=== PATIENT | female | born 1950 | race Caucasian/White ===

== ENCOUNTER 2022-08-22 10:59 | Outpatient (CLI) | payer MEDICARE, OTHER ==
[2022-08-22 11:28] LABS: INR 2.3 (0.8-1.2); PT - PROTHROMBIN TIME 24.7 secs (9.9-12.6)
== END 2022-08-22 11:00 | disposition home or self-care (01) ==
LOC: LAB 10:59
DX: I63.9 Cerebral infarction, unspecified (principal); Z79.01 Long term (current) use of anticoagulants
CPT/HCPCS: 36415; 85610

== ENCOUNTER 2022-08-25 09:36 | Outpatient (CLI) | payer MEDICARE, OTHER ==
--- NOTE | 2022-08-25 14:51 | XRAY Report ---
PROCEDURE: Knee 4 View RT INDICATIONS: UNSPECIFIED INJURY OF UNSPECIFIED MUSCLE(S) TECHNIQUE: 4 views of the right knee(s) were acquired. COMPARISON: None. FINDINGS: Bones: No fractures or dislocations. No suspicious bony lesions. Moderate medial and mild to moder ate lateral patellofemoral compartment narrowing. No erosions. Soft tissues: Moderate joint effusion. No suspicious soft tissue calcifications. IMPRESSION: Tricompartmental arthritic change and effusion. Reviewed by: Adelaida Felix MD on 08/25/2022 2:50 PM PST Approved by: Adelaida Felix MD on 08/25/2022 2:50 PM PST Station ID: [id number]
== END 2022-08-25 09:37 | disposition home or self-care (01) ==
LOC: DI 09:36
PROVIDERS: ATTEND Nurse Practitioner
DX: S86.901A Unspecified injury of unspecified muscle(s) and tendon(s) at lower leg level, right leg, initial encounter (principal); M17.11 Unilateral primary osteoarthritis, right knee

== ENCOUNTER 2022-08-26 15:01 | Emergency (ER) | payer MEDICARE, OTHER ==
--- OUTSIDE RECORDS SUMMARY | 2022-08-26 15:24 | EXTERNAL MEDICAL SUMMARY RPT | Continuity of Care Document ---
:1950 Author Organization [facility] Address [address] [place] [address] Phone Care Team Providers Name Role Phone Unavailable Unavailable Unavailable CHRISTIN GARCIA Unavailable Unavailable Katy Trimble Unavailable Unavailable Allergies and Intolerances date description facility type (no date) phenazopyridine [facility] (unknown) (no date) prednisone [facility] (unknown) (no date) procaine [facility] (unknown) (no date) rizatriptan [facility] (unknown) (no date) shellfish derived [facility] (unknown) (no date) tetracycline [facility] (unknown) (no date) thiopental [facility] (unknown) Encounters No information. Functional Status No information. Immunizations No information. 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 2022-06-24 11:29:09 Cerebral infarction, unspecified [facility] 2022-06-24 11:29:09 Encounter for therapeutic drug [facility] level monitoring 2022-06-24 11:29:09 [facility] (current) use of [facility] anticoagulants 2022-07-08 11:58:25 Cerebral infarction, unspecified [facility] 2022-07-08 11:58:25 Encounter for therapeutic drug [facility] level monitoring 2022-07-08 11:58:25 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 2022-07-26 00:00 Acute urinary tract infection [facility] 2022-08-03 00:00 Acute pancreatitis [facility] 2022-08-03 00:00 Acute renal failure [facility] 2022-08-07 08:52 Calculus of ureter [facility] 2022-08-07 08:52 Personal history of urinary calculi [facility] 2022-08-07 12:02 Calculus of ureter [facility] 2022-08-07 12:02 Personal history of urinary calculi [facility] 2022-08-22 12:49:19 Cerebral infarction, unspecified [facility] 2022-08-22 12:49:19 Encounter for therapeutic drug [facility] level monitoring 2022-08-22 12:49:19 [facility] (current) use of [facility] antico[facility] Procedures date description facility 2022-08-02 00:00 CT kidney, ureter and bladder [facility]22-[facility]-06 00:00 Ultrasound of peripheral veins of [facility] left upper extremity 2022-08-02 00:00 US abdomen complete [facility] 2022-06-10 16:05:14 INR ANA CRISTINA EXTERNAL [facility] 2022-06-24 11:29:09 INR ANA CRISTINA EXTERNAL [facility] 2022-07-08 11:58:25 INR ANA CRISTINA EXTERNAL [facility] 2022-08-22 12:49:19 INR ANA CRISTINA EXTERNAL [facility] Results/Labs test date author facility value unit interpret ation Result panel 1 (unknown) (no date[facility]) Result panel 2 (unknown) (no date) (unknown) [place] ([facility]) Result panel 3 (unknown) (no date) (unknown) [place] [facility]) Result panel 4 (unknown) (no date) (unknown[facility]) Result panel 5 (unknown) (no date) (unknown[facility]) Result panel 6 (unknown) (no date) (unknown[facility]) Result panel 7 (unknown) (no date) (unknown[facility]) Result panel 8 (unknown) (no date) (unknown[facility]) Result panel 9 (unknown) (no date) (unknown[facility]) Result panel 10 (unknown) (no date) (unknown[facility]) Result panel 11 (unknown) (no date) (unknown[facility]) Result panel 12 (unknown) (no date) (unknown[facility]) Result panel 13 (unknown) (no date) (unknown[facility]) Result panel 14 (unknown) (no date) (unknown[facility]) Result panel 15 (unknown) (no date) (unknown[facility]) Result panel 16 (unknown) (no date) (unknown[facility]) Result panel 17 (unknown) (no date) (unknown[facility]) Result panel 18 (unknown) (no date) (unknown[facility]) Result panel 19 (unknown) (no date) (unknown[facility]) Result panel 20 (unknown) (no date) (unknown[facility]) Result panel 21 (unknown) (no date) (unknown[facility]) Result panel 22 (unknown) (no date) (unknown[facility]) Result panel 23 (unknown) (no date) (unknown[facility]) Result panel 24 (unknown) (no date) (unknown[facility]) Result panel 25 (unknown) (no date) (unknown[facility]) Result panel 26 (unknown) (no date) (unknown[facility]) Result panel 27 (unknown) (no date) (unknown[facility]) Result panel 28 (unknown) (no date) (unknown[facility]) Result panel 29 (unknown) (no date) (unknown[facility]) Result panel 30 (unknown) (no date) (unknown[facility]) Result panel 31 (unknown) (no date) (unknown[facility]) Result panel 32 (unknown) (no date) (unknown[facility]) Result panel 33 (unknown) (no date) (unknown[facility]) Result panel 34 (unknown) (no date) (unknown[facility]) Result panel 35 (unknown) (no date) (unknown[facility]) Result panel 36 (unknown) (no date) (unknown[facility]) Result panel 37 (unknown) (no date) (unknown[facility]) Result panel 38 (unknown) (no date) (unknown[facility]) Result panel 39 (unknown) (no date) (unknown[facility]) Result panel 40 (unknown) (no date) (unknown[facility]) Result panel 41 (unknown) (no date) (unknown[facility]) Result panel 42 (unknown) (no date) (unknown[facility]) Result panel 43 (unknown) (no date) (unknown[facility]) Result panel 44 (unknown) (no date) (unknown[facility]) Result panel 45 (unknown) (no date) (unknown[facility]) Result panel 46 (unknown) (no date) (unknown[facility]) Result panel 47 (unknown) (no date) (unknown[facility]) Result panel 48 (unknown) (no date) (unknown[facility]) Result panel 49 (unknown) (no date) (unknown[facility]) Result panel 50 (unknown) (no date) (unknown[facility]) Result panel 51 (unknown) (no date) (unknown[facility]) Result panel 52 (unknown) (no date) (unknown[facility]) Result panel 53 (unknown) (no date) (unknown[facility]) Result panel 54 (unknown) (no date) (unknown[facility]) Result panel 55 (unknown) (no date) (unknown[facility]) Result panel 56 (unknown) (no date) (unknown[facility]) Result panel 57 (unknown) (no date) (unknown[facility]) Result panel 58 (unknown) (no date) (unknown[facility]) Result panel 59 (unknown) (no date) (unknown[facility]) Result panel 60 (unknown) (no date) (unknown[facility]) Result panel 61 (unknown) (no date) (unknown[facility]) Result panel 62 (unknown) (no date) (unknown[facility]) Result panel 63 (unknown) (no date) (unknown[facility]) Result panel 64 (unknown) (no date) (unknown[facility]) Result panel 65 (unknown) (no date) (unknown[facility]) Result panel 66 (unknown) (no date) (unknown[facility]) Result panel 67 (unknown) (no date) (unknown[facility]) Result panel 68 (unknown) (no date) (unknown[facility]) Result panel 69 (unknown) (no date) (unknown[facility]) Result panel 70 (unknown) (no date) (unknown[facility]) Result panel 71 (unknown) (no date) (unknown[facility]) Result panel 72 (unknown) (no date) (unknown[facility]) Result panel 73 (unknown) (no date) (unknown[facility]) Result panel 74 (unknown) (no date) (unknown[facility]) Result panel 75 (unknown) (no date) (unknown[facility]) Result panel 76 (unknown) (no date) (unknown[facility]) Result panel 77 (unknown) (no date) (unknown[facility]) Result panel 78 (unknown) (no date) (unknown[facility]) Result panel 79 (unknown) (no date) (unknown[facility]) Result panel 80 (unknown) (no date) (unknown[facility]) Result panel 81 (unknown) (no date) (unknown[facility]) Result panel 82 (unknown) (no date) (unknown[facility]) Result panel 83 (unknown) (no date) (unknown[facility]) Result panel 84 (unknown) (no date) (unknown[facility]) Result panel 85 (unknown) (no date) (unknown[facility]) Result panel 86 (unknown) (no date) (unknown[facility]) Result panel 87 (unknown) (no date) (unknown[facility]) Result panel 88 (unknown) (no date) (unknown[facility]) Result panel 89 (unknown) (no date) (unknown[facility]) Result panel 90 (unknown) (no date) (unknown[facility]) Result panel 91 (unknown) (no date) (unknown[facility]) Result panel 92 (unknown) (no date) (unknown[facility]) Result panel 93 (unknown) (no date) (unknown[facility]) Result panel 94 (unknown) (no date) (unknown[facility]) Result panel 95 (unknown) (no date) (unknown[facility]) Result panel 96 (unknown) (no date) (unknown[facility]) Result panel 97 (unknown) (no date) (unknown[facility]) Result panel 98 (unknown) (no date) (unknown[facility]) Result panel 99 (unknown) (no date) (unknown[facility]) Result panel 100 (unknown) (no date) (unknown[facility]) Result panel 101 (unknown) (no date) (unknown[facility]) Result panel 102 (unknown) (no date) (unknown[facility]) Result panel 103 (unknown) (no date) (unknown[facility]) Result panel 104 (unknown) (no date) (unknown[facility]) Result panel 105 (unknown) (no date) (unknown[facility]) Result panel 106 (unknown) (no date) (unknown[facility]) Result panel 107 (unknown) (no date) (unknown[facility]) Result panel 108 (unknown) (no date) (unknown[facility]) Result panel 109 (unknown) (no date) (unknown[facility]) Result panel 110 (unknown) (no date) (unknown[facility]) Result panel 111 (unknown) (no date) (unknown[facility]) Result panel 112 (unknown) (no date) (unknown[facility]) Result panel 113 (unknown) (no date) (unknown[facility]) Result panel 114 (unknown) (no date) (unknown[facility]) Result panel 115 (unknown) (no date) (unknown[facility]) Result panel 116 (unknown) (no date) (unknown[facility]) Result panel 117 (unknown) (no date) (unknown[facility]) Result panel 118 (unknown) (no date) (unknown[facility]) Result panel 119 (unknown) (no date) (unknown[facility]) Result panel 120 (unknown) (no date) (unknown[facility]) Result panel 121 (unknown) (no date) (unknown[facility]) Result panel 122 (unknown) (no date) (unknown[facility]) Result panel 123 (unknown) (no date) (unknown[facility]) Result panel 124 (unknown) (no date) (unknown[facility]) Result panel 125 (unknown) (no date) (unknown[facility]) Result panel 126 (unknown) (no date) (unknown[facility]) Result panel 127 (unknown) (no date) (unknown[facility]) Result panel 128 (unknown) (no date) (unknown[facility]) Result panel 129 (unknown) (no date) (unknown[facility]) Result panel 130 (unknown) (no date) (unknown[facility]) Result panel 131 (unknown) (no date) (unknown[facility]) Result panel 132 (unknown) (no date) (unknown[facility]) Result panel 133 (unknown) (no date) (unknown[facility]) Result panel 134 (unknown) (no date) (unknown[facility]) Result panel 135 (unknown) (no date) (unknown[facility]) Result panel 136 (unknown) (no date) (unknown[facility]) Result panel 137 (unknown) (no date) (unknown[facility]) Result panel 138 (unknown) (no date) (unknown[facility]) Result panel 139 (unknown) (no date) (unknown) [facility]) Result panel 140 (unknown) (no date) (unknown[facility]) Result panel 141 (unknown) (no date) (unknown[facility]) Result panel 142 (unknown) (no date) (unknown) [facility]) Result panel 143 (unknown) (no date) (unknown[facility]) Result panel 144 (unknown) (no date) (unknown[facility]) Result panel 145 (unknown) (no date) (unknown[facility]) Result panel 146 (unknown) (no date) (unknown[facility]) Result panel 147 (unknown) (no date) (unknown[facility]) Result panel 148 (unknown) (no date) (unknown[facility]) Result panel 149 (unknown) (no date) (unknown[facility]) Result panel 150 (unknown) (no date) (unknown[facility]) Result panel 151 (unknown) (no date) (unknown) [facility]) Result panel 152 (unknown) (no date) (unknown[facility]) Result panel 153 (unknown) (no date) (unknown[facility]) Result panel 154 (unknown) (no date) (unknown[facility]) Result panel 155 (unknown) (no date) (unknown[facility]) Result panel 156 (unknown) (no date) (unknown[facility]) Result panel 157 (unknown) (no date) (unknown) [facility]) Result panel 158 (unknown) (no date) (unknown[facility]) Result panel 159 (unknown) (no date) (unknown[facility]) Result panel 160 (unknown) (no date) (unknown[facility]) Result panel 161 (unknown) (no date) (unknown) [facility]) Result panel 162 (unknown) (no date) (unknown[facility]) Result panel 163 (unknown) (no date) (unknown[facility]) Result panel 164 (unknown) (no date) (unknown[facility]) Result panel 165 (unknown) (no date) (unknown[facility]) Result panel 166 (unknown) (no (unknown) (unknown) (no value) (units (unk nown) date) unknown) (unknown) (no (unknown) (unknown) 0.4 mg PO BEDTIME (units (unknown) date) Qty: 60 0RF unknown) (unknown) (no (unknown) (unknown) [id number] (units (unkno wn) date) unknown) (unknown) (no (unknown) (unknown) 1 g vaginal 2XW (units (unknown) date) Qty: 42.5 3RF unknown) (unknown) (no (unknown) (unknown) 1,000 mg PO BID (units (unknown) date) unknown) (unknown) (no (unknown) (unknown) 125 mcg PO DAILY (units (unknown) date) unknown) (unknown) (no (unknown) (unknown) 2 mg PO 2XW (units (un known) date) unknown) (unknown) (no (unknown) (unknown) 20 mg PO 6XW (units (u nknown) date) unknown) (unknown) (no (unknown) (unknown) 250 mg PO BEDTIME (units (unknown) date) Qty: 60 0RF unknown) (unknown) (no (unknown) (unknown) 3 g PO ONCE Qty: (units (unknown) date) 1 0RF unknown) (unknown) (no (unknown) (unknown) 3 mg PO 5XW (units (un known) date) unknown) (unknown) (no (unknown) (unknown) 40 mg PO DAILY (units (unknown) date) unknown) (unknown) (no (unknown) (unknown) 40 mg PO WEEKLY (units (unknown) date) unknown) (unknown) (no (unknown) (unknown) 5 mg PO Q4H PRN (units (unknown) date) (Reason: pain) unknown) Qty: 20 0RF (unknown) (no (unknown) (unknown) 5,000 mcg (units (unkn own) date) sublingual DAILY unknown) (unknown) (no (unknown) (unknown) 50 mcg INHALATION (units (unknown) date) Q8HR unknown) (unknown) (no (unknown) (unknown) 50 mg PO DAILY (units (unknown) date) unknown) (unknown) (no (unknown) (unknown) 6.25 mg PO BID (units (unknown) date) unknown) (unknown) (no (unknown) (unknown) 99 mg PO DAILY (units (unknown) date) unknown) (unknown) (no (unknown) (unknown) AICD (automatic (units (unknown) date) cardioverter/defib unknown) rillator) present (11/29/20) (unknown) (no (unknown) (unknown) Acute kidney (units (u nknown) date) injury unknown) (unknown) (no (unknown) (unknown) Afib (units (unkno wn) date) unknown) (unknown) (no (unknown) (unknown) Age/Sex: 71 / F (units (unknown) date) unknown) (unknown) (no (unknown) (unknown) Allergies (units (unkn own) date) unknown) (unknown) (no (unknown) (unknown) Allergy/AdvReac (units (unknown) date) Type Severity unknown) Reaction Status Date / Time (unknown) (no (unknown) (unknown) CHF (congestive (units (unknown) date) heart failure) unknown) (unknown) (no (unknown) (unknown) CVA (cerebral (units ( unknown) date) vascular accident) unknown) (unknown) (no (unknown) (unknown) Cardiac arrest (units (unknown) date) (11/29/20) unknown) (unknown) (no (unknown) (unknown) Cardiomyopathy (units (unknown) date) unknown) (unknown) (no (unknown) (unknown) : 1950 (units (unknown) date) Acct:[id number] unknown) (unknown) (no (unknown) (unknown) Date of Service: (units (unknown) date) 07/26/22 unknown) (unknown) (no (unknown) (unknown) Departure (units (unkn own) date) unknown) (unknown) (no (unknown) (unknown) Diabetes (units (unkno wn) date) unknown) (unknown) (no (unknown) (unknown) Discharge Plan (units (unknown) date) unknown) (unknown) (no (unknown) (unknown) ER Physician: (units ( unknown) date) Shiela Hdz D.O. unknown) (unknown) (no (unknown) (unknown) Emergency Report (units (unknown) date) unknown) (unknown) (no (unknown) (unknown) General (units (unkno wn) date) unknown) (unknown) (no (unknown) (unknown) HLD (units (unkno wn) date) (hyperlipidemia) unknown) (unknown) (no (unknown) (unknown) HPI - Female (units (u nknown) date) Genitourinary unknown) (unknown) (no (unknown) (unknown) HTN (units (unkno wn) date) (hypertension) unknown) (unknown) (no (unknown) (unknown) History of UTI (units (unknown) date) unknown) (unknown) (no (unknown) (unknown) History of colon (units (unknown) date) surgery unknown) (unknown) (no (unknown) (unknown) History of (units (unk nown) date) colonoscopy unknown) (unknown) (no (unknown) (unknown) History of (units (unk nown) date) hysterectomy unknown) (unknown) (no (unknown) (unknown) History of (units (unk nown) date) nephrolithiasis unknown) (unknown) (no (unknown) (unknown) History of (units (unk nown) date) thyroidectomy, unknown) subtotal (unknown) (no (unknown) (unknown) Home Medications (units (unknown) date) unknown) (unknown) (no (unknown) (unknown) Hx of (units (unkno wn) date) appendectomy unknown) (unknown) (no (unknown) (unknown) Hx of breast (units (u nknown) date) surgery unknown) (unknown) (no (unknown) (unknown) Hx of cystoscopy (units (unknown) date) (06/20/21) unknown) (unknown) (no (unknown) (unknown) Hx of eye surgery (units (unknown) date) unknown) (unknown) (no (unknown) (unknown) Insert 1 g (units (unk nown) date) intravaginally at unknown) HS times 12 days then 1 g intravaginally at HS (unknown) (no (unknown) (unknown) [facility] (units (unknown) date) [address] unknown) [place] [id number] (unknown) (no (unknown) (unknown) Label Comments: (units (unknown) date) unknown) (unknown) (no (unknown) (unknown) Left ureteral (units ( unknown) date) calculus unknown) (unknown) (no (unknown) (unknown) Limitations: no (units (unknown) date) limitations unknown) (unknown) (no (unknown) (unknown) Medical History (units (unknown) date) (Reviewed 07/26/22 unknown) @ 07:22 by Shiela Hdz DO) (unknown) (no (unknown) (unknown) Medication (units (unk nown) date) Instructions unknown) Recorded Confirmed (unknown) (no (unknown) (unknown) Medication (units (unk nown) date) Instructions unknown) Recorded (unknown) (no (unknown) (unknown) Miscellaneous,Doc (units (unknown) date) MD benita [Primary unknown) Care Provider] (unknown) (no (unknown) (unknown) Mode of arrival: (units (unknown) date) Ambulatory unknown) (unknown) (no (unknown) (unknown) No Action (units (unkn own) date) unknown) (unknown) (no (unknown) (unknown) Patient History (units (unknown) date) unknown) (unknown) (no (unknown) (unknown) Patient: (units (unkno wn) date) Natasha Jaquez K unknown) MR#: [id number] (unknown) (no (unknown) (unknown) Please take this (units (unknown) date) the morning of unknown) August 04, 2021. (unknown) (no (unknown) (unknown) Postmenopausal (units (unknown) date) atrophic vaginitis unknown) (unknown) (no (unknown) (unknown) Prescriptions: (units (unknown) date) unknown) (unknown) (no (unknown) (unknown) Previous Rx's (units ( unknown) date) unknown) (unknown) (no (unknown) (unknown) ROS Unobtainable: (units (unknown) date) All systems unknown) reviewed + are unremarkable except as noted in HPI (unknown) (no (unknown) (unknown) Referrals: (units (unk nown) date) unknown) (unknown) (no (unknown) (unknown) Related Data (units (u nknown) date) unknown) (unknown) (no (unknown) (unknown) Retained ureteral (units (unknown) date) stent unknown) (unknown) (no (unknown) (unknown) Review of Systems (units (unknown) date) unknown) (unknown) (no (unknown) (unknown) Rx Instructions: (units (unknown) date) unknown) (unknown) (no (unknown) (unknown) SVT (units (unkno wn) date) (supraventricular unknown) tachycardia) (unknown) (no (unknown) (unknown) Signed By: (units (unk nown) date) unknown) (unknown) (no (unknown) (unknown) Source: patient (units (unknown) date) unknown) (unknown) (no (unknown) (unknown) Start after 5 day (units (unknown) date) course of 2 caps unknown) daily is complete. (unknown) (no (unknown) (unknown) Stated complaint: (units (unknown) date) think she has unknown) bladder infection t-4 (unknown) (no (unknown) (unknown) Substance Use (units ( unknown) date) Type: does not use unknown) (unknown) (no (unknown) (unknown) Surgical History (units (unknown) date) (Reviewed 07/26/22 unknown) @ 07:22 by Shiela Hdz DO) (unknown) (no (unknown) (unknown) Time Seen by (units (u nknown) date) Provider: 07/26/22 unknown) 07:15 (unknown) (no (unknown) (unknown) [From Pyridium] (units (unknown) date) unknown) (unknown) (no (unknown) (unknown) alcohol intake (units (unknown) date) frequency: 0-2 unknown) drinks per day (unknown) (no (unknown) (unknown) and below (units (unkn own) date) unknown) (unknown) (no (unknown) (unknown) biotin 5,000 mcg (units (unknown) date) Tablet, Sublingual unknown) (unknown) (no (unknown) (unknown) biotin 5,000 mcg (units (unknown) date) sublingual tablet unknown) 5,000 mcg sublingual DAILY 06/20/21 08/12/21 (unknown) (no (unknown) (unknown) breath activated (units (unknown) date) powder inhaler unknown) (unknown) (no (unknown) (unknown) budesonide 200 (units (unknown) date) mcg/actuation 50 unknown) mcg inhalation Q8HR 06/20/21 08/12/21 (unknown) (no (unknown) (unknown) budesonide 200 (units (unknown) date) mcg/actuation unknown) Aerosol Powdr Breath Activated (unknown) (no (unknown) (unknown) carvedilol 6.25 (units (unknown) date) mg Tablet unknown) (unknown) (no (unknown) (unknown) carvedilol 6.25 (units (unknown) date) mg tablet 6.25 mg unknown) PO BID 06/20/21 08/12/21 (unknown) (no (unknown) (unknown) cholecalciferol (units (unknown) date) (vitamin D3) 125 unknown) 125 mcg PO DAILY 06/20/21 08/12/21 (unknown) (no (unknown) (unknown) cholecalciferol (units (unknown) date) (vitamin D3) 125 unknown) mcg (5,000 unit) Tablet (unknown) (no (unknown) (unknown) ciprofloxacin HCl (units (unknown) date) 250 mg tablet 250 unknown) mg PO BEDTIME #60 tabs 09/02/21 (unknown) (no (unknown) (unknown) ciprofloxacin HCl (units (unknown) date) 250 mg tablet unknown) (unknown) (no (unknown) (unknown) estradiol 0.01% (units (unknown) date) (0.1 mg/gram) 1 g unknown) vaginal 2XW #42.5 grams 08/19/21 (unknown) (no (unknown) (unknown) estradiol (units (unkn own) date) [Estrace] 0.01 % unknown) (0.1 mg/gram) cream (unknown) (no (unknown) (unknown) fosfomycin (units (unk nown) date) tromethamine 3 unknown) gram 3 g PO ONCE #1 ea 07/31/21 (unknown) (no (unknown) (unknown) fosfomycin (units (unk nown) date) tromethamine 3 unknown) gram 3 g PO ONCE #1 ea 08/01/21 (unknown) (no (unknown) (unknown) fosfomycin (units (unk nown) date) tromethamine 3 unknown) gram packet (unknown) (no (unknown) (unknown) furosemide 20 mg (units (unknown) date) Tablet unknown) (unknown) (no (unknown) (unknown) furosemide 20 mg (units (unknown) date) tablet 20 mg PO unknown) 6XW 06/20/21 08/12/21 (unknown) (no (unknown) (unknown) furosemide 40 mg (units (unknown) date) Tablet unknown) (unknown) (no (unknown) (unknown) furosemide 40 mg (units (unknown) date) tablet 40 mg PO unknown) WEEKLY 06/20/21 08/12/21 (unknown) (no (unknown) (unknown) losartan 50 mg (units (unknown) date) Tablet unknown) (unknown) (no (unknown) (unknown) losartan 50 mg (units (unknown) date) tablet 50 mg PO unknown) DAILY 06/20/21 08/12/21 (unknown) (no (unknown) (unknown) mcg (5,000 unit) (units (unknown) date) tablet unknown) (unknown) (no (unknown) (unknown) metformin 500 mg (units (unknown) date) Tablet unknown) (unknown) (no (unknown) (unknown) metformin 500 mg (units (unknown) date) tablet 1,000 mg PO unknown) BID 07/26/21 08/12/21 (unknown) (no (unknown) (unknown) must administer (units (unknown) date) with a meal/food unknown) (unknown) (no (unknown) (unknown) oral packet (units (un known) date) unknown) (unknown) (no (unknown) (unknown) oxycodone 5 mg (units (unknown) date) tablet 5 mg PO Q4H unknown) PRN pain #20 tabs 07/26/21 (unknown) (no (unknown) (unknown) oxycodone 5 mg (units (unknown) date) tablet unknown) (unknown) (no (unknown) (unknown) phenazopyridine (units (unknown) date) Allergy Verified unknown) 08/12/21 08:17 (unknown) (no (unknown) (unknown) potassium 99 mg (units (unknown) date) Tablet unknown) (unknown) (no (unknown) (unknown) potassium 99 mg (units (unknown) date) tablet 99 mg PO unknown) DAILY 07/26/21 08/12/21 (unknown) (no (unknown) (unknown) rosuvastatin 40 (units (unknown) date) mg Tablet unknown) (unknown) (no (unknown) (unknown) rosuvastatin 40 (units (unknown) date) mg tablet 40 mg PO unknown) DAILY 06/20/21 08/12/21 (unknown) (no (unknown) (unknown) takes 4 puffs (units ( unknown) date) qhs-(Pulmacort) unknown) (unknown) (no (unknown) (unknown) takes it 5x/week (units (unknown) date) unknown) (unknown) (no (unknown) (unknown) tamsulosin 0.4 mg (units (unknown) date) capsule 0.4 mg PO unknown) BEDTIME #60 caps 06/21/21 (unknown) (no (unknown) (unknown) tamsulosin 0.4 mg (units (unknown) date) capsule unknown) (unknown) (no (unknown) (unknown) tetracycline (units (u nknown) date) Allergy Severe unknown) ITCHING Verified 08/12/21 08:17 (unknown) (no (unknown) (unknown) twice weekly (units (u nknown) date) thereafter. unknown) (unknown) (no (unknown) (unknown) vaginal cream (units ( unknown) date) (Estrace) unknown) (unknown) (no (unknown) (unknown) warfarin 2 mg (units ( unknown) date) Tablet unknown) (unknown) (no (unknown) (unknown) warfarin 2 mg (units ( unknown) date) tablet 2 mg PO 2XW unknown) 06/20/21 08/12/21 (unknown) (no (unknown) (unknown) warfarin 3 mg (units ( unknown) date) Tablet unknown) (unknown) (no (unknown) (unknown) warfarin 3 mg (units ( unknown) date) tablet 3 mg PO 5XW unknown) 06/20/21 08/12/21 Result panel 167 (unknown) (no (unknown) (unknown) (no value) (units (unk nown) date) unknown) (unknown) (no (unknown) (unknown) 0.4 mg PO BEDTIME (units (unknown) date) Qty: 60 0RF unknown) (unknown) (no (unknown) (unknown) [id number] (units (unkno wn) date) unknown) (unknown) (no (unknown) (unknown) 07:20 (units (unkno wn) date) unknown) (unknown) (no (unknown) (unknown) 1 g vaginal 2XW (units (unknown) date) Qty: 42.5 3RF unknown) (unknown) (no (unknown) (unknown) 1,000 mg PO BID (units (unknown) date) unknown) (unknown) (no (unknown) (unknown) 07/26/22 07:20 (units (unknown) date) unknown) (unknown) (no (unknown) (unknown) 07/26/22 (units (unkno wn) date) unknown) (unknown) (no (unknown) (unknown) 125 mcg PO DAILY (units (unknown) date) unknown) (unknown) (no (unknown) (unknown) 2 mg PO 2XW (units (un known) date) unknown) (unknown) (no (unknown) (unknown) 20 mg PO 6XW (units (u nknown) date) unknown) (unknown) (no (unknown) (unknown) 250 mg PO BEDTIME (units (unknown) date) Qty: 60 0RF unknown) (unknown) (no (unknown) (unknown) 3 g PO ONCE Qty: (units (unknown) date) 1 0RF unknown) (unknown) (no (unknown) (unknown) 3 mg PO 5XW (units (un known) date) unknown) (unknown) (no (unknown) (unknown) 40 mg PO DAILY (units (unknown) date) unknown) (unknown) (no (unknown) (unknown) 40 mg PO WEEKLY (units (unknown) date) unknown) (unknown) (no (unknown) (unknown) 5 mg PO Q4H PRN (units (unknown) date) (Reason: pain) unknown) Qty: 20 0RF (unknown) (no (unknown) (unknown) 5,000 mcg (units (unkn own) date) sublingual DAILY unknown) (unknown) (no (unknown) (unknown) 50 mcg INHALATION (units (unknown) date) Q8HR unknown) (unknown) (no (unknown) (unknown) 50 mg PO DAILY (units (unknown) date) unknown) (unknown) (no (unknown) (unknown) 6.25 mg PO BID (units (unknown) date) unknown) (unknown) (no (unknown) (unknown) 99 mg PO DAILY (units (unknown) date) unknown) (unknown) (no (unknown) (unknown) AICD (automatic (units (unknown) date) cardioverter/defib unknown) rillator) present (11/29/20) (unknown) (no (unknown) (unknown) Acute kidney (units (u nknown) date) injury unknown) (unknown) (no (unknown) (unknown) Afib (units (unkno wn) date) unknown) (unknown) (no (unknown) (unknown) Age/Sex: 71 / F (units (unknown) date) unknown) (unknown) (no (unknown) (unknown) Allergies (units (unkn own) date) unknown) (unknown) (no (unknown) (unknown) Allergy/AdvReac (units (unknown) date) Type Severity unknown) Reaction Status Date / Time (unknown) (no (unknown) (unknown) Bedside Urine (units ( unknown) date) Bilirubin - unknown) Negative (unknown) (no (unknown) (unknown) Bedside Urine (units ( unknown) date) Glucose Negative unknown) (unknown) (no (unknown) (unknown) Bedside Urine (units ( unknown) date) Ketone - Negative unknown) (unknown) (no (unknown) (unknown) Bedside Urine (units ( unknown) date) Leukocytes - unknown) Negative (unknown) (no (unknown) (unknown) Bedside Urine (units ( unknown) date) Nitrite - Negative unknown) (unknown) (no (unknown) (unknown) Bedside Urine (units ( unknown) date) Occult Blood unknown) (unknown) (no (unknown) (unknown) Bedside Urine (units ( unknown) date) Protein ++ 100 unknown) (unknown) (no (unknown) (unknown) Bedside Urine (units ( unknown) date) Urobilinogen - unknown) Negative (unknown) (no (unknown) (unknown) Bedside Urine pH (units (unknown) date) 6.0 unknown) (unknown) (no (unknown) (unknown) Blood Pressure (units (unknown) date) 137/90 07/26/22 unknown) 07:20 (unknown) (no (unknown) (unknown) Blood Pressure (units (unknown) date) 137 unknown) (unknown) (no (unknown) (unknown) CHF (congestive (units (unknown) date) heart failure) unknown) (unknown) (no (unknown) (unknown) CVA (cerebral (units ( unknown) date) vascular accident) unknown) (unknown) (no (unknown) (unknown) Cardiac arrest (units (unknown) date) (11/29/20) unknown) (unknown) (no (unknown) (unknown) Cardiomyopathy (units (unknown) date) unknown) (unknown) (no (unknown) (unknown) Chief complaint: (units (unknown) date) Urogenital-Female unknown) (unknown) (no (unknown) (unknown) Cipro and Bactrim (units (unknown) date) at that time. unknown) (unknown) (no (unknown) (unknown) Course (units (unkno wn) date) unknown) (unknown) (no (unknown) (unknown) : 1950 (units (unknown) date) Acct:[id number] unknown) (unknown) (no (unknown) (unknown) Date of Service: (units (unknown) date) 07/26/22 unknown) (unknown) (no (unknown) (unknown) Departure (units (unkn own) date) unknown) (unknown) (no (unknown) (unknown) Diabetes (units (unkno wn) date) unknown) (unknown) (no (unknown) (unknown) Discharge Plan (units (unknown) date) unknown) (unknown) (no (unknown) (unknown) ED Orders (units (unkn own) date) unknown) (unknown) (no (unknown) (unknown) ER Physician: (units ( unknown) date) Shiela Hdz D.O. unknown) (unknown) (no (unknown) (unknown) Emergency Report (units (unknown) date) unknown) (unknown) (no (unknown) (unknown) Esterase (units (unkno wn) date) unknown) (unknown) (no (unknown) (unknown) Exam (units (unkno wn) date) unknown) (unknown) (no (unknown) (unknown) General (units (unkno wn) date) unknown) (unknown) (no (unknown) (unknown) HLD (units (unkno wn) date) (hyperlipidemia) unknown) (unknown) (no (unknown) (unknown) HPI - Female (units (u nknown) date) Genitourinary unknown) (unknown) (no (unknown) (unknown) HPI Narrative: (units (unknown) date) unknown) (unknown) (no (unknown) (unknown) HTN (units (unkno wn) date) (hypertension) unknown) (unknown) (no (unknown) (unknown) History of (units (unk nown) date) Present Illness unknown) (unknown) (no (unknown) (unknown) History of UTI (units (unknown) date) unknown) (unknown) (no (unknown) (unknown) History of colon (units (unknown) date) surgery unknown) (unknown) (no (unknown) (unknown) History of (units (unk nown) date) colonoscopy unknown) (unknown) (no (unknown) (unknown) History of (units (unk nown) date) hysterectomy unknown) (unknown) (no (unknown) (unknown) History of (units (unk nown) date) nephrolithiasis unknown) (unknown) (no (unknown) (unknown) History of (units (unk nown) date) thyroidectomy, unknown) subtotal (unknown) (no (unknown) (unknown) Home Medications (units (unknown) date) unknown) (unknown) (no (unknown) (unknown) Hx of (units (unkno wn) date) appendectomy unknown) (unknown) (no (unknown) (unknown) Hx of breast (units (u nknown) date) surgery unknown) (unknown) (no (unknown) (unknown) Hx of cystoscopy (units (unknown) date) (06/20/21) unknown) (unknown) (no (unknown) (unknown) Hx of eye surgery (units (unknown) date) unknown) (unknown) (no (unknown) (unknown) Initial Vital (units ( unknown) date) Signs unknown) (unknown) (no (unknown) (unknown) Initial Vital (units ( unknown) date) Signs: unknown) (unknown) (no (unknown) (unknown) Insert 1 g (units (unk nown) date) intravaginally at unknown) HS times 12 days then 1 g intravaginally at HS (unknown) (no (unknown) (unknown) [facility] (units (unknown) date) [address] unknown) [place] [address] (unknown) (no (unknown) (unknown) Lab Data (units (unkno wn) date) unknown) (unknown) (no (unknown) (unknown) Label Comments: (units (unknown) date) unknown) (unknown) (no (unknown) (unknown) Labs: (units (unkno wn) date) unknown) (unknown) (no (unknown) (unknown) Left ureteral (units ( unknown) date) calculus unknown) (unknown) (no (unknown) (unknown) Limitations: no (units (unknown) date) limitations unknown) (unknown) (no (unknown) (unknown) MDM - Female (units (u nknown) date) Genitourinary unknown) (unknown) (no (unknown) (unknown) Medical History (units (unknown) date) (Reviewed 07/26/22 unknown) @ 07:22 by Shiela Hdz DO) (unknown) (no (unknown) (unknown) Medication (units (unk nown) date) Instructions unknown) Recorded Confirmed (unknown) (no (unknown) (unknown) Medication (units (unk nown) date) Instructions unknown) Recorded (unknown) (no (unknown) (unknown) Miscellaneous,Doc (units (unknown) date) MD benita [Primary unknown) Care Provider] (unknown) (no (unknown) (unknown) Mode of arrival: (units (unknown) date) Ambulatory unknown) (unknown) (no (unknown) (unknown) No Action (units (unkn own) date) unknown) (unknown) (no (unknown) (unknown) Ordered: (units (unkno wn) date) unknown) (unknown) (no (unknown) (unknown) Orders (units (unkno wn) date) unknown) (unknown) (no (unknown) (unknown) Oxygen Delivery (units (unknown) date) Method 07/26/22 unknown) 07:20 (unknown) (no (unknown) (unknown) Oxygen Delivery (units (unknown) date) Method Room Air unknown) (unknown) (no (unknown) (unknown) Patient History (units (unknown) date) unknown) (unknown) (no (unknown) (unknown) Patient had (units (unk nown) date) straight cath unknown) obtained in the urology office on 08/26/2021 which had (unknown) (no (unknown) (unknown) Patient: (units (unkno wn) date) Natasha Jaquez unknown) MR#: [id number] (unknown) (no (unknown) (unknown) Please take this (units (unknown) date) the morning of unknown) August 04, 2021. (unknown) (no (unknown) (unknown) Postmenopausal (units (unknown) date) atrophic vaginitis unknown) (unknown) (no (unknown) (unknown) Prescriptions: (units (unknown) date) unknown) (unknown) (no (unknown) (unknown) Previous Rx's (units ( unknown) date) unknown) (unknown) (no (unknown) (unknown) Pulse Oximetry 96 (units (unknown) date) 07/26/22 07:20 unknown) (unknown) (no (unknown) (unknown) Pulse Oximetry 96 (units (unknown) date) unknown) (unknown) (no (unknown) (unknown) Pulse Rate 65 (units ( unknown) date) 07/26/22 07:20 unknown) (unknown) (no (unknown) (unknown) Pulse Rate 65 (units ( unknown) date) unknown) (unknown) (no (unknown) (unknown) ROS Unobtainable: (units (unknown) date) All systems unknown) reviewed + are unremarkable except as noted in HPI (unknown) (no (unknown) (unknown) Referrals: (units (unk nown) date) unknown) (unknown) (no (unknown) (unknown) Related Data (units (u nknown) date) unknown) (unknown) (no (unknown) (unknown) Respiratory Rate (units (unknown) date) 17 07/26/22 07:20 unknown) (unknown) (no (unknown) (unknown) Respiratory Rate (units (unknown) date) 17 unknown) (unknown) (no (unknown) (unknown) Retained ureteral (units (unknown) date) stent unknown) (unknown) (no (unknown) (unknown) Review of Systems (units (unknown) date) unknown) (unknown) (no (unknown) (unknown) Rx Instructions: (units (unknown) date) unknown) (unknown) (no (unknown) (unknown) SVT (units (unkno wn) date) (supraventricular unknown) tachycardia) (unknown) (no (unknown) (unknown) Signed By: (units (unk nown) date) unknown) (unknown) (no (unknown) (unknown) Source: patient (units (unknown) date) unknown) (unknown) (no (unknown) (unknown) Start after 5 day (units (unknown) date) course of 2 caps unknown) daily is complete. (unknown) (no (unknown) (unknown) Stated complaint: (units (unknown) date) think she has unknown) bladder infection t-4 (unknown) (no (unknown) (unknown) Substance Use (units ( unknown) date) Type: does not use unknown) (unknown) (no (unknown) (unknown) Surgical History (units (unknown) date) (Reviewed 07/26/22 unknown) @ 07:22 by Shiela Hdz DO) (unknown) (no (unknown) (unknown) Temperature 97.7 (units (unknown) date) F 07/26/22 07:20 unknown) (unknown) (no (unknown) (unknown) Temperature 97.7 (units (unknown) date) F unknown) (unknown) (no (unknown) (unknown) Time Seen by (units (u nknown) date) Provider: 07/26/22 unknown) 07:15 (unknown) (no (unknown) (unknown) Urinalysis and (units (unknown) date) Microscopic Stat unknown) (unknown) (no (unknown) (unknown) Urine Dip (units (unkn own) date) unknown) (unknown) (no (unknown) (unknown) Urine Specific (units (unknown) date) [place] 1.015 unknown) (unknown) (no (unknown) (unknown) Vital Signs - 8 (units (unknown) date) hr unknown) (unknown) (no (unknown) (unknown) Vital Signs (units (un known) date) unknown) (unknown) (no (unknown) (unknown) Vital signs: (units (u nknown) date) unknown) (unknown) (no (unknown) (unknown) [From Pyridium] (units (unknown) date) unknown) (unknown) (no (unknown) (unknown) alcohol intake (units (unknown) date) frequency: 0-2 unknown) drinks per day (unknown) (no (unknown) (unknown) and below (units (unkn own) date) unknown) (unknown) (no (unknown) (unknown) biotin 5,000 mcg (units (unknown) date) Tablet, Sublingual unknown) (unknown) (no (unknown) (unknown) biotin 5,000 mcg (units (unknown) date) sublingual tablet unknown) 5,000 mcg sublingual DAILY 06/20/21 08/12/21 (unknown) (no (unknown) (unknown) breath activated (units (unknown) date) powder inhaler unknown) (unknown) (no (unknown) (unknown) budesonide 200 (units (unknown) date) mcg/actuation 50 unknown) mcg inhalation Q8HR 06/20/21 08/12/21 (unknown) (no (unknown) (unknown) budesonide 200 (units (unknown) date) mcg/actuation unknown) Aerosol Powdr Breath Activated (unknown) (no (unknown) (unknown) carvedilol 6.25 (units (unknown) date) mg Tablet unknown) (unknown) (no (unknown) (unknown) carvedilol 6.25 (units (unknown) date) mg tablet 6.25 mg unknown) PO BID 06/20/21 08/12/21 (unknown) (no (unknown) (unknown) cholecalciferol (units (unknown) date) (vitamin D3) 125 unknown) 125 mcg PO DAILY 06/20/21 08/12/21 (unknown) (no (unknown) (unknown) cholecalciferol (units (unknown) date) (vitamin D3) 125 unknown) mcg (5,000 unit) Tablet (unknown) (no (unknown) (unknown) ciprofloxacin HCl (units (unknown) date) 250 mg tablet 250 unknown) mg PO BEDTIME #60 tabs 09/02/21 (unknown) (no (unknown) (unknown) ciprofloxacin HCl (units (unknown) date) 250 mg tablet unknown) (unknown) (no (unknown) (unknown) estradiol 0.01% (units (unknown) date) (0.1 mg/gram) 1 g unknown) vaginal 2XW #42.5 grams 08/19/21 (unknown) (no (unknown) (unknown) estradiol (units (unkn own) date) [Estrace] 0.01 % unknown) (0.1 mg/gram) cream (unknown) (no (unknown) (unknown) fosfomycin (units (unk nown) date) tromethamine 3 unknown) gram 3 g PO ONCE #1 ea 07/31/21 (unknown) (no (unknown) (unknown) fosfomycin (units (unk nown) date) tromethamine 3 unknown) gram 3 g PO ONCE #1 ea 08/01/21 (unknown) (no (unknown) (unknown) fosfomycin (units (unk nown) date) tromethamine 3 unknown) gram packet (unknown) (no (unknown) (unknown) furosemide 20 mg (units (unknown) date) Tablet unknown) (unknown) (no (unknown) (unknown) furosemide 20 mg (units (unknown) date) tablet 20 mg PO unknown) 6XW 06/20/21 08/12/21 (unknown) (no (unknown) (unknown) furosemide 40 mg (units (unknown) date) Tablet unknown) (unknown) (no (unknown) (unknown) furosemide 40 mg (units (unknown) date) tablet 40 mg PO unknown) WEEKLY 06/20/21 08/12/21 (unknown) (no (unknown) (unknown) losartan 50 mg (units (unknown) date) Tablet unknown) (unknown) (no (unknown) (unknown) losartan 50 mg (units (unknown) date) tablet 50 mg PO unknown) DAILY 06/20/21 08/12/21 (unknown) (no (unknown) (unknown) mcg (5,000 unit) (units (unknown) date) tablet unknown) (unknown) (no (unknown) (unknown) metformin 500 mg (units (unknown) date) Tablet unknown) (unknown) (no (unknown) (unknown) metformin 500 mg (units (unknown) date) tablet 1,000 mg PO unknown) BID 07/26/21 08/12/21 (unknown) (no (unknown) (unknown) must administer (units (unknown) date) with a meal/food unknown) (unknown) (no (unknown) (unknown) oral packet (units (un known) date) unknown) (unknown) (no (unknown) (unknown) oxycodone 5 mg (units (unknown) date) tablet 5 mg PO Q4H unknown) PRN pain #20 tabs 07/26/21 (unknown) (no (unknown) (unknown) oxycodone 5 mg (units (unknown) date) tablet unknown) (unknown) (no (unknown) (unknown) phenazopyridine (units (unknown) date) Allergy Verified unknown) 08/12/21 08:17 (unknown) (no (unknown) (unknown) potassium 99 mg (units (unknown) date) Tablet unknown) (unknown) (no (unknown) (unknown) potassium 99 mg (units (unknown) date) tablet 99 mg PO unknown) DAILY 07/26/21 08/12/21 (unknown) (no (unknown) (unknown) rosuvastatin 40 (units (unknown) date) mg Tablet unknown) (unknown) (no (unknown) (unknown) rosuvastatin 40 (units (unknown) date) mg tablet 40 mg PO unknown) DAILY 06/20/21 08/12/21 (unknown) (no (unknown) (unknown) showed (units (unkno wn) date) Enterobacter unknown) greater than 100,000 did have sensitivities to Levaquin, (unknown) (no (unknown) (unknown) takes 4 puffs (units ( unknown) date) qhs-(Pulmacort) unknown) (unknown) (no (unknown) (unknown) takes it 5x/week (units (unknown) date) unknown) (unknown) (no (unknown) (unknown) tamsulosin 0.4 mg (units (unknown) date) capsule 0.4 mg PO unknown) BEDTIME #60 caps 06/21/21 (unknown) (no (unknown) (unknown) tamsulosin 0.4 mg (units (unknown) date) capsule unknown) (unknown) (no (unknown) (unknown) tetracycline (units (u nknown) date) Allergy Severe unknown) ITCHING Verified 08/12/21 08:17 (unknown) (no (unknown) (unknown) twice weekly (units (u nknown) date) thereafter. unknown) (unknown) (no (unknown) (unknown) vaginal cream (units ( unknown) date) (Estrace) unknown) (unknown) (no (unknown) (unknown) warfarin 2 mg (units ( unknown) date) Tablet unknown) (unknown) (no (unknown) (unknown) warfarin 2 mg (units ( unknown) date) tablet 2 mg PO 2XW unknown) 06/20/21 08/12/21 (unknown) (no (unknown) (unknown) warfarin 3 mg (units ( unknown) date) Tablet unknown) (unknown) (no (unknown) (unknown) warfarin 3 mg (units ( unknown) date) tablet 3 mg PO 5XW unknown) 06/20/21 08/12/21 Result panel 168 (unknown) (no date) (unknown) (unknown) 0.2 e.u./dl (unkn own) (unknown) (no date) (unknown) (unknown) 1.015 (units (unkn own) unknown) (unknown) (no date) (unknown) (unknown) 2 (units (unkn own) unknown) (unknown) (no date) (unknown) (unknown) 6.0 (units (unkn own) unknown) (unknown) (no date) (unknown) (unknown) CLEAR (units (unkn own) unknown) (unknown) (no date) (unknown) (unknown) NEGATIVE (units (unkn own) unknown) (unknown) (no date) (unknown) (unknown) NEGATIVE g/dl (unkn own) (unknown) (no date) (unknown) (unknown) YELLOW (units (unkn own) unknown) (unknown) (no date) (unknown) (unknown) YELLOW (units (unkn own) unknown) Result panel 169 (unknown) (no date) (unknown) (unknown) 0.2 e.u./dl (unkn own) (unknown) (no date) (unknown) (unknown) 1-5/HPF (units (unkn own) unknown) (unknown) (no date) (unknown) (unknown) 1-5/HPF (units (unkn own) unknown) (unknown) (no date) (unknown) (unknown) 1.015 (units (unkn own) unknown) (unknown) (no date) (unknown) (unknown) 2 (units (unkn own) unknown) (unknown) (no date) (unknown) (unknown) 6.0 (units (unkn own) unknown) (unknown) (no date) (unknown) (unknown) CLEAR (units (unkn own) unknown) (unknown) (no date) (unknown) (unknown) Cult Not (units (unkn own) Indicated unknown) (unknown) (no date) (unknown) (unknown) NEGATIVE (units (unkn own) unknown) (unknown) (no date) (unknown) (unknown) NEGATIVE g/dl (unkn own) (unknown) (no date) (unknown) (unknown) None Seen (units (unk nown) unknown) (unknown) (no date) (unknown) (unknown) YELLOW (units (unkn own) unknown) (unknown) (no date) (unknown) (unknown) YELLOW (units (unkn own) unknown) Result panel 170 (unknown) (no (unknown) (unknown) (no value) (units (unk nown) date) unknown) (unknown) (no (unknown) (unknown) (Bactrim DS) (units (u nknown) date) unknown) (unknown) (no (unknown) (unknown) 0.4 mg PO BEDTIME (units (unknown) date) Qty: 60 0RF unknown) (unknown) (no (unknown) (unknown) [id number] (units (unkno wn) date) unknown) (unknown) (no (unknown) (unknown) 07:20 (units (unkno wn) date) unknown) (unknown) (no (unknown) (unknown) 1 g vaginal 2XW (units (unknown) date) Qty: 42.5 3RF unknown) (unknown) (no (unknown) (unknown) 1 tab PO BID 7 (units (unknown) date) Days Qty: 14 0RF unknown) (unknown) (no (unknown) (unknown) 1,000 mg PO BID (units (unknown) date) unknown) (unknown) (no (unknown) (unknown) 100,000 did have (units (unknown) date) sensitivities to unknown) Levaquin, Cipro and Bactrim at that time. (unknown) (no (unknown) (unknown) 07/26/22 07:20 (units (unknown) date) unknown) (unknown) (no (unknown) (unknown) 07/26/22 (units (unkno wn) date) Range/Units unknown) (unknown) (no (unknown) (unknown) 07/26/22 (units (unkno wn) date) unknown) (unknown) (no (unknown) (unknown) 125 mcg PO DAILY (units (unknown) date) unknown) (unknown) (no (unknown) (unknown) 2 mg PO 2XW (units (un known) date) unknown) (unknown) (no (unknown) (unknown) 20 mg PO 6XW (units (u nknown) date) unknown) (unknown) (no (unknown) (unknown) 250 mg PO BEDTIME (units (unknown) date) Qty: 60 0RF unknown) (unknown) (no (unknown) (unknown) 3 g PO ONCE Qty: 1 (units (unknown) date) 0RF unknown) (unknown) (no (unknown) (unknown) 3 mg PO 5XW (units (un known) date) unknown) (unknown) (no (unknown) (unknown) 40 mg PO DAILY (units (unknown) date) unknown) (unknown) (no (unknown) (unknown) 40 mg PO WEEKLY (units (unknown) date) unknown) (unknown) (no (unknown) (unknown) 5 mg PO Q4H PRN (units (unknown) date) (Reason: pain) Qty: unknown) 20 0RF (unknown) (no (unknown) (unknown) 5,000 mcg (units (unkn own) date) sublingual DAILY unknown) (unknown) (no (unknown) (unknown) 50 mcg INHALATION (units (unknown) date) Q8HR unknown) (unknown) (no (unknown) (unknown) 50 mg PO DAILY (units (unknown) date) unknown) (unknown) (no (unknown) (unknown) 6.25 mg PO BID (units (unknown) date) unknown) (unknown) (no (unknown) (unknown) 71-year-old male (units (unknown) date) with UTI like unknown) symptoms, she is on warfarin, sensitivities for (unknown) (no (unknown) (unknown) 99 mg PO DAILY (units (unknown) date) unknown) (unknown) (no (unknown) (unknown) ABDOMEN: Soft, (units (unknown) date) nontender. unknown) Normoactive bowel sounds all 4 quadrants. No (unknown) (no (unknown) (unknown) AICD (automatic (units (unknown) date) cardioverter/defibr unknown) illator) present (11/29/20) (unknown) (no (unknown) (unknown) Activity (units (unkno wn) date) Restrictions/Additi unknown) onal Instructions: (unknown) (no (unknown) (unknown) Acute UTI (units (unkn own) date) unknown) (unknown) (no (unknown) (unknown) Acute kidney (units (u nknown) date) injury unknown) (unknown) (no (unknown) (unknown) Afib (units (unkno wn) date) unknown) (unknown) (no (unknown) (unknown) Age/Sex: 71 / F (units (unknown) date) unknown) (unknown) (no (unknown) (unknown) Allergies (units (unkn own) date) unknown) (unknown) (no (unknown) (unknown) Allergy/AdvReac (units (unknown) date) Type Severity unknown) Reaction Status Date / Time (unknown) (no (unknown) (unknown) Bedside Urine (units ( unknown) date) Bilirubin - unknown) Negative (unknown) (no (unknown) (unknown) Bedside Urine (units ( unknown) date) Glucose Negative unknown) (unknown) (no (unknown) (unknown) Bedside Urine (units ( unknown) date) Ketone - Negative unknown) (unknown) (no (unknown) (unknown) Bedside Urine (units ( unknown) date) Leukocytes - unknown) Negative (unknown) (no (unknown) (unknown) Bedside Urine (units ( unknown) date) Nitrite - Negative unknown) (unknown) (no (unknown) (unknown) Bedside Urine (units ( unknown) date) Occult Blood unknown) (unknown) (no (unknown) (unknown) Bedside Urine (units ( unknown) date) Protein ++ 100 unknown) (unknown) (no (unknown) (unknown) Bedside Urine (units ( unknown) date) Urobilinogen - unknown) Negative (unknown) (no (unknown) (unknown) Bedside Urine pH (units (unknown) date) 6.0 unknown) (unknown) (no (unknown) (unknown) Blood Pressure (units (unknown) date) 137/90 07/26/22 unknown) 07:20 (unknown) (no (unknown) (unknown) Blood Pressure (units (unknown) date) 137/90 unknown) (unknown) (no (unknown) (unknown) CARDIOVASCULAR: (units (unknown) date) Regular rate and unknown) rhythm without murmurs, rubs or gallops. (unknown) (no (unknown) (unknown) CHF (congestive (units (unknown) date) heart failure) unknown) (unknown) (no (unknown) (unknown) CVA (cerebral (units ( unknown) date) vascular accident) unknown) (unknown) (no (unknown) (unknown) Cardiac arrest (units (unknown) date) (11/29/20) unknown) (unknown) (no (unknown) (unknown) Cardiomyopathy (units (unknown) date) unknown) (unknown) (no (unknown) (unknown) Chief complaint: (units (unknown) date) Urogenital-Female unknown) (unknown) (no (unknown) (unknown) Clinical (units (unkno wn) date) Impression: unknown) (unknown) (no (unknown) (unknown) Course (units (unkno wn) date) unknown) (unknown) (no (unknown) (unknown) : 1950 (units (unknown) date) Acct:[id number] unknown) (unknown) (no (unknown) (unknown) Date of Service: (units (unknown) date) 07/26/22 unknown) (unknown) (no (unknown) (unknown) Departure (units (unkn own) date) unknown) (unknown) (no (unknown) (unknown) Diabetes (units (unkno wn) date) unknown) (unknown) (no (unknown) (unknown) Discharge Plan (units (unknown) date) unknown) (unknown) (no (unknown) (unknown) ED Orders (units (unkn own) date) unknown) (unknown) (no (unknown) (unknown) ER Physician: (units ( unknown) date) Shiela Hdz D.O. unknown) (unknown) (no (unknown) (unknown) EXTREMITIES: (units (u nknown) date) Normal range of unknown) motion, no clubbing or edema. Neurovascularly (unknown) (no (unknown) (unknown) Emergency Report (units (unknown) date) unknown) (unknown) (no (unknown) (unknown) Esterase (units (unkno wn) date) unknown) (unknown) (no (unknown) (unknown) Exam Narrative: (units (unknown) date) unknown) (unknown) (no (unknown) (unknown) Exam (units (unkno wn) date) unknown) (unknown) (no (unknown) (unknown) Follow-up Thursday (units (unknown) date) have your INR unknown) rechecked, Bactrim can sometimes affect your (unknown) (no (unknown) (unknown) GENERAL: Alert and (units (unknown) date) oriented x three, unknown) female in mild distress. (unknown) (no (unknown) (unknown) : No CVA (units (unk nown) date) tenderness unknown) (unknown) (no (unknown) (unknown) General (units (unkno wn) date) unknown) (unknown) (no (unknown) (unknown) HEENT: Head (units (un known) date) normocephalic, unknown) atraumatic, EOMI, pupils reactive, face symmetric, (unknown) (no (unknown) (unknown) HLD (units (unkno wn) date) (hyperlipidemia) unknown) (unknown) (no (unknown) (unknown) HPI - Female (units (u nknown) date) Genitourinary unknown) (unknown) (no (unknown) (unknown) HPI Narrative: (units (unknown) date) unknown) (unknown) (no (unknown) (unknown) HTN (hypertension) (units (unknown) date) unknown) (unknown) (no (unknown) (unknown) History of Present (units (unknown) date) Illness unknown) (unknown) (no (unknown) (unknown) History of UTI (units (unknown) date) unknown) (unknown) (no (unknown) (unknown) History of colon (units (unknown) date) surgery unknown) (unknown) (no (unknown) (unknown) History of (units (unk nown) date) colonoscopy unknown) (unknown) (no (unknown) (unknown) History of (units (unk nown) date) hysterectomy unknown) (unknown) (no (unknown) (unknown) History of (units (unk nown) date) nephrolithiasis unknown) (unknown) (no (unknown) (unknown) History of (units (unk nown) date) thyroidectomy, unknown) subtotal (unknown) (no (unknown) (unknown) Home Medications (units (unknown) date) unknown) (unknown) (no (unknown) (unknown) Hx of appendectomy (units (unknown) date) unknown) (unknown) (no (unknown) (unknown) Hx of breast (units (u nknown) date) surgery unknown) (unknown) (no (unknown) (unknown) Hx of cystoscopy (units (unknown) date) (06/20/21) unknown) (unknown) (no (unknown) (unknown) Hx of eye surgery (units (unknown) date) unknown) (unknown) (no (unknown) (unknown) Initial Vital (units ( unknown) date) Signs unknown) (unknown) (no (unknown) (unknown) Initial Vital (units ( unknown) date) Signs: unknown) (unknown) (no (unknown) (unknown) Insert 1 g (units (unk nown) date) intravaginally at unknown) HS times 12 days then 1 g intravaginally at HS (unknown) (no (unknown) (unknown) Instructions: DI (units (unknown) date) for Urinary Tract unknown) Infection (UTI) (unknown) (no (unknown) (unknown) [facility] (units (unknown) date) [address] [place] [address] unknown) [place] [address] (unknown) (no (unknown) (unknown) Lab Data (units (unkno wn) date) unknown) (unknown) (no (unknown) (unknown) Lab Results (units (un known) date) unknown) (unknown) (no (unknown) (unknown) Label Comments: (units (unknown) date) unknown) (unknown) (no (unknown) (unknown) Labs: (units (unkno wn) date) unknown) (unknown) (no (unknown) (unknown) Left ureteral (units ( unknown) date) calculus unknown) (unknown) (no (unknown) (unknown) Limitations: no (units (unknown) date) limitations unknown) (unknown) (no (unknown) (unknown) MDM - Female (units (u nknown) date) Genitourinary unknown) (unknown) (no (unknown) (unknown) MDM Narrative (units ( unknown) date) unknown) (unknown) (no (unknown) (unknown) Medical History (units (unknown) date) (Reviewed 07/26/22 unknown) @ 08:01 by Shiela Hdz DO) (unknown) (no (unknown) (unknown) Medical decision (units (unknown) date) making narrative: unknown) (unknown) (no (unknown) (unknown) Medication (units (unk nown) date) Instructions unknown) Recorded Confirmed (unknown) (no (unknown) (unknown) Medication (units (unk nown) date) Instructions unknown) Recorded (unknown) (no (unknown) (unknown) Miscellaneous,Doct (units (unknown) date) or, MD [Primary unknown) Care Provider] (unknown) (no (unknown) (unknown) Mode of arrival: (units (unknown) date) Ambulatory unknown) (unknown) (no (unknown) (unknown) NECK: Supple, full (units (unknown) date) range of motion unknown) (unknown) (no (unknown) (unknown) NEUROLOGICAL: (units ( unknown) date) Cranial nerves II unknown) through XII grossly intact. Moving all (unknown) (no (unknown) (unknown) Narrative (units (unkn own) date) unknown) (unknown) (no (unknown) (unknown) New (units (unkno wn) date) unknown) (unknown) (no (unknown) (unknown) No Action (units (unkn own) date) unknown) (unknown) (no (unknown) (unknown) Ordered: (units (unkno wn) date) unknown) (unknown) (no (unknown) (unknown) Orders (units (unkno wn) date) unknown) (unknown) (no (unknown) (unknown) Oxygen Delivery (units (unknown) date) Method 07/26/22 unknown) 07:20 (unknown) (no (unknown) (unknown) Oxygen Delivery (units (unknown) date) Method Room Air unknown) (unknown) (no (unknown) (unknown) Patient (units (unkno wn) date) Disposition: Home unknown) (unknown) (no (unknown) (unknown) Patient History (units (unknown) date) unknown) (unknown) (no (unknown) (unknown) Patient states she (units (unknown) date) is allergic to azo unknown) causes swelling for throat and vomiting. (unknown) (no (unknown) (unknown) Patient states (units (unknown) date) this does not feel unknown) like when she is had kidney stones before. (unknown) (no (unknown) (unknown) Patient: (units (unkno wn) date) Natasha Jaquez K unknown) MR#: [id number] (unknown) (no (unknown) (unknown) Please return for (units (unknown) date) fevers, worsening unknown) abdominal, pelvic or flank pain, nausea or (unknown) (no (unknown) (unknown) Please take this (units (unknown) date) the morning of unknown) August 04, 2021. (unknown) (no (unknown) (unknown) Postmenopausal (units (unknown) date) atrophic vaginitis unknown) (unknown) (no (unknown) (unknown) Prescription sent (units (unknown) date) to [facility] in unknown) [place]. (unknown) (no (unknown) (unknown) Prescriptions: (units (unknown) date) unknown) (unknown) (no (unknown) (unknown) Previous Rx's (units ( unknown) date) unknown) (unknown) (no (unknown) (unknown) Pulse Oximetry 96 (units (unknown) date) 07/26/22 07:20 unknown) (unknown) (no (unknown) (unknown) Pulse Oximetry 96 (units (unknown) date) unknown) (unknown) (no (unknown) (unknown) Pulse Rate 65 (units ( unknown) date) 07/26/22 07:20 unknown) (unknown) (no (unknown) (unknown) Pulse Rate 65 (units ( unknown) date) unknown) (unknown) (no (unknown) (unknown) RESPIRATORY: (units (u nknown) date) Breath sounds equal unknown) bilaterally, no wheezes rales or rhonchi. (unknown) (no (unknown) (unknown) ROS Unobtainable: (units (unknown) date) All systems unknown) reviewed + are unremarkable except as noted in HPI (unknown) (no (unknown) (unknown) Referrals: (units (unk nown) date) unknown) (unknown) (no (unknown) (unknown) Related Data (units (u nknown) date) unknown) (unknown) (no (unknown) (unknown) Respiratory Rate (units (unknown) date) 17 07/26/22 07:20 unknown) (unknown) (no (unknown) (unknown) Respiratory Rate (units (unknown) date) 17 unknown) (unknown) (no (unknown) (unknown) Retained ureteral (units (unknown) date) stent unknown) (unknown) (no (unknown) (unknown) Review of Systems (units (unknown) date) unknown) (unknown) (no (unknown) (unknown) Rx Instructions: (units (unknown) date) unknown) (unknown) (no (unknown) (unknown) SKIN: Warm, dry, (units (unknown) date) no petechiae, no unknown) rashes or lesions. (unknown) (no (unknown) (unknown) SVT (units (unkno wn) date) (supraventricular unknown) tachycardia) (unknown) (no (unknown) (unknown) She has had (units (un known) date) recurrent UTIs, and unknown) required ureteral stents in the past as well as (unknown) (no (unknown) (unknown) Signed By: (units (unk nown) date) unknown) (unknown) (no (unknown) (unknown) Source: patient (units (unknown) date) unknown) (unknown) (no (unknown) (unknown) Start after 5 day (units (unknown) date) course of 2 caps unknown) daily is complete. (unknown) (no (unknown) (unknown) Stated complaint: (units (unknown) date) think she has unknown) bladder infection t-4 (unknown) (no (unknown) (unknown) Substance Use (units ( unknown) date) Type: does not use unknown) (unknown) (no (unknown) (unknown) Surgical History (units (unknown) date) (Reviewed 07/26/22 unknown) @ 08:01 by Shiela Hdz DO) (unknown) (no (unknown) (unknown) Take Bactrim 1 (units (unknown) date) tablet twice daily unknown) until gone. (unknown) (no (unknown) (unknown) Temperature 97.7 F (units (unknown) date) 07/26/22 07:20 unknown) (unknown) (no (unknown) (unknown) Temperature 97.7 F (units (unknown) date) unknown) (unknown) (no (unknown) (unknown) This is a (units (unkn own) date) 71-year-old female unknown) with prior strokes, diabetes, hypertension, prior (unknown) (no (unknown) (unknown) Time Seen by (units (u nknown) date) Provider: 07/26/22 unknown) 07:15 (unknown) (no (unknown) (unknown) Ur Leukocyte (units (u nknown) date) Esterase Negative unknown) (NEGATIVE) (unknown) (no (unknown) (unknown) Ur Specific (units (un known) date) [place] 1.015 unknown) (1.000-1.035) (unknown) (no (unknown) (unknown) Urinalysis and (units (unknown) date) Microscopic Stat unknown) (unknown) (no (unknown) (unknown) Urine Appearance (units (unknown) date) Clear unknown) (unknown) (no (unknown) (unknown) Urine Bilirubin (units (unknown) date) Negative (NEGATIVE) unknown) (unknown) (no (unknown) (unknown) Urine Color Yellow (units (unknown) date) unknown) (unknown) (no (unknown) (unknown) Urine Dip (units (unkn own) date) unknown) (unknown) (no (unknown) (unknown) Urine Glucose (UA) (units (unknown) date) Negative (Negative) unknown) g/dL (unknown) (no (unknown) (unknown) Urine Ketones (units ( unknown) date) Negative (NEGATIVE) unknown) (unknown) (no (unknown) (unknown) Urine Nitrate (units ( unknown) date) Negative (Negative) unknown) (unknown) (no (unknown) (unknown) Urine Occult Blood (units (unknown) date) 2+ H (Negative) unknown) (unknown) (no (unknown) (unknown) Urine Protein 2+ H (units (unknown) date) (Negative) unknown) (unknown) (no (unknown) (unknown) Urine Specific (units (unknown) date) [place] 1.015 unknown) (unknown) (no (unknown) (unknown) Urine Urobilinogen (units (unknown) date) 0.2 (0.2) E.U./dL unknown) (unknown) (no (unknown) (unknown) Urine pH 6.0 (units (u nknown) date) (4.5-8.0) unknown) (unknown) (no (unknown) (unknown) Vital Signs - 8 hr (units (unknown) date) unknown) (unknown) (no (unknown) (unknown) Vital Signs (units (un known) date) unknown) (unknown) (no (unknown) (unknown) Vital signs: (units (u nknown) date) unknown) (unknown) (no (unknown) (unknown) Your urine was (units (unknown) date) sent for culture if unknown) it shows resistance V antibiotics prescribed (unknown) (no (unknown) (unknown) [From Pyridium] (units (unknown) date) unknown) (unknown) (no (unknown) (unknown) alcohol intake (units (unknown) date) frequency: 0-2 unknown) drinks per day (unknown) (no (unknown) (unknown) and below (units (unkn own) date) unknown) (unknown) (no (unknown) (unknown) and then worsened (units (unknown) date) again overnight. unknown) Patient did have straight cath obtained in (unknown) (no (unknown) (unknown) any vaginal (units (un known) date) bleeding or unknown) discharge. Patient states she is had about 5 days (unknown) (no (unknown) (unknown) as well as her (units (unknown) date) need for repeat unknown) INR. (unknown) (no (unknown) (unknown) at this time. (units ( unknown) date) Return precautions unknown) discussed patient expressed her understanding (unknown) (no (unknown) (unknown) biotin 5,000 mcg (units (unknown) date) Tablet, Sublingual unknown) (unknown) (no (unknown) (unknown) biotin 5,000 mcg (units (unknown) date) sublingual tablet unknown) 5,000 mcg sublingual DAILY 06/20/21 08/12/21 (unknown) (no (unknown) (unknown) breath activated (units (unknown) date) powder inhaler unknown) (unknown) (no (unknown) (unknown) budesonide 200 (units (unknown) date) mcg/actuation 50 unknown) mcg inhalation Q8HR 06/20/21 08/12/21 (unknown) (no (unknown) (unknown) budesonide 200 (units (unknown) date) mcg/actuation unknown) Aerosol Powdr Breath Activated (unknown) (no (unknown) (unknown) cardiomyopathy on (units (unknown) date) warfarin, pacemaker unknown) and states she had a cardiac arrest in the (unknown) (no (unknown) (unknown) carvedilol 6.25 mg (units (unknown) date) Tablet unknown) (unknown) (no (unknown) (unknown) carvedilol 6.25 mg (units (unknown) date) tablet 6.25 mg PO unknown) BID 06/20/21 08/12/21 (unknown) (no (unknown) (unknown) cholecalciferol (units (unknown) date) (vitamin D3) 125 unknown) 125 mcg PO DAILY 06/20/21 08/12/21 (unknown) (no (unknown) (unknown) cholecalciferol (units (unknown) date) (vitamin D3) 125 unknown) mcg (5,000 unit) Tablet (unknown) (no (unknown) (unknown) ciprofloxacin HCl (units (unknown) date) 250 mg tablet 250 unknown) mg PO BEDTIME #60 tabs 09/02/21 (unknown) (no (unknown) (unknown) ciprofloxacin HCl (units (unknown) date) 250 mg tablet unknown) (unknown) (no (unknown) (unknown) estradiol 0.01% (units (unknown) date) (0.1 mg/gram) 1 g unknown) vaginal 2XW #42.5 grams 08/19/21 (unknown) (no (unknown) (unknown) estradiol (units (unkn own) date) [Estrace] 0.01 % unknown) (0.1 mg/gram) cream (unknown) (no (unknown) (unknown) extremities (units (un known) date) unknown) (unknown) (no (unknown) (unknown) fosfomycin (units (unk nown) date) tromethamine 3 gram unknown) 3 g PO ONCE #1 ea 07/31/21 (unknown) (no (unknown) (unknown) fosfomycin (units (unk nown) date) tromethamine 3 gram unknown) 3 g PO ONCE #1 ea 08/01/21 (unknown) (no (unknown) (unknown) fosfomycin (units (unk nown) date) tromethamine 3 gram unknown) packet (unknown) (no (unknown) (unknown) frequency, (units (unk nown) date) dysuria, urgency unknown) and sense of incomplete emptying. She denies fevers (unknown) (no (unknown) (unknown) furosemide 20 mg (units (unknown) date) Tablet unknown) (unknown) (no (unknown) (unknown) furosemide 20 mg (units (unknown) date) tablet 20 mg PO 6XW unknown) 06/20/21 08/12/21 (unknown) (no (unknown) (unknown) furosemide 40 mg (units (unknown) date) Tablet unknown) (unknown) (no (unknown) (unknown) furosemide 40 mg (units (unknown) date) tablet 40 mg PO unknown) WEEKLY 06/20/21 08/12/21 (unknown) (no (unknown) (unknown) guarding or (units (un known) date) rebound, rigidity, unknown) no mass (unknown) (no (unknown) (unknown) had kidney stones. (units (unknown) date) Patient states unknown) today she is having UTI symptoms with (unknown) (no (unknown) (unknown) her last 3 urine (units (unknown) date) cultures show unknown) Enterobacter aerogenes, most recent had (unknown) (no (unknown) (unknown) in the next (units (un known) date) several days. unknown) Patient has had issues with kidney stones and (unknown) (no (unknown) (unknown) intact (units (unkno wn) date) unknown) (unknown) (no (unknown) (unknown) losartan 50 mg (units (unknown) date) Tablet unknown) (unknown) (no (unknown) (unknown) losartan 50 mg (units (unknown) date) tablet 50 mg PO unknown) DAILY 06/20/21 08/12/21 (unknown) (no (unknown) (unknown) mcg (5,000 unit) (units (unknown) date) tablet unknown) (unknown) (no (unknown) (unknown) metformin 500 mg (units (unknown) date) Tablet unknown) (unknown) (no (unknown) (unknown) metformin 500 mg (units (unknown) date) tablet 1,000 mg PO unknown) BID 07/26/21 08/12/21 (unknown) (no (unknown) (unknown) metformin which (units (unknown) date) has not changed, no unknown) black or bloody stools. Patient has not had (unknown) (no (unknown) (unknown) mg-trimethoprim (units (unknown) date) 160 mg tablet unknown) (unknown) (no (unknown) (unknown) moist mucous (units (u nknown) date) membranes unknown) (unknown) (no (unknown) (unknown) must administer (units (unknown) date) with a meal/food unknown) (unknown) (no (unknown) (unknown) or chills. No (units ( unknown) date) nausea or vomiting. unknown) She denies any flank or back pain. She (unknown) (no (unknown) (unknown) oral packet (units (un known) date) unknown) (unknown) (no (unknown) (unknown) oxycodone 5 mg (units (unknown) date) tablet 5 mg PO Q4H unknown) PRN pain #20 tabs 07/26/21 (unknown) (no (unknown) (unknown) oxycodone 5 mg (units (unknown) date) tablet unknown) (unknown) (no (unknown) (unknown) past was found to (units (unknown) date) have an EF of 15% unknown) she states they never found exact cause. (unknown) (no (unknown) (unknown) phenazopyridine (units (unknown) date) Allergy Verified unknown) 08/12/21 08:17 (unknown) (no (unknown) (unknown) potassium 99 mg (units (unknown) date) Tablet unknown) (unknown) (no (unknown) (unknown) potassium 99 mg (units (unknown) date) tablet 99 mg PO unknown) DAILY 07/26/21 08/12/21 (unknown) (no (unknown) (unknown) reassuring make me (units (unknown) date) less suspicious for unknown) kidney stone. Further workup is deferred (unknown) (no (unknown) (unknown) required ureteral (units (unknown) date) stents in the past, unknown) her exam and symptoms today as overall (unknown) (no (unknown) (unknown) resistance and (units (unknown) date) Bactrim, Levaquin unknown) and Cipro were sensitive. Because of warfarin (unknown) (no (unknown) (unknown) rosuvastatin 40 mg (units (unknown) date) Tablet unknown) (unknown) (no (unknown) (unknown) rosuvastatin 40 mg (units (unknown) date) tablet 40 mg PO unknown) DAILY 06/20/21 08/12/21 (unknown) (no (unknown) (unknown) states it is very (units (unknown) date) suprapubic. Patient unknown) states she has chronic diarrhea from (unknown) (no (unknown) (unknown) sulfamethoxazole (units (unknown) date) 800 1 tab PO BID 7 unknown) days #14 tabs 07/26/22 (unknown) (no (unknown) (unknown) sulfamethoxazole-t (units (unknown) date) rimethoprim unknown) [Bactrim DS] 800-160 mg tablet (unknown) (no (unknown) (unknown) symptoms she came (units (unknown) date) to get checked unknown) today because symptoms had started to improve (unknown) (no (unknown) (unknown) symptoms. (units (unkn own) date) unknown) (unknown) (no (unknown) (unknown) takes 4 puffs (units ( unknown) date) qhs-(Pulmacort) unknown) (unknown) (no (unknown) (unknown) takes it 5x/week (units (unknown) date) unknown) (unknown) (no (unknown) (unknown) tamsulosin 0.4 mg (units (unknown) date) capsule 0.4 mg PO unknown) BEDTIME #60 caps 06/21/21 (unknown) (no (unknown) (unknown) tamsulosin 0.4 mg (units (unknown) date) capsule unknown) (unknown) (no (unknown) (unknown) tetracycline (units (u nknown) date) Allergy Severe unknown) ITCHING Verified 08/12/21 08:17 (unknown) (no (unknown) (unknown) the urology office (units (unknown) date) on 08/26/2021 which unknown) had showed Enterobacter greater than (unknown) (no (unknown) (unknown) twice weekly (units (u nknown) date) thereafter. unknown) (unknown) (no (unknown) (unknown) vaginal cream (units ( unknown) date) (Estrace) unknown) (unknown) (no (unknown) (unknown) vomiting, black or (units (unknown) date) bloody stools, unknown) difficulty with urination or worsening (unknown) (no (unknown) (unknown) warfarin 2 mg (units ( unknown) date) Tablet unknown) (unknown) (no (unknown) (unknown) warfarin 2 mg (units ( unknown) date) tablet 2 mg PO 2XW unknown) 06/20/21 08/12/21 (unknown) (no (unknown) (unknown) warfarin 3 mg (units ( unknown) date) Tablet unknown) (unknown) (no (unknown) (unknown) warfarin 3 mg (units ( unknown) date) tablet 3 mg PO 5XW unknown) 06/20/21 08/12/21 (unknown) (no (unknown) (unknown) warfarin level and (units (unknown) date) make it elevate. unknown) (unknown) (no (unknown) (unknown) will go with (units (u nknown) date) Bactrim but patient unknown) has been instructed to have her INR rechecked (unknown) (no (unknown) (unknown) you will be (units (un known) date) contacted to change unknown) your antibiotic. Result panel 171 (unknown) (no (unknown) (unknown) (no value) (units (unk nown) date) unknown) (unknown) (no (unknown) (unknown) <Electronically (units (unknown) date) signed by Shiela Myrick unknown) Jimmy Hdz> (unknown) (no (unknown) (unknown) (Bactrim DS) (units (u nknown) date) unknown) (unknown) (no (unknown) (unknown) 0.4 mg PO BEDTIME (units (unknown) date) Qty: 60 0RF unknown) (unknown) (no (unknown) (unknown) [id number] (units (unkno wn) date) unknown) (unknown) (no (unknown) (unknown) 07:20 (units (unkno wn) date) unknown) (unknown) (no (unknown) (unknown) 1 g vaginal 2XW (units (unknown) date) Qty: 42.5 3RF unknown) (unknown) (no (unknown) (unknown) 1 tab PO BID 7 (units (unknown) date) Days Qty: 14 0RF unknown) (unknown) (no (unknown) (unknown) 1,000 mg PO BID (units (unknown) date) unknown) (unknown) (no (unknown) (unknown) 100,000 did have (units (unknown) date) sensitivities to unknown) Levaquin, Cipro and Bactrim at that time. (unknown) (no (unknown) (unknown) 07/26/22 (units (unkno wn) date) Range/Units unknown) (unknown) (no (unknown) (unknown) 07/26/22 (units (unkno wn) date) unknown) (unknown) (no (unknown) (unknown) 07/31/22 1936 (units ( unknown) date) unknown) (unknown) (no (unknown) (unknown) 125 mcg PO DAILY (units (unknown) date) unknown) (unknown) (no (unknown) (unknown) 2 mg PO 2XW (units (un known) date) unknown) (unknown) (no (unknown) (unknown) 20 mg PO 6XW (units (u nknown) date) unknown) (unknown) (no (unknown) (unknown) 250 mg PO BEDTIME (units (unknown) date) Qty: 60 0RF unknown) (unknown) (no (unknown) (unknown) 3 g PO ONCE Qty: 1 (units (unknown) date) 0RF unknown) (unknown) (no (unknown) (unknown) 3 mg PO 5XW (units (un known) date) unknown) (unknown) (no (unknown) (unknown) 40 mg PO DAILY (units (unknown) date) unknown) (unknown) (no (unknown) (unknown) 40 mg PO WEEKLY (units (unknown) date) unknown) (unknown) (no (unknown) (unknown) 5 mg PO Q4H PRN (units (unknown) date) (Reason: pain) Qty: unknown) 20 0RF (unknown) (no (unknown) (unknown) 5,000 mcg (units (unkn own) date) sublingual DAILY unknown) (unknown) (no (unknown) (unknown) 50 mcg INHALATION (units (unknown) date) Q8HR unknown) (unknown) (no (unknown) (unknown) 50 mg PO DAILY (units (unknown) date) unknown) (unknown) (no (unknown) (unknown) 6.25 mg PO BID (units (unknown) date) unknown) (unknown) (no (unknown) (unknown) 71-year-old male (units (unknown) date) with UTI like unknown) symptoms, she is on warfarin, sensitivities for (unknown) (no (unknown) (unknown) 99 mg PO DAILY (units (unknown) date) unknown) (unknown) (no (unknown) (unknown) ABDOMEN: Soft, (units (unknown) date) nontender. unknown) Normoactive bowel sounds all 4 quadrants. No (unknown) (no (unknown) (unknown) AICD (automatic (units (unknown) date) cardioverter/defibr unknown) illator) present (11/29/20) (unknown) (no (unknown) (unknown) Activity (units (unkno wn) date) Restrictions/Additi unknown) onal Instructions: (unknown) (no (unknown) (unknown) Acute UTI (units (unkn own) date) unknown) (unknown) (no (unknown) (unknown) Acute kidney (units (u nknown) date) injury unknown) (unknown) (no (unknown) (unknown) Afib (units (unkno wn) date) unknown) (unknown) (no (unknown) (unknown) Age/Sex: 71 / F (units (unknown) date) unknown) (unknown) (no (unknown) (unknown) Allergies (units (unkn own) date) unknown) (unknown) (no (unknown) (unknown) Allergy/AdvReac (units (unknown) date) Type Severity unknown) Reaction Status Date / Time (unknown) (no (unknown) (unknown) Bedside Urine (units ( unknown) date) Bilirubin - unknown) Negative (unknown) (no (unknown) (unknown) Bedside Urine (units ( unknown) date) Glucose Negative unknown) (unknown) (no (unknown) (unknown) Bedside Urine (units ( unknown) date) Ketone - Negative unknown) (unknown) (no (unknown) (unknown) Bedside Urine (units ( unknown) date) Leukocytes - unknown) Negative (unknown) (no (unknown) (unknown) Bedside Urine (units ( unknown) date) Nitrite - Negative unknown) (unknown) (no (unknown) (unknown) Bedside Urine (units ( unknown) date) Occult Blood unknown) (unknown) (no (unknown) (unknown) Bedside Urine (units ( unknown) date) Protein ++ 100 unknown) (unknown) (no (unknown) (unknown) Bedside Urine (units ( unknown) date) Urobilinogen - unknown) Negative (unknown) (no (unknown) (unknown) Bedside Urine pH (units (unknown) date) 6.0 unknown) (unknown) (no (unknown) (unknown) Blood Pressure (units (unknown) date) 137/90 07/26/22 unknown) 07:15 (unknown) (no (unknown) (unknown) Blood Pressure (units (unknown) date) 137/ unknown) (unknown) (no (unknown) (unknown) CARDIOVASCULAR: (units (unknown) date) Regular rate and unknown) rhythm without murmurs, rubs or gallops. (unknown) (no (unknown) (unknown) CHF (congestive (units (unknown) date) heart failure) unknown) (unknown) (no (unknown) (unknown) CVA (cerebral (units ( unknown) date) vascular accident) unknown) (unknown) (no (unknown) (unknown) Cardiac arrest (units (unknown) date) (11/29/20) unknown) (unknown) (no (unknown) (unknown) Cardiomyopathy (units (unknown) date) unknown) (unknown) (no (unknown) (unknown) Chief complaint: (units (unknown) date) Urogenital-Female unknown) (unknown) (no (unknown) (unknown) Clinical (units (unkno wn) date) Impression: unknown) (unknown) (no (unknown) (unknown) Course (units (unkno wn) date) unknown) (unknown) (no (unknown) (unknown) : 1950 (units (unknown) date) Acct:[id number] unknown) (unknown) (no (unknown) (unknown) Date of Service: (units (unknown) date) 07/26/22 unknown) (unknown) (no (unknown) (unknown) Departure (units (unkn own) date) unknown) (unknown) (no (unknown) (unknown) Diabetes (units (unkno wn) date) unknown) (unknown) (no (unknown) (unknown) Discharge Plan (units (unknown) date) unknown) (unknown) (no (unknown) (unknown) Discontinued (units (u nknown) date) Medications unknown) (unknown) (no (unknown) (unknown) Documented By: KB (units (unknown) date) unknown) (unknown) (no (unknown) (unknown) ER Physician: (units ( unknown) date) Shieal Hdz D.O. unknown) (unknown) (no (unknown) (unknown) EXTREMITIES: (units (u nknown) date) Normal range of unknown) motion, no clubbing or edema. Neurovascularly (unknown) (no (unknown) (unknown) Emergency Report (units (unknown) date) unknown) (unknown) (no (unknown) (unknown) Esterase (units (unkno wn) date) unknown) (unknown) (no (unknown) (unknown) Exam Narrative: (units (unknown) date) unknown) (unknown) (no (unknown) (unknown) Exam (units (unkno wn) date) unknown) (unknown) (no (unknown) (unknown) Follow-up Thursday (units (unknown) date) have your INR unknown) rechecked, Bactrim can sometimes affect your (unknown) (no (unknown) (unknown) GENERAL: Alert and (units (unknown) date) oriented x three, unknown) female in mild distress. (unknown) (no (unknown) (unknown) : No CVA (units (unk nown) date) tenderness unknown) (unknown) (no (unknown) (unknown) General (units (unkno wn) date) unknown) (unknown) (no (unknown) (unknown) HEENT: Head (units (un known) date) normocephalic, unknown) atraumatic, EOMI, pupils reactive, face symmetric, (unknown) (no (unknown) (unknown) HLD (units (unkno wn) date) (hyperlipidemia) unknown) (unknown) (no (unknown) (unknown) HPI - Female (units (u nknown) date) Genitourinary unknown) (unknown) (no (unknown) (unknown) HPI Narrative: (units (unknown) date) unknown) (unknown) (no (unknown) (unknown) HTN (hypertension) (units (unknown) date) unknown) (unknown) (no (unknown) (unknown) History of Present (units (unknown) date) Illness unknown) (unknown) (no (unknown) (unknown) History of UTI (units (unknown) date) unknown) (unknown) (no (unknown) (unknown) History of colon (units (unknown) date) surgery unknown) (unknown) (no (unknown) (unknown) History of (units (unk nown) date) colonoscopy unknown) (unknown) (no (unknown) (unknown) History of (units (unk nown) date) hysterectomy unknown) (unknown) (no (unknown) (unknown) History of (units (unk nown) date) nephrolithiasis unknown) (unknown) (no (unknown) (unknown) History of (units (unk nown) date) thyroidectomy, unknown) subtotal (unknown) (no (unknown) (unknown) Home Medications (units (unknown) date) unknown) (unknown) (no (unknown) (unknown) Hx of appendectomy (units (unknown) date) unknown) (unknown) (no (unknown) (unknown) Hx of breast (units (u nknown) date) surgery unknown) (unknown) (no (unknown) (unknown) Hx of cystoscopy (units (unknown) date) (06/20/21) unknown) (unknown) (no (unknown) (unknown) Hx of eye surgery (units (unknown) date) unknown) (unknown) (no (unknown) (unknown) Initial Vital (units ( unknown) date) Signs unknown) (unknown) (no (unknown) (unknown) Initial Vital (units ( unknown) date) Signs: unknown) (unknown) (no (unknown) (unknown) Insert 1 g (units (unk nown) date) intravaginally at unknown) HS times 12 days then 1 g intravaginally at HS (unknown) (no (unknown) (unknown) Instructions: DI (units (unknown) date) for Urinary Tract unknown) Infection (UTI) (unknown) (no (unknown) (unknown) [facility] (units (unknown) date) [address] [place] [address] unknown) [place] [address] (unknown) (no (unknown) (unknown) Lab Data (units (unkno wn) date) unknown) (unknown) (no (unknown) (unknown) Lab Results (units (un known) date) unknown) (unknown) (no (unknown) (unknown) Label Comments: (units (unknown) date) unknown) (unknown) (no (unknown) (unknown) Labs: (units (unkno wn) date) unknown) (unknown) (no (unknown) (unknown) Last Admin: (units (un known) date) 07/26/22 08:15 unknown) Dose: 1 tab (unknown) (no (unknown) (unknown) Left ureteral (units ( unknown) date) calculus unknown) (unknown) (no (unknown) (unknown) Limitations: no (units (unknown) date) limitations unknown) (unknown) (no (unknown) (unknown) MDM - Female (units (u nknown) date) Genitourinary unknown) (unknown) (no (unknown) (unknown) MDM Narrative (units ( unknown) date) unknown) (unknown) (no (unknown) (unknown) Medical History (units (unknown) date) (Reviewed 07/26/22 unknown) @ 08:01 by Shiela Hdz DO) (unknown) (no (unknown) (unknown) Medical decision (units (unknown) date) making narrative: unknown) (unknown) (no (unknown) (unknown) Medication (units (unk nown) date) Instructions unknown) Recorded Confirmed (unknown) (no (unknown) (unknown) Medication (units (unk nown) date) Instructions unknown) Recorded (unknown) (no (unknown) (unknown) Miscellaneous,Doct (units (unknown) date) or, MD [Primary unknown) Care Provider] (unknown) (no (unknown) (unknown) Mode of arrival: (units (unknown) date) Ambulatory unknown) (unknown) (no (unknown) (unknown) NECK: Supple, full (units (unknown) date) range of motion unknown) (unknown) (no (unknown) (unknown) NEUROLOGICAL: (units ( unknown) date) Cranial nerves II unknown) through XII grossly intact. Moving all (unknown) (no (unknown) (unknown) Narrative (units (unkn own) date) unknown) (unknown) (no (unknown) (unknown) New (units (unkno wn) date) unknown) (unknown) (no (unknown) (unknown) No Action (units (unkn own) date) unknown) (unknown) (no (unknown) (unknown) ONE (units (unkno wn) date) unknown) (unknown) (no (unknown) (unknown) Ordered: (units (unkno wn) date) unknown) (unknown) (no (unknown) (unknown) Orders (units (unkno wn) date) unknown) (unknown) (no (unknown) (unknown) Oxygen Delivery (units (unknown) date) Method Room Air unknown) (unknown) (no (unknown) (unknown) Patient (units (unkno wn) date) Disposition: Home unknown) (unknown) (no (unknown) (unknown) Patient History (units (unknown) date) unknown) (unknown) (no (unknown) (unknown) Patient states she (units (unknown) date) is allergic to azo unknown) causes swelling for throat and vomiting. (unknown) (no (unknown) (unknown) Patient states (units (unknown) date) this does not feel unknown) like when she is had kidney stones before. (unknown) (no (unknown) (unknown) Patient: (units (unkno wn) date) Natasha Jaquez K unknown) MR#: [id number] (unknown) (no (unknown) (unknown) Please return for (units (unknown) date) fevers, worsening unknown) abdominal, pelvic or flank pain, nausea or (unknown) (no (unknown) (unknown) Please take this (units (unknown) date) the morning of unknown) August 04, 2021. (unknown) (no (unknown) (unknown) Postmenopausal (units (unknown) date) atrophic vaginitis unknown) (unknown) (no (unknown) (unknown) Prescription sent (units (unknown) date) to [facility] in unknown) [place]. (unknown) (no (unknown) (unknown) Prescriptions: (units (unknown) date) unknown) (unknown) (no (unknown) (unknown) Previous Rx's (units ( unknown) date) unknown) (unknown) (no (unknown) (unknown) Pulse Oximetry 96 (units (unknown) date) 07/26/22 07:15 unknown) (unknown) (no (unknown) (unknown) Pulse Oximetry 96 (units (unknown) date) unknown) (unknown) (no (unknown) (unknown) Pulse Rate 65 (units ( unknown) date) unknown) (unknown) (no (unknown) (unknown) Pulse Rate 88 (units ( unknown) date) 07/26/22 07:15 unknown) (unknown) (no (unknown) (unknown) RESPIRATORY: (units (u nknown) date) Breath sounds equal unknown) bilaterally, no wheezes rales or rhonchi. (unknown) (no (unknown) (unknown) ROS Unobtainable: (units (unknown) date) All systems unknown) reviewed + are unremarkable except as noted in HPI (unknown) (no (unknown) (unknown) Referrals: (units (unk nown) date) unknown) (unknown) (no (unknown) (unknown) Related Data (units (u nknown) date) unknown) (unknown) (no (unknown) (unknown) Respiratory Rate (units (unknown) date) 17 unknown) (unknown) (no (unknown) (unknown) Retained ureteral (units (unknown) date) stent unknown) (unknown) (no (unknown) (unknown) Review of Systems (units (unknown) date) unknown) (unknown) (no (unknown) (unknown) Rx Instructions: (units (unknown) date) unknown) (unknown) (no (unknown) (unknown) SKIN: Warm, dry, (units (unknown) date) no petechiae, no unknown) rashes or lesions. (unknown) (no (unknown) (unknown) SVT (units (unkno wn) date) (supraventricular unknown) tachycardia) (unknown) (no (unknown) (unknown) She has had (units (un known) date) recurrent UTIs, and unknown) required ureteral stents in the past as well as (unknown) (no (unknown) (unknown) Signed By: (units (unk nown) date) unknown) (unknown) (no (unknown) (unknown) Source: patient (units (unknown) date) unknown) (unknown) (no (unknown) (unknown) Start after 5 day (units (unknown) date) course of 2 caps unknown) daily is complete. (unknown) (no (unknown) (unknown) Stated complaint: (units (unknown) date) think she has unknown) bladder infection t-4 (unknown) (no (unknown) (unknown) Stop: 07/26/22 (units (unknown) date) 07:58 unknown) (unknown) (no (unknown) (unknown) Substance Use (units ( unknown) date) Type: does not use unknown) (unknown) (no (unknown) (unknown) Surgical History (units (unknown) date) (Reviewed 07/26/22 unknown) @ 08:01 by Shiela Hdz DO) (unknown) (no (unknown) (unknown) Take Bactrim 1 (units (unknown) date) tablet twice daily unknown) until gone. (unknown) (no (unknown) (unknown) Temperature 97.7 F (units (unknown) date) unknown) (unknown) (no (unknown) (unknown) This is a (units (unkn own) date) 71-year-old female unknown) with prior strokes, diabetes, hypertension, prior (unknown) (no (unknown) (unknown) Time Seen by (units (u nknown) date) Provider: 07/26/22 unknown) 07:15 (unknown) (no (unknown) (unknown) Trimethoprim/Sulfa (units (unknown) date) methoxazole unknown) (Trimeth/Sulfa 160/800 (Ds) Tablet) 1 tab PO NOW (unknown) (no (unknown) (unknown) Ur Culture (units (unk nown) date) Indicated? Cult not unknown) indicated (unknown) (no (unknown) (unknown) Ur Leukocyte (units (u nknown) date) Esterase Negative unknown) (NEGATIVE) (unknown) (no (unknown) (unknown) Ur Specific (units (un known) date) [place] 1.015 unknown) (1.000-1.035) (unknown) (no (unknown) (unknown) Urine Appearance (units (unknown) date) Clear unknown) (unknown) (no (unknown) (unknown) Urine Bacteria (units (unknown) date) None seen (None) unknown) (unknown) (no (unknown) (unknown) Urine Bilirubin (units (unknown) date) Negative (NEGATIVE) unknown) (unknown) (no (unknown) (unknown) Urine Color Yellow (units (unknown) date) unknown) (unknown) (no (unknown) (unknown) Urine Dip (units (unkn own) date) unknown) (unknown) (no (unknown) (unknown) Urine Glucose (UA) (units (unknown) date) Negative (Negative) unknown) g/dL (unknown) (no (unknown) (unknown) Urine Ketones (units ( unknown) date) Negative (NEGATIVE) unknown) (unknown) (no (unknown) (unknown) Urine Nitrate (units ( unknown) date) Negative (Negative) unknown) (unknown) (no (unknown) (unknown) Urine Occult Blood (units (unknown) date) 2+ H (Negative) unknown) (unknown) (no (unknown) (unknown) Urine Protein 2+ H (units (unknown) date) (Negative) unknown) (unknown) (no (unknown) (unknown) Urine RBC 1-5/hpf (units (unknown) date) D (0-5/HPF) unknown) (unknown) (no (unknown) (unknown) Urine Specific (units (unknown) date) [place] 1.015 unknown) (unknown) (no (unknown) (unknown) Urine Urobilinogen (units (unknown) date) 0.2 (0.2) E.U./dL unknown) (unknown) (no (unknown) (unknown) Urine WBC 1-5/hpf (units (unknown) date) (0-5/HPF) unknown) (unknown) (no (unknown) (unknown) Urine pH 6.0 (units (u nknown) date) (4.5-8.0) unknown) (unknown) (no (unknown) (unknown) Visit Report (units (u nknown) date) Forms: Patient unknown) Portal/API (unknown) (no (unknown) (unknown) Vital Signs - 8 hr (units (unknown) date) unknown) (unknown) (no (unknown) (unknown) Vital Signs (units (un known) date) unknown) (unknown) (no (unknown) (unknown) Vital signs: (units (u nknown) date) unknown) (unknown) (no (unknown) (unknown) Your urine was (units (unknown) date) sent for culture if unknown) it shows resistance V antibiotics prescribed (unknown) (no (unknown) (unknown) [From Pyridium] (units (unknown) date) unknown) (unknown) (no (unknown) (unknown) alcohol intake (units (unknown) date) frequency: 0-2 unknown) drinks per day (unknown) (no (unknown) (unknown) and below (units (unkn own) date) unknown) (unknown) (no (unknown) (unknown) and then worsened (units (unknown) date) again overnight. unknown) Patient did have straight cath obtained in (unknown) (no (unknown) (unknown) any vaginal (units (un known) date) bleeding or unknown) discharge. Patient states she is had about 5 days (unknown) (no (unknown) (unknown) as well as her (units (unknown) date) need for repeat unknown) INR. (unknown) (no (unknown) (unknown) at this time. (units ( unknown) date) Return precautions unknown) discussed patient expressed her understanding (unknown) (no (unknown) (unknown) biotin 5,000 mcg (units (unknown) date) Tablet, Sublingual unknown) (unknown) (no (unknown) (unknown) biotin 5,000 mcg (units (unknown) date) sublingual tablet unknown) 5,000 mcg sublingual DAILY 06/20/21 08/12/21 (unknown) (no (unknown) (unknown) breath activated (units (unknown) date) powder inhaler unknown) (unknown) (no (unknown) (unknown) budesonide 200 (units (unknown) date) mcg/actuation 50 unknown) mcg inhalation Q8HR 06/20/21 08/12/21 (unknown) (no (unknown) (unknown) budesonide 200 (units (unknown) date) mcg/actuation unknown) Aerosol Powdr Breath Activated (unknown) (no (unknown) (unknown) cardiomyopathy on (units (unknown) date) warfarin, pacemaker unknown) and states she had a cardiac arrest in the (unknown) (no (unknown) (unknown) carvedilol 6.25 mg (units (unknown) date) Tablet unknown) (unknown) (no (unknown) (unknown) carvedilol 6.25 mg (units (unknown) date) tablet 6.25 mg PO unknown) BID 06/20/21 08/12/21 (unknown) (no (unknown) (unknown) cholecalciferol (units (unknown) date) (vitamin D3) 125 unknown) 125 mcg PO DAILY 06/20/21 08/12/21 (unknown) (no (unknown) (unknown) cholecalciferol (units (unknown) date) (vitamin D3) 125 unknown) mcg (5,000 unit) Tablet (unknown) (no (unknown) (unknown) ciprofloxacin HCl (units (unknown) date) 250 mg tablet 250 unknown) mg PO BEDTIME #60 tabs 09/02/21 (unknown) (no (unknown) (unknown) ciprofloxacin HCl (units (unknown) date) 250 mg tablet unknown) (unknown) (no (unknown) (unknown) estradiol 0.01% (units (unknown) date) (0.1 mg/gram) 1 g unknown) vaginal 2XW #42.5 grams 08/19/21 (unknown) (no (unknown) (unknown) estradiol (units (unkn own) date) [Estrace] 0.01 % unknown) (0.1 mg/gram) cream (unknown) (no (unknown) (unknown) extremities (units (un known) date) unknown) (unknown) (no (unknown) (unknown) fosfomycin (units (unk nown) date) tromethamine 3 gram unknown) 3 g PO ONCE #1 ea 07/31/21 (unknown) (no (unknown) (unknown) fosfomycin (units (unk nown) date) tromethamine 3 gram unknown) 3 g PO ONCE #1 ea 08/01/21 (unknown) (no (unknown) (unknown) fosfomycin (units (unk nown) date) tromethamine 3 gram unknown) packet (unknown) (no (unknown) (unknown) frequency, (units (unk nown) date) dysuria, urgency unknown) and sense of incomplete emptying. She denies fevers (unknown) (no (unknown) (unknown) furosemide 20 mg (units (unknown) date) Tablet unknown) (unknown) (no (unknown) (unknown) furosemide 20 mg (units (unknown) date) tablet 20 mg PO 6XW unknown) 06/20/21 08/12/21 (unknown) (no (unknown) (unknown) furosemide 40 mg (units (unknown) date) Tablet unknown) (unknown) (no (unknown) (unknown) furosemide 40 mg (units (unknown) date) tablet 40 mg PO unknown) WEEKLY 06/20/21 08/12/21 (unknown) (no (unknown) (unknown) guarding or (units (un known) date) rebound, rigidity, unknown) no mass (unknown) (no (unknown) (unknown) had kidney stones. (units (unknown) date) Patient states unknown) today she is having UTI symptoms with (unknown) (no (unknown) (unknown) her last 3 urine (units (unknown) date) cultures show unknown) Enterobacter aerogenes, most recent had (unknown) (no (unknown) (unknown) in the next (units (un known) date) several days. unknown) Patient has had issues with kidney stones and (unknown) (no (unknown) (unknown) intact (units (unkno wn) date) unknown) (unknown) (no (unknown) (unknown) losartan 50 mg (units (unknown) date) Tablet unknown) (unknown) (no (unknown) (unknown) losartan 50 mg (units (unknown) date) tablet 50 mg PO unknown) DAILY 06/20/21 08/12/21 (unknown) (no (unknown) (unknown) mcg (5,000 unit) (units (unknown) date) tablet unknown) (unknown) (no (unknown) (unknown) metformin 500 mg (units (unknown) date) Tablet unknown) (unknown) (no (unknown) (unknown) metformin 500 mg (units (unknown) date) tablet 1,000 mg PO unknown) BID 07/26/21 08/12/21 (unknown) (no (unknown) (unknown) metformin which (units (unknown) date) has not changed, no unknown) black or bloody stools. Patient has not had (unknown) (no (unknown) (unknown) mg-trimethoprim (units (unknown) date) 160 mg tablet unknown) (unknown) (no (unknown) (unknown) moist mucous (units (u nknown) date) membranes unknown) (unknown) (no (unknown) (unknown) must administer (units (unknown) date) with a meal/food unknown) (unknown) (no (unknown) (unknown) or chills. No (units ( unknown) date) nausea or vomiting. unknown) She denies any flank or back pain. She (unknown) (no (unknown) (unknown) oral packet (units (un known) date) unknown) (unknown) (no (unknown) (unknown) oxycodone 5 mg (units (unknown) date) tablet 5 mg PO Q4H unknown) PRN pain #20 tabs 07/26/21 (unknown) (no (unknown) (unknown) oxycodone 5 mg (units (unknown) date) tablet unknown) (unknown) (no (unknown) (unknown) past was found to (units (unknown) date) have an EF of 15% unknown) she states they never found exact cause. (unknown) (no (unknown) (unknown) phenazopyridine (units (unknown) date) Allergy Verified unknown) 08/12/21 08:17 (unknown) (no (unknown) (unknown) potassium 99 mg (units (unknown) date) Tablet unknown) (unknown) (no (unknown) (unknown) potassium 99 mg (units (unknown) date) tablet 99 mg PO unknown) DAILY 07/26/21 08/12/21 (unknown) (no (unknown) (unknown) reassuring make me (units (unknown) date) less suspicious for unknown) kidney stone. Further workup is deferred (unknown) (no (unknown) (unknown) required ureteral (units (unknown) date) stents in the past, unknown) her exam and symptoms today as overall (unknown) (no (unknown) (unknown) resistance and (units (unknown) date) Bactrim, Levaquin unknown) and Cipro were sensitive. Because of warfarin (unknown) (no (unknown) (unknown) rosuvastatin 40 mg (units (unknown) date) Tablet unknown) (unknown) (no (unknown) (unknown) rosuvastatin 40 mg (units (unknown) date) tablet 40 mg PO unknown) DAILY 06/20/21 08/12/21 (unknown) (no (unknown) (unknown) states it is very (units (unknown) date) suprapubic. Patient unknown) states she has chronic diarrhea from (unknown) (no (unknown) (unknown) sulfamethoxazole (units (unknown) date) 800 1 tab PO BID 7 unknown) days #14 tabs 07/26/22 (unknown) (no (unknown) (unknown) sulfamethoxazole-t (units (unknown) date) rimethoprim unknown) [Bactrim DS] 800-160 mg tablet (unknown) (no (unknown) (unknown) symptoms she came (units (unknown) date) to get checked unknown) today because symptoms had started to improve (unknown) (no (unknown) (unknown) symptoms. (units (unkn own) date) unknown) (unknown) (no (unknown) (unknown) takes 4 puffs (units ( unknown) date) qhs-(Pulmacort) unknown) (unknown) (no (unknown) (unknown) takes it 5x/week (units (unknown) date) unknown) (unknown) (no (unknown) (unknown) tamsulosin 0.4 mg (units (unknown) date) capsule 0.4 mg PO unknown) BEDTIME #60 caps 06/21/21 (unknown) (no (unknown) (unknown) tamsulosin 0.4 mg (units (unknown) date) capsule unknown) (unknown) (no (unknown) (unknown) tetracycline (units (u nknown) date) Allergy Severe unknown) ITCHING Verified 08/12/21 08:17 (unknown) (no (unknown) (unknown) the urology office (units (unknown) date) on 08/26/2021 which unknown) had showed Enterobacter greater than (unknown) (no (unknown) (unknown) twice weekly (units (u nknown) date) thereafter. unknown) (unknown) (no (unknown) (unknown) vaginal cream (units ( unknown) date) (Estrace) unknown) (unknown) (no (unknown) (unknown) vomiting, black or (units (unknown) date) bloody stools, unknown) difficulty with urination or worsening (unknown) (no (unknown) (unknown) warfarin 2 mg (units ( unknown) date) Tablet unknown) (unknown) (no (unknown) (unknown) warfarin 2 mg (units ( unknown) date) tablet 2 mg PO 2XW unknown) 06/20/21 08/12/21 (unknown) (no (unknown) (unknown) warfarin 3 mg (units ( unknown) date) Tablet unknown) (unknown) (no (unknown) (unknown) warfarin 3 mg (units ( unknown) date) tablet 3 mg PO 5XW unknown) 06/20/21 08/12/21 (unknown) (no (unknown) (unknown) warfarin level and (units (unknown) date) make it elevate. unknown) (unknown) (no (unknown) (unknown) will go with (units (u nknown) date) Bactrim but patient unknown) has been instructed to have her INR rechecked (unknown) (no (unknown) (unknown) you will be (units (un known) date) contacted to change unknown) your antibiotic. Result panel 172 (unknown) (no date) (unknown) (unknown) 0.7 % (unkn own) (unknown) (no date) (unknown) (unknown) 1.2 % (unkn own) (unknown) (no date) (unknown) (unknown) 100 /ul (unkn own) (unknown) (no date) (unknown) (unknown) 100 /ul (unkn own) (unknown) (no date) (unknown) (unknown) 12.7 g/dl (unkn own) (unknown) (no date) (unknown) (unknown) 14.5 % (unkn own) (unknown) (no date) (unknown) (unknown) 15.0 % (unkn own) (unknown) (no date) (unknown) (unknown) 1500 /ul (unkn own) (unknown) (no date) (unknown) (unknown) 262 x10 3/ul (unkn own) (unknown) (no date) (unknown) (unknown) 29.9 pg (unkn own) (unknown) (no date) (unknown) (unknown) 33.1 % (unkn own) (unknown) (no date) (unknown) (unknown) 38.4 % (unkn own) (unknown) (no date) (unknown) (unknown) 4.26 x10 6/ul (unkn own) (unknown) (no date) (unknown) (unknown) 7.6 % (unkn own) (unknown) (no date) (unknown) (unknown) 700 /ul (unkn own) (unknown) (no date) (unknown) (unknown) 7400 /ul (unkn own) (unknown) (no date) (unknown) (unknown) 75.5 % (unkn own) (unknown) (no date) (unknown) (unknown) 9.8 x10 3/ul (unkn own) (unknown) (no date) (unknown) (unknown) 90.3 fl (unkn own) Result panel 173 (unknown) (no date) (unknown) (unknown) 0.7 mg/dl (unkn own) (unknown) (no date) (unknown) (unknown) 1.4 (units unknown) (unknown) (unknown) (no date) (unknown) (unknown) 10.0 mg/dl (unkn own) (unknown) (no date) (unknown) (unknown) 10.0 mg/dl (unkn own) (unknown) (no date) (unknown) (unknown) 103 mmol/l (unkn own) (unknown) (no date) (unknown) (unknown) 13 mmol/l (unkn own) (unknown) (no date) (unknown) (unknown) 136 mmol/l (unkn own) (unknown) (no date) (unknown) (unknown) 27 iu/l (unkn own) (unknown) (no date) (unknown) (unknown) 3.1 g/dl (unkn own) (unknown) (no date) (unknown) (unknown) 32 iu/l (unkn own) (unknown) (no date) (unknown) (unknown) 4 ml/min (unkn own) (unknown) (no date) (unknown) (unknown) 4 ml/min (unkn own) (unknown) (no date) (unknown) (unknown) 4.2 g/dl (unkn own) (unknown) (no date) (unknown) (unknown) 5.7 mmol/l (unkn own) (unknown) (no date) (unknown) (unknown) 5.7 mmol/l (unkn own) (unknown) (no date) (unknown) (unknown) 54 u/l (unkn own) (unknown) (no date) (unknown) (unknown) 6.7 (units unknown) (unknown) (unknown) (no date) (unknown) (unknown) 67 mg/dl (unkn own) (unknown) (no date) (unknown) (unknown) 7.3 g/dl (unkn own) (unknown) (no date) (unknown) (unknown) 88 mg/dl (unkn own) (unknown) (no date) (unknown) (unknown) 88 mg/dl (unkn own) (unknown) (no date) (unknown) (unknown) 9.9 mg/dl (unkn own) Result panel 174 (unknown) (no (unknown) (unknown) (no value) (units (unk nown) date) unknown) (unknown) (no (unknown) (unknown) 0.4 mg PO BEDTIME (units (unknown) date) Qty: 60 0RF unknown) (unknown) (no (unknown) (unknown) 01:20 (units (unkno wn) date) unknown) (unknown) (no (unknown) (unknown) 01:40 01:40 (units (un known) date) unknown) (unknown) (no (unknown) (unknown) [id number] (units (unkno wn) date) unknown) (unknown) (no (unknown) (unknown) 1 g vaginal 2XW (units (unknown) date) Qty: 42.5 3RF unknown) (unknown) (no (unknown) (unknown) 1,000 mg PO BID (units (unknown) date) unknown) (unknown) (no (unknown) (unknown) 08/02/22 01:17 (units (unknown) date) unknown) (unknown) (no (unknown) (unknown) 08/02/22 01:25 (units (unknown) date) unknown) (unknown) (no (unknown) (unknown) 08/02/22 01:40 (units (unknown) date) unknown) (unknown) (no (unknown) (unknown) 08/02/22 02:09 (units (unknown) date) unknown) (unknown) (no (unknown) (unknown) 08/02/22 08/02/22 (units (unknown) date) Range/Units unknown) (unknown) (no (unknown) (unknown) 08/02/22 (units (unkno wn) date) unknown) (unknown) (no (unknown) (unknown) 125 mcg PO DAILY (units (unknown) date) unknown) (unknown) (no (unknown) (unknown) 2 mg PO 2XW (units (un known) date) unknown) (unknown) (no (unknown) (unknown) 20 mg PO 6XW (units (u nknown) date) unknown) (unknown) (no (unknown) (unknown) 250 mg PO BEDTIME (units (unknown) date) Qty: 60 0RF unknown) (unknown) (no (unknown) (unknown) 3 g PO ONCE Qty: 1 (units (unknown) date) 0RF unknown) (unknown) (no (unknown) (unknown) 3 mg PO 5XW (units (un known) date) unknown) (unknown) (no (unknown) (unknown) 40 mg PO DAILY (units (unknown) date) unknown) (unknown) (no (unknown) (unknown) 40 mg PO WEEKLY (units (unknown) date) unknown) (unknown) (no (unknown) (unknown) 5 mg PO Q4H PRN (units (unknown) date) (Reason: pain) Qty: unknown) 20 0RF (unknown) (no (unknown) (unknown) 5,000 mcg (units (unkn own) date) sublingual DAILY unknown) (unknown) (no (unknown) (unknown) 50 mcg INHALATION (units (unknown) date) Q8HR unknown) (unknown) (no (unknown) (unknown) 50 mg PO DAILY (units (unknown) date) unknown) (unknown) (no (unknown) (unknown) 6.25 mg PO BID (units (unknown) date) unknown) (unknown) (no (unknown) (unknown) 99 mg PO DAILY (units (unknown) date) unknown) (unknown) (no (unknown) (unknown) AICD (automatic (units (unknown) date) cardioverter/defibr unknown) illator) present (11/29/20) (unknown) (no (unknown) (unknown) ALT 27 (<35) IU/L (units (unknown) date) unknown) (unknown) (no (unknown) (unknown) AST 32 (14-36) (units (unknown) date) IU/L unknown) (unknown) (no (unknown) (unknown) Acute kidney (units (u nknown) date) injury unknown) (unknown) (no (unknown) (unknown) Afib (units (unkno wn) date) unknown) (unknown) (no (unknown) (unknown) Age/Sex: 71 / F (units (unknown) date) unknown) (unknown) (no (unknown) (unknown) Albumin 4.2 (units (un known) date) (3.5-5.0) g/dL unknown) (unknown) (no (unknown) (unknown) Albumin/Globulin (units (unknown) date) Ratio 1.4 (1.0-2.8) unknown) (unknown) (no (unknown) (unknown) Alkaline (units (unkno wn) date) Phosphatase 54 unknown) (38-126) U/L (unknown) (no (unknown) (unknown) Allergies (units (unkn own) date) unknown) (unknown) (no (unknown) (unknown) Allergy/AdvReac (units (unknown) date) Type Severity unknown) Reaction Status Date / Time (unknown) (no (unknown) (unknown) BUN 67 H (7-17) (units (unknown) date) mg/dL unknown) (unknown) (no (unknown) (unknown) BUN/Creatinine (units (unknown) date) Ratio 6.7 (6-22) unknown) (unknown) (no (unknown) (unknown) Baso # (Auto) 100 (units (unknown) date) (0-100) /uL unknown) (unknown) (no (unknown) (unknown) Baso % (Auto) 0.7 (units (unknown) date) (0-2) % unknown) (unknown) (no (unknown) (unknown) Blood Pressure (units (unknown) date) 130/69 08/02/22 unknown) 01:20 (unknown) (no (unknown) (unknown) Blood Pressure (units (unknown) date) 130/69 unknown) (unknown) (no (unknown) (unknown) Breathing (units (unkn own) date) unknown) (unknown) (no (unknown) (unknown) CHF (congestive (units (unknown) date) heart failure) unknown) (unknown) (no (unknown) (unknown) CVA (cerebral (units ( unknown) date) vascular accident) unknown) (unknown) (no (unknown) (unknown) Calcium 9.9 (units (un known) date) (8.4-10.2) mg/dL unknown) (unknown) (no (unknown) (unknown) Carbon Dioxide 13 (units (unknown) date) L (22-32) mmol/L unknown) (unknown) (no (unknown) (unknown) Cardiac arrest (units (unknown) date) (11/29/20) unknown) (unknown) (no (unknown) (unknown) Cardiomyopathy (units (unknown) date) unknown) (unknown) (no (unknown) (unknown) Chief complaint: (units (unknown) date) Nausea/Vomiting/Huong unknown) rrhea (unknown) (no (unknown) (unknown) Chloride 103 (units (u nknown) date) (98-107) mmol/L unknown) (unknown) (no (unknown) (unknown) Complete Blood (units (unknown) date) Count AUTO DIFF unknown) Stat (unknown) (no (unknown) (unknown) Comprehensive (units ( unknown) date) Metabolic Panel unknown) Stat (unknown) (no (unknown) (unknown) Course (units (unkno wn) date) unknown) (unknown) (no (unknown) (unknown) Covid-19 + FLU A/B (units (unknown) date) + RSV - PCR Stat unknown) (unknown) (no (unknown) (unknown) Creatinine 10.0 H* (units (unknown) date) (0.52-1.04) mg/dL unknown) (unknown) (no (unknown) (unknown) Creatinine Urine (units (unknown) date) Random Stat unknown) (unknown) (no (unknown) (unknown) : 1950 (units (unknown) date) Acct:[id number] unknown) (unknown) (no (unknown) (unknown) Date of Service: (units (unknown) date) 08/02/22 unknown) (unknown) (no (unknown) (unknown) Departure (units (unkn own) date) unknown) (unknown) (no (unknown) (unknown) Diabetes (units (unkno wn) date) unknown) (unknown) (no (unknown) (unknown) Discharge Plan (units (unknown) date) unknown) (unknown) (no (unknown) (unknown) ED Orders (units (unkn own) date) unknown) (unknown) (no (unknown) (unknown) EKG-12 Lead Stat (units (unknown) date) unknown) (unknown) (no (unknown) (unknown) ER Physician: (units ( unknown) date) Mike Cobian D.O. unknown) (unknown) (no (unknown) (unknown) Emergency Report (units (unknown) date) unknown) (unknown) (no (unknown) (unknown) Eos # (Auto) 100 (units (unknown) date) (0-450) /uL unknown) (unknown) (no (unknown) (unknown) Eos % (Auto) 1.2 L (units (unknown) date) (2-4) % unknown) (unknown) (no (unknown) (unknown) Estimated GFR 4 L (units (unknown) date) (>60) mL/min unknown) (unknown) (no (unknown) (unknown) Exam (units (unkno wn) date) unknown) (unknown) (no (unknown) (unknown) General (units (unkno wn) date) unknown) (unknown) (no (unknown) (unknown) Globulin 3.1 (units (u nknown) date) (1.7-4.1) g/dL unknown) (unknown) (no (unknown) (unknown) Glucose 88 (units (unk nown) date) (80-110) mg/dL unknown) (unknown) (no (unknown) (unknown) HLD (units (unkno wn) date) (hyperlipidemia) unknown) (unknown) (no (unknown) (unknown) HPI - (units (unkno wn) date) Nausea/Vomiting/Huong unknown) rrhea (unknown) (no (unknown) (unknown) HTN (hypertension) (units (unknown) date) unknown) (unknown) (no (unknown) (unknown) Hct 38.4 (36-46) % (units (unknown) date) unknown) (unknown) (no (unknown) (unknown) Hgb 12.7 (units (unkno wn) date) (12.0-16.0) g/dL unknown) (unknown) (no (unknown) (unknown) History of UTI (units (unknown) date) unknown) (unknown) (no (unknown) (unknown) History of colon (units (unknown) date) surgery unknown) (unknown) (no (unknown) (unknown) History of (units (unk nown) date) colonoscopy unknown) (unknown) (no (unknown) (unknown) History of (units (unk nown) date) hysterectomy unknown) (unknown) (no (unknown) (unknown) History of (units (unk nown) date) nephrolithiasis unknown) (unknown) (no (unknown) (unknown) History of (units (unk nown) date) thyroidectomy, unknown) subtotal (unknown) (no (unknown) (unknown) Home Medications (units (unknown) date) unknown) (unknown) (no (unknown) (unknown) Hx of appendectomy (units (unknown) date) unknown) (unknown) (no (unknown) (unknown) Hx of breast (units (u nknown) date) surgery unknown) (unknown) (no (unknown) (unknown) Hx of cystoscopy (units (unknown) date) (06/20/21) unknown) (unknown) (no (unknown) (unknown) Hx of eye surgery (units (unknown) date) unknown) (unknown) (no (unknown) (unknown) Initial Vital (units ( unknown) date) Signs unknown) (unknown) (no (unknown) (unknown) Initial Vital (units ( unknown) date) Signs: unknown) (unknown) (no (unknown) (unknown) Insert 1 g (units (unk nown) date) intravaginally at unknown) HS times 12 days then 1 g intravaginally at HS (unknown) (no (unknown) (unknown) [facility] (units (unknown) date) [address] unknown) [place] [address] (unknown) (no (unknown) (unknown) Lab Data (units (unkno wn) date) unknown) (unknown) (no (unknown) (unknown) Lab Results (units (un known) date) unknown) (unknown) (no (unknown) (unknown) Label Comments: (units (unknown) date) unknown) (unknown) (no (unknown) (unknown) Labs: (units (unkno wn) date) unknown) (unknown) (no (unknown) (unknown) Left ureteral (units ( unknown) date) calculus unknown) (unknown) (no (unknown) (unknown) Lip/Tongue/Throat (units (unknown) date) unknown) (unknown) (no (unknown) (unknown) Lipase Stat (units (un known) date) unknown) (unknown) (no (unknown) (unknown) Lymph # (Auto) (units (unknown) date) 1500 (2618-9013) unknown) /uL (unknown) (no (unknown) (unknown) Lymph % (Auto) (units (unknown) date) 15.0 L (25-40) % unknown) (unknown) (no (unknown) (unknown) MCH 29.9 (26-34) (units (unknown) date) PG unknown) (unknown) (no (unknown) (unknown) MCHC 33.1 (30-36) (units (unknown) date) % unknown) (unknown) (no (unknown) (unknown) MCV 90.3 (80-100) (units (unknown) date) fL unknown) (unknown) (no (unknown) (unknown) MDM - (units (unkno wn) date) Nausea/Vomiting/Huong unknown) rrhea (unknown) (no (unknown) (unknown) Medical History (units (unknown) date) (Reviewed 07/26/22 unknown) @ 08:01 by Shiela Hdz DO) (unknown) (no (unknown) (unknown) Medication (units (unk nown) date) Instructions unknown) Recorded Confirmed (unknown) (no (unknown) (unknown) Medication (units (unk nown) date) Instructions unknown) Recorded (unknown) (no (unknown) (unknown) Mode of arrival: (units (unknown) date) Ambulatory unknown) (unknown) (no (unknown) (unknown) Burke # (Auto) 700 (units (unknown) date) (0-900) /uL unknown) (unknown) (no (unknown) (unknown) Burke % (Auto) 7.6 (units (unknown) date) (3-14) % unknown) (unknown) (no (unknown) (unknown) Neut # (Auto) 7400 (units (unknown) date) H (3919-6020) /uL unknown) (unknown) (no (unknown) (unknown) Neut % (Auto) 75.5 (units (unknown) date) H (50-75) % unknown) (unknown) (no (unknown) (unknown) No Action (units (unkn own) date) unknown) (unknown) (no (unknown) (unknown) Ondansetron HCl (units (unknown) date) (Ondansetron 4 Mg unknown) Odt) 4 mg PO NOW PRN (unknown) (no (unknown) (unknown) Ondansetron HCl (units (unknown) date) (Ondansetron 4 Mg/2 unknown) Ml Inj) 4 mg IV NOW PRN (unknown) (no (unknown) (unknown) Ordered: (units (unkno wn) date) unknown) (unknown) (no (unknown) (unknown) Orders (units (unkno wn) date) unknown) (unknown) (no (unknown) (unknown) Oxygen Delivery (units (unknown) date) Method 08/02/22 unknown) 01:20 (unknown) (no (unknown) (unknown) Oxygen Delivery (units (unknown) date) Method Room Air unknown) (unknown) (no (unknown) (unknown) PRN Reason: Nausea (units (unknown) date) And Vomiting unknown) (unknown) (no (unknown) (unknown) Patient History (units (unknown) date) unknown) (unknown) (no (unknown) (unknown) Patient: (units (unkno wn) date) Natasha Jaquez unknown) MR#: [id number] (unknown) (no (unknown) (unknown) Please take this (units (unknown) date) the morning of unknown) August 04, 2021. (unknown) (no (unknown) (unknown) Plt Count 262 (units ( unknown) date) (150-400) X103/uL unknown) (unknown) (no (unknown) (unknown) Postmenopausal (units (unknown) date) atrophic vaginitis unknown) (unknown) (no (unknown) (unknown) Potassium 5.7 H (units (unknown) date) (3.4-5.1) mmol/L unknown) (unknown) (no (unknown) (unknown) Prescriptions: (units (unknown) date) unknown) (unknown) (no (unknown) (unknown) Previous Rx's (units ( unknown) date) unknown) (unknown) (no (unknown) (unknown) Pulse Oximetry 95 (units (unknown) date) 08/02/22 01:20 unknown) (unknown) (no (unknown) (unknown) Pulse Oximetry 95 (units (unknown) date) unknown) (unknown) (no (unknown) (unknown) Pulse Rate 78 (units ( unknown) date) 08/02/22 01:20 unknown) (unknown) (no (unknown) (unknown) Pulse Rate 78 (units ( unknown) date) unknown) (unknown) (no (unknown) (unknown) RBC 4.26 (4.0-5.2) (units (unknown) date) X106/uL unknown) (unknown) (no (unknown) (unknown) RDW 14.5 (units (unkno wn) date) (11.6-14.8) % unknown) (unknown) (no (unknown) (unknown) Related Data (units (u nknown) date) unknown) (unknown) (no (unknown) (unknown) Respiratory Rate (units (unknown) date) 19 08/02/22 01:20 unknown) (unknown) (no (unknown) (unknown) Respiratory Rate (units (unknown) date) 19 unknown) (unknown) (no (unknown) (unknown) Result diagrams: (units (unknown) date) unknown) (unknown) (no (unknown) (unknown) Retained ureteral (units (unknown) date) stent unknown) (unknown) (no (unknown) (unknown) Rx Instructions: (units (unknown) date) unknown) (unknown) (no (unknown) (unknown) SVT (units (unkno wn) date) (supraventricular unknown) tachycardia) (unknown) (no (unknown) (unknown) Signed By: (units (unk nown) date) unknown) (unknown) (no (unknown) (unknown) Smoking Status: (units (unknown) date) Never smoker unknown) (unknown) (no (unknown) (unknown) Social History (units (unknown) date) (Reviewed 08/12/21 unknown) @ 09:17 by Katy Trimble MD) (unknown) (no (unknown) (unknown) Sodium 136 L (units (u nknown) date) (137-145) mmol/L unknown) (unknown) (no (unknown) (unknown) Sodium Chloride (units (unknown) date) (Normal Saline unknown) 0.9%) 1,000 mls @ 1,000 mls/hr IV BOLUS ONE (unknown) (no (unknown) (unknown) Sodium Urine (units (u nknown) date) Random Stat unknown) (unknown) (no (unknown) (unknown) Source: patient (units (unknown) date) and family unknown) (unknown) (no (unknown) (unknown) Start after 5 day (units (unknown) date) course of 2 caps unknown) daily is complete. (unknown) (no (unknown) (unknown) Stated complaint: (units (unknown) date) body pain/not able unknown) to eat or drink x 5 days (unknown) (no (unknown) (unknown) Stop: 08/02/22 (units (unknown) date) 02:39 unknown) (unknown) (no (unknown) (unknown) Substance Use (units ( unknown) date) Type: does not use unknown) (unknown) (no (unknown) (unknown) Surgical History (units (unknown) date) (Reviewed 07/26/22 unknown) @ 08:01 by Shiela Hdz DO) (unknown) (no (unknown) (unknown) Temperature 98.7 F (units (unknown) date) 08/02/22 01:20 unknown) (unknown) (no (unknown) (unknown) Temperature 98.7 F (units (unknown) date) unknown) (unknown) (no (unknown) (unknown) Time Seen by (units (u nknown) date) Provider: 08/02/22 unknown) 01:38 (unknown) (no (unknown) (unknown) Total Bilirubin (units (unknown) date) 0.7 (0.2-1.3) mg/dL unknown) (unknown) (no (unknown) (unknown) Total Protein 7.3 (units (unknown) date) (6.3-8.2) g/dL unknown) (unknown) (no (unknown) (unknown) Upset (units (unkno wn) date) unknown) (unknown) (no (unknown) (unknown) Vital Signs - 8 hr (units (unknown) date) unknown) (unknown) (no (unknown) (unknown) Vital Signs (units (un known) date) unknown) (unknown) (no (unknown) (unknown) Vital signs: (units (u nknown) date) unknown) (unknown) (no (unknown) (unknown) WBC 9.8 (4.5-11.0) (units (unknown) date) X103/uL unknown) (unknown) (no (unknown) (unknown) [Embedded Image (units (unknown) date) Not Available] unknown) (unknown) (no (unknown) (unknown) [From Pyridium] (units (unknown) date) unknown) (unknown) (no (unknown) (unknown) alcohol intake (units (unknown) date) frequency: 0-2 unknown) drinks per day (unknown) (no (unknown) (unknown) alcohol intake: (units (unknown) date) never unknown) (unknown) (no (unknown) (unknown) biotin 5,000 mcg (units (unknown) date) Tablet, Sublingual unknown) (unknown) (no (unknown) (unknown) biotin 5,000 mcg (units (unknown) date) sublingual tablet unknown) 5,000 mcg sublingual DAILY 06/20/21 08/12/21 (unknown) (no (unknown) (unknown) breath activated (units (unknown) date) powder inhaler unknown) (unknown) (no (unknown) (unknown) budesonide 200 (units (unknown) date) mcg/actuation 50 unknown) mcg inhalation Q8HR 06/20/21 08/12/21 (unknown) (no (unknown) (unknown) budesonide 200 (units (unknown) date) mcg/actuation unknown) Aerosol Powdr Breath Activated (unknown) (no (unknown) (unknown) carvedilol 6.25 mg (units (unknown) date) Tablet unknown) (unknown) (no (unknown) (unknown) carvedilol 6.25 mg (units (unknown) date) tablet 6.25 mg PO unknown) BID 06/20/21 08/12/21 (unknown) (no (unknown) (unknown) cholecalciferol (units (unknown) date) (vitamin D3) 125 unknown) 125 mcg PO DAILY 06/20/21 08/12/21 (unknown) (no (unknown) (unknown) cholecalciferol (units (unknown) date) (vitamin D3) 125 unknown) mcg (5,000 unit) Tablet (unknown) (no (unknown) (unknown) ciprofloxacin HCl (units (unknown) date) 250 mg tablet 250 unknown) mg PO BEDTIME #60 tabs 09/02/21 (unknown) (no (unknown) (unknown) ciprofloxacin HCl (units (unknown) date) 250 mg tablet unknown) (unknown) (no (unknown) (unknown) estradiol 0.01% (units (unknown) date) (0.1 mg/gram) 1 g unknown) vaginal 2XW #42.5 grams 08/19/21 (unknown) (no (unknown) (unknown) estradiol (units (unkn own) date) [Estrace] 0.01 % unknown) (0.1 mg/gram) cream (unknown) (no (unknown) (unknown) fosfomycin (units (unk nown) date) tromethamine 3 gram unknown) 3 g PO ONCE #1 ea 07/31/21 (unknown) (no (unknown) (unknown) fosfomycin (units (unk nown) date) tromethamine 3 gram unknown) 3 g PO ONCE #1 ea 08/01/21 (unknown) (no (unknown) (unknown) fosfomycin (units (unk nown) date) tromethamine 3 gram unknown) packet (unknown) (no (unknown) (unknown) furosemide 20 mg (units (unknown) date) Tablet unknown) (unknown) (no (unknown) (unknown) furosemide 20 mg (units (unknown) date) tablet 20 mg PO 6XW unknown) 06/20/21 08/12/21 (unknown) (no (unknown) (unknown) furosemide 40 mg (units (unknown) date) Tablet unknown) (unknown) (no (unknown) (unknown) furosemide 40 mg (units (unknown) date) tablet 40 mg PO unknown) WEEKLY 06/20/21 08/12/21 (unknown) (no (unknown) (unknown) household members: (units (unknown) date) spouse unknown) (unknown) (no (unknown) (unknown) losartan 50 mg (units (unknown) date) Tablet unknown) (unknown) (no (unknown) (unknown) losartan 50 mg (units (unknown) date) tablet 50 mg PO unknown) DAILY 06/20/21 08/12/21 (unknown) (no (unknown) (unknown) mcg (5,000 unit) (units (unknown) date) tablet unknown) (unknown) (no (unknown) (unknown) metformin 500 mg (units (unknown) date) Tablet unknown) (unknown) (no (unknown) (unknown) metformin 500 mg (units (unknown) date) tablet 1,000 mg PO unknown) BID 07/26/21 08/12/21 (unknown) (no (unknown) (unknown) must administer (units (unknown) date) with a meal/food unknown) (unknown) (no (unknown) (unknown) of (units (unkno wn) date) unknown) (unknown) (no (unknown) (unknown) oral packet (units (un known) date) unknown) (unknown) (no (unknown) (unknown) oxycodone 5 mg (units (unknown) date) tablet 5 mg PO Q4H unknown) PRN pain #20 tabs 07/26/21 (unknown) (no (unknown) (unknown) oxycodone 5 mg (units (unknown) date) tablet unknown) (unknown) (no (unknown) (unknown) phenazopyridine (units (unknown) date) Allergy Verified unknown) 08/12/21 08:17 (unknown) (no (unknown) (unknown) potassium 99 mg (units (unknown) date) Tablet unknown) (unknown) (no (unknown) (unknown) potassium 99 mg (units (unknown) date) tablet 99 mg PO unknown) DAILY 07/26/21 08/12/21 (unknown) (no (unknown) (unknown) prednisone Allergy (units (unknown) date) Severe Swelling unknown) Verified 08/02/22 01:20 (unknown) (no (unknown) (unknown) procaine [From (units (unknown) date) Novocain] Allergy unknown) Chest Pain Verified 08/02/22 01:20 (unknown) (no (unknown) (unknown) rizatriptan (units (un known) date) Allergy Severe unknown) Difficulty Verified 08/02/22 01:20 (unknown) (no (unknown) (unknown) rosuvastatin 40 mg (units (unknown) date) Tablet unknown) (unknown) (no (unknown) (unknown) rosuvastatin 40 mg (units (unknown) date) tablet 40 mg PO unknown) DAILY 06/20/21 08/12/21 (unknown) (no (unknown) (unknown) s (units (unkno wn) date) unknown) (unknown) (no (unknown) (unknown) shellfish derived (units (unknown) date) AdvReac unknown) Gastrointestinal Verified 08/02/22 01:20 (unknown) (no (unknown) (unknown) takes 4 puffs (units ( unknown) date) qhs-(Pulmacort) unknown) (unknown) (no (unknown) (unknown) takes it 5x/week (units (unknown) date) unknown) (unknown) (no (unknown) (unknown) tamsulosin 0.4 mg (units (unknown) date) capsule 0.4 mg PO unknown) BEDTIME #60 caps 06/21/21 (unknown) (no (unknown) (unknown) tamsulosin 0.4 mg (units (unknown) date) capsule unknown) (unknown) (no (unknown) (unknown) tetracycline (units (u nknown) date) Allergy Severe unknown) ITCHING Verified 08/12/21 08:17 (unknown) (no (unknown) (unknown) thiopental AdvReac (units (unknown) date) Palpitation unknown) Verified 08/02/22 01:20 (unknown) (no (unknown) (unknown) twice weekly (units (u nknown) date) thereafter. unknown) (unknown) (no (unknown) (unknown) vaginal cream (units ( unknown) date) (Estrace) unknown) (unknown) (no (unknown) (unknown) warfarin 2 mg (units ( unknown) date) Tablet unknown) (unknown) (no (unknown) (unknown) warfarin 2 mg (units ( unknown) date) tablet 2 mg PO 2XW unknown) 06/20/21 08/12/21 (unknown) (no (unknown) (unknown) warfarin 3 mg (units ( unknown) date) Tablet unknown) (unknown) (no (unknown) (unknown) warfarin 3 mg (units ( unknown) date) tablet 3 mg PO 5XW unknown) 06/20/21 08/12/21 Result panel 175 (unknown) (no (unknown) (unknown) (no value) (units (unk nown) date) unknown) (unknown) (no (unknown) (unknown) [id number] (units (unkno wn) date) unknown) (unknown) (no (unknown) (unknown) 1. Nonobstructing (units (unknown) date) right renal unknown) calculus. No hydronephrosis or obstructive (unknown) (no (unknown) (unknown) 08/02/22 (units (unkno wn) date) unknown) (unknown) (no (unknown) (unknown) [address] [place] [address] (units (unknown) date) unknown) (unknown) (no (unknown) (unknown) 2. Chronic (units (unk nown) date) findings as above unknown) (unknown) (no (unknown) (unknown) Abdominal wall: (units (unknown) date) Abdominal wall unknown) intact without evidence of ventral or inguinal (unknown) (no (unknown) (unknown) Accession Number: (units (unknown) date) [id number] unknown) (unknown) (no (unknown) (unknown) Adrenals: Normal (units (unknown) date) morphology and unknown) density. (unknown) (no (unknown) (unknown) Age/Sex: 71 / F (units (unknown) date) Date of Service: unknown) (unknown) (no (unknown) (unknown) [place], [place] (units ( unknown) date) [id number] unknown) (unknown) (no (unknown) (unknown) Appendix: No (units (u nknown) date) findings to suggest unknown) acute appendicitis. (unknown) (no (unknown) (unknown) Approved by: Alvaro (units (unknown) date) Ruy Hebert on unknown) 08/02/2022 at 7:38 (unknown) (no (unknown) (unknown) Axial sections (units (unknown) date) were acquired from unknown) the lung bases to the pubic symphysis. (unknown) (no (unknown) (unknown) Biliary system: No (units (unknown) date) calcified unknown) cholelithiasis or pericholecystic inflammation. (unknown) (no (unknown) (unknown) COMPARISON: [place] (units (unknown) date) [facility], CT, CT unknown) ABDOMEN PELVIS WO CON, 06/19/2021, 17:01. (unknown) (no (unknown) (unknown) CT Scan Report (units (unknown) date) unknown) (unknown) (no (unknown) (unknown) Coronal and (units (un known) date) unknown) (unknown) (no (unknown) (unknown) : 1950 (units (unknown) date) Acct:[id number] unknown) (unknown) (no (unknown) (unknown) FINDINGS: (units (unkn own) date) unknown) (unknown) (no (unknown) (unknown) Gastrointestinal (units (unknown) date) system: The bowel unknown) is unremarkable without evidence of bowel (unknown) (no (unknown) (unknown) Heart size within (units (unknown) date) normal limits. unknown) (unknown) (no (unknown) (unknown) IMPRESSION: (units (un known) date) unknown) (unknown) (no (unknown) (unknown) INDICATIONS: hx of (units (unknown) date) kidney stone, renal unknown) failure, ABD pain (unknown) (no (unknown) (unknown) [facility] (units (unknown) date) unknown) (unknown) (no (unknown) (unknown) Liver: Normal in (units (unknown) date) size and unknown) attenuation. No contour deformity present. 5.3 cm (unknown) (no (unknown) (unknown) Loc: ED (units (unkno wn) date) unknown) (unknown) (no (unknown) (unknown) Lower thorax: (units ( unknown) date) Bases are clear. unknown) Cardiac biventricular pacemaker/defibrill ator (unknown) (no (unknown) (unknown) Musculoskeletal: (units (unknown) date) Normal bone unknown) mineralization. No acute fractures. (unknown) (no (unknown) (unknown) No free (units (unkno wn) date) unknown) (unknown) (no (unknown) (unknown) No intra (units (unkno wn) date) unknown) (unknown) (no (unknown) (unknown) Note: Final report (units (unknown) date) is concordant with unknown) preliminary interpretation by Real (unknown) (no (unknown) (unknown) Ordering Provider: (units (unknown) date) Mike Cobian D.O.) (unknown) (no (unknown) (unknown) PROCEDURE: CT (units ( unknown) date) KIDNEY URETER unknown) BLADDER (KUB) (unknown) (no (unknown) (unknown) Pancreas: (units (unkn own) date) Unremarkable unknown) without mass or inflammation evident. (unknown) (no (unknown) (unknown) Patient: (units (unkno wn) date) Grabner,Natasha K unknown) MR#: [id number] (unknown) (no (unknown) (unknown) Peritoneal spaces: (units (unknown) date) No mesenteric or unknown) retroperitoneal adenopathy. No free air. (unknown) (no (unknown) (unknown) Procedure: CT (units ( unknown) date) kidney ureter unknown) bladder (KUB) (unknown) (no (unknown) (unknown) [facility] (units (unknown) date) unknown) (unknown) (no (unknown) (unknown) Reproductive (units (u nknown) date) system: unknown) Unremarkable as visualized. (unknown) (no (unknown) (unknown) Signed (units (unkno wn) date) unknown) (unknown) (no (unknown) (unknown) Spleen: Normal in (units (unknown) date) size and density. unknown) (unknown) (no (unknown) (unknown) TECHNIQUE: (units (unk nown) date) unknown) (unknown) (no (unknown) (unknown) There is left (units ( unknown) date) renal scarring. No unknown) hydronephrosis. Nonspecific bilateral (unknown) (no (unknown) (unknown) There is (units (unkno wn) date) nonspecific unknown) bilateral perinephric stranding noted (unknown) (no (unknown) (unknown) Urinary system: 4 (units (unknown) date) cm left renal cyst. unknown) 7 mm nonobstructing right renal (unknown) (no (unknown) (unknown) Vasculature: The (units (unknown) date) IVC, aorta and unknown) iliac vasculature are unremarkable. (unknown) (no (unknown) (unknown) automated exposure (units (unknown) date) control, adjustment unknown) of mA and/or kV according to patient (unknown) (no (unknown) (unknown) calculus present. (units (unknown) date) unknown) (unknown) (no (unknown) (unknown) cyst with (units (unkn own) date) unknown) (unknown) (no (unknown) (unknown) fluid. (units (unkno wn) date) unknown) (unknown) (no (unknown) (unknown) from the (units (unkno wn) date) unknown) (unknown) (no (unknown) (unknown) hernias. (units (unkno wn) date) unknown) (unknown) (no (unknown) (unknown) mural (units (unkno wn) date) calcifications unknown) remains stable from the prior exam (unknown) (no (unknown) (unknown) noted. (units (unkno wn) date) unknown) (unknown) (no (unknown) (unknown) obstruction (units (un known) date) unknown) (unknown) (no (unknown) (unknown) or extrahepatic (units (unknown) date) bile duct unknown) dilatation. (unknown) (no (unknown) (unknown) or inflammation. (units (unknown) date) The stomach appears unknown) unremarkable. Multiple diverticula arise (unknown) (no (unknown) (unknown) perinephric (units (un known) date) unknown) (unknown) (no (unknown) (unknown) sagittal reformats (units (unknown) date) were performed. For unknown) radiation dose reduction, the following (unknown) (no (unknown) (unknown) size. (units (unkno wn) date) unknown) (unknown) (no (unknown) (unknown) stranding present. (units (unknown) date) unknown) (unknown) (no (unknown) (unknown) transverse and (units (unknown) date) descending colon unknown) without evidence of diverticulitis. (unknown) (no (unknown) (unknown) uropathy noted. (units (unknown) date) unknown) (unknown) (no (unknown) (unknown) was used: (units (unkn own) date) unknown) Result panel 176 (unknown) (no date) (unknown) (unknown) 0.7 mg/dl (unkn own) (unknown) (no date) (unknown) (unknown) 1.4 (units unknown) (unknown) (unknown) (no date) (unknown) (unknown) 10.0 mg/dl (unkn own) (unknown) (no date) (unknown) (unknown) 10.0 mg/dl (unkn own) (unknown) (no date) (unknown) (unknown) 103 mmol/l (unkn own) (unknown) (no date) (unknown) (unknown) 13 mmol/l (unkn own) (unknown) (no date) (unknown) (unknown) 136 mmol/l (unkn own) (unknown) (no date) (unknown) (unknown) 27 iu/l (unkn own) (unknown) (no date) (unknown) (unknown) 2998 u/l (unkn own) (unknown) (no date) (unknown) (unknown) 3.1 g/dl (unkn own) (unknown) (no date) (unknown) (unknown) 32 iu/l (unkn own) (unknown) (no date) (unknown) (unknown) 4 ml/min (unkn own) (unknown) (no date) (unknown) (unknown) 4 ml/min (unkn own) (unknown) (no date) (unknown) (unknown) 4.2 g/dl (unkn own) (unknown) (no date) (unknown) (unknown) 5.7 mmol/l (unkn own) (unknown) (no date) (unknown) (unknown) 5.7 mmol/l (unkn own) (unknown) (no date) (unknown) (unknown) 54 u/l (unkn own) (unknown) (no date) (unknown) (unknown) 6.7 (units unknown) (unknown) (unknown) (no date) (unknown) (unknown) 67 mg/dl (unkn own) (unknown) (no date) (unknown) (unknown) 7.3 g/dl (unkn own) (unknown) (no date) (unknown) (unknown) 88 mg/dl (unkn own) (unknown) (no date) (unknown) (unknown) 88 mg/dl (unkn own) (unknown) (no date) (unknown) (unknown) 9.9 mg/dl (unkn own) Result panel 177 (unknown) (no date) (unknown) (unknown) Flu A (units (unkn own) NEGATIVE unknown) (unknown) (no date) (unknown) (unknown) Flu B (units (unkn own) NEGATIVE unknown) (unknown) (no date) (unknown) (unknown) Negative (units (unkn own) unknown) (unknown) (no date) (unknown) (unknown) Negative (units (unkn own) unknown) Result panel 178 (unknown) (no (unknown) (unknown) (no value) (units (unk nown) date) unknown) (unknown) (no (unknown) (unknown) [id number] (units (unkno wn) date) unknown) (unknown) (no (unknown) (unknown) 08/02/22 (units (unkno wn) date) unknown) (unknown) (no (unknown) (unknown) [address] [place] [address] (units (unknown) date) unknown) (unknown) (no (unknown) (unknown) Accession Number: (units (unknown) date) [id number] unknown) (unknown) (no (unknown) (unknown) Age/Sex: 71 / F (units (unknown) date) Date of Service: unknown) (unknown) (no (unknown) (unknown) [place], [place] (units ( unknown) date) [id number] unknown) (unknown) (no (unknown) (unknown) Aorta: Visualized (units (unknown) date) aorta is normal in unknown) caliber at less than 3 cm. (unknown) (no (unknown) (unknown) Approved by: Alvaro (units (unknown) date) Ruy Hebert on unknown) 08/02/2022 at 7:43 (unknown) (no (unknown) (unknown) Bilateral simple (units (unknown) date) renal cysts. No unknown) hydronephrosis (unknown) (no (unknown) (unknown) Biliary ducts: (units (unknown) date) Intrahepatic bile unknown) ducts are non-dilated. Extrahepatic bile (unknown) (no (unknown) (unknown) COMPARISON: None. (units (unknown) date) unknown) (unknown) (no (unknown) (unknown) : 1950 (units (unknown) date) Acct:[id number] unknown) (unknown) (no (unknown) (unknown) FINDINGS: (units (unkn own) date) unknown) (unknown) (no (unknown) (unknown) Gallbladder: (units (u nknown) date) Sonolucent without unknown) evidence cholelithiasis, gallbladder wall (unknown) (no (unknown) (unknown) IMPRESSION: (units (un known) date) unknown) (unknown) (no (unknown) (unknown) INDICATIONS: (units (u nknown) date) VOMITING; RENAL unknown) FAILURE (unknown) (no (unknown) (unknown) IVC: Intrahepatic (units (unknown) date) inferior vena cava unknown) is patent. (unknown) (no (unknown) (unknown) I[place]acs: Proximal (units (unknown) date) common iliac unknown) arteries are normal in caliber at less than 2.5 (unknown) (no (unknown) (unknown) Increased renal (units (unknown) date) cortical unknown) echogenicity suggests medical renal disease (unknown) (no (unknown) (unknown) [facility] (units (unknown) date) unknown) (unknown) (no (unknown) (unknown) Kidneys: Both (units ( unknown) date) kidneys show unknown) increased cortical echogenicity. There is a 1.6 cm (unknown) (no (unknown) (unknown) Liver: Liver is (units (unknown) date) normal in size and unknown) homogeneous in echotexture. (unknown) (no (unknown) (unknown) Loc: ED (units (unkno wn) date) unknown) (unknown) (no (unknown) (unknown) Miscellaneous: No (units (unknown) date) free abdominal unknown) fluid. (unknown) (no (unknown) (unknown) Note: Final (units (un known) date) report is unknown) concordant with preliminary interpretation by Real (unknown) (no (unknown) (unknown) Ordering (units (unkno wn) date) Provider: unknown) Mike Cobian D.O. (unknown) (no (unknown) (unknown) PROCEDURE: US (units ( unknown) date) ABDOMEN COMPLETE unknown) (unknown) (no (unknown) (unknown) Pancreas: (units (unkn own) date) Visualized unknown) portions of the pancreas are sonographically normal. (unknown) (no (unknown) (unknown) Patient: (units (unkno wn) date) Natasha Jaquez K unknown) MR#: [id number] (unknown) (no (unknown) (unknown) Procedure: US (units ( unknown) date) abdomen complete unknown) (unknown) (no (unknown) (unknown) [facility] (units (unknown) date) unknown) (unknown) (no (unknown) (unknown) Real-time (units (unkn own) date) scanning was unknown) performed of the abdominal and retroperitoneal organs, (unknown) (no (unknown) (unknown) Signed (units (unkno wn) date) unknown) (unknown) (no (unknown) (unknown) Spleen: Spleen is (units (unknown) date) normal in size and unknown) homogeneous in echotexture. (unknown) (no (unknown) (unknown) TECHNIQUE: (units (unk nown) date) unknown) (unknown) (no (unknown) (unknown) Ultrasound Report (units (unknown) date) unknown) (unknown) (no (unknown) (unknown) cm. (units (unkno wn) date) unknown) (unknown) (no (unknown) (unknown) documentation. (units (unknown) date) unknown) (unknown) (no (unknown) (unknown) duct caliber (units (u nknown) date) unknown) (unknown) (no (unknown) (unknown) hydronephrosis or (units (unknown) date) unknown) (unknown) (no (unknown) (unknown) measures 3.9 mm. (units (unknown) date) Normal is 6-7 mm unknown) or less in diameter, or 10 mm or less (unknown) (no (unknown) (unknown) pericholecystic (units (unknown) date) fluid. No unknown) sonographic Gomez sign. (unknown) (no (unknown) (unknown) post-cholecystect (units (unknown) date) radha. unknown) (unknown) (no (unknown) (unknown) renal cyst and (units (unknown) date) several left renal unknown) cysts measuring up to 4.7 cm. No (unknown) (no (unknown) (unknown) right (units (unkno wn) date) unknown) (unknown) (no (unknown) (unknown) shadowing calculi (units (unknown) date) bilaterally. unknown) (unknown) (no (unknown) (unknown) thickening or (units ( unknown) date) unknown) (unknown) (no (unknown) (unknown) with image (units (unk nown) date) unknown) Result panel 179 (unknown) (no date) (unknown) (unknown) 69.7 mg/dl (unkn own) (unknown) (no date) (unknown) (unknown) 84 mmol/l (unkn own) Result panel 180 (unknown) (no (unknown) (unknown) (no value) (units (unk nown) date) unknown) (unknown) (no (unknown) (unknown) 0.4 mg PO BEDTIME (units (unknown) date) Qty: 60 0RF unknown) (unknown) (no (unknown) (unknown) 01:17 01:40 01:40 (units (unknown) date) unknown) (unknown) (no (unknown) (unknown) 01:20 08/02/22 (units (unknown) date) unknown) (unknown) (no (unknown) (unknown) 01:39 08/02/22 (units (unknown) date) unknown) (unknown) (no (unknown) (unknown) 02:00 (units (unkno wn) date) unknown) (unknown) (no (unknown) (unknown) 02:32 08/02/22 (units (unknown) date) unknown) (unknown) (no (unknown) (unknown) 03:00 08/02/22 (units (unknown) date) unknown) (unknown) (no (unknown) (unknown) 03:30 (units (unkno wn) date) unknown) (unknown) (no (unknown) (unknown) 03:35 08/02/22 (units (unknown) date) unknown) (unknown) (no (unknown) (unknown) [id number] (units (unkno wn) date) unknown) (unknown) (no (unknown) (unknown) 04:00 (units (unkno wn) date) unknown) (unknown) (no (unknown) (unknown) 04:01 08/02/22 (units (unknown) date) unknown) (unknown) (no (unknown) (unknown) 04:01 (units (unkno wn) date) unknown) (unknown) (no (unknown) (unknown) 1 g vaginal 2XW (units (unknown) date) Qty: 42.5 3RF unknown) (unknown) (no (unknown) (unknown) 1,000 mg PO BID (units (unknown) date) unknown) (unknown) (no (unknown) (unknown) 08/02/22 01:17 (units (unknown) date) unknown) (unknown) (no (unknown) (unknown) 08/02/22 01:25 (units (unknown) date) unknown) (unknown) (no (unknown) (unknown) 08/02/22 01:40 (units (unknown) date) unknown) (unknown) (no (unknown) (unknown) 08/02/22 02:20 (units (unknown) date) unknown) (unknown) (no (unknown) (unknown) 08/02/22 03:30 (units (unknown) date) unknown) (unknown) (no (unknown) (unknown) 08/02/22 05:30 (units (unknown) date) unknown) (unknown) (no (unknown) (unknown) 08/02/22 08/02/22 (units (unknown) date) 08/02/22 unknown) Range/Units (unknown) (no (unknown) (unknown) 08/02/22 (units (unkno wn) date) Range/Units unknown) (unknown) (no (unknown) (unknown) 08/02/22 (units (unkno wn) date) unknown) (unknown) (no (unknown) (unknown) 125 mcg PO DAILY (units (unknown) date) unknown) (unknown) (no (unknown) (unknown) 2 mg PO 2XW (units (un known) date) unknown) (unknown) (no (unknown) (unknown) 20 mg PO 6XW (units (u nknown) date) unknown) (unknown) (no (unknown) (unknown) 250 mg PO BEDTIME (units (unknown) date) Qty: 60 0RF unknown) (unknown) (no (unknown) (unknown) 3 g PO ONCE Qty: 1 (units (unknown) date) 0RF unknown) (unknown) (no (unknown) (unknown) 3 mg PO 5XW (units (un known) date) unknown) (unknown) (no (unknown) (unknown) 40 mg PO DAILY (units (unknown) date) unknown) (unknown) (no (unknown) (unknown) 40 mg PO WEEKLY (units (unknown) date) unknown) (unknown) (no (unknown) (unknown) 5 mg PO Q4H PRN (units (unknown) date) (Reason: pain) Qty: unknown) 20 0RF (unknown) (no (unknown) (unknown) 5,000 mcg (units (unkn own) date) sublingual DAILY unknown) (unknown) (no (unknown) (unknown) 50 mcg INHALATION (units (unknown) date) Q8HR unknown) (unknown) (no (unknown) (unknown) 50 mg PO DAILY (units (unknown) date) unknown) (unknown) (no (unknown) (unknown) 6.25 mg PO BID (units (unknown) date) unknown) (unknown) (no (unknown) (unknown) 99 mg PO DAILY (units (unknown) date) unknown) (unknown) (no (unknown) (unknown) AICD (automatic (units (unknown) date) cardioverter/defibr unknown) illator) present (11/29/20) (unknown) (no (unknown) (unknown) ALT (<35) IU/L (units (unknown) date) unknown) (unknown) (no (unknown) (unknown) ALT 27 (<35) IU/L (units (unknown) date) unknown) (unknown) (no (unknown) (unknown) AST (14-36) IU/L (units (unknown) date) unknown) (unknown) (no (unknown) (unknown) AST 32 (14-36) (units (unknown) date) IU/L unknown) (unknown) (no (unknown) (unknown) Acute kidney (units (u nknown) date) injury unknown) (unknown) (no (unknown) (unknown) Admin: 08/02/22 (units (unknown) date) 02:15 Dose: 1,000 unknown) mls/hr (unknown) (no (unknown) (unknown) Admin: 08/02/22 (units (unknown) date) 04:04 Dose: 1,000 unknown) mls/hr (unknown) (no (unknown) (unknown) Afib (units (unkno wn) date) unknown) (unknown) (no (unknown) (unknown) Age/Sex: 71 / F (units (unknown) date) unknown) (unknown) (no (unknown) (unknown) Albumin (3.5-5.0) (units (unknown) date) g/dL unknown) (unknown) (no (unknown) (unknown) Albumin 4.2 (units (un known) date) (3.5-5.0) g/dL unknown) (unknown) (no (unknown) (unknown) Albumin/Globulin (units (unknown) date) Ratio (1.0-2.8) unknown) (unknown) (no (unknown) (unknown) Albumin/Globulin (units (unknown) date) Ratio 1.4 (1.0-2.8) unknown) (unknown) (no (unknown) (unknown) Alkaline (units (unkno wn) date) Phosphatase unknown) (38-126) U/L (unknown) (no (unknown) (unknown) Alkaline (units (unkno wn) date) Phosphatase 54 unknown) (38-126) U/L (unknown) (no (unknown) (unknown) Allergies (units (unkn own) date) unknown) (unknown) (no (unknown) (unknown) Allergy/AdvReac (units (unknown) date) Type Severity unknown) Reaction Status Date / Time (unknown) (no (unknown) (unknown) Appearance: (units (un known) date) grossly normal and unknown) well kempt (unknown) (no (unknown) (unknown) Atrially (units (unkno wn) date) sensed/ventricularl unknown) y paced (unknown) (no (unknown) (unknown) Attestation: I (units (unknown) date) personally reviewed unknown) and interpreted this ECG as follows: (unknown) (no (unknown) (unknown) Attestation: I (units (unknown) date) reviewed the unknown) patient's lab results. (unknown) (no (unknown) (unknown) Attestation: I (units (unknown) date) reviewed the unknown) patient's medical records. (unknown) (no (unknown) (unknown) Auscultation: (units ( unknown) date) clear to unknown) auscultation bilaterally (unknown) (no (unknown) (unknown) BMP [Basic (units (unk nown) date) Metabolic Panel] unknown) Stat (unknown) (no (unknown) (unknown) BUN (7-17) mg/dL (units (unknown) date) unknown) (unknown) (no (unknown) (unknown) BUN 67 H (7-17) (units (unknown) date) mg/dL unknown) (unknown) (no (unknown) (unknown) BUN/Creatinine (units (unknown) date) Ratio (6-22) unknown) (unknown) (no (unknown) (unknown) BUN/Creatinine (units (unknown) date) Ratio 6.7 (6-22) unknown) (unknown) (no (unknown) (unknown) Back/Spine/Pelvis (units (unknown) date) unknown) (unknown) (no (unknown) (unknown) Back: No CVA (units (u nknown) date) tenderness unknown) (unknown) (no (unknown) (unknown) Baso # (Auto) (units ( unknown) date) (0-100) /uL unknown) (unknown) (no (unknown) (unknown) Baso # (Auto) 100 (units (unknown) date) (0-100) /uL unknown) (unknown) (no (unknown) (unknown) Baso % (Auto) (units ( unknown) date) (0-2) % unknown) (unknown) (no (unknown) (unknown) Baso % (Auto) 0.7 (units (unknown) date) (0-2) % unknown) (unknown) (no (unknown) (unknown) Bedside Urine (units ( unknown) date) Bilirubin - unknown) Negative (unknown) (no (unknown) (unknown) Bedside Urine (units ( unknown) date) Glucose Negative unknown) (unknown) (no (unknown) (unknown) Bedside Urine (units ( unknown) date) Ketone +/- 5 unknown) (unknown) (no (unknown) (unknown) Bedside Urine (units ( unknown) date) Leukocytes - unknown) Negative (unknown) (no (unknown) (unknown) Bedside Urine (units ( unknown) date) Nitrite - Negative unknown) (unknown) (no (unknown) (unknown) Bedside Urine (units ( unknown) date) Occult Blood unknown) (unknown) (no (unknown) (unknown) Bedside Urine (units ( unknown) date) Protein ++ 100 unknown) (unknown) (no (unknown) (unknown) Bedside Urine (units ( unknown) date) Urobilinogen - unknown) Negative (unknown) (no (unknown) (unknown) Bedside Urine pH (units (unknown) date) 6.0 unknown) (unknown) (no (unknown) (unknown) Blood Pressure (units (unknown) date) 130/69 08/02/22 unknown) 01:20 (unknown) (no (unknown) (unknown) Blood Pressure (units (unknown) date) 130/69 unknown) (unknown) (no (unknown) (unknown) Blood Pressure (units (unknown) date) 143/65 H unknown) (unknown) (no (unknown) (unknown) Blood Pressure (units (unknown) date) 146/67 H unknown) (unknown) (no (unknown) (unknown) Blood Pressure (units (unknown) date) unknown) (unknown) (no (unknown) (unknown) Breathing (units (unkn own) date) unknown) (unknown) (no (unknown) (unknown) CHF (congestive (units (unknown) date) heart failure) unknown) (unknown) (no (unknown) (unknown) CT kidney ureter (units (unknown) date) bladder (KUB) Stat unknown) (unknown) (no (unknown) (unknown) CVA (cerebral (units ( unknown) date) vascular accident) unknown) (unknown) (no (unknown) (unknown) Calcium (8.4-10.2) (units (unknown) date) mg/dL unknown) (unknown) (no (unknown) (unknown) Calcium 9.9 (units (un known) date) (8.4-10.2) mg/dL unknown) (unknown) (no (unknown) (unknown) Carbon Dioxide (units (unknown) date) (22-32) mmol/L unknown) (unknown) (no (unknown) (unknown) Carbon Dioxide 13 (units (unknown) date) L (22-32) mmol/L unknown) (unknown) (no (unknown) (unknown) Cardiac arrest (units (unknown) date) (11/29/20) unknown) (unknown) (no (unknown) (unknown) Cardio (units (unkno wn) date) unknown) (unknown) (no (unknown) (unknown) Cardiomyopathy (units (unknown) date) unknown) (unknown) (no (unknown) (unknown) Chest (units (unkno wn) date) unknown) (unknown) (no (unknown) (unknown) Chief complaint: (units (unknown) date) Nausea/Vomiting/Huong unknown) rrhea (unknown) (no (unknown) (unknown) Chloride (98-107) (units (unknown) date) mmol/L unknown) (unknown) (no (unknown) (unknown) Chloride 103 (units (u nknown) date) (98-107) mmol/L unknown) (unknown) (no (unknown) (unknown) Cognition: normal (units (unknown) date) cognition unknown) (unknown) (no (unknown) (unknown) Complete Blood (units (unknown) date) Count AUTO DIFF unknown) Stat (unknown) (no (unknown) (unknown) Comprehensive (units ( unknown) date) Metabolic Panel unknown) Stat (unknown) (no (unknown) (unknown) Const (units (unkno wn) date) unknown) (unknown) (no (unknown) (unknown) Course (units (unkno wn) date) unknown) (unknown) (no (unknown) (unknown) Covid-19 + FLU A/B (units (unknown) date) + RSV - PCR Stat unknown) (unknown) (no (unknown) (unknown) Creatinine (units (unk nown) date) (0.52-1.04) mg/dL unknown) (unknown) (no (unknown) (unknown) Creatinine 10.0 H* (units (unknown) date) (0.52-1.04) mg/dL unknown) (unknown) (no (unknown) (unknown) Creatinine Urine (units (unknown) date) Random Stat unknown) (unknown) (no (unknown) (unknown) : 1950 (units (unknown) date) Acct:[id number] unknown) (unknown) (no (unknown) (unknown) Date of Service: (units (unknown) date) 08/02/22 unknown) (unknown) (no (unknown) (unknown) Departure (units (unkn own) date) unknown) (unknown) (no (unknown) (unknown) Diabetes (units (unkno wn) date) unknown) (unknown) (no (unknown) (unknown) Discharge Plan (units (unknown) date) unknown) (unknown) (no (unknown) (unknown) Discontinued (units (u nknown) date) Medications unknown) (unknown) (no (unknown) (unknown) Documented By: GC (units (unknown) date) unknown) (unknown) (no (unknown) (unknown) ECG Data (units (unkno wn) date) unknown) (unknown) (no (unknown) (unknown) ED Orders (units (unkn own) date) unknown) (unknown) (no (unknown) (unknown) EKG-12 Lead Stat (units (unknown) date) unknown) (unknown) (no (unknown) (unknown) ER Physician: (units ( unknown) date) Mike Cobian D.O. unknown) (unknown) (no (unknown) (unknown) Effort + (units (unkno wn) date) Inspection: normal unknown) respiratory effort (unknown) (no (unknown) (unknown) Emergency Report (units (unknown) date) unknown) (unknown) (no (unknown) (unknown) Eos # (Auto) (units (u nknown) date) (0-450) /uL unknown) (unknown) (no (unknown) (unknown) Eos # (Auto) 100 (units (unknown) date) (0-450) /uL unknown) (unknown) (no (unknown) (unknown) Eos % (Auto) (2-4) (units (unknown) date) % unknown) (unknown) (no (unknown) (unknown) Eos % (Auto) 1.2 L (units (unknown) date) (2-4) % unknown) (unknown) (no (unknown) (unknown) Esterase (units (unkno wn) date) unknown) (unknown) (no (unknown) (unknown) Estimated GFR (units ( unknown) date) (>60) mL/min unknown) (unknown) (no (unknown) (unknown) Estimated GFR 4 L (units (unknown) date) (>60) mL/min unknown) (unknown) (no (unknown) (unknown) Exam (units (unkno wn) date) unknown) (unknown) (no (unknown) (unknown) Extrem (units (unkno wn) date) unknown) (unknown) (no (unknown) (unknown) GCS (units (unkno wn) date) unknown) (unknown) (no (unknown) (unknown) GI (units (unkno wn) date) unknown) (unknown) (no (unknown) (unknown) General (units (unkno wn) date) unknown) (unknown) (no (unknown) (unknown) General: (units (unkno wn) date) cooperative, unknown) comfortable and No ill appearing (unknown) (no (unknown) (unknown) General: no rashes (units (unknown) date) or lesions noted unknown) (unknown) (no (unknown) (unknown) General: normal to (units (unknown) date) inspection, unknown) capillary refill normal and No edema (unknown) (no (unknown) (unknown) General: patient (units (unknown) date) alert, patient unknown) awake, patient oriented x3 and moves all (unknown) (no (unknown) (unknown) Lynn coma scale (units (unknown) date) eye opening: unknown) Spontaneous (unknown) (no (unknown) (unknown) Lynn coma scale (units (unknown) date) motor response: unknown) Obey commands (unknown) (no (unknown) (unknown) Lynn coma scale (units (unknown) date) total score: 15 unknown) (unknown) (no (unknown) (unknown) Lynn coma scale (units (unknown) date) verbal response: unknown) Orientated (unknown) (no (unknown) (unknown) Globulin (1.7-4.1) (units (unknown) date) g/dL unknown) (unknown) (no (unknown) (unknown) Globulin 3.1 (units (u nknown) date) (1.7-4.1) g/dL unknown) (unknown) (no (unknown) (unknown) Glucose (80-110) (units (unknown) date) mg/dL unknown) (unknown) (no (unknown) (unknown) Glucose 88 (units (unk nown) date) (80-110) mg/dL unknown) (unknown) (no (unknown) (unknown) HENMT (units (unkno wn) date) unknown) (unknown) (no (unknown) (unknown) HLD (units (unkno wn) date) (hyperlipidemia) unknown) (unknown) (no (unknown) (unknown) HPI - (units (unkno wn) date) Nausea/Vomiting/Huong unknown) rrhea (unknown) (no (unknown) (unknown) HPI Narrative: (units (unknown) date) unknown) (unknown) (no (unknown) (unknown) HTN (hypertension) (units (unknown) date) unknown) (unknown) (no (unknown) (unknown) Hct (36-46) % (units ( unknown) date) unknown) (unknown) (no (unknown) (unknown) Hct 38.4 (36-46) % (units (unknown) date) unknown) (unknown) (no (unknown) (unknown) Head: normal to (units (unknown) date) inspection and unknown) normocephalic (unknown) (no (unknown) (unknown) Hgb (12.0-16.0) (units (unknown) date) g/dL unknown) (unknown) (no (unknown) (unknown) Hgb 12.7 (units (unkno wn) date) (12.0-16.0) g/dL unknown) (unknown) (no (unknown) (unknown) History of Present (units (unknown) date) Illness unknown) (unknown) (no (unknown) (unknown) History of UTI (units (unknown) date) unknown) (unknown) (no (unknown) (unknown) History of colon (units (unknown) date) surgery unknown) (unknown) (no (unknown) (unknown) History of (units (unk nown) date) colonoscopy unknown) (unknown) (no (unknown) (unknown) History of (units (unk nown) date) hysterectomy unknown) (unknown) (no (unknown) (unknown) History of (units (unk nown) date) nephrolithiasis unknown) (unknown) (no (unknown) (unknown) History of (units (unk nown) date) thyroidectomy, unknown) subtotal (unknown) (no (unknown) (unknown) Home Medications (units (unknown) date) unknown) (unknown) (no (unknown) (unknown) Hx of appendectomy (units (unknown) date) unknown) (unknown) (no (unknown) (unknown) Hx of breast (units (u nknown) date) surgery unknown) (unknown) (no (unknown) (unknown) Hx of cystoscopy (units (unknown) date) (06/20/21) unknown) (unknown) (no (unknown) (unknown) Hx of eye surgery (units (unknown) date) unknown) (unknown) (no (unknown) (unknown) Influenza A (units (un known) date) (RT-PCR) (NEGATIVE) unknown) (unknown) (no (unknown) (unknown) Influenza A (units (un known) date) (RT-PCR) Flu a unknown) negative (NEGATIVE) (unknown) (no (unknown) (unknown) Influenza B (units (un known) date) (RT-PCR) (NEGATIVE) unknown) (unknown) (no (unknown) (unknown) Influenza B (units (un known) date) (RT-PCR) Flu b unknown) negative (NEGATIVE) (unknown) (no (unknown) (unknown) Initial Vital (units ( unknown) date) Signs unknown) (unknown) (no (unknown) (unknown) Initial Vital (units ( unknown) date) Signs: unknown) (unknown) (no (unknown) (unknown) Insert 1 g (units (unk nown) date) intravaginally at unknown) HS times 12 days then 1 g intravaginally at HS (unknown) (no (unknown) (unknown) Inspection: normal (units (unknown) date) to inspection unknown) (unknown) (no (unknown) (unknown) Interpretation: (units (unknown) date) unknown) (unknown) (no (unknown) (unknown) [facility] (units (unknown) date) [address] unknown) [place] [address] (unknown) (no (unknown) (unknown) Lab Data (units (unkno wn) date) unknown) (unknown) (no (unknown) (unknown) Lab Results (units (un known) date) unknown) (unknown) (no (unknown) (unknown) Label Comments: (units (unknown) date) unknown) (unknown) (no (unknown) (unknown) Labs: (units (unkno wn) date) unknown) (unknown) (no (unknown) (unknown) Last Admin: (units (un known) date) 08/02/22 02:48 unknown) Dose: 4 mg (unknown) (no (unknown) (unknown) Last Infusion: (units (unknown) date) 08/02/22 03:27 unknown) Dose: 0 mls/hr (unknown) (no (unknown) (unknown) Last Infusion: (units (unknown) date) 08/02/22 05:05 unknown) Dose: 0 mls/hr (unknown) (no (unknown) (unknown) Left ureteral (units ( unknown) date) calculus unknown) (unknown) (no (unknown) (unknown) Lip/Tongue/Throat (units (unknown) date) unknown) (unknown) (no (unknown) (unknown) Lipase (23-300) (units (unknown) date) U/L unknown) (unknown) (no (unknown) (unknown) Lipase 2998 H (units ( unknown) date) (23-300) U/L unknown) (unknown) (no (unknown) (unknown) Lipase Stat (units (un known) date) unknown) (unknown) (no (unknown) (unknown) Lymph # (Auto) (units (unknown) date) (3589-4922) /uL unknown) (unknown) (no (unknown) (unknown) Lymph # (Auto) (units (unknown) date) 1500 (0697-8855) unknown) /uL (unknown) (no (unknown) (unknown) Lymph % (Auto) (units (unknown) date) (25-40) % unknown) (unknown) (no (unknown) (unknown) Lymph % (Auto) (units (unknown) date) 15.0 L (25-40) % unknown) (unknown) (no (unknown) (unknown) MCH (26-34) PG (units (unknown) date) unknown) (unknown) (no (unknown) (unknown) MCH 29.9 (26-34) (units (unknown) date) PG unknown) (unknown) (no (unknown) (unknown) MCHC (30-36) % (units (unknown) date) unknown) (unknown) (no (unknown) (unknown) MCHC 33.1 (30-36) (units (unknown) date) % unknown) (unknown) (no (unknown) (unknown) MCV (80-100) fL (units (unknown) date) unknown) (unknown) (no (unknown) (unknown) MCV 90.3 (80-100) (units (unknown) date) fL unknown) (unknown) (no (unknown) (unknown) MDM - (units (unkno wn) date) Nausea/Vomiting/Huong unknown) rrhea (unknown) (no (unknown) (unknown) Medical History (units (unknown) date) (Reviewed 08/02/22 unknown) @ 05:41 by Mike Cobian DO) (unknown) (no (unknown) (unknown) Medical Records (units (unknown) date) unknown) (unknown) (no (unknown) (unknown) Medication (units (unk nown) date) Instructions unknown) Recorded Confirmed (unknown) (no (unknown) (unknown) Medication (units (unk nown) date) Instructions unknown) Recorded (unknown) (no (unknown) (unknown) Mode of arrival: (units (unknown) date) Ambulatory unknown) (unknown) (no (unknown) (unknown) Burke # (Auto) (units ( unknown) date) (0-900) /uL unknown) (unknown) (no (unknown) (unknown) Burke # (Auto) 700 (units (unknown) date) (0-900) /uL unknown) (unknown) (no (unknown) (unknown) Burke % (Auto) (units ( unknown) date) (3-14) % unknown) (unknown) (no (unknown) (unknown) Burke % (Auto) 7.6 (units (unknown) date) (3-14) % unknown) (unknown) (no (unknown) (unknown) Neuro (units (unkno wn) date) unknown) (unknown) (no (unknown) (unknown) Neut # (Auto) (units ( unknown) date) (7365-5319) /uL unknown) (unknown) (no (unknown) (unknown) Neut # (Auto) 7400 (units (unknown) date) H (2357-8828) /uL unknown) (unknown) (no (unknown) (unknown) Neut % (Auto) (units ( unknown) date) (50-75) % unknown) (unknown) (no (unknown) (unknown) Neut % (Auto) 75.5 (units (unknown) date) H (50-75) % unknown) (unknown) (no (unknown) (unknown) No Action (units (unkn own) date) unknown) (unknown) (no (unknown) (unknown) Ondansetron HCl (units (unknown) date) (Ondansetron 4 Mg unknown) Odt) 4 mg PO NOW PRN (unknown) (no (unknown) (unknown) Ondansetron HCl (units (unknown) date) (Ondansetron 4 Mg/2 unknown) Ml Inj) 4 mg IV NOW PRN (unknown) (no (unknown) (unknown) Ordered: (units (unkno wn) date) unknown) (unknown) (no (unknown) (unknown) Orders (units (unkno wn) date) unknown) (unknown) (no (unknown) (unknown) Other: (units (unkno wn) date) unknown) (unknown) (no (unknown) (unknown) Oxygen Delivery (units (unknown) date) Method 08/02/22 unknown) 01:20 (unknown) (no (unknown) (unknown) Oxygen Delivery (units (unknown) date) Method Room Air unknown) (unknown) (no (unknown) (unknown) Oxygen Delivery (units (unknown) date) Method unknown) (unknown) (no (unknown) (unknown) PRN Reason: Nausea (units (unknown) date) And Vomiting unknown) (unknown) (no (unknown) (unknown) 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 unknown) To seen here in the emergency department (unknown) (no (unknown) (unknown) Patient: (units (unkno wn) date) Natasha Jaquez K unknown) MR#: [id number] (unknown) (no (unknown) (unknown) Please take this (units (unknown) date) the morning of unknown) August 04, 2021. (unknown) (no (unknown) (unknown) Plt Count (units (unkn own) date) (150-400) X103/uL unknown) (unknown) (no (unknown) (unknown) Plt Count 262 (units ( unknown) date) (150-400) X103/uL unknown) (unknown) (no (unknown) (unknown) Postmenopausal (units (unknown) date) atrophic vaginitis unknown) (unknown) (no (unknown) (unknown) Potassium (units (unkn own) date) (3.4-5.1) mmol/L unknown) (unknown) (no (unknown) (unknown) Potassium 5.7 H (units (unknown) date) (3.4-5.1) mmol/L unknown) (unknown) (no (unknown) (unknown) Prescriptions: (units (unknown) date) unknown) (unknown) (no (unknown) (unknown) Previous Rx's (units ( unknown) date) unknown) (unknown) (no (unknown) (unknown) Psych (units (unkno wn) date) unknown) (unknown) (no (unknown) (unknown) Pulse Oximetry 95 (units (unknown) date) 08/02/22 01:20 unknown) (unknown) (no (unknown) (unknown) Pulse Oximetry 95 (units (unknown) date) 95 97 unknown) (unknown) (no (unknown) (unknown) Pulse Oximetry 96 (units (unknown) date) 97 96 unknown) (unknown) (no (unknown) (unknown) Pulse Oximetry 98 (units (unknown) date) 98 unknown) (unknown) (no (unknown) (unknown) Pulse Oximetry 98 (units (unknown) date) unknown) (unknown) (no (unknown) (unknown) Pulse Rate 61 67 (units (unknown) date) unknown) (unknown) (no (unknown) (unknown) Pulse Rate 68 (units ( unknown) date) unknown) (unknown) (no (unknown) (unknown) Pulse Rate 70 62 (units (unknown) date) 82 unknown) (unknown) (no (unknown) (unknown) Pulse Rate 78 (units ( unknown) date) 08/02/22 01:20 unknown) (unknown) (no (unknown) (unknown) Pulse Rate 78 61 (units (unknown) date) unknown) (unknown) (no (unknown) (unknown) RBC (4.0-5.2) (units ( unknown) date) X106/uL unknown) (unknown) (no (unknown) (unknown) RBC 4.26 (4.0-5.2) (units (unknown) date) X106/uL unknown) (unknown) (no (unknown) (unknown) RDW (11.6-14.8) % (units (unknown) date) unknown) (unknown) (no (unknown) (unknown) RDW 14.5 (units (unkno wn) date) (11.6-14.8) % unknown) (unknown) (no (unknown) (unknown) ROS Unobtainable: (units (unknown) date) All systems unknown) reviewed + are unremarkable except as noted in HPI (unknown) (no (unknown) (unknown) RSV (PCR) (units (unkn own) date) (Negative) unknown) (unknown) (no (unknown) (unknown) RSV (PCR) Negative (units (unknown) date) (Negative) unknown) (unknown) (no (unknown) (unknown) Rate is 63 (units (unk nown) date) unknown) (unknown) (no (unknown) (unknown) Rate: regular rate (units (unknown) date) unknown) (unknown) (no (unknown) (unknown) Related Data (units (u nknown) date) unknown) (unknown) (no (unknown) (unknown) Resp (units (unkno wn) date) unknown) (unknown) (no (unknown) (unknown) Respiratory Rate (units (unknown) date) 16 18 unknown) (unknown) (no (unknown) (unknown) Respiratory Rate (units (unknown) date) 17 unknown) (unknown) (no (unknown) (unknown) Respiratory Rate (units (unknown) date) 19 08/02/22 01:20 unknown) (unknown) (no (unknown) (unknown) Respiratory Rate (units (unknown) date) 19 15 unknown) (unknown) (no (unknown) (unknown) Result diagrams: (units (unknown) date) unknown) (unknown) (no (unknown) (unknown) Retained ureteral (units (unknown) date) stent unknown) (unknown) (no (unknown) (unknown) Review of Systems (units (unknown) date) unknown) (unknown) (no (unknown) (unknown) Rhythm: regular (units (unknown) date) rhythm unknown) (unknown) (no (unknown) (unknown) Rx Instructions: (units (unknown) date) unknown) (unknown) (no (unknown) (unknown) SARS-CoV-2 (PCR) (units (unknown) date) (Negative) unknown) (unknown) (no (unknown) (unknown) SARS-CoV-2 (PCR) (units (unknown) date) Negative (Negative) unknown) (unknown) (no (unknown) (unknown) SVT (units (unkno wn) date) (supraventricular unknown) tachycardia) (unknown) (no (unknown) (unknown) Scores (units (unkno wn) date) unknown) (unknown) (no (unknown) (unknown) Signed By: (units (unk nown) date) unknown) (unknown) (no (unknown) (unknown) Skin (units (unkno wn) date) unknown) (unknown) (no (unknown) (unknown) Smoking Status: (units (unknown) date) Never smoker unknown) (unknown) (no (unknown) (unknown) Social History (units (unknown) date) (Reviewed 08/02/22 unknown) @ 05:41 by Mike Cobian DO) (unknown) (no (unknown) (unknown) Sodium (137-145) (units (unknown) date) mmol/L unknown) (unknown) (no (unknown) (unknown) Sodium 136 L (units (u nknown) date) (137-145) mmol/L unknown) (unknown) (no (unknown) (unknown) Sodium Chloride (units (unknown) date) (Normal Saline unknown) 0.9%) 1,000 mls @ 1,000 mls/hr IV BOLUS ONE (unknown) (no (unknown) (unknown) Sodium Urine (units (u nknown) date) Random Stat unknown) (unknown) (no (unknown) (unknown) Source: patient (units (unknown) date) and family unknown) (unknown) (no (unknown) (unknown) Speech: speech (units (unknown) date) normal unknown) (unknown) (no (unknown) (unknown) Start after 5 day (units (unknown) date) course of 2 caps unknown) daily is complete. (unknown) (no (unknown) (unknown) Stated complaint: (units (unknown) date) body pain/not able unknown) to eat or drink x 5 days (unknown) (no (unknown) (unknown) Stop: 08/02/22 (units (unknown) date) 02:39 unknown) (unknown) (no (unknown) (unknown) Stop: 08/02/22 (units (unknown) date) 04:57 unknown) (unknown) (no (unknown) (unknown) Substance Use (units ( unknown) date) Type: does not use unknown) (unknown) (no (unknown) (unknown) Surgical History (units (unknown) date) (Reviewed 08/02/22 unknown) @ 05:41 by Mike Cobian DO) (unknown) (no (unknown) (unknown) Temperature 98.7 F (units (unknown) date) 08/02/22 01:20 unknown) (unknown) (no (unknown) (unknown) Temperature 98.7 F (units (unknown) date) unknown) (unknown) (no (unknown) (unknown) Temperature (units (un known) date) unknown) (unknown) (no (unknown) (unknown) Time Seen by (units (u nknown) date) Provider: 08/02/22 unknown) 01:38 (unknown) (no (unknown) (unknown) Total Bilirubin (units (unknown) date) (0.2-1.3) mg/dL unknown) (unknown) (no (unknown) (unknown) Total Bilirubin (units (unknown) date) 0.7 (0.2-1.3) mg/dL unknown) (unknown) (no (unknown) (unknown) Total Protein (units ( unknown) date) (6.3-8.2) g/dL unknown) (unknown) (no (unknown) (unknown) Total Protein 7.3 (units (unknown) date) (6.3-8.2) g/dL unknown) (unknown) (no (unknown) (unknown) US abdomen (units (unk nown) date) complete Stat unknown) (unknown) (no (unknown) (unknown) Upset (units (unkno wn) date) unknown) (unknown) (no (unknown) (unknown) Ur Random Sodium (units (unknown) date) (30-90) mmol/L unknown) (unknown) (no (unknown) (unknown) Ur Random Sodium (units (unknown) date) 84 (30-90) mmol/L unknown) (unknown) (no (unknown) (unknown) Urine Creatinine (units (unknown) date) 69.7 mg/dL unknown) (unknown) (no (unknown) (unknown) Urine Creatinine (units (unknown) date) mg/dL unknown) (unknown) (no (unknown) (unknown) Urine Dip (units (unkn own) date) unknown) (unknown) (no (unknown) (unknown) Urine Specific (units (unknown) date) [place] 1.015 unknown) (unknown) (no (unknown) (unknown) Vital Signs - 8 hr (units (unknown) date) unknown) (unknown) (no (unknown) (unknown) Vital Signs (units (un known) date) unknown) (unknown) (no (unknown) (unknown) Vital signs: (units (u nknown) date) unknown) (unknown) (no (unknown) (unknown) WBC (4.5-11.0) (units (unknown) date) X103/uL unknown) (unknown) (no (unknown) (unknown) WBC 9.8 (4.5-11.0) (units (unknown) date) X103/uL unknown) (unknown) (no (unknown) (unknown) [Embedded Image (units (unknown) date) Not Available] unknown) (unknown) (no (unknown) (unknown) [From Pyridium] (units (unknown) date) unknown) (unknown) (no (unknown) (unknown) a couple days but (units (unknown) date) her symptoms were unknown) not improving and she started to feel worse (unknown) (no (unknown) (unknown) alcohol intake (units (unknown) date) frequency: 0-2 unknown) drinks per day (unknown) (no (unknown) (unknown) alcohol intake: (units (unknown) date) never unknown) (unknown) (no (unknown) (unknown) and below (units (unkn own) date) unknown) (unknown) (no (unknown) (unknown) biotin 5,000 mcg (units (unknown) date) Tablet, Sublingual unknown) (unknown) (no (unknown) (unknown) biotin 5,000 mcg (units (unknown) date) sublingual tablet unknown) 5,000 mcg sublingual DAILY 06/20/21 08/12/21 (unknown) (no (unknown) (unknown) breath activated (units (unknown) date) powder inhaler unknown) (unknown) (no (unknown) (unknown) budesonide 200 (units (unknown) date) mcg/actuation 50 unknown) mcg inhalation Q8HR 06/20/21 08/12/21 (unknown) (no (unknown) (unknown) budesonide 200 (units (unknown) date) mcg/actuation unknown) Aerosol Powdr Breath Activated (unknown) (no (unknown) (unknown) carvedilol 6.25 mg (units (unknown) date) Tablet unknown) (unknown) (no (unknown) (unknown) carvedilol 6.25 mg (units (unknown) date) tablet 6.25 mg PO unknown) BID 06/20/21 08/12/21 (unknown) (no (unknown) (unknown) cholecalciferol (units (unknown) date) (vitamin D3) 125 unknown) 125 mcg PO DAILY 06/20/21 08/12/21 (unknown) (no (unknown) (unknown) cholecalciferol (units (unknown) date) (vitamin D3) 125 unknown) mcg (5,000 unit) Tablet (unknown) (no (unknown) (unknown) ciprofloxacin HCl (units (unknown) date) 250 mg tablet 250 unknown) mg PO BEDTIME #60 tabs 09/02/21 (unknown) (no (unknown) (unknown) ciprofloxacin HCl (units (unknown) date) 250 mg tablet unknown) (unknown) (no (unknown) (unknown) direction. She (units (unknown) date) comes to the unknown) emergency department today because of overall body (unknown) (no (unknown) (unknown) estradiol 0.01% (units (unknown) date) (0.1 mg/gram) 1 g unknown) vaginal 2XW #42.5 grams 08/19/21 (unknown) (no (unknown) (unknown) estradiol (units (unkn own) date) [Estrace] 0.01 % unknown) (0.1 mg/gram) cream (unknown) (no (unknown) (unknown) extremities (units (un known) date) unknown) (unknown) (no (unknown) (unknown) fosfomycin (units (unk nown) date) tromethamine 3 gram unknown) 3 g PO ONCE #1 ea 07/31/21 (unknown) (no (unknown) (unknown) fosfomycin (units (unk nown) date) tromethamine 3 gram unknown) 3 g PO ONCE #1 ea 08/01/21 (unknown) (no (unknown) (unknown) fosfomycin (units (unk nown) date) tromethamine 3 gram unknown) packet (unknown) (no (unknown) (unknown) furosemide 20 mg (units (unknown) date) Tablet unknown) (unknown) (no (unknown) (unknown) furosemide 20 mg (units (unknown) date) tablet 20 mg PO 6XW unknown) 06/20/21 08/12/21 (unknown) (no (unknown) (unknown) furosemide 40 mg (units (unknown) date) Tablet unknown) (unknown) (no (unknown) (unknown) furosemide 40 mg (units (unknown) date) tablet 40 mg PO unknown) WEEKLY 06/20/21 08/12/21 (unknown) (no (unknown) (unknown) having bowel (units (u nknown) date) movements. She unknown) denies any fevers. No recent travel. (unknown) (no (unknown) (unknown) household members: (units (unknown) date) spouse unknown) (unknown) (no (unknown) (unknown) losartan 50 mg (units (unknown) date) Tablet unknown) (unknown) (no (unknown) (unknown) losartan 50 mg (units (unknown) date) tablet 50 mg PO unknown) DAILY 06/20/21 08/12/21 (unknown) (no (unknown) (unknown) mcg (5,000 unit) (units (unknown) date) tablet unknown) (unknown) (no (unknown) (unknown) metformin 500 mg (units (unknown) date) Tablet unknown) (unknown) (no (unknown) (unknown) metformin 500 mg (units (unknown) date) tablet 1,000 mg PO unknown) BID 07/26/21 08/12/21 (unknown) (no (unknown) (unknown) must administer (units (unknown) date) with a meal/food unknown) (unknown) (no (unknown) (unknown) of (units (unkno wn) date) unknown) (unknown) (no (unknown) (unknown) oral packet (units (un known) date) unknown) (unknown) (no (unknown) (unknown) oxycodone 5 mg (units (unknown) date) tablet 5 mg PO Q4H unknown) PRN pain #20 tabs 07/26/21 (unknown) (no (unknown) (unknown) oxycodone 5 mg (units (unknown) date) tablet unknown) (unknown) (no (unknown) (unknown) pain, belly pain, (units (unknown) date) vomiting, unable to unknown) drink for the past several days. Still (unknown) (no (unknown) (unknown) phenazopyridine (units (unknown) date) Allergy Verified unknown) 08/12/21 08:17 (unknown) (no (unknown) (unknown) potassium 99 mg (units (unknown) date) Tablet unknown) (unknown) (no (unknown) (unknown) potassium 99 mg (units (unknown) date) tablet 99 mg PO unknown) DAILY 07/26/21 08/12/21 (unknown) (no (unknown) (unknown) prednisone Allergy (units (unknown) date) Severe Swelling unknown) Verified 08/02/22 01:20 (unknown) (no (unknown) (unknown) procaine [From (units (unknown) date) Novocain] Allergy unknown) Chest Pain Verified 08/02/22 01:20 (unknown) (no (unknown) (unknown) recently for UTI (units (unknown) date) like symptoms. Was unknown) sent home with Arria NLG. She took this for (unknown) (no (unknown) (unknown) rizatriptan (units (un known) date) Allergy Severe unknown) Difficulty Verified 08/02/22 01:20 (unknown) (no (unknown) (unknown) rosuvastatin 40 mg (units (unknown) date) Tablet unknown) (unknown) (no (unknown) (unknown) rosuvastatin 40 mg (units (unknown) date) tablet 40 mg PO unknown) DAILY 06/20/21 08/12/21 (unknown) (no (unknown) (unknown) s (units (unkno wn) date) unknown) (unknown) (no (unknown) (unknown) shellfish derived (units (unknown) date) AdvReac unknown) Gastrointestinal Verified 08/02/22 01:20 (unknown) (no (unknown) (unknown) so she contact her (units (unknown) date) primary doctor who unknown) looked up the culture results and told her (unknown) (no (unknown) (unknown) takes 4 puffs (units ( unknown) date) qhs-(Pulmacort) unknown) (unknown) (no (unknown) (unknown) takes it 5x/week (units (unknown) date) unknown) (unknown) (no (unknown) (unknown) tamsulosin 0.4 mg (units (unknown) date) capsule 0.4 mg PO unknown) BEDTIME #60 caps 06/21/21 (unknown) (no (unknown) (unknown) tamsulosin 0.4 mg (units (unknown) date) capsule unknown) (unknown) (no (unknown) (unknown) tetracycline (units (u nknown) date) Allergy Severe unknown) ITCHING Verified 08/12/21 08:17 (unknown) (no (unknown) (unknown) that she did not (units (unknown) date) have an infection unknown) so she quit taking the medications per their (unknown) (no (unknown) (unknown) thiopental AdvReac (units (unknown) date) Palpitation unknown) Verified 08/02/22 01:20 (unknown) (no (unknown) (unknown) twice weekly (units (u nknown) date) thereafter. unknown) (unknown) (no (unknown) (unknown) vaginal cream (units ( unknown) date) (Estrace) unknown) (unknown) (no (unknown) (unknown) warfarin 2 mg (units ( unknown) date) Tablet unknown) (unknown) (no (unknown) (unknown) warfarin 2 mg (units ( unknown) date) tablet 2 mg PO 2XW unknown) 06/20/21 08/12/21 (unknown) (no (unknown) (unknown) warfarin 3 mg (units ( unknown) date) Tablet unknown) (unknown) (no (unknown) (unknown) warfarin 3 mg (units ( unknown) date) tablet 3 mg PO 5XW unknown) 06/20/21 08/12/21 Result panel 181 (unknown) (no date) (unknown) (unknown) 109 mmol/l (unkn own) (unknown) (no date) (unknown) (unknown) 13 mmol/l (unkn own) (unknown) (no date) (unknown) (unknown) 137 mmol/l (unkn own) (unknown) (no date) (unknown) (unknown) 4 ml/min (unkn own) (unknown) (no date) (unknown) (unknown) 4 ml/min (unkn own) (unknown) (no date) (unknown) (unknown) 5.8 mmol/l (unkn own) (unknown) (no date) (unknown) (unknown) 5.8 mmol/l (unkn own) (unknown) (no date) (unknown) (unknown) 6.9 (units unknown) (unknown) (unknown) (no date) (unknown) (unknown) 63 mg/dl (unkn own) (unknown) (no date) (unknown) (unknown) 8.4 mg/dl (unkn own) (unknown) (no date) (unknown) (unknown) 86 mg/dl (unkn own) (unknown) (no date) (unknown) (unknown) 86 mg/dl (unkn own) (unknown) (no date) (unknown) (unknown) 9.15 mg/dl (unkn own) (unknown) (no date) (unknown) (unknown) 9.15 mg/dl (unkn own) Result panel 182 (unknown) (no (unknown) (unknown) (no value) (units (unk nown) date) unknown) (unknown) (no (unknown) (unknown) 0.4 mg PO BEDTIME (units (unknown) date) Qty: 60 0RF unknown) (unknown) (no (unknown) (unknown) 01:17 01:40 01:40 (units (unknown) date) unknown) (unknown) (no (unknown) (unknown) 01:20 08/02/22 (units (unknown) date) unknown) (unknown) (no (unknown) (unknown) 01:39 08/02/22 (units (unknown) date) unknown) (unknown) (no (unknown) (unknown) 02:00 (units (unkno wn) date) unknown) (unknown) (no (unknown) (unknown) 02:32 08/02/22 (units (unknown) date) unknown) (unknown) (no (unknown) (unknown) 03:00 08/02/22 (units (unknown) date) unknown) (unknown) (no (unknown) (unknown) 03:30 05:30 (units (un known) date) unknown) (unknown) (no (unknown) (unknown) 03:30 (units (unkno wn) date) unknown) (unknown) (no (unknown) (unknown) 03:35 08/02/22 (units (unknown) date) unknown) (unknown) (no (unknown) (unknown) [id number] (units (unkno wn) date) unknown) (unknown) (no (unknown) (unknown) 04:00 (units (unkno wn) date) unknown) (unknown) (no (unknown) (unknown) 04:01 08/02/22 (units (unknown) date) unknown) (unknown) (no (unknown) (unknown) 04:30 08/02/22 (units (unknown) date) unknown) (unknown) (no (unknown) (unknown) 04:30 (units (unkno wn) date) unknown) (unknown) (no (unknown) (unknown) 05:00 08/02/22 (units (unknown) date) unknown) (unknown) (no (unknown) (unknown) 05:00 (units (unkno wn) date) unknown) (unknown) (no (unknown) (unknown) 05:30 08/02/22 (units (unknown) date) unknown) (unknown) (no (unknown) (unknown) 05:30 (units (unkno wn) date) unknown) (unknown) (no (unknown) (unknown) 1 g vaginal 2XW (units (unknown) date) Qty: 42.5 3RF unknown) (unknown) (no (unknown) (unknown) 1,000 mg PO BID (units (unknown) date) unknown) (unknown) (no (unknown) (unknown) 08/02/22 01:17 (units (unknown) date) unknown) (unknown) (no (unknown) (unknown) 08/02/22 01:25 (units (unknown) date) unknown) (unknown) (no (unknown) (unknown) 08/02/22 01:40 (units (unknown) date) unknown) (unknown) (no (unknown) (unknown) 08/02/22 02:20 (units (unknown) date) unknown) (unknown) (no (unknown) (unknown) 08/02/22 03:30 (units (unknown) date) unknown) (unknown) (no (unknown) (unknown) 08/02/22 05:30 (units (unknown) date) unknown) (unknown) (no (unknown) (unknown) 08/02/22 08/02/22 (units (unknown) date) 08/02/22 unknown) Range/Units (unknown) (no (unknown) (unknown) 08/02/22 08/02/22 (units (unknown) date) Range/Units unknown) (unknown) (no (unknown) (unknown) 08/02/22 (units (unkno wn) date) unknown) (unknown) (no (unknown) (unknown) 125 mcg PO DAILY (units (unknown) date) unknown) (unknown) (no (unknown) (unknown) 2 mg PO 2XW (units (un known) date) unknown) (unknown) (no (unknown) (unknown) 20 mg PO 6XW (units (u nknown) date) unknown) (unknown) (no (unknown) (unknown) 250 mg PO BEDTIME (units (unknown) date) Qty: 60 0RF unknown) (unknown) (no (unknown) (unknown) 3 g PO ONCE Qty: 1 (units (unknown) date) 0RF unknown) (unknown) (no (unknown) (unknown) 3 mg PO 5XW (units (un known) date) unknown) (unknown) (no (unknown) (unknown) 40 mg PO DAILY (units (unknown) date) unknown) (unknown) (no (unknown) (unknown) 40 mg PO WEEKLY (units (unknown) date) unknown) (unknown) (no (unknown) (unknown) 5 mg PO Q4H PRN (units (unknown) date) (Reason: pain) Qty: unknown) 20 0RF (unknown) (no (unknown) (unknown) 5,000 mcg (units (unkn own) date) sublingual DAILY unknown) (unknown) (no (unknown) (unknown) 50 mcg INHALATION (units (unknown) date) Q8HR unknown) (unknown) (no (unknown) (unknown) 50 mg PO DAILY (units (unknown) date) unknown) (unknown) (no (unknown) (unknown) 6.25 mg PO BID (units (unknown) date) unknown) (unknown) (no (unknown) (unknown) 99 mg PO DAILY (units (unknown) date) unknown) (unknown) (no (unknown) (unknown) AICD (automatic (units (unknown) date) cardioverter/defibr unknown) illator) present (11/29/20) (unknown) (no (unknown) (unknown) ALT (<35) IU/L (units (unknown) date) unknown) (unknown) (no (unknown) (unknown) ALT 27 (<35) IU/L (units (unknown) date) unknown) (unknown) (no (unknown) (unknown) AST (14-36) IU/L (units (unknown) date) unknown) (unknown) (no (unknown) (unknown) AST 32 (14-36) (units (unknown) date) IU/L unknown) (unknown) (no (unknown) (unknown) Acute kidney (units (u nknown) date) injury unknown) (unknown) (no (unknown) (unknown) Admin: 08/02/22 (units (unknown) date) 02:15 Dose: 1,000 unknown) mls/hr (unknown) (no (unknown) (unknown) Admin: 08/02/22 (units (unknown) date) 04:04 Dose: 1,000 unknown) mls/hr (unknown) (no (unknown) (unknown) Afib (units (unkno wn) date) unknown) (unknown) (no (unknown) (unknown) Age/Sex: 71 / F (units (unknown) date) unknown) (unknown) (no (unknown) (unknown) Albumin (3.5-5.0) (units (unknown) date) g/dL unknown) (unknown) (no (unknown) (unknown) Albumin 4.2 (units (un known) date) (3.5-5.0) g/dL unknown) (unknown) (no (unknown) (unknown) Albumin/Globulin (units (unknown) date) Ratio (1.0-2.8) unknown) (unknown) (no (unknown) (unknown) Albumin/Globulin (units (unknown) date) Ratio 1.4 (1.0-2.8) unknown) (unknown) (no (unknown) (unknown) Alkaline (units (unkno wn) date) Phosphatase unknown) (38-126) U/L (unknown) (no (unknown) (unknown) Alkaline (units (unkno wn) date) Phosphatase 54 unknown) (38-126) U/L (unknown) (no (unknown) (unknown) Allergies (units (unkn own) date) unknown) (unknown) (no (unknown) (unknown) Allergy/AdvReac (units (unknown) date) Type Severity unknown) Reaction Status Date / Time (unknown) (no (unknown) (unknown) Appearance: (units (un known) date) grossly normal and unknown) well kempt (unknown) (no (unknown) (unknown) Atrially (units (unkno wn) date) sensed/ventricularl unknown) y paced (unknown) (no (unknown) (unknown) Attestation: I (units (unknown) date) personally reviewed unknown) and interpreted this ECG as follows: (unknown) (no (unknown) (unknown) Attestation: I (units (unknown) date) reviewed the unknown) patient's lab results. (unknown) (no (unknown) (unknown) Attestation: I (units (unknown) date) reviewed the unknown) patient's medical records. (unknown) (no (unknown) (unknown) Auscultation: (units ( unknown) date) clear to unknown) auscultation bilaterally (unknown) (no (unknown) (unknown) BMP [Basic (units (unk nown) date) Metabolic Panel] unknown) Stat (unknown) (no (unknown) (unknown) BUN 63 H (7-17) (units (unknown) date) mg/dL unknown) (unknown) (no (unknown) (unknown) BUN 67 H (7-17) (units (unknown) date) mg/dL unknown) (unknown) (no (unknown) (unknown) BUN/Creatinine (units (unknown) date) Ratio 6.7 (6-22) unknown) (unknown) (no (unknown) (unknown) BUN/Creatinine (units (unknown) date) Ratio 6.9 (6-22) unknown) (unknown) (no (unknown) (unknown) Back/Spine/Pelvis (units (unknown) date) unknown) (unknown) (no (unknown) (unknown) Back: No CVA (units (u nknown) date) tenderness unknown) (unknown) (no (unknown) (unknown) Baso # (Auto) (units ( unknown) date) (0-100) /uL unknown) (unknown) (no (unknown) (unknown) Baso # (Auto) 100 (units (unknown) date) (0-100) /uL unknown) (unknown) (no (unknown) (unknown) Baso % (Auto) (units ( unknown) date) (0-2) % unknown) (unknown) (no (unknown) (unknown) Baso % (Auto) 0.7 (units (unknown) date) (0-2) % unknown) (unknown) (no (unknown) (unknown) Bedside Urine (units ( unknown) date) Bilirubin - unknown) Negative (unknown) (no (unknown) (unknown) Bedside Urine (units ( unknown) date) Glucose Negative unknown) (unknown) (no (unknown) (unknown) Bedside Urine (units ( unknown) date) Ketone +/- 5 unknown) (unknown) (no (unknown) (unknown) Bedside Urine (units ( unknown) date) Leukocytes - unknown) Negative (unknown) (no (unknown) (unknown) Bedside Urine (units ( unknown) date) Nitrite - Negative unknown) (unknown) (no (unknown) (unknown) Bedside Urine (units ( unknown) date) Occult Blood unknown) (unknown) (no (unknown) (unknown) Bedside Urine (units ( unknown) date) Protein ++ 100 unknown) (unknown) (no (unknown) (unknown) Bedside Urine (units ( unknown) date) Urobilinogen - unknown) Negative (unknown) (no (unknown) (unknown) Bedside Urine pH (units (unknown) date) 6.0 unknown) (unknown) (no (unknown) (unknown) Bilateral renal (units (unknown) date) cysts. unknown) (unknown) (no (unknown) (unknown) Blood Pressure (units (unknown) date) 109/53 L unknown) (unknown) (no (unknown) (unknown) Blood Pressure (units (unknown) date) 119/59 L unknown) (unknown) (no (unknown) (unknown) Blood Pressure (units (unknown) date) 130/69 08/02/22 unknown) 01:20 (unknown) (no (unknown) (unknown) Blood Pressure (units (unknown) date) 130/69 unknown) (unknown) (no (unknown) (unknown) Blood Pressure (units (unknown) date) 143/65 H 124/59 L unknown) (unknown) (no (unknown) (unknown) Blood Pressure (units (unknown) date) 146/67 H unknown) (unknown) (no (unknown) (unknown) Blood Pressure (units (unknown) date) unknown) (unknown) (no (unknown) (unknown) Breathing (units (unkn own) date) unknown) (unknown) (no (unknown) (unknown) CHF (congestive (units (unknown) date) heart failure) unknown) (unknown) (no (unknown) (unknown) CT kidney ureter (units (unknown) date) bladder (KUB) Stat unknown) (unknown) (no (unknown) (unknown) CT scan - (units (unkn own) date) abdomen/pelvis: unknown) (unknown) (no (unknown) (unknown) CVA (cerebral (units ( unknown) date) vascular accident) unknown) (unknown) (no (unknown) (unknown) Calcium 8.4 (units (un known) date) (8.4-10.2) mg/dL unknown) (unknown) (no (unknown) (unknown) Calcium 9.9 (units (un known) date) (8.4-10.2) mg/dL unknown) (unknown) (no (unknown) (unknown) Carbon Dioxide 13 (units (unknown) date) L (22-32) mmol/L unknown) (unknown) (no (unknown) (unknown) Cardiac arrest (units (unknown) date) (11/29/20) unknown) (unknown) (no (unknown) (unknown) Cardio (units (unkno wn) date) unknown) (unknown) (no (unknown) (unknown) Cardiomyopathy (units (unknown) date) unknown) (unknown) (no (unknown) (unknown) Chest (units (unkno wn) date) unknown) (unknown) (no (unknown) (unknown) Chief complaint: (units (unknown) date) Nausea/Vomiting/Huong unknown) rrhea (unknown) (no (unknown) (unknown) Chloride 103 (units (u nknown) date) (98-107) mmol/L unknown) (unknown) (no (unknown) (unknown) Chloride 109 H (units (unknown) date) (98-107) mmol/L unknown) (unknown) (no (unknown) (unknown) Cognition: normal (units (unknown) date) cognition unknown) (unknown) (no (unknown) (unknown) Complete Blood (units (unknown) date) Count AUTO DIFF unknown) Stat (unknown) (no (unknown) (unknown) Comprehensive (units ( unknown) date) Metabolic Panel unknown) Stat (unknown) (no (unknown) (unknown) Const (units (unkno wn) date) unknown) (unknown) (no (unknown) (unknown) Course (units (unkno wn) date) unknown) (unknown) (no (unknown) (unknown) Covid-19 + FLU A/B (units (unknown) date) + RSV - PCR Stat unknown) (unknown) (no (unknown) (unknown) Creatinine 10.0 H* (units (unknown) date) (0.52-1.04) mg/dL unknown) (unknown) (no (unknown) (unknown) Creatinine 9.15 H* (units (unknown) date) (0.52-1.04) mg/dL unknown) (unknown) (no (unknown) (unknown) Creatinine Urine (units (unknown) date) Random Stat unknown) (unknown) (no (unknown) (unknown) : 1950 (units (unknown) date) Acct:[id number] unknown) (unknown) (no (unknown) (unknown) Date of Service: (units (unknown) date) 08/02/22 unknown) (unknown) (no (unknown) (unknown) Departure (units (unkn own) date) unknown) (unknown) (no (unknown) (unknown) Diabetes (units (unkno wn) date) unknown) (unknown) (no (unknown) (unknown) Discharge Plan (units (unknown) date) unknown) (unknown) (no (unknown) (unknown) Discontinued (units (u nknown) date) Medications unknown) (unknown) (no (unknown) (unknown) Documented By: GC (units (unknown) date) unknown) (unknown) (no (unknown) (unknown) Documented By: KM (units (unknown) date) unknown) (unknown) (no (unknown) (unknown) ECG Data (units (unkno wn) date) unknown) (unknown) (no (unknown) (unknown) ED Orders (units (unkn own) date) unknown) (unknown) (no (unknown) (unknown) EKG-12 Lead Stat (units (unknown) date) unknown) (unknown) (no (unknown) (unknown) ER Physician: (units ( unknown) date) Mike Cobian D.O. unknown) (unknown) (no (unknown) (unknown) Effort + (units (unkno wn) date) Inspection: normal unknown) respiratory effort (unknown) (no (unknown) (unknown) Emergency Report (units (unknown) date) unknown) (unknown) (no (unknown) (unknown) Eos # (Auto) (units (u nknown) date) (0-450) /uL unknown) (unknown) (no (unknown) (unknown) Eos # (Auto) 100 (units (unknown) date) (0-450) /uL unknown) (unknown) (no (unknown) (unknown) Eos % (Auto) (2-4) (units (unknown) date) % unknown) (unknown) (no (unknown) (unknown) Eos % (Auto) 1.2 L (units (unknown) date) (2-4) % unknown) (unknown) (no (unknown) (unknown) Esterase (units (unkno wn) date) unknown) (unknown) (no (unknown) (unknown) Estimated GFR 4 L (units (unknown) date) (>60) mL/min unknown) (unknown) (no (unknown) (unknown) Exam (units (unkno wn) date) unknown) (unknown) (no (unknown) (unknown) Extrem (units (unkno wn) date) unknown) (unknown) (no (unknown) (unknown) GCS (units (unkno wn) date) unknown) (unknown) (no (unknown) (unknown) GI (units (unkno wn) date) unknown) (unknown) (no (unknown) (unknown) General (units (unkno wn) date) unknown) (unknown) (no (unknown) (unknown) General: (units (unkno wn) date) cooperative, unknown) comfortable and No ill appearing (unknown) (no (unknown) (unknown) General: no rashes (units (unknown) date) or lesions noted unknown) (unknown) (no (unknown) (unknown) General: normal to (units (unknown) date) inspection, unknown) capillary refill normal and No edema (unknown) (no (unknown) (unknown) General: patient (units (unknown) date) alert, patient unknown) awake, patient oriented x3 and moves all (unknown) (no (unknown) (unknown) [place] coma scale (units (unknown) date) eye opening: unknown) Spontaneous (unknown) (no (unknown) (unknown) [place] coma scale (units (unknown) date) motor response: unknown) Obey commands (unknown) (no (unknown) (unknown) [place] coma scale (units (unknown) date) total score: 15 unknown) (unknown) (no (unknown) (unknown) [place] coma scale (units (unknown) date) verbal response: unknown) Orientated (unknown) (no (unknown) (unknown) Globulin (1.7-4.1) (units (unknown) date) g/dL unknown) (unknown) (no (unknown) (unknown) Globulin 3.1 (units (u nknown) date) (1.7-4.1) g/dL unknown) (unknown) (no (unknown) (unknown) Glucose 86 (units (unk nown) date) (80-110) mg/dL unknown) (unknown) (no (unknown) (unknown) Glucose 88 (units (unk nown) date) (80-110) mg/dL unknown) (unknown) (no (unknown) (unknown) HENMT (units (unkno wn) date) unknown) (unknown) (no (unknown) (unknown) HLD (units (unkno wn) date) (hyperlipidemia) unknown) (unknown) (no (unknown) (unknown) HPI - (units (unkno wn) date) Nausea/Vomiting/Huong unknown) rrhea (unknown) (no (unknown) (unknown) HPI Narrative: (units (unknown) date) unknown) (unknown) (no (unknown) (unknown) HTN (hypertension) (units (unknown) date) unknown) (unknown) (no (unknown) (unknown) Hct (36-46) % (units ( unknown) date) unknown) (unknown) (no (unknown) (unknown) Hct 38.4 (36-46) % (units (unknown) date) unknown) (unknown) (no (unknown) (unknown) Head: normal to (units (unknown) date) inspection and unknown) normocephalic (unknown) (no (unknown) (unknown) Hgb (12.0-16.0) (units (unknown) date) g/dL unknown) (unknown) (no (unknown) (unknown) Hgb 12.7 (units (unkno wn) date) (12.0-16.0) g/dL unknown) (unknown) (no (unknown) (unknown) History of Present (units (unknown) date) Illness unknown) (unknown) (no (unknown) (unknown) History of UTI (units (unknown) date) unknown) (unknown) (no (unknown) (unknown) History of colon (units (unknown) date) surgery unknown) (unknown) (no (unknown) (unknown) History of (units (unk nown) date) colonoscopy unknown) (unknown) (no (unknown) (unknown) History of (units (unk nown) date) hysterectomy unknown) (unknown) (no (unknown) (unknown) History of (units (unk nown) date) nephrolithiasis unknown) (unknown) (no (unknown) (unknown) History of (units (unk nown) date) thyroidectomy, unknown) subtotal (unknown) (no (unknown) (unknown) Home Medications (units (unknown) date) unknown) (unknown) (no (unknown) (unknown) Hx of appendectomy (units (unknown) date) unknown) (unknown) (no (unknown) (unknown) Hx of breast (units (u nknown) date) surgery unknown) (unknown) (no (unknown) (unknown) Hx of cystoscopy (units (unknown) date) (06/20/21) unknown) (unknown) (no (unknown) (unknown) Hx of eye surgery (units (unknown) date) unknown) (unknown) (no (unknown) (unknown) Imaging Data (units (u nknown) date) unknown) (unknown) (no (unknown) (unknown) Influenza A (units (un known) date) (RT-PCR) (NEGATIVE) unknown) (unknown) (no (unknown) (unknown) Influenza A (units (un known) date) (RT-PCR) Flu a unknown) negative (NEGATIVE) (unknown) (no (unknown) (unknown) Influenza B (units (un known) date) (RT-PCR) (NEGATIVE) unknown) (unknown) (no (unknown) (unknown) Influenza B (units (un known) date) (RT-PCR) Flu b unknown) negative (NEGATIVE) (unknown) (no (unknown) (unknown) Initial Vital (units ( unknown) date) Signs unknown) (unknown) (no (unknown) (unknown) Initial Vital (units ( unknown) date) Signs: unknown) (unknown) (no (unknown) (unknown) Insert 1 g (units (unk nown) date) intravaginally at unknown) HS times 12 days then 1 g intravaginally at HS (unknown) (no (unknown) (unknown) Inspection: normal (units (unknown) date) to inspection unknown) (unknown) (no (unknown) (unknown) Interpretation: (units (unknown) date) unknown) (unknown) (no (unknown) (unknown) [facility] (units (unknown) date) [address] unknown) [place] [address] (unknown) (no (unknown) (unknown) Lab Data (units (unkno wn) date) unknown) (unknown) (no (unknown) (unknown) Lab Results (units (un known) date) unknown) (unknown) (no (unknown) (unknown) Label Comments: (units (unknown) date) unknown) (unknown) (no (unknown) (unknown) Labs: (units (unkno wn) date) unknown) (unknown) (no (unknown) (unknown) Last Admin: (units (un known) date) 08/02/22 02:48 unknown) Dose: 4 mg (unknown) (no (unknown) (unknown) Last Admin: (units (un known) date) 08/02/22 06:16 unknown) Dose: 250 mls/hr (unknown) (no (unknown) (unknown) Last Infusion: (units (unknown) date) 08/02/22 03:27 unknown) Dose: 0 mls/hr (unknown) (no (unknown) (unknown) Last Infusion: (units (unknown) date) 08/02/22 05:05 unknown) Dose: 0 mls/hr (unknown) (no (unknown) (unknown) Left ureteral (units ( unknown) date) calculus unknown) (unknown) (no (unknown) (unknown) Lip/Tongue/Throat (units (unknown) date) unknown) (unknown) (no (unknown) (unknown) Lipase (23-300) (units (unknown) date) U/L unknown) (unknown) (no (unknown) (unknown) Lipase 2998 H (units ( unknown) date) (23-300) U/L unknown) (unknown) (no (unknown) (unknown) Lipase Stat (units (un known) date) unknown) (unknown) (no (unknown) (unknown) Lymph # (Auto) (units (unknown) date) (3003-6315) /uL unknown) (unknown) (no (unknown) (unknown) Lymph # (Auto) (units (unknown) date) 1500 (4753-7077) unknown) /uL (unknown) (no (unknown) (unknown) Lymph % (Auto) (units (unknown) date) (25-40) % unknown) (unknown) (no (unknown) (unknown) Lymph % (Auto) (units (unknown) date) 15.0 L (25-40) % unknown) (unknown) (no (unknown) (unknown) MCH (26-34) PG (units (unknown) date) unknown) (unknown) (no (unknown) (unknown) MCH 29.9 (26-34) (units (unknown) date) PG unknown) (unknown) (no (unknown) (unknown) MCHC (30-36) % (units (unknown) date) unknown) (unknown) (no (unknown) (unknown) MCHC 33.1 (30-36) (units (unknown) date) % unknown) (unknown) (no (unknown) (unknown) MCV (80-100) fL (units (unknown) date) unknown) (unknown) (no (unknown) (unknown) MCV 90.3 (80-100) (units (unknown) date) fL unknown) (unknown) (no (unknown) (unknown) MDM - (units (unkno wn) date) Nausea/Vomiting/Huong unknown) rrhea (unknown) (no (unknown) (unknown) Medical History (units (unknown) date) (Reviewed 08/02/22 unknown) @ 05:41 by Mike Cobian DO) (unknown) (no (unknown) (unknown) Medical Records (units (unknown) date) unknown) (unknown) (no (unknown) (unknown) Medication (units (unk nown) date) Instructions unknown) Recorded Confirmed (unknown) (no (unknown) (unknown) Medication (units (unk nown) date) Instructions unknown) Recorded (unknown) (no (unknown) (unknown) Mild hepatic (units (u nknown) date) steatosis unknown) (unknown) (no (unknown) (unknown) Mildly echogenic (units (unknown) date) kidneys suggesting unknown) possible medical renal disease. No (unknown) (no (unknown) (unknown) Mode of arrival: (units (unknown) date) Ambulatory unknown) (unknown) (no (unknown) (unknown) [place] # (Auto) (units ( unknown) date) (0-900) /uL unknown) (unknown) (no (unknown) (unknown) [place] # (Auto) 700 (units (unknown) date) (0-900) /uL unknown) (unknown) (no (unknown) (unknown) [place] % (Auto) (units ( unknown) date) (3-14) % unknown) (unknown) (no (unknown) (unknown) [place] % (Auto) 7.6 (units (unknown) date) (3-14) % unknown) (unknown) (no (unknown) (unknown) Neuro (units (unkno wn) date) unknown) (unknown) (no (unknown) (unknown) Neut # (Auto) (units ( unknown) date) (3842-1845) /uL unknown) (unknown) (no (unknown) (unknown) Neut # (Auto) 7400 (units (unknown) date) H (1740-8505) /uL unknown) (unknown) (no (unknown) (unknown) Neut % (Auto) (units ( unknown) date) (50-75) % unknown) (unknown) (no (unknown) (unknown) Neut % (Auto) 75.5 (units (unknown) date) H (50-75) % unknown) (unknown) (no (unknown) (unknown) No Action (units (unkn own) date) unknown) (unknown) (no (unknown) (unknown) Ondansetron HCl (units (unknown) date) (Ondansetron 4 Mg unknown) Odt) 4 mg PO NOW PRN (unknown) (no (unknown) (unknown) Ondansetron HCl (units (unknown) date) (Ondansetron 4 Mg/2 unknown) Ml Inj) 4 mg IV NOW PRN (unknown) (no (unknown) (unknown) Ordered: (units (unkno wn) date) unknown) (unknown) (no (unknown) (unknown) Orders (units (unkno wn) date) unknown) (unknown) (no (unknown) (unknown) Other: (units (unkno wn) date) unknown) (unknown) (no (unknown) (unknown) Oxygen Delivery (units (unknown) date) Method 08/02/22 unknown) 01:20 (unknown) (no (unknown) (unknown) Oxygen Delivery (units (unknown) date) Method Room Air unknown) (unknown) (no (unknown) (unknown) Oxygen Delivery (units (unknown) date) Method unknown) (unknown) (no (unknown) (unknown) PRN Reason: Nausea (units (unknown) date) And Vomiting unknown) (unknown) (no (unknown) (unknown) 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 unknown) To seen here in the emergency department (unknown) (no (unknown) (unknown) Patient: (units (unkno wn) date) Natasha Jaquez K unknown) MR#: [id number] (unknown) (no (unknown) (unknown) Please take this (units (unknown) date) the morning of unknown) August 04, 2021. (unknown) (no (unknown) (unknown) Plt Count (units (unkn own) date) (150-400) X103/uL unknown) (unknown) (no (unknown) (unknown) Plt Count 262 (units ( unknown) date) (150-400) X103/uL unknown) (unknown) (no (unknown) (unknown) Postmenopausal (units (unknown) date) atrophic vaginitis unknown) (unknown) (no (unknown) (unknown) Potassium 5.7 H (units (unknown) date) (3.4-5.1) mmol/L unknown) (unknown) (no (unknown) (unknown) Potassium 5.8 H (units (unknown) date) (3.4-5.1) mmol/L unknown) (unknown) (no (unknown) (unknown) Prescriptions: (units (unknown) date) unknown) (unknown) (no (unknown) (unknown) Previous Rx's (units ( unknown) date) unknown) (unknown) (no (unknown) (unknown) Psych (units (unkno wn) date) unknown) (unknown) (no (unknown) (unknown) Pulse Oximetry 95 (units (unknown) date) 08/02/22 01:20 unknown) (unknown) (no (unknown) (unknown) Pulse Oximetry 95 (units (unknown) date) 95 97 unknown) (unknown) (no (unknown) (unknown) Pulse Oximetry 96 (units (unknown) date) 97 96 unknown) (unknown) (no (unknown) (unknown) Pulse Oximetry 97 (units (unknown) date) 94 unknown) (unknown) (no (unknown) (unknown) Pulse Oximetry 97 (units (unknown) date) unknown) (unknown) (no (unknown) (unknown) Pulse Oximetry 98 (units (unknown) date) 98 unknown) (unknown) (no (unknown) (unknown) Pulse Oximetry 98 (units (unknown) date) unknown) (unknown) (no (unknown) (unknown) Pulse Rate 61 67 (units (unknown) date) unknown) (unknown) (no (unknown) (unknown) Pulse Rate 62 (units ( unknown) date) unknown) (unknown) (no (unknown) (unknown) Pulse Rate 65 65 (units (unknown) date) unknown) (unknown) (no (unknown) (unknown) Pulse Rate 68 (units ( unknown) date) unknown) (unknown) (no (unknown) (unknown) Pulse Rate 70 62 (units (unknown) date) 82 unknown) (unknown) (no (unknown) (unknown) Pulse Rate 78 (units ( unknown) date) 08/02/22 01:20 unknown) (unknown) (no (unknown) (unknown) Pulse Rate 78 61 (units (unknown) date) unknown) (unknown) (no (unknown) (unknown) RBC (4.0-5.2) (units ( unknown) date) X106/uL unknown) (unknown) (no (unknown) (unknown) RBC 4.26 (4.0-5.2) (units (unknown) date) X106/uL unknown) (unknown) (no (unknown) (unknown) RDW (11.6-14.8) % (units (unknown) date) unknown) (unknown) (no (unknown) (unknown) RDW 14.5 (units (unkno wn) date) (11.6-14.8) % unknown) (unknown) (no (unknown) (unknown) ROS Unobtainable: (units (unknown) date) All systems unknown) reviewed + are unremarkable except as noted in HPI (unknown) (no (unknown) (unknown) RSV (PCR) (units (unkn own) date) (Negative) unknown) (unknown) (no (unknown) (unknown) RSV (PCR) Negative (units (unknown) date) (Negative) unknown) (unknown) (no (unknown) (unknown) Radiologist's (units ( unknown) date) Impression: unknown) (unknown) (no (unknown) (unknown) Rate is 63 (units (unk nown) date) unknown) (unknown) (no (unknown) (unknown) Rate: regular rate (units (unknown) date) unknown) (unknown) (no (unknown) (unknown) Related Data (units (u nknown) date) unknown) (unknown) (no (unknown) (unknown) Resp (units (unkno wn) date) unknown) (unknown) (no (unknown) (unknown) Respiratory Rate (units (unknown) date) 16 18 unknown) (unknown) (no (unknown) (unknown) Respiratory Rate (units (unknown) date) 17 unknown) (unknown) (no (unknown) (unknown) Respiratory Rate (units (unknown) date) 19 08/02/22 01:20 unknown) (unknown) (no (unknown) (unknown) Respiratory Rate (units (unknown) date) 19 15 unknown) (unknown) (no (unknown) (unknown) Respiratory Rate (units (unknown) date) 27 H unknown) (unknown) (no (unknown) (unknown) Respiratory Rate (units (unknown) date) unknown) (unknown) (no (unknown) (unknown) Result diagrams: (units (unknown) date) unknown) (unknown) (no (unknown) (unknown) Retained ureteral (units (unknown) date) stent unknown) (unknown) (no (unknown) (unknown) Review of Systems (units (unknown) date) unknown) (unknown) (no (unknown) (unknown) Rhythm: regular (units (unknown) date) rhythm unknown) (unknown) (no (unknown) (unknown) Rx Instructions: (units (unknown) date) unknown) (unknown) (no (unknown) (unknown) SARS-CoV-2 (PCR) (units (unknown) date) (Negative) unknown) (unknown) (no (unknown) (unknown) SARS-CoV-2 (PCR) (units (unknown) date) Negative (Negative) unknown) (unknown) (no (unknown) (unknown) SVT (units (unkno wn) date) (supraventricular unknown) tachycardia) (unknown) (no (unknown) (unknown) Scores (units (unkno wn) date) unknown) (unknown) (no (unknown) (unknown) Signed By: (units (unk nown) date) unknown) (unknown) (no (unknown) (unknown) Skin (units (unkno wn) date) unknown) (unknown) (no (unknown) (unknown) Smoking Status: (units (unknown) date) Never smoker unknown) (unknown) (no (unknown) (unknown) Social History (units (unknown) date) (Reviewed 08/02/22 unknown) @ 05:41 by Mike Cobian DO) (unknown) (no (unknown) (unknown) Sodium 136 L (units (u nknown) date) (137-145) mmol/L unknown) (unknown) (no (unknown) (unknown) Sodium 137 (units (unk nown) date) (137-145) mmol/L unknown) (unknown) (no (unknown) (unknown) Sodium Chloride (units (unknown) date) (Normal Saline unknown) 0.9%) 1,000 mls @ 1,000 mls/hr IV BOLUS ONE (unknown) (no (unknown) (unknown) Sodium Chloride (units (unknown) date) (Normal Saline unknown) 0.9%) 1,000 mls @ 250 mls/hr IV CONT NORMAN (unknown) (no (unknown) (unknown) Sodium Urine (units (u nknown) date) Random Stat unknown) (unknown) (no (unknown) (unknown) Source: patient (units (unknown) date) and family unknown) (unknown) (no (unknown) (unknown) Speech: speech (units (unknown) date) normal unknown) (unknown) (no (unknown) (unknown) Start after 5 day (units (unknown) date) course of 2 caps unknown) daily is complete. (unknown) (no (unknown) (unknown) Stated complaint: (units (unknown) date) body pain/not able unknown) to eat or drink x 5 days (unknown) (no (unknown) (unknown) Stop: 08/02/22 (units (unknown) date) 02:39 unknown) (unknown) (no (unknown) (unknown) Stop: 08/02/22 (units (unknown) date) 04:57 unknown) (unknown) (no (unknown) (unknown) Substance Use (units ( unknown) date) Type: does not use unknown) (unknown) (no (unknown) (unknown) Surgical History (units (unknown) date) (Reviewed 08/02/22 unknown) @ 05:41 by Mike Cobian DO) (unknown) (no (unknown) (unknown) Temperature 98.7 F (units (unknown) date) 08/02/22 01:20 unknown) (unknown) (no (unknown) (unknown) Temperature 98.7 F (units (unknown) date) unknown) (unknown) (no (unknown) (unknown) Temperature (units (un known) date) unknown) (unknown) (no (unknown) (unknown) Time Seen by (units (u nknown) date) Provider: 08/02/22 unknown) 01:38 (unknown) (no (unknown) (unknown) Total Bilirubin (units (unknown) date) (0.2-1.3) mg/dL unknown) (unknown) (no (unknown) (unknown) Total Bilirubin (units (unknown) date) 0.7 (0.2-1.3) mg/dL unknown) (unknown) (no (unknown) (unknown) Total Protein (units ( unknown) date) (6.3-8.2) g/dL unknown) (unknown) (no (unknown) (unknown) Total Protein 7.3 (units (unknown) date) (6.3-8.2) g/dL unknown) (unknown) (no (unknown) (unknown) US abdomen (units (unk nown) date) complete Stat unknown) (unknown) (no (unknown) (unknown) Upset (units (unkno wn) date) unknown) (unknown) (no (unknown) (unknown) Ur Random Sodium (units (unknown) date) (30-90) mmol/L unknown) (unknown) (no (unknown) (unknown) Ur Random Sodium (units (unknown) date) 84 (30-90) mmol/L unknown) (unknown) (no (unknown) (unknown) Urine Creatinine (units (unknown) date) 69.7 mg/dL unknown) (unknown) (no (unknown) (unknown) Urine Creatinine (units (unknown) date) mg/dL unknown) (unknown) (no (unknown) (unknown) Urine Dip (units (unkn own) date) unknown) (unknown) (no (unknown) (unknown) Urine Specific (units (unknown) date) [place] 1.015 unknown) (unknown) (no (unknown) (unknown) Vital Signs - 8 hr (units (unknown) date) unknown) (unknown) (no (unknown) (unknown) Vital Signs (units (un known) date) unknown) (unknown) (no (unknown) (unknown) Vital signs: (units (u nknown) date) unknown) (unknown) (no (unknown) (unknown) WBC (4.5-11.0) (units (unknown) date) X103/uL unknown) (unknown) (no (unknown) (unknown) WBC 9.8 (4.5-11.0) (units (unknown) date) X103/uL unknown) (unknown) (no (unknown) (unknown) [Embedded Image (units (unknown) date) Not Available] unknown) (unknown) (no (unknown) (unknown) [From Pyridium] (units (unknown) date) unknown) (unknown) (no (unknown) (unknown) a couple days but (units (unknown) date) her symptoms were unknown) not improving and she started to feel worse (unknown) (no (unknown) (unknown) alcohol intake (units (unknown) date) frequency: 0-2 unknown) drinks per day (unknown) (no (unknown) (unknown) alcohol intake: (units (unknown) date) never unknown) (unknown) (no (unknown) (unknown) and below (units (unkn own) date) unknown) (unknown) (no (unknown) (unknown) biotin 5,000 mcg (units (unknown) date) Tablet, Sublingual unknown) (unknown) (no (unknown) (unknown) biotin 5,000 mcg (units (unknown) date) sublingual tablet unknown) 5,000 mcg sublingual DAILY 06/20/21 08/12/21 (unknown) (no (unknown) (unknown) breath activated (units (unknown) date) powder inhaler unknown) (unknown) (no (unknown) (unknown) budesonide 200 (units (unknown) date) mcg/actuation 50 unknown) mcg inhalation Q8HR 06/20/21 08/12/21 (unknown) (no (unknown) (unknown) budesonide 200 (units (unknown) date) mcg/actuation unknown) Aerosol Powdr Breath Activated (unknown) (no (unknown) (unknown) carvedilol 6.25 mg (units (unknown) date) Tablet unknown) (unknown) (no (unknown) (unknown) carvedilol 6.25 mg (units (unknown) date) tablet 6.25 mg PO unknown) BID 06/20/21 08/12/21 (unknown) (no (unknown) (unknown) cholecalciferol (units (unknown) date) (vitamin D3) 125 unknown) 125 mcg PO DAILY 06/20/21 08/12/21 (unknown) (no (unknown) (unknown) cholecalciferol (units (unknown) date) (vitamin D3) 125 unknown) mcg (5,000 unit) Tablet (unknown) (no (unknown) (unknown) ciprofloxacin HCl (units (unknown) date) 250 mg tablet 250 unknown) mg PO BEDTIME #60 tabs 09/02/21 (unknown) (no (unknown) (unknown) ciprofloxacin HCl (units (unknown) date) 250 mg tablet unknown) (unknown) (no (unknown) (unknown) direction. She (units (unknown) date) comes to the unknown) emergency department today because of overall body (unknown) (no (unknown) (unknown) estradiol 0.01% (units (unknown) date) (0.1 mg/gram) 1 g unknown) vaginal 2XW #42.5 grams 08/19/21 (unknown) (no (unknown) (unknown) estradiol (units (unkn own) date) [Estrace] 0.01 % unknown) (0.1 mg/gram) cream (unknown) (no (unknown) (unknown) extremities (units (un known) date) unknown) (unknown) (no (unknown) (unknown) fosfomycin (units (unk nown) date) tromethamine 3 gram unknown) 3 g PO ONCE #1 ea 07/31/21 (unknown) (no (unknown) (unknown) fosfomycin (units (unk nown) date) tromethamine 3 gram unknown) 3 g PO ONCE #1 ea 08/01/21 (unknown) (no (unknown) (unknown) fosfomycin (units (unk nown) date) tromethamine 3 gram unknown) packet (unknown) (no (unknown) (unknown) furosemide 20 mg (units (unknown) date) Tablet unknown) (unknown) (no (unknown) (unknown) furosemide 20 mg (units (unknown) date) tablet 20 mg PO 6XW unknown) 06/20/21 08/12/21 (unknown) (no (unknown) (unknown) furosemide 40 mg (units (unknown) date) Tablet unknown) (unknown) (no (unknown) (unknown) furosemide 40 mg (units (unknown) date) tablet 40 mg PO unknown) WEEKLY 06/20/21 08/12/21 (unknown) (no (unknown) (unknown) having bowel (units (u nknown) date) movements. She unknown) denies any fevers. No recent travel. (unknown) (no (unknown) (unknown) household members: (units (unknown) date) spouse unknown) (unknown) (no (unknown) (unknown) losartan 50 mg (units (unknown) date) Tablet unknown) (unknown) (no (unknown) (unknown) losartan 50 mg (units (unknown) date) tablet 50 mg PO unknown) DAILY 06/20/21 08/12/21 (unknown) (no (unknown) (unknown) mcg (5,000 unit) (units (unknown) date) tablet unknown) (unknown) (no (unknown) (unknown) metformin 500 mg (units (unknown) date) Tablet unknown) (unknown) (no (unknown) (unknown) metformin 500 mg (units (unknown) date) tablet 1,000 mg PO unknown) BID 07/26/21 08/12/21 (unknown) (no (unknown) (unknown) must administer (units (unknown) date) with a meal/food unknown) (unknown) (no (unknown) (unknown) obstructive (units (un known) date) uropathy unknown) (unknown) (no (unknown) (unknown) of (units (unkno wn) date) unknown) (unknown) (no (unknown) (unknown) oral packet (units (un known) date) unknown) (unknown) (no (unknown) (unknown) oxycodone 5 mg (units (unknown) date) tablet 5 mg PO Q4H unknown) PRN pain #20 tabs 07/26/21 (unknown) (no (unknown) (unknown) oxycodone 5 mg (units (unknown) date) tablet unknown) (unknown) (no (unknown) (unknown) pain, belly pain, (units (unknown) date) vomiting, unable to unknown) drink for the past several days. Still (unknown) (no (unknown) (unknown) phenazopyridine (units (unknown) date) Allergy Verified unknown) 08/12/21 08:17 (unknown) (no (unknown) (unknown) potassium 99 mg (units (unknown) date) Tablet unknown) (unknown) (no (unknown) (unknown) potassium 99 mg (units (unknown) date) tablet 99 mg PO unknown) DAILY 07/26/21 08/12/21 (unknown) (no (unknown) (unknown) prednisone Allergy (units (unknown) date) Severe Swelling unknown) Verified 08/02/22 01:20 (unknown) (no (unknown) (unknown) procaine [From (units (unknown) date) Novocain] Allergy unknown) Chest Pain Verified 08/02/22 01:20 (unknown) (no (unknown) (unknown) recently for UTI (units (unknown) date) like symptoms. Was unknown) sent home with [facility]. She took this for (unknown) (no (unknown) (unknown) rizatriptan (units (un known) date) Allergy Severe unknown) Difficulty Verified 08/02/22 01:20 (unknown) (no (unknown) (unknown) rosuvastatin 40 mg (units (unknown) date) Tablet unknown) (unknown) (no (unknown) (unknown) rosuvastatin 40 mg (units (unknown) date) tablet 40 mg PO unknown) DAILY 06/20/21 08/12/21 (unknown) (no (unknown) (unknown) s (units (unkno wn) date) unknown) (unknown) (no (unknown) (unknown) shellfish derived (units (unknown) date) AdvReac unknown) Gastrointestinal Verified 08/02/22 01:20 (unknown) (no (unknown) (unknown) so she contact her (units (unknown) date) primary doctor who unknown) looked up the culture results and told her (unknown) (no (unknown) (unknown) takes 4 puffs (units ( unknown) date) qhs-(Pulmacort) unknown) (unknown) (no (unknown) (unknown) takes it 5x/week (units (unknown) date) unknown) (unknown) (no (unknown) (unknown) tamsulosin 0.4 mg (units (unknown) date) capsule 0.4 mg PO unknown) BEDTIME #60 caps 06/21/21 (unknown) (no (unknown) (unknown) tamsulosin 0.4 mg (units (unknown) date) capsule unknown) (unknown) (no (unknown) (unknown) tetracycline (units (u nknown) date) Allergy Severe unknown) ITCHING Verified 08/12/21 08:17 (unknown) (no (unknown) (unknown) that she did not (units (unknown) date) have an infection unknown) so she quit taking the medications per their (unknown) (no (unknown) (unknown) thiopental AdvReac (units (unknown) date) Palpitation unknown) Verified 08/02/22 01:20 (unknown) (no (unknown) (unknown) twice weekly (units (u nknown) date) thereafter. unknown) (unknown) (no (unknown) (unknown) vaginal cream (units ( unknown) date) (Estrace) unknown) (unknown) (no (unknown) (unknown) warfarin 2 mg (units ( unknown) date) Tablet unknown) (unknown) (no (unknown) (unknown) warfarin 2 mg (units ( unknown) date) tablet 2 mg PO 2XW unknown) 06/20/21 08/12/21 (unknown) (no (unknown) (unknown) warfarin 3 mg (units ( unknown) date) Tablet unknown) (unknown) (no (unknown) (unknown) warfarin 3 mg (units ( unknown) date) tablet 3 mg PO 5XW unknown) 06/20/21 08/12/21 Result panel 183 (unknown) (no (unknown) (unknown) (no value) (units (unk nown) date) unknown) (unknown) (no (unknown) (unknown) 0.4 mg PO BEDTIME (units (unknown) date) Qty: 60 0RF unknown) (unknown) (no (unknown) (unknown) 01:17 01:40 01:40 (units (unknown) date) unknown) (unknown) (no (unknown) (unknown) 01:20 08/02/22 (units (unknown) date) unknown) (unknown) (no (unknown) (unknown) 01:39 08/02/22 (units (unknown) date) unknown) (unknown) (no (unknown) (unknown) 02:00 (units (unkno wn) date) unknown) (unknown) (no (unknown) (unknown) 02:32 08/02/22 (units (unknown) date) unknown) (unknown) (no (unknown) (unknown) 03:00 08/02/22 (units (unknown) date) unknown) (unknown) (no (unknown) (unknown) 03:30 05:30 (units (un known) date) unknown) (unknown) (no (unknown) (unknown) 03:30 (units (unkno wn) date) unknown) (unknown) (no (unknown) (unknown) 03:35 08/02/22 (units (unknown) date) unknown) (unknown) (no (unknown) (unknown) [id number] (units (unkno wn) date) unknown) (unknown) (no (unknown) (unknown) 04:00 (units (unkno wn) date) unknown) (unknown) (no (unknown) (unknown) 04:01 08/02/22 (units (unknown) date) unknown) (unknown) (no (unknown) (unknown) 04:30 08/02/22 (units (unknown) date) unknown) (unknown) (no (unknown) (unknown) 04:30 (units (unkno wn) date) unknown) (unknown) (no (unknown) (unknown) 05:00 08/02/22 (units (unknown) date) unknown) (unknown) (no (unknown) (unknown) 05:00 (units (unkno wn) date) unknown) (unknown) (no (unknown) (unknown) 05:30 08/02/22 (units (unknown) date) unknown) (unknown) (no (unknown) (unknown) 05:30 (units (unkno wn) date) unknown) (unknown) (no (unknown) (unknown) 1 g vaginal 2XW (units (unknown) date) Qty: 42.5 3RF unknown) (unknown) (no (unknown) (unknown) 1,000 mg PO BID (units (unknown) date) unknown) (unknown) (no (unknown) (unknown) 08/02/22 01:17 (units (unknown) date) unknown) (unknown) (no (unknown) (unknown) 08/02/22 01:25 (units (unknown) date) unknown) (unknown) (no (unknown) (unknown) 08/02/22 01:40 (units (unknown) date) unknown) (unknown) (no (unknown) (unknown) 08/02/22 02:20 (units (unknown) date) unknown) (unknown) (no (unknown) (unknown) 08/02/22 03:30 (units (unknown) date) unknown) (unknown) (no (unknown) (unknown) 08/02/22 05:30 (units (unknown) date) unknown) (unknown) (no (unknown) (unknown) 08/02/22 08/02/22 (units (unknown) date) 08/02/22 unknown) Range/Units (unknown) (no (unknown) (unknown) 08/02/22 08/02/22 (units (unknown) date) Range/Units unknown) (unknown) (no (unknown) (unknown) 08/02/22 (units (unkno wn) date) unknown) (unknown) (no (unknown) (unknown) 125 mcg PO DAILY (units (unknown) date) unknown) (unknown) (no (unknown) (unknown) 2 mg PO 2XW (units (un known) date) unknown) (unknown) (no (unknown) (unknown) 20 mg PO 6XW (units (u nknown) date) unknown) (unknown) (no (unknown) (unknown) 250 mg PO BEDTIME (units (unknown) date) Qty: 60 0RF unknown) (unknown) (no (unknown) (unknown) 3 g PO ONCE Qty: 1 (units (unknown) date) 0RF unknown) (unknown) (no (unknown) (unknown) 3 mg PO 5XW (units (un known) date) unknown) (unknown) (no (unknown) (unknown) 40 mg PO DAILY (units (unknown) date) unknown) (unknown) (no (unknown) (unknown) 40 mg PO WEEKLY (units (unknown) date) unknown) (unknown) (no (unknown) (unknown) 5 mg PO Q4H PRN (units (unknown) date) (Reason: pain) Qty: unknown) 20 0RF (unknown) (no (unknown) (unknown) 5,000 mcg (units (unkn own) date) sublingual DAILY unknown) (unknown) (no (unknown) (unknown) 50 mcg INHALATION (units (unknown) date) Q8HR unknown) (unknown) (no (unknown) (unknown) 50 mg PO DAILY (units (unknown) date) unknown) (unknown) (no (unknown) (unknown) 6.25 mg PO BID (units (unknown) date) unknown) (unknown) (no (unknown) (unknown) 99 mg PO DAILY (units (unknown) date) unknown) (unknown) (no (unknown) (unknown) AICD (automatic (units (unknown) date) cardioverter/defibr unknown) illator) present (11/29/20) (unknown) (no (unknown) (unknown) ALT (<35) IU/L (units (unknown) date) unknown) (unknown) (no (unknown) (unknown) ALT 27 (<35) IU/L (units (unknown) date) unknown) (unknown) (no (unknown) (unknown) AST (14-36) IU/L (units (unknown) date) unknown) (unknown) (no (unknown) (unknown) AST 32 (14-36) (units (unknown) date) IU/L unknown) (unknown) (no (unknown) (unknown) Acute kidney (units (u nknown) date) injury unknown) (unknown) (no (unknown) (unknown) Admin: 08/02/22 (units (unknown) date) 02:15 Dose: 1,000 unknown) mls/hr (unknown) (no (unknown) (unknown) Admin: 08/02/22 (units (unknown) date) 04:04 Dose: 1,000 unknown) mls/hr (unknown) (no (unknown) (unknown) Afib (units (unkno wn) date) unknown) (unknown) (no (unknown) (unknown) Age/Sex: 71 / F (units (unknown) date) unknown) (unknown) (no (unknown) (unknown) Albumin (3.5-5.0) (units (unknown) date) g/dL unknown) (unknown) (no (unknown) (unknown) Albumin 4.2 (units (un known) date) (3.5-5.0) g/dL unknown) (unknown) (no (unknown) (unknown) Albumin/Globulin (units (unknown) date) Ratio (1.0-2.8) unknown) (unknown) (no (unknown) (unknown) Albumin/Globulin (units (unknown) date) Ratio 1.4 (1.0-2.8) unknown) (unknown) (no (unknown) (unknown) Alkaline (units (unkno wn) date) Phosphatase unknown) (38-126) U/L (unknown) (no (unknown) (unknown) Alkaline (units (unkno wn) date) Phosphatase 54 unknown) (38-126) U/L (unknown) (no (unknown) (unknown) Allergies (units (unkn own) date) unknown) (unknown) (no (unknown) (unknown) Allergy/AdvReac (units (unknown) date) Type Severity unknown) Reaction Status Date / Time (unknown) (no (unknown) (unknown) Appearance: (units (un known) date) grossly normal and unknown) well kempt (unknown) (no (unknown) (unknown) Atrially (units (unkno wn) date) sensed/ventricularl unknown) y paced (unknown) (no (unknown) (unknown) Attestation: I (units (unknown) date) personally reviewed unknown) and interpreted this ECG as follows: (unknown) (no (unknown) (unknown) Attestation: I (units (unknown) date) reviewed the unknown) patient's lab results. (unknown) (no (unknown) (unknown) Attestation: I (units (unknown) date) reviewed the unknown) patient's medical records. (unknown) (no (unknown) (unknown) Auscultation: (units ( unknown) date) clear to unknown) auscultation bilaterally (unknown) (no (unknown) (unknown) BMP [Basic (units (unk nown) date) Metabolic Panel] unknown) Stat (unknown) (no (unknown) (unknown) BUN 63 H (7-17) (units (unknown) date) mg/dL unknown) (unknown) (no (unknown) (unknown) BUN 67 H (7-17) (units (unknown) date) mg/dL unknown) (unknown) (no (unknown) (unknown) BUN/Creatinine (units (unknown) date) Ratio 6.7 (6-22) unknown) (unknown) (no (unknown) (unknown) BUN/Creatinine (units (unknown) date) Ratio 6.9 (6-22) unknown) (unknown) (no (unknown) (unknown) Back/Spine/Pelvis (units (unknown) date) unknown) (unknown) (no (unknown) (unknown) Back: No CVA (units (u nknown) date) tenderness unknown) (unknown) (no (unknown) (unknown) Baso # (Auto) (units ( unknown) date) (0-100) /uL unknown) (unknown) (no (unknown) (unknown) Baso # (Auto) 100 (units (unknown) date) (0-100) /uL unknown) (unknown) (no (unknown) (unknown) Baso % (Auto) (units ( unknown) date) (0-2) % unknown) (unknown) (no (unknown) (unknown) Baso % (Auto) 0.7 (units (unknown) date) (0-2) % unknown) (unknown) (no (unknown) (unknown) Bedside Urine (units ( unknown) date) Bilirubin - unknown) Negative (unknown) (no (unknown) (unknown) Bedside Urine (units ( unknown) date) Glucose Negative unknown) (unknown) (no (unknown) (unknown) Bedside Urine (units ( unknown) date) Ketone +/- 5 unknown) (unknown) (no (unknown) (unknown) Bedside Urine (units ( unknown) date) Leukocytes - unknown) Negative (unknown) (no (unknown) (unknown) Bedside Urine (units ( unknown) date) Nitrite - Negative unknown) (unknown) (no (unknown) (unknown) Bedside Urine (units ( unknown) date) Occult Blood unknown) (unknown) (no (unknown) (unknown) Bedside Urine (units ( unknown) date) Protein ++ 100 unknown) (unknown) (no (unknown) (unknown) Bedside Urine (units ( unknown) date) Urobilinogen - unknown) Negative (unknown) (no (unknown) (unknown) Bedside Urine pH (units (unknown) date) 6.0 unknown) (unknown) (no (unknown) (unknown) Bilateral (units (unkn own) date) perinephric unknown) stranding. This can be an asymptomatic finding. (unknown) (no (unknown) (unknown) Bilateral renal (units (unknown) date) cysts unknown) (unknown) (no (unknown) (unknown) Blood Pressure (units (unknown) date) 109/53 L unknown) (unknown) (no (unknown) (unknown) Blood Pressure (units (unknown) date) 119/59 L unknown) (unknown) (no (unknown) (unknown) Blood Pressure (units (unknown) date) 130/69 08/02/22 unknown) 01:20 (unknown) (no (unknown) (unknown) Blood Pressure (units (unknown) date) 130/69 unknown) (unknown) (no (unknown) (unknown) Blood Pressure (units (unknown) date) 143/65 H 124/59 L unknown) (unknown) (no (unknown) (unknown) Blood Pressure (units (unknown) date) 146/67 H unknown) (unknown) (no (unknown) (unknown) Blood Pressure (units (unknown) date) unknown) (unknown) (no (unknown) (unknown) Breathing (units (unkn own) date) unknown) (unknown) (no (unknown) (unknown) CHF (congestive (units (unknown) date) heart failure) unknown) (unknown) (no (unknown) (unknown) CT kidney ureter (units (unknown) date) bladder (KUB) Stat unknown) (unknown) (no (unknown) (unknown) CT scan - (units (unkn own) date) abdomen/pelvis: unknown) (unknown) (no (unknown) (unknown) CVA (cerebral (units ( unknown) date) vascular accident) unknown) (unknown) (no (unknown) (unknown) Calcium 8.4 (units (un known) date) (8.4-10.2) mg/dL unknown) (unknown) (no (unknown) (unknown) Calcium 9.9 (units (un known) date) (8.4-10.2) mg/dL unknown) (unknown) (no (unknown) (unknown) Carbon Dioxide 13 (units (unknown) date) L (22-32) mmol/L unknown) (unknown) (no (unknown) (unknown) Cardiac arrest (units (unknown) date) (11/29/20) unknown) (unknown) (no (unknown) (unknown) Cardio (units (unkno wn) date) unknown) (unknown) (no (unknown) (unknown) Cardiomyopathy (units (unknown) date) unknown) (unknown) (no (unknown) (unknown) Chest (units (unkno wn) date) unknown) (unknown) (no (unknown) (unknown) Chief complaint: (units (unknown) date) Nausea/Vomiting/Huong unknown) rrhea (unknown) (no (unknown) (unknown) Chloride 103 (units (u nknown) date) (98-107) mmol/L unknown) (unknown) (no (unknown) (unknown) Chloride 109 H (units (unknown) date) (98-107) mmol/L unknown) (unknown) (no (unknown) (unknown) Cognition: normal (units (unknown) date) cognition unknown) (unknown) (no (unknown) (unknown) Complete Blood (units (unknown) date) Count AUTO DIFF unknown) Stat (unknown) (no (unknown) (unknown) Comprehensive (units ( unknown) date) Metabolic Panel unknown) Stat (unknown) (no (unknown) (unknown) Const (units (unkno wn) date) unknown) (unknown) (no (unknown) (unknown) Course (units (unkno wn) date) unknown) (unknown) (no (unknown) (unknown) Covid-19 + FLU A/B (units (unknown) date) + RSV - PCR Stat unknown) (unknown) (no (unknown) (unknown) Creatinine 10.0 H* (units (unknown) date) (0.52-1.04) mg/dL unknown) (unknown) (no (unknown) (unknown) Creatinine 9.15 H* (units (unknown) date) (0.52-1.04) mg/dL unknown) (unknown) (no (unknown) (unknown) Creatinine Urine (units (unknown) date) Random Stat unknown) (unknown) (no (unknown) (unknown) : 1950 (units (unknown) date) Acct:[id number] unknown) (unknown) (no (unknown) (unknown) Date of Service: (units (unknown) date) 08/02/22 unknown) (unknown) (no (unknown) (unknown) Departure (units (unkn own) date) unknown) (unknown) (no (unknown) (unknown) Diabetes (units (unkno wn) date) unknown) (unknown) (no (unknown) (unknown) Discharge Plan (units (unknown) date) unknown) (unknown) (no (unknown) (unknown) Discontinued (units (u nknown) date) Medications unknown) (unknown) (no (unknown) (unknown) Documented By: GC (units (unknown) date) unknown) (unknown) (no (unknown) (unknown) Documented By: KM (units (unknown) date) unknown) (unknown) (no (unknown) (unknown) ECG Data (units (unkno wn) date) unknown) (unknown) (no (unknown) (unknown) ED Orders (units (unkn own) date) unknown) (unknown) (no (unknown) (unknown) EKG-12 Lead Stat (units (unknown) date) unknown) (unknown) (no (unknown) (unknown) ER Physician: (units ( unknown) date) Mike Cobian D.O. unknown) (unknown) (no (unknown) (unknown) Effort + (units (unkno wn) date) Inspection: normal unknown) respiratory effort (unknown) (no (unknown) (unknown) Emergency Report (units (unknown) date) unknown) (unknown) (no (unknown) (unknown) Eos # (Auto) (units (u nknown) date) (0-450) /uL unknown) (unknown) (no (unknown) (unknown) Eos # (Auto) 100 (units (unknown) date) (0-450) /uL unknown) (unknown) (no (unknown) (unknown) Eos % (Auto) (2-4) (units (unknown) date) % unknown) (unknown) (no (unknown) (unknown) Eos % (Auto) 1.2 L (units (unknown) date) (2-4) % unknown) (unknown) (no (unknown) (unknown) Esterase (units (unkno wn) date) unknown) (unknown) (no (unknown) (unknown) Estimated GFR 4 L (units (unknown) date) (>60) mL/min unknown) (unknown) (no (unknown) (unknown) Exam (units (unkno wn) date) unknown) (unknown) (no (unknown) (unknown) Extrem (units (unkno wn) date) unknown) (unknown) (no (unknown) (unknown) GCS (units (unkno wn) date) unknown) (unknown) (no (unknown) (unknown) GI (units (unkno wn) date) unknown) (unknown) (no (unknown) (unknown) General (units (unkno wn) date) unknown) (unknown) (no (unknown) (unknown) General: (units (unkno wn) date) cooperative, unknown) comfortable and No ill appearing (unknown) (no (unknown) (unknown) General: no rashes (units (unknown) date) or lesions noted unknown) (unknown) (no (unknown) (unknown) General: normal to (units (unknown) date) inspection, unknown) capillary refill normal and No edema (unknown) (no (unknown) (unknown) General: patient (units (unknown) date) alert, patient unknown) awake, patient oriented x3 and moves all (unknown) (no (unknown) (unknown) [place] coma scale (units (unknown) date) eye opening: unknown) Spontaneous (unknown) (no (unknown) (unknown) [place] coma scale (units (unknown) date) motor response: unknown) Obey commands (unknown) (no (unknown) (unknown) [place] coma scale (units (unknown) date) total score: 15 unknown) (unknown) (no (unknown) (unknown) [place] coma scale (units (unknown) date) verbal response: unknown) Orientated (unknown) (no (unknown) (unknown) Globulin (1.7-4.1) (units (unknown) date) g/dL unknown) (unknown) (no (unknown) (unknown) Globulin 3.1 (units (u nknown) date) (1.7-4.1) g/dL unknown) (unknown) (no (unknown) (unknown) Glucose 86 (units (unk nown) date) (80-110) mg/dL unknown) (unknown) (no (unknown) (unknown) Glucose 88 (units (unk nown) date) (80-110) mg/dL unknown) (unknown) (no (unknown) (unknown) HENMT (units (unkno wn) date) unknown) (unknown) (no (unknown) (unknown) HLD (units (unkno wn) date) (hyperlipidemia) unknown) (unknown) (no (unknown) (unknown) HPI - (units (unkno wn) date) Nausea/Vomiting/Huong unknown) rrhea (unknown) (no (unknown) (unknown) HPI Narrative: (units (unknown) date) unknown) (unknown) (no (unknown) (unknown) HTN (hypertension) (units (unknown) date) unknown) (unknown) (no (unknown) (unknown) Hct (36-46) % (units ( unknown) date) unknown) (unknown) (no (unknown) (unknown) Hct 38.4 (36-46) % (units (unknown) date) unknown) (unknown) (no (unknown) (unknown) Head: normal to (units (unknown) date) inspection and unknown) normocephalic (unknown) (no (unknown) (unknown) Hgb (12.0-16.0) (units (unknown) date) g/dL unknown) (unknown) (no (unknown) (unknown) Hgb 12.7 (units (unkno wn) date) (12.0-16.0) g/dL unknown) (unknown) (no (unknown) (unknown) History of Present (units (unknown) date) Illness unknown) (unknown) (no (unknown) (unknown) History of UTI (units (unknown) date) unknown) (unknown) (no (unknown) (unknown) History of colon (units (unknown) date) surgery unknown) (unknown) (no (unknown) (unknown) History of (units (unk nown) date) colonoscopy unknown) (unknown) (no (unknown) (unknown) History of (units (unk nown) date) hysterectomy unknown) (unknown) (no (unknown) (unknown) History of (units (unk nown) date) nephrolithiasis unknown) (unknown) (no (unknown) (unknown) History of (units (unk nown) date) thyroidectomy, unknown) subtotal (unknown) (no (unknown) (unknown) Home Medications (units (unknown) date) unknown) (unknown) (no (unknown) (unknown) Hx of appendectomy (units (unknown) date) unknown) (unknown) (no (unknown) (unknown) Hx of breast (units (u nknown) date) surgery unknown) (unknown) (no (unknown) (unknown) Hx of cystoscopy (units (unknown) date) (06/20/21) unknown) (unknown) (no (unknown) (unknown) Hx of eye surgery (units (unknown) date) unknown) (unknown) (no (unknown) (unknown) Imaging Data (units (u nknown) date) unknown) (unknown) (no (unknown) (unknown) Influenza A (units (un known) date) (RT-PCR) (NEGATIVE) unknown) (unknown) (no (unknown) (unknown) Influenza A (units (un known) date) (RT-PCR) Flu a unknown) negative (NEGATIVE) (unknown) (no (unknown) (unknown) Influenza B (units (un known) date) (RT-PCR) (NEGATIVE) unknown) (unknown) (no (unknown) (unknown) Influenza B (units (un known) date) (RT-PCR) Flu b unknown) negative (NEGATIVE) (unknown) (no (unknown) (unknown) Initial Vital (units ( unknown) date) Signs unknown) (unknown) (no (unknown) (unknown) Initial Vital (units ( unknown) date) Signs: unknown) (unknown) (no (unknown) (unknown) Insert 1 g (units (unk nown) date) intravaginally at unknown) HS times 12 days then 1 g intravaginally at HS (unknown) (no (unknown) (unknown) Inspection: normal (units (unknown) date) to inspection unknown) (unknown) (no (unknown) (unknown) Interpretation: (units (unknown) date) unknown) (unknown) (no (unknown) (unknown) [facility] (units (unknown) date) [address] unknown) [place] [address] (unknown) (no (unknown) (unknown) Lab Data (units (unkno wn) date) unknown) (unknown) (no (unknown) (unknown) Lab Results (units (un known) date) unknown) (unknown) (no (unknown) (unknown) Label Comments: (units (unknown) date) unknown) (unknown) (no (unknown) (unknown) Labs: (units (unkno wn) date) unknown) (unknown) (no (unknown) (unknown) Last Admin: (units (un known) date) 08/02/22 02:48 unknown) Dose: 4 mg (unknown) (no (unknown) (unknown) Last Admin: (units (un known) date) 08/02/22 06:16 unknown) Dose: 250 mls/hr (unknown) (no (unknown) (unknown) Last Infusion: (units (unknown) date) 08/02/22 03:27 unknown) Dose: 0 mls/hr (unknown) (no (unknown) (unknown) Last Infusion: (units (unknown) date) 08/02/22 05:05 unknown) Dose: 0 mls/hr (unknown) (no (unknown) (unknown) Left ureteral (units ( unknown) date) calculus unknown) (unknown) (no (unknown) (unknown) Lip/Tongue/Throat (units (unknown) date) unknown) (unknown) (no (unknown) (unknown) Lipase (23-300) (units (unknown) date) U/L unknown) (unknown) (no (unknown) (unknown) Lipase 2998 H (units ( unknown) date) (23-300) U/L unknown) (unknown) (no (unknown) (unknown) Lipase Stat (units (un known) date) unknown) (unknown) (no (unknown) (unknown) Lymph # (Auto) (units (unknown) date) (0432-2579) /uL unknown) (unknown) (no (unknown) (unknown) Lymph # (Auto) (units (unknown) date) 1500 (0898-3639) unknown) /uL (unknown) (no (unknown) (unknown) Lymph % (Auto) (units (unknown) date) (25-40) % unknown) (unknown) (no (unknown) (unknown) Lymph % (Auto) (units (unknown) date) 15.0 L (25-40) % unknown) (unknown) (no (unknown) (unknown) MCH (26-34) PG (units (unknown) date) unknown) (unknown) (no (unknown) (unknown) MCH 29.9 (26-34) (units (unknown) date) PG unknown) (unknown) (no (unknown) (unknown) MCHC (30-36) % (units (unknown) date) unknown) (unknown) (no (unknown) (unknown) MCHC 33.1 (30-36) (units (unknown) date) % unknown) (unknown) (no (unknown) (unknown) MCV (80-100) fL (units (unknown) date) unknown) (unknown) (no (unknown) (unknown) MCV 90.3 (80-100) (units (unknown) date) fL unknown) (unknown) (no (unknown) (unknown) MDM - (units (unkno wn) date) Nausea/Vomiting/Huong unknown) rrhea (unknown) (no (unknown) (unknown) MDM Narrative (units ( unknown) date) unknown) (unknown) (no (unknown) (unknown) Medical History (units (unknown) date) (Reviewed 08/02/22 unknown) @ 05:41 by Mike Cobian DO) (unknown) (no (unknown) (unknown) Medical Records (units (unknown) date) unknown) (unknown) (no (unknown) (unknown) Medical decision (units (unknown) date) making narrative: unknown) (unknown) (no (unknown) (unknown) Medication (units (unk nown) date) Instructions unknown) Recorded Confirmed (unknown) (no (unknown) (unknown) Medication (units (unk nown) date) Instructions unknown) Recorded (unknown) (no (unknown) (unknown) Mild echogenic (units (unknown) date) kidneys suggesting unknown) possible medical renal disease. No (unknown) (no (unknown) (unknown) Mode of arrival: (units (unknown) date) Ambulatory unknown) (unknown) (no (unknown) (unknown) [place] # (Auto) (units ( unknown) date) (0-900) /uL unknown) (unknown) (no (unknown) (unknown) [place] # (Auto) 700 (units (unknown) date) (0-900) /uL unknown) (unknown) (no (unknown) (unknown) [place] % (Auto) (units ( unknown) date) (3-14) % unknown) (unknown) (no (unknown) (unknown) [place] % (Auto) 7.6 (units (unknown) date) (3-14) % unknown) (unknown) (no (unknown) (unknown) Neuro (units (unkno wn) date) unknown) (unknown) (no (unknown) (unknown) Neut # (Auto) (units ( unknown) date) (9048-8990) /uL unknown) (unknown) (no (unknown) (unknown) Neut # (Auto) 7400 (units (unknown) date) H (8507-8078) /uL unknown) (unknown) (no (unknown) (unknown) Neut % (Auto) (units ( unknown) date) (50-75) % unknown) (unknown) (no (unknown) (unknown) Neut % (Auto) 75.5 (units (unknown) date) H (50-75) % unknown) (unknown) (no (unknown) (unknown) No Action (units (unkn own) date) unknown) (unknown) (no (unknown) (unknown) No obstructive (units (unknown) date) uropathy unknown) (unknown) (no (unknown) (unknown) Ondansetron HCl (units (unknown) date) (Ondansetron 4 Mg unknown) Odt) 4 mg PO NOW PRN (unknown) (no (unknown) (unknown) Ondansetron HCl (units (unknown) date) (Ondansetron 4 Mg/2 unknown) Ml Inj) 4 mg IV NOW PRN (unknown) (no (unknown) (unknown) Ordered: (units (unkno wn) date) unknown) (unknown) (no (unknown) (unknown) Orders (units (unkno wn) date) unknown) (unknown) (no (unknown) (unknown) Other: (units (unkno wn) date) unknown) (unknown) (no (unknown) (unknown) Oxygen Delivery (units (unknown) date) Method 08/02/22 unknown) 01:20 (unknown) (no (unknown) (unknown) Oxygen Delivery (units (unknown) date) Method Room Air unknown) (unknown) (no (unknown) (unknown) Oxygen Delivery (units (unknown) date) Method unknown) (unknown) (no (unknown) (unknown) PRN Reason: Nausea (units (unknown) date) And Vomiting unknown) (unknown) (no (unknown) (unknown) 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 unknown) To seen here in the emergency department (unknown) (no (unknown) (unknown) Patient is (units (unk nown) date) well-appearing. Is unknown) not tachycardic. Not hypotensive. She does have (unknown) (no (unknown) (unknown) Patient: (units (unkno wn) date) NaveendavidNatasha schreiber K unknown) MR#: [id number] (unknown) (no (unknown) (unknown) Please take this (units (unknown) date) the morning of unknown) August 04, 2021. (unknown) (no (unknown) (unknown) Plt Count (units (unkn own) date) (150-400) X103/uL unknown) (unknown) (no (unknown) (unknown) Plt Count 262 (units ( unknown) date) (150-400) X103/uL unknown) (unknown) (no (unknown) (unknown) Postmenopausal (units (unknown) date) atrophic vaginitis unknown) (unknown) (no (unknown) (unknown) Potassium 5.7 H (units (unknown) date) (3.4-5.1) mmol/L unknown) (unknown) (no (unknown) (unknown) Potassium 5.8 H (units (unknown) date) (3.4-5.1) mmol/L unknown) (unknown) (no (unknown) (unknown) Prescriptions: (units (unknown) date) unknown) (unknown) (no (unknown) (unknown) Previous Rx's (units ( unknown) date) unknown) (unknown) (no (unknown) (unknown) Prior labs that we (units (unknown) date) have for her were unknown) greater than 1 year ago which has her (unknown) (no (unknown) (unknown) Psych (units (unkno wn) date) unknown) (unknown) (no (unknown) (unknown) Pulse Oximetry 95 (units (unknown) date) 08/02/22 01:20 unknown) (unknown) (no (unknown) (unknown) Pulse Oximetry 95 (units (unknown) date) 95 97 unknown) (unknown) (no (unknown) (unknown) Pulse Oximetry 96 (units (unknown) date) 97 96 unknown) (unknown) (no (unknown) (unknown) Pulse Oximetry 97 (units (unknown) date) 94 unknown) (unknown) (no (unknown) (unknown) Pulse Oximetry 97 (units (unknown) date) unknown) (unknown) (no (unknown) (unknown) Pulse Oximetry 98 (units (unknown) date) 98 unknown) (unknown) (no (unknown) (unknown) Pulse Oximetry 98 (units (unknown) date) unknown) (unknown) (no (unknown) (unknown) Pulse Rate 61 67 (units (unknown) date) unknown) (unknown) (no (unknown) (unknown) Pulse Rate 62 (units ( unknown) date) unknown) (unknown) (no (unknown) (unknown) Pulse Rate 65 65 (units (unknown) date) unknown) (unknown) (no (unknown) (unknown) Pulse Rate 68 (units ( unknown) date) unknown) (unknown) (no (unknown) (unknown) Pulse Rate 70 62 (units (unknown) date) 82 unknown) (unknown) (no (unknown) (unknown) Pulse Rate 78 (units ( unknown) date) 08/02/22 01:20 unknown) (unknown) (no (unknown) (unknown) Pulse Rate 78 61 (units (unknown) date) unknown) (unknown) (no (unknown) (unknown) Pyelonephritis can (units (unknown) date) appear similar unknown) noncontrast examination (unknown) (no (unknown) (unknown) RBC (4.0-5.2) (units ( unknown) date) X106/uL unknown) (unknown) (no (unknown) (unknown) RBC 4.26 (4.0-5.2) (units (unknown) date) X106/uL unknown) (unknown) (no (unknown) (unknown) RDW (11.6-14.8) % (units (unknown) date) unknown) (unknown) (no (unknown) (unknown) RDW 14.5 (units (unkno wn) date) (11.6-14.8) % unknown) (unknown) (no (unknown) (unknown) ROS Unobtainable: (units (unknown) date) All systems unknown) reviewed + are unremarkable except as noted in HPI (unknown) (no (unknown) (unknown) RSV (PCR) (units (unkn own) date) (Negative) unknown) (unknown) (no (unknown) (unknown) RSV (PCR) Negative (units (unknown) date) (Negative) unknown) (unknown) (no (unknown) (unknown) Radiologist's (units ( unknown) date) Impression: unknown) (unknown) (no (unknown) (unknown) Rate is 63 (units (unk nown) date) unknown) (unknown) (no (unknown) (unknown) Rate: regular rate (units (unknown) date) unknown) (unknown) (no (unknown) (unknown) Related Data (units (u nknown) date) unknown) (unknown) (no (unknown) (unknown) Resp (units (unkno wn) date) unknown) (unknown) (no (unknown) (unknown) Respiratory Rate (units (unknown) date) 16 18 unknown) (unknown) (no (unknown) (unknown) Respiratory Rate (units (unknown) date) 17 unknown) (unknown) (no (unknown) (unknown) Respiratory Rate (units (unknown) date) 19 08/02/22 01:20 unknown) (unknown) (no (unknown) (unknown) Respiratory Rate (units (unknown) date) 19 15 unknown) (unknown) (no (unknown) (unknown) Respiratory Rate (units (unknown) date) 27 H unknown) (unknown) (no (unknown) (unknown) Respiratory Rate (units (unknown) date) unknown) (unknown) (no (unknown) (unknown) Result diagrams: (units (unknown) date) unknown) (unknown) (no (unknown) (unknown) Retained ureteral (units (unknown) date) stent unknown) (unknown) (no (unknown) (unknown) Review of Systems (units (unknown) date) unknown) (unknown) (no (unknown) (unknown) Rhythm: regular (units (unknown) date) rhythm unknown) (unknown) (no (unknown) (unknown) Rx Instructions: (units (unknown) date) unknown) (unknown) (no (unknown) (unknown) SARS-CoV-2 (PCR) (units (unknown) date) (Negative) unknown) (unknown) (no (unknown) (unknown) SARS-CoV-2 (PCR) (units (unknown) date) Negative (Negative) unknown) (unknown) (no (unknown) (unknown) SVT (units (unkno wn) date) (supraventricular unknown) tachycardia) (unknown) (no (unknown) (unknown) Scores (units (unkno wn) date) unknown) (unknown) (no (unknown) (unknown) Signed By: (units (unk nown) date) unknown) (unknown) (no (unknown) (unknown) Skin (units (unkno wn) date) unknown) (unknown) (no (unknown) (unknown) Smoking Status: (units (unknown) date) Never smoker unknown) (unknown) (no (unknown) (unknown) Social History (units (unknown) date) (Reviewed 08/02/22 unknown) @ 05:41 by Mike Cobian DO) (unknown) (no (unknown) (unknown) Sodium 136 L (units (u nknown) date) (137-145) mmol/L unknown) (unknown) (no (unknown) (unknown) Sodium 137 (units (unk nown) date) (137-145) mmol/L unknown) (unknown) (no (unknown) (unknown) Sodium Chloride (units (unknown) date) (Normal Saline unknown) 0.9%) 1,000 mls @ 1,000 mls/hr IV BOLUS ONE (unknown) (no (unknown) (unknown) Sodium Chloride (units (unknown) date) (Normal Saline unknown) 0.9%) 1,000 mls @ 250 mls/hr IV CONT NORMAN (unknown) (no (unknown) (unknown) Sodium Urine (units (u nknown) date) Random Stat unknown) (unknown) (no (unknown) (unknown) Source: patient (units (unknown) date) and family unknown) (unknown) (no (unknown) (unknown) Speech: speech (units (unknown) date) normal unknown) (unknown) (no (unknown) (unknown) Start after 5 day (units (unknown) date) course of 2 caps unknown) daily is complete. (unknown) (no (unknown) (unknown) Stated complaint: (units (unknown) date) body pain/not able unknown) to eat or drink x 5 days (unknown) (no (unknown) (unknown) Stop: 08/02/22 (units (unknown) date) 02:39 unknown) (unknown) (no (unknown) (unknown) Stop: 08/02/22 (units (unknown) date) 04:57 unknown) (unknown) (no (unknown) (unknown) Substance Use (units ( unknown) date) Type: does not use unknown) (unknown) (no (unknown) (unknown) Surgical History (units (unknown) date) (Reviewed 08/02/22 unknown) @ 05:41 by Mike Cobian DO) (unknown) (no (unknown) (unknown) Temperature 98.7 F (units (unknown) date) 08/02/22 01:20 unknown) (unknown) (no (unknown) (unknown) Temperature 98.7 F (units (unknown) date) unknown) (unknown) (no (unknown) (unknown) Temperature (units (un known) date) unknown) (unknown) (no (unknown) (unknown) Time Seen by (units (u nknown) date) Provider: 08/02/22 unknown) 01:38 (unknown) (no (unknown) (unknown) Total Bilirubin (units (unknown) date) (0.2-1.3) mg/dL unknown) (unknown) (no (unknown) (unknown) Total Bilirubin (units (unknown) date) 0.7 (0.2-1.3) mg/dL unknown) (unknown) (no (unknown) (unknown) Total Protein (units ( unknown) date) (6.3-8.2) g/dL unknown) (unknown) (no (unknown) (unknown) Total Protein 7.3 (units (unknown) date) (6.3-8.2) g/dL unknown) (unknown) (no (unknown) (unknown) US - abdomen: (units ( unknown) date) unknown) (unknown) (no (unknown) (unknown) US abdomen (units (unk nown) date) complete Stat unknown) (unknown) (no (unknown) (unknown) Upset (units (unkno wn) date) unknown) (unknown) (no (unknown) (unknown) Ur Random Sodium (units (unknown) date) (30-90) mmol/L unknown) (unknown) (no (unknown) (unknown) Ur Random Sodium (units (unknown) date) 84 (30-90) mmol/L unknown) (unknown) (no (unknown) (unknown) Urine Creatinine (units (unknown) date) 69.7 mg/dL unknown) (unknown) (no (unknown) (unknown) Urine Creatinine (units (unknown) date) mg/dL unknown) (unknown) (no (unknown) (unknown) Urine Dip (units (unkn own) date) unknown) (unknown) (no (unknown) (unknown) Urine Specific (units (unknown) date) [place] 1.015 unknown) (unknown) (no (unknown) (unknown) Vital Signs - 8 hr (units (unknown) date) unknown) (unknown) (no (unknown) (unknown) Vital Signs (units (un known) date) unknown) (unknown) (no (unknown) (unknown) Vital signs: (units (u nknown) date) unknown) (unknown) (no (unknown) (unknown) WBC (4.5-11.0) (units (unknown) date) X103/uL unknown) (unknown) (no (unknown) (unknown) WBC 9.8 (4.5-11.0) (units (unknown) date) X103/uL unknown) (unknown) (no (unknown) (unknown) [Embedded Image (units (unknown) date) Not Available] unknown) (unknown) (no (unknown) (unknown) [From Pyridium] (units (unknown) date) unknown) (unknown) (no (unknown) (unknown) a couple days but (units (unknown) date) her symptoms were unknown) not improving and she started to feel worse (unknown) (no (unknown) (unknown) alcohol intake (units (unknown) date) frequency: 0-2 unknown) drinks per day (unknown) (no (unknown) (unknown) alcohol intake: (units (unknown) date) never unknown) (unknown) (no (unknown) (unknown) and below (units (unkn own) date) unknown) (unknown) (no (unknown) (unknown) biotin 5,000 mcg (units (unknown) date) Tablet, Sublingual unknown) (unknown) (no (unknown) (unknown) biotin 5,000 mcg (units (unknown) date) sublingual tablet unknown) 5,000 mcg sublingual DAILY 06/20/21 08/12/21 (unknown) (no (unknown) (unknown) breath activated (units (unknown) date) powder inhaler unknown) (unknown) (no (unknown) (unknown) budesonide 200 (units (unknown) date) mcg/actuation 50 unknown) mcg inhalation Q8HR 06/20/21 08/12/21 (unknown) (no (unknown) (unknown) budesonide 200 (units (unknown) date) mcg/actuation unknown) Aerosol Powdr Breath Activated (unknown) (no (unknown) (unknown) carvedilol 6.25 mg (units (unknown) date) Tablet unknown) (unknown) (no (unknown) (unknown) carvedilol 6.25 mg (units (unknown) date) tablet 6.25 mg PO unknown) BID 06/20/21 08/12/21 (unknown) (no (unknown) (unknown) cholecalciferol (units (unknown) date) (vitamin D3) 125 unknown) 125 mcg PO DAILY 06/20/21 08/12/21 (unknown) (no (unknown) (unknown) cholecalciferol (units (unknown) date) (vitamin D3) 125 unknown) mcg (5,000 unit) Tablet (unknown) (no (unknown) (unknown) ciprofloxacin HCl (units (unknown) date) 250 mg tablet 250 unknown) mg PO BEDTIME #60 tabs 09/02/21 (unknown) (no (unknown) (unknown) ciprofloxacin HCl (units (unknown) date) 250 mg tablet unknown) (unknown) (no (unknown) (unknown) consultation with (units (unknown) date) Nephrology. unknown) (unknown) (no (unknown) (unknown) creatinine at the (units (unknown) date) 1.3-1.7 range in unknown) her GFR in the 30s. Patient has not been (unknown) (no (unknown) (unknown) direction. She (units (unknown) date) comes to the unknown) emergency department today because of overall body (unknown) (no (unknown) (unknown) estradiol 0.01% (units (unknown) date) (0.1 mg/gram) 1 g unknown) vaginal 2XW #42.5 grams 08/19/21 (unknown) (no (unknown) (unknown) estradiol (units (unkn own) date) [Estrace] 0.01 % unknown) (0.1 mg/gram) cream (unknown) (no (unknown) (unknown) extremities (units (un known) date) unknown) (unknown) (no (unknown) (unknown) fosfomycin (units (unk nown) date) tromethamine 3 gram unknown) 3 g PO ONCE #1 ea 07/31/21 (unknown) (no (unknown) (unknown) fosfomycin (units (unk nown) date) tromethamine 3 gram unknown) 3 g PO ONCE #1 ea 08/01/21 (unknown) (no (unknown) (unknown) fosfomycin (units (unk nown) date) tromethamine 3 gram unknown) packet (unknown) (no (unknown) (unknown) furosemide 20 mg (units (unknown) date) Tablet unknown) (unknown) (no (unknown) (unknown) furosemide 20 mg (units (unknown) date) tablet 20 mg PO 6XW unknown) 06/20/21 08/12/21 (unknown) (no (unknown) (unknown) furosemide 40 mg (units (unknown) date) Tablet unknown) (unknown) (no (unknown) (unknown) furosemide 40 mg (units (unknown) date) tablet 40 mg PO unknown) WEEKLY 06/20/21 08/12/21 (unknown) (no (unknown) (unknown) having bowel (units (u nknown) date) movements. She unknown) denies any fevers. No recent travel. (unknown) (no (unknown) (unknown) household members: (units (unknown) date) spouse unknown) (unknown) (no (unknown) (unknown) is 8.9% which is (units (unknown) date) consistent with a unknown) post renal/obstructive pathology however I do (unknown) (no (unknown) (unknown) likely that the (units (unknown) date) cause of all of her unknown) nausea and vomiting even her abdominal (unknown) (no (unknown) (unknown) losartan 50 mg (units (unknown) date) Tablet unknown) (unknown) (no (unknown) (unknown) losartan 50 mg (units (unknown) date) tablet 50 mg PO unknown) DAILY 06/20/21 08/12/21 (unknown) (no (unknown) (unknown) mcg (5,000 unit) (units (unknown) date) tablet unknown) (unknown) (no (unknown) (unknown) metformin 500 mg (units (unknown) date) Tablet unknown) (unknown) (no (unknown) (unknown) metformin 500 mg (units (unknown) date) tablet 1,000 mg PO unknown) BID 07/26/21 08/12/21 (unknown) (no (unknown) (unknown) must administer (units (unknown) date) with a meal/food unknown) (unknown) (no (unknown) (unknown) not have a (units (unk nown) date) specific source of unknown) this as it does not appear to be an obstructive (unknown) (no (unknown) (unknown) obstructive (units (un known) date) uropathy. unknown) (unknown) (no (unknown) (unknown) of (units (unkno wn) date) unknown) (unknown) (no (unknown) (unknown) oral packet (units (un known) date) unknown) (unknown) (no (unknown) (unknown) oxycodone 5 mg (units (unknown) date) tablet 5 mg PO Q4H unknown) PRN pain #20 tabs 07/26/21 (unknown) (no (unknown) (unknown) oxycodone 5 mg (units (unknown) date) tablet unknown) (unknown) (no (unknown) (unknown) pain, belly pain, (units (unknown) date) vomiting, unable to unknown) drink for the past several days. Still (unknown) (no (unknown) (unknown) pain. She is in (units (unknown) date) acute renal unknown) failure/YESIKA given her creatinine of 10 and GFR 4. (unknown) (no (unknown) (unknown) phenazopyridine (units (unknown) date) Allergy Verified unknown) 08/12/21 08:17 (unknown) (no (unknown) (unknown) potassium 99 mg (units (unknown) date) Tablet unknown) (unknown) (no (unknown) (unknown) potassium 99 mg (units (unknown) date) tablet 99 mg PO unknown) DAILY 07/26/21 08/12/21 (unknown) (no (unknown) (unknown) prednisone Allergy (units (unknown) date) Severe Swelling unknown) Verified 08/02/22 01:20 (unknown) (no (unknown) (unknown) procaine [From (units (unknown) date) Novocain] Allergy unknown) Chest Pain Verified 08/02/22 01:20 (unknown) (no (unknown) (unknown) recently for UTI (units (unknown) date) like symptoms. Was unknown) sent home with Bactri. She took this for (unknown) (no (unknown) (unknown) rizatriptan (units (un known) date) Allergy Severe unknown) Difficulty Verified 08/02/22 01:20 (unknown) (no (unknown) (unknown) rosuvastatin 40 mg (units (unknown) date) Tablet unknown) (unknown) (no (unknown) (unknown) rosuvastatin 40 mg (units (unknown) date) tablet 40 mg PO unknown) DAILY 06/20/21 08/12/21 (unknown) (no (unknown) (unknown) s (units (unkno wn) date) unknown) (unknown) (no (unknown) (unknown) shellfish derived (units (unknown) date) AdvReac unknown) Gastrointestinal Verified 08/02/22 01:20 (unknown) (no (unknown) (unknown) signs of an (units (un known) date) infection. CT scans unknown) did not give a definitive etiology. Her FeNa (unknown) (no (unknown) (unknown) slightly. Care (units (unknown) date) turned over to unknown) [facility] to follow-up and most likely (unknown) (no (unknown) (unknown) so she contact her (units (unknown) date) primary doctor who unknown) looked up the culture results and told her (unknown) (no (unknown) (unknown) stone nor urinary (units (unknown) date) retention. After 2 unknown) L of fluid her creatinine only improved (unknown) (no (unknown) (unknown) takes 4 puffs (units ( unknown) date) qhs-(Pulmacort) unknown) (unknown) (no (unknown) (unknown) takes it 5x/week (units (unknown) date) unknown) (unknown) (no (unknown) (unknown) tamsulosin 0.4 mg (units (unknown) date) capsule 0.4 mg PO unknown) BEDTIME #60 caps 06/21/21 (unknown) (no (unknown) (unknown) tamsulosin 0.4 mg (units (unknown) date) capsule unknown) (unknown) (no (unknown) (unknown) tetracycline (units (u nknown) date) Allergy Severe unknown) ITCHING Verified 08/12/21 08:17 (unknown) (no (unknown) (unknown) that she did not (units (unknown) date) have an infection unknown) so she quit taking the medications per their (unknown) (no (unknown) (unknown) thiopental AdvReac (units (unknown) date) Palpitation unknown) Verified 08/02/22 01:20 (unknown) (no (unknown) (unknown) twice weekly (units (u nknown) date) thereafter. unknown) (unknown) (no (unknown) (unknown) upper abdominal (units (unknown) date) discomfort. Has unknown) pancreatitis based on her lipase which is most (unknown) (no (unknown) (unknown) vaginal cream (units ( unknown) date) (Estrace) unknown) (unknown) (no (unknown) (unknown) vomiting since (units (unknown) date) arrival here to the unknown) ER. Her urinalysis today does not show any (unknown) (no (unknown) (unknown) warfarin 2 mg (units ( unknown) date) Tablet unknown) (unknown) (no (unknown) (unknown) warfarin 2 mg (units ( unknown) date) tablet 2 mg PO 2XW unknown) 06/20/21 08/12/21 (unknown) (no (unknown) (unknown) warfarin 3 mg (units ( unknown) date) Tablet unknown) (unknown) (no (unknown) (unknown) warfarin 3 mg (units ( unknown) date) tablet 3 mg PO 5XW unknown) 06/20/21 08/12/21 Result panel 184 (unknown) (no (unknown) (unknown) (no value) (units (unk nown) date) unknown) (unknown) (no (unknown) (unknown) 0.4 mg PO BEDTIME (units (unknown) date) Qty: 60 0RF unknown) (unknown) (no (unknown) (unknown) 01:17 01:40 01:40 (units (unknown) date) unknown) (unknown) (no (unknown) (unknown) 01:20 08/02/22 (units (unknown) date) unknown) (unknown) (no (unknown) (unknown) 01:39 08/02/22 (units (unknown) date) unknown) (unknown) (no (unknown) (unknown) 02:00 (units (unkno wn) date) unknown) (unknown) (no (unknown) (unknown) 02:32 08/02/22 (units (unknown) date) unknown) (unknown) (no (unknown) (unknown) 03:00 08/02/22 (units (unknown) date) unknown) (unknown) (no (unknown) (unknown) 03:30 05:30 (units (un known) date) unknown) (unknown) (no (unknown) (unknown) 03:30 (units (unkno wn) date) unknown) (unknown) (no (unknown) (unknown) 03:35 08/02/22 (units (unknown) date) unknown) (unknown) (no (unknown) (unknown) [id number] (units (unkno wn) date) unknown) (unknown) (no (unknown) (unknown) 04:00 (units (unkno wn) date) unknown) (unknown) (no (unknown) (unknown) 04:01 08/02/22 (units (unknown) date) unknown) (unknown) (no (unknown) (unknown) 04:30 08/02/22 (units (unknown) date) unknown) (unknown) (no (unknown) (unknown) 04:30 (units (unkno wn) date) unknown) (unknown) (no (unknown) (unknown) 05:00 08/02/22 (units (unknown) date) unknown) (unknown) (no (unknown) (unknown) 05:00 (units (unkno wn) date) unknown) (unknown) (no (unknown) (unknown) 05:30 08/02/22 (units (unknown) date) unknown) (unknown) (no (unknown) (unknown) 05:30 (units (unkno wn) date) unknown) (unknown) (no (unknown) (unknown) 1 g vaginal 2XW (units (unknown) date) Qty: 42.5 3RF unknown) (unknown) (no (unknown) (unknown) 1,000 mg PO BID (units (unknown) date) unknown) (unknown) (no (unknown) (unknown) 08/02/22 01:17 (units (unknown) date) unknown) (unknown) (no (unknown) (unknown) 08/02/22 01:25 (units (unknown) date) unknown) (unknown) (no (unknown) (unknown) 08/02/22 01:40 (units (unknown) date) unknown) (unknown) (no (unknown) (unknown) 08/02/22 02:20 (units (unknown) date) unknown) (unknown) (no (unknown) (unknown) 08/02/22 03:30 (units (unknown) date) unknown) (unknown) (no (unknown) (unknown) 08/02/22 05:30 (units (unknown) date) unknown) (unknown) (no (unknown) (unknown) 08/02/22 08/02/22 (units (unknown) date) 08/02/22 unknown) Range/Units (unknown) (no (unknown) (unknown) 08/02/22 08/02/22 (units (unknown) date) Range/Units unknown) (unknown) (no (unknown) (unknown) 08/02/22 (units (unkno wn) date) unknown) (unknown) (no (unknown) (unknown) 125 mcg PO DAILY (units (unknown) date) unknown) (unknown) (no (unknown) (unknown) 2 mg PO 2XW (units (un known) date) unknown) (unknown) (no (unknown) (unknown) 20 mg PO 6XW (units (u nknown) date) unknown) (unknown) (no (unknown) (unknown) 250 mg PO BEDTIME (units (unknown) date) Qty: 60 0RF unknown) (unknown) (no (unknown) (unknown) 3 g PO ONCE Qty: 1 (units (unknown) date) 0RF unknown) (unknown) (no (unknown) (unknown) 3 mg PO 5XW (units (un known) date) unknown) (unknown) (no (unknown) (unknown) 40 mg PO DAILY (units (unknown) date) unknown) (unknown) (no (unknown) (unknown) 40 mg PO WEEKLY (units (unknown) date) unknown) (unknown) (no (unknown) (unknown) 5 mg PO Q4H PRN (units (unknown) date) (Reason: pain) Qty: unknown) 20 0RF (unknown) (no (unknown) (unknown) 5,000 mcg (units (unkn own) date) sublingual DAILY unknown) (unknown) (no (unknown) (unknown) 50 mcg INHALATION (units (unknown) date) Q8HR unknown) (unknown) (no (unknown) (unknown) 50 mg PO DAILY (units (unknown) date) unknown) (unknown) (no (unknown) (unknown) 6.25 mg PO BID (units (unknown) date) unknown) (unknown) (no (unknown) (unknown) 99 mg PO DAILY (units (unknown) date) unknown) (unknown) (no (unknown) (unknown) AICD (automatic (units (unknown) date) cardioverter/defibr unknown) illator) present (11/29/20) (unknown) (no (unknown) (unknown) ALT (<35) IU/L (units (unknown) date) unknown) (unknown) (no (unknown) (unknown) ALT 27 (<35) IU/L (units (unknown) date) unknown) (unknown) (no (unknown) (unknown) AST (14-36) IU/L (units (unknown) date) unknown) (unknown) (no (unknown) (unknown) AST 32 (14-36) (units (unknown) date) IU/L unknown) (unknown) (no (unknown) (unknown) Acute kidney (units (u nknown) date) injury unknown) (unknown) (no (unknown) (unknown) Admin: 08/02/22 (units (unknown) date) 02:15 Dose: 1,000 unknown) mls/hr (unknown) (no (unknown) (unknown) Admin: 08/02/22 (units (unknown) date) 04:04 Dose: 1,000 unknown) mls/hr (unknown) (no (unknown) (unknown) Afib (units (unkno wn) date) unknown) (unknown) (no (unknown) (unknown) Age/Sex: 71 / F (units (unknown) date) unknown) (unknown) (no (unknown) (unknown) Albumin (3.5-5.0) (units (unknown) date) g/dL unknown) (unknown) (no (unknown) (unknown) Albumin 4.2 (units (un known) date) (3.5-5.0) g/dL unknown) (unknown) (no (unknown) (unknown) Albumin/Globulin (units (unknown) date) Ratio (1.0-2.8) unknown) (unknown) (no (unknown) (unknown) Albumin/Globulin (units (unknown) date) Ratio 1.4 (1.0-2.8) unknown) (unknown) (no (unknown) (unknown) Alkaline (units (unkno wn) date) Phosphatase unknown) (38-126) U/L (unknown) (no (unknown) (unknown) Alkaline (units (unkno wn) date) Phosphatase 54 unknown) (38-126) U/L (unknown) (no (unknown) (unknown) Allergies (units (unkn own) date) unknown) (unknown) (no (unknown) (unknown) Allergy/AdvReac (units (unknown) date) Type Severity unknown) Reaction Status Date / Time (unknown) (no (unknown) (unknown) Appearance: (units (un known) date) grossly normal and unknown) well kempt (unknown) (no (unknown) (unknown) Atrially (units (unkno wn) date) sensed/ventricularl unknown) y paced (unknown) (no (unknown) (unknown) Attestation: I (units (unknown) date) personally reviewed unknown) and interpreted this ECG as follows: (unknown) (no (unknown) (unknown) Attestation: I (units (unknown) date) reviewed the unknown) patient's lab results. (unknown) (no (unknown) (unknown) Attestation: I (units (unknown) date) reviewed the unknown) patient's medical records. (unknown) (no (unknown) (unknown) Auscultation: (units ( unknown) date) clear to unknown) auscultation bilaterally (unknown) (no (unknown) (unknown) BMP [Basic (units (unk nown) date) Metabolic Panel] unknown) Stat (unknown) (no (unknown) (unknown) BUN 63 H (7-17) (units (unknown) date) mg/dL unknown) (unknown) (no (unknown) (unknown) BUN 67 H (7-17) (units (unknown) date) mg/dL unknown) (unknown) (no (unknown) (unknown) BUN/Creatinine (units (unknown) date) Ratio 6.7 (6-22) unknown) (unknown) (no (unknown) (unknown) BUN/Creatinine (units (unknown) date) Ratio 6.9 (6-22) unknown) (unknown) (no (unknown) (unknown) Back/Spine/Pelvis (units (unknown) date) unknown) (unknown) (no (unknown) (unknown) Back: No CVA (units (u nknown) date) tenderness unknown) (unknown) (no (unknown) (unknown) Baso # (Auto) (units ( unknown) date) (0-100) /uL unknown) (unknown) (no (unknown) (unknown) Baso # (Auto) 100 (units (unknown) date) (0-100) /uL unknown) (unknown) (no (unknown) (unknown) Baso % (Auto) (units ( unknown) date) (0-2) % unknown) (unknown) (no (unknown) (unknown) Baso % (Auto) 0.7 (units (unknown) date) (0-2) % unknown) (unknown) (no (unknown) (unknown) Bedside Urine (units ( unknown) date) Bilirubin - unknown) Negative (unknown) (no (unknown) (unknown) Bedside Urine (units ( unknown) date) Glucose Negative unknown) (unknown) (no (unknown) (unknown) Bedside Urine (units ( unknown) date) Ketone +/- 5 unknown) (unknown) (no (unknown) (unknown) Bedside Urine (units ( unknown) date) Leukocytes - unknown) Negative (unknown) (no (unknown) (unknown) Bedside Urine (units ( unknown) date) Nitrite - Negative unknown) (unknown) (no (unknown) (unknown) Bedside Urine (units ( unknown) date) Occult Blood unknown) (unknown) (no (unknown) (unknown) Bedside Urine (units ( unknown) date) Protein ++ 100 unknown) (unknown) (no (unknown) (unknown) Bedside Urine (units ( unknown) date) Urobilinogen - unknown) Negative (unknown) (no (unknown) (unknown) Bedside Urine pH (units (unknown) date) 6.0 unknown) (unknown) (no (unknown) (unknown) Bilateral (units (unkn own) date) perinephric unknown) stranding. This can be an asymptomatic finding. (unknown) (no (unknown) (unknown) Bilateral renal (units (unknown) date) cysts unknown) (unknown) (no (unknown) (unknown) Blood Pressure (units (unknown) date) 109/53 L unknown) (unknown) (no (unknown) (unknown) Blood Pressure (units (unknown) date) 119/59 L unknown) (unknown) (no (unknown) (unknown) Blood Pressure (units (unknown) date) 130/69 08/02/22 unknown) 01:20 (unknown) (no (unknown) (unknown) Blood Pressure (units (unknown) date) 130/69 unknown) (unknown) (no (unknown) (unknown) Blood Pressure (units (unknown) date) 143/65 H 124/59 L unknown) (unknown) (no (unknown) (unknown) Blood Pressure (units (unknown) date) 146/67 H unknown) (unknown) (no (unknown) (unknown) Blood Pressure (units (unknown) date) unknown) (unknown) (no (unknown) (unknown) Breathing (units (unkn own) date) unknown) (unknown) (no (unknown) (unknown) CHF (congestive (units (unknown) date) heart failure) unknown) (unknown) (no (unknown) (unknown) CT kidney ureter (units (unknown) date) bladder (KUB) Stat unknown) (unknown) (no (unknown) (unknown) CT scan - (units (unkn own) date) abdomen/pelvis: unknown) (unknown) (no (unknown) (unknown) CVA (cerebral (units ( unknown) date) vascular accident) unknown) (unknown) (no (unknown) (unknown) Calcium 8.4 (units (un known) date) (8.4-10.2) mg/dL unknown) (unknown) (no (unknown) (unknown) Calcium 9.9 (units (un known) date) (8.4-10.2) mg/dL unknown) (unknown) (no (unknown) (unknown) Carbon Dioxide 13 (units (unknown) date) L (22-32) mmol/L unknown) (unknown) (no (unknown) (unknown) Cardiac arrest (units (unknown) date) (11/29/20) unknown) (unknown) (no (unknown) (unknown) Cardio (units (unkno wn) date) unknown) (unknown) (no (unknown) (unknown) Cardiomyopathy (units (unknown) date) unknown) (unknown) (no (unknown) (unknown) Chest (units (unkno wn) date) unknown) (unknown) (no (unknown) (unknown) Chief complaint: (units (unknown) date) Nausea/Vomiting/Huong unknown) rrhea (unknown) (no (unknown) (unknown) Chloride 103 (units (u nknown) date) (98-107) mmol/L unknown) (unknown) (no (unknown) (unknown) Chloride 109 H (units (unknown) date) (98-107) mmol/L unknown) (unknown) (no (unknown) (unknown) Cognition: normal (units (unknown) date) cognition unknown) (unknown) (no (unknown) (unknown) Complete Blood (units (unknown) date) Count AUTO DIFF unknown) Stat (unknown) (no (unknown) (unknown) Comprehensive (units ( unknown) date) Metabolic Panel unknown) Stat (unknown) (no (unknown) (unknown) Const (units (unkno wn) date) unknown) (unknown) (no (unknown) (unknown) Course (units (unkno wn) date) unknown) (unknown) (no (unknown) (unknown) Covid-19 + FLU A/B (units (unknown) date) + RSV - PCR Stat unknown) (unknown) (no (unknown) (unknown) Creatinine 10.0 H* (units (unknown) date) (0.52-1.04) mg/dL unknown) (unknown) (no (unknown) (unknown) Creatinine 9.15 H* (units (unknown) date) (0.52-1.04) mg/dL unknown) (unknown) (no (unknown) (unknown) Creatinine Urine (units (unknown) date) Random Stat unknown) (unknown) (no (unknown) (unknown) : 1950 (units (unknown) date) Acct:[id number] unknown) (unknown) (no (unknown) (unknown) Date of Service: (units (unknown) date) 08/02/22 unknown) (unknown) (no (unknown) (unknown) Departure (units (unkn own) date) unknown) (unknown) (no (unknown) (unknown) Diabetes (units (unkno wn) date) unknown) (unknown) (no (unknown) (unknown) Discharge Plan (units (unknown) date) unknown) (unknown) (no (unknown) (unknown) Discontinued (units (u nknown) date) Medications unknown) (unknown) (no (unknown) (unknown) Documented By: GC (units (unknown) date) unknown) (unknown) (no (unknown) (unknown) Documented By: KM (units (unknown) date) unknown) (unknown) (no (unknown) (unknown) ECG Data (units (unkno wn) date) unknown) (unknown) (no (unknown) (unknown) ED Orders (units (unkn own) date) unknown) (unknown) (no (unknown) (unknown) EKG-12 Lead Stat (units (unknown) date) unknown) (unknown) (no (unknown) (unknown) ER Physician: (units ( unknown) date) Francesca Chen D.O. unknown) (unknown) (no (unknown) (unknown) Effort + (units (unkno wn) date) Inspection: normal unknown) respiratory effort (unknown) (no (unknown) (unknown) Emergency Report (units (unknown) date) unknown) (unknown) (no (unknown) (unknown) Eos # (Auto) (units (u nknown) date) (0-450) /uL unknown) (unknown) (no (unknown) (unknown) Eos # (Auto) 100 (units (unknown) date) (0-450) /uL unknown) (unknown) (no (unknown) (unknown) Eos % (Auto) (2-4) (units (unknown) date) % unknown) (unknown) (no (unknown) (unknown) Eos % (Auto) 1.2 L (units (unknown) date) (2-4) % unknown) (unknown) (no (unknown) (unknown) Esterase (units (unkno wn) date) unknown) (unknown) (no (unknown) (unknown) Estimated GFR 4 L (units (unknown) date) (>60) mL/min unknown) (unknown) (no (unknown) (unknown) Exam (units (unkno wn) date) unknown) (unknown) (no (unknown) (unknown) Extrem (units (unkno wn) date) unknown) (unknown) (no (unknown) (unknown) GCS (units (unkno wn) date) unknown) (unknown) (no (unknown) (unknown) GI (units (unkno wn) date) unknown) (unknown) (no (unknown) (unknown) General (units (unkno wn) date) unknown) (unknown) (no (unknown) (unknown) General: (units (unkno wn) date) cooperative, unknown) comfortable and No ill appearing (unknown) (no (unknown) (unknown) General: no rashes (units (unknown) date) or lesions noted unknown) (unknown) (no (unknown) (unknown) General: normal to (units (unknown) date) inspection, unknown) capillary refill normal and No edema (unknown) (no (unknown) (unknown) General: patient (units (unknown) date) alert, patient unknown) awake, patient oriented x3 and moves all (unknown) (no (unknown) (unknown) [place] coma scale (units (unknown) date) eye opening: unknown) Spontaneous (unknown) (no (unknown) (unknown) [place] coma scale (units (unknown) date) motor response: unknown) Obey commands (unknown) (no (unknown) (unknown) [place] coma scale (units (unknown) date) total score: 15 unknown) (unknown) (no (unknown) (unknown) [place] coma scale (units (unknown) date) verbal response: unknown) Orientated (unknown) (no (unknown) (unknown) Globulin (1.7-4.1) (units (unknown) date) g/dL unknown) (unknown) (no (unknown) (unknown) Globulin 3.1 (units (u nknown) date) (1.7-4.1) g/dL unknown) (unknown) (no (unknown) (unknown) Glucose 86 (units (unk nown) date) (80-110) mg/dL unknown) (unknown) (no (unknown) (unknown) Glucose 88 (units (unk nown) date) (80-110) mg/dL unknown) (unknown) (no (unknown) (unknown) HENMT (units (unkno wn) date) unknown) (unknown) (no (unknown) (unknown) HLD (units (unkno wn) date) (hyperlipidemia) unknown) (unknown) (no (unknown) (unknown) HPI - (units (unkno wn) date) Nausea/Vomiting/Huong unknown) rrhea (unknown) (no (unknown) (unknown) HPI Narrative: (units (unknown) date) unknown) (unknown) (no (unknown) (unknown) HTN (hypertension) (units (unknown) date) unknown) (unknown) (no (unknown) (unknown) Hct (36-46) % (units ( unknown) date) unknown) (unknown) (no (unknown) (unknown) Hct 38.4 (36-46) % (units (unknown) date) unknown) (unknown) (no (unknown) (unknown) Head: normal to (units (unknown) date) inspection and unknown) normocephalic (unknown) (no (unknown) (unknown) Hgb (12.0-16.0) (units (unknown) date) g/dL unknown) (unknown) (no (unknown) (unknown) Hgb 12.7 (units (unkno wn) date) (12.0-16.0) g/dL unknown) (unknown) (no (unknown) (unknown) History of Present (units (unknown) date) Illness unknown) (unknown) (no (unknown) (unknown) History of UTI (units (unknown) date) unknown) (unknown) (no (unknown) (unknown) History of colon (units (unknown) date) surgery unknown) (unknown) (no (unknown) (unknown) History of (units (unk nown) date) colonoscopy unknown) (unknown) (no (unknown) (unknown) History of (units (unk nown) date) hysterectomy unknown) (unknown) (no (unknown) (unknown) History of (units (unk nown) date) nephrolithiasis unknown) (unknown) (no (unknown) (unknown) History of (units (unk nown) date) thyroidectomy, unknown) subtotal (unknown) (no (unknown) (unknown) Home Medications (units (unknown) date) unknown) (unknown) (no (unknown) (unknown) Hx of appendectomy (units (unknown) date) unknown) (unknown) (no (unknown) (unknown) Hx of breast (units (u nknown) date) surgery unknown) (unknown) (no (unknown) (unknown) Hx of cystoscopy (units (unknown) date) (06/20/21) unknown) (unknown) (no (unknown) (unknown) Hx of eye surgery (units (unknown) date) unknown) (unknown) (no (unknown) (unknown) Imaging Data (units (u nknown) date) unknown) (unknown) (no (unknown) (unknown) Influenza A (units (un known) date) (RT-PCR) (NEGATIVE) unknown) (unknown) (no (unknown) (unknown) Influenza A (units (un known) date) (RT-PCR) Flu a unknown) negative (NEGATIVE) (unknown) (no (unknown) (unknown) Influenza B (units (un known) date) (RT-PCR) (NEGATIVE) unknown) (unknown) (no (unknown) (unknown) Influenza B (units (un known) date) (RT-PCR) Flu b unknown) negative (NEGATIVE) (unknown) (no (unknown) (unknown) Initial Vital (units ( unknown) date) Signs unknown) (unknown) (no (unknown) (unknown) Initial Vital (units ( unknown) date) Signs: unknown) (unknown) (no (unknown) (unknown) Insert 1 g (units (unk nown) date) intravaginally at unknown) HS times 12 days then 1 g intravaginally at HS (unknown) (no (unknown) (unknown) Inspection: normal (units (unknown) date) to inspection unknown) (unknown) (no (unknown) (unknown) Interpretation: (units (unknown) date) unknown) (unknown) (no (unknown) (unknown) [facility] (units (unknown) date) [address] unknown) [place] [address] (unknown) (no (unknown) (unknown) Lab Data (units (unkno wn) date) unknown) (unknown) (no (unknown) (unknown) Lab Results (units (un known) date) unknown) (unknown) (no (unknown) (unknown) Label Comments: (units (unknown) date) unknown) (unknown) (no (unknown) (unknown) Labs: (units (unkno wn) date) unknown) (unknown) (no (unknown) (unknown) Last Admin: (units (un known) date) 08/02/22 02:48 unknown) Dose: 4 mg (unknown) (no (unknown) (unknown) Last Admin: (units (un known) date) 08/02/22 06:16 unknown) Dose: 250 mls/hr (unknown) (no (unknown) (unknown) Last Infusion: (units (unknown) date) 08/02/22 03:27 unknown) Dose: 0 mls/hr (unknown) (no (unknown) (unknown) Last Infusion: (units (unknown) date) 08/02/22 05:05 unknown) Dose: 0 mls/hr (unknown) (no (unknown) (unknown) Left ureteral (units ( unknown) date) calculus unknown) (unknown) (no (unknown) (unknown) Lip/Tongue/Throat (units (unknown) date) unknown) (unknown) (no (unknown) (unknown) Lipase (23-300) (units (unknown) date) U/L unknown) (unknown) (no (unknown) (unknown) Lipase 2998 H (units ( unknown) date) (23-300) U/L unknown) (unknown) (no (unknown) (unknown) Lipase Stat (units (un known) date) unknown) (unknown) (no (unknown) (unknown) Lymph # (Auto) (units (unknown) date) (9907-3423) /uL unknown) (unknown) (no (unknown) (unknown) Lymph # (Auto) (units (unknown) date) 1500 (3828-8432) unknown) /uL (unknown) (no (unknown) (unknown) Lymph % (Auto) (units (unknown) date) (25-40) % unknown) (unknown) (no (unknown) (unknown) Lymph % (Auto) (units (unknown) date) 15.0 L (25-40) % unknown) (unknown) (no (unknown) (unknown) MCH (26-34) PG (units (unknown) date) unknown) (unknown) (no (unknown) (unknown) MCH 29.9 (26-34) (units (unknown) date) PG unknown) (unknown) (no (unknown) (unknown) MCHC (30-36) % (units (unknown) date) unknown) (unknown) (no (unknown) (unknown) MCHC 33.1 (30-36) (units (unknown) date) % unknown) (unknown) (no (unknown) (unknown) MCV (80-100) fL (units (unknown) date) unknown) (unknown) (no (unknown) (unknown) MCV 90.3 (80-100) (units (unknown) date) fL unknown) (unknown) (no (unknown) (unknown) MDM - (units (unkno wn) date) Nausea/Vomiting/Huong unknown) rrhea (unknown) (no (unknown) (unknown) MDM Narrative (units ( unknown) date) unknown) (unknown) (no (unknown) (unknown) Medical History (units (unknown) date) (Reviewed 08/02/22 unknown) @ 05:41 by Mike Cobian DO) (unknown) (no (unknown) (unknown) Medical Records (units (unknown) date) unknown) (unknown) (no (unknown) (unknown) Medical decision (units (unknown) date) making narrative: unknown) (unknown) (no (unknown) (unknown) Medication (units (unk nown) date) Instructions unknown) Recorded Confirmed (unknown) (no (unknown) (unknown) Medication (units (unk nown) date) Instructions unknown) Recorded (unknown) (no (unknown) (unknown) Mild echogenic (units (unknown) date) kidneys suggesting unknown) possible medical renal disease. No (unknown) (no (unknown) (unknown) Mode of arrival: (units (unknown) date) Ambulatory unknown) (unknown) (no (unknown) (unknown) [place] # (Auto) (units ( unknown) date) (0-900) /uL unknown) (unknown) (no (unknown) (unknown) [place] # (Auto) 700 (units (unknown) date) (0-900) /uL unknown) (unknown) (no (unknown) (unknown) [place] % (Auto) (units ( unknown) date) (3-14) % unknown) (unknown) (no (unknown) (unknown) [place] % (Auto) 7.6 (units (unknown) date) (3-14) % unknown) (unknown) (no (unknown) (unknown) Neuro (units (unkno wn) date) unknown) (unknown) (no (unknown) (unknown) Neut # (Auto) (units ( unknown) date) (6984-7820) /uL unknown) (unknown) (no (unknown) (unknown) Neut # (Auto) 7400 (units (unknown) date) H (8300-4178) /uL unknown) (unknown) (no (unknown) (unknown) Neut % (Auto) (units ( unknown) date) (50-75) % unknown) (unknown) (no (unknown) (unknown) Neut % (Auto) 75.5 (units (unknown) date) H (50-75) % unknown) (unknown) (no (unknown) (unknown) No Action (units (unkn own) date) unknown) (unknown) (no (unknown) (unknown) No obstructive (units (unknown) date) uropathy unknown) (unknown) (no (unknown) (unknown) Ondansetron HCl (units (unknown) date) (Ondansetron 4 Mg unknown) Odt) 4 mg PO NOW PRN (unknown) (no (unknown) (unknown) Ondansetron HCl (units (unknown) date) (Ondansetron 4 Mg/2 unknown) Ml Inj) 4 mg IV NOW PRN (unknown) (no (unknown) (unknown) Ordered: (units (unkno wn) date) unknown) (unknown) (no (unknown) (unknown) Orders (units (unkno wn) date) unknown) (unknown) (no (unknown) (unknown) Other: (units (unkno wn) date) unknown) (unknown) (no (unknown) (unknown) Oxygen Delivery (units (unknown) date) Method 08/02/22 unknown) 01:20 (unknown) (no (unknown) (unknown) Oxygen Delivery (units (unknown) date) Method Room Air unknown) (unknown) (no (unknown) (unknown) Oxygen Delivery (units (unknown) date) Method unknown) (unknown) (no (unknown) (unknown) PRN Reason: Nausea (units (unknown) date) And Vomiting unknown) (unknown) (no (unknown) (unknown) 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 unknown) To seen here in the emergency department (unknown) (no (unknown) (unknown) Patient is (units (unk nown) date) well-appearing. Is unknown) not tachycardic. Not hypotensive. She does have (unknown) (no (unknown) (unknown) Patient: (units (unkno wn) date) Natasha Jqauez K unknown) MR#: [id number] (unknown) (no (unknown) (unknown) Please take this (units (unknown) date) the morning of unknown) August 04, 2021. (unknown) (no (unknown) (unknown) Plt Count (units (unkn own) date) (150-400) X103/uL unknown) (unknown) (no (unknown) (unknown) Plt Count 262 (units ( unknown) date) (150-400) X103/uL unknown) (unknown) (no (unknown) (unknown) Postmenopausal (units (unknown) date) atrophic vaginitis unknown) (unknown) (no (unknown) (unknown) Potassium 5.7 H (units (unknown) date) (3.4-5.1) mmol/L unknown) (unknown) (no (unknown) (unknown) Potassium 5.8 H (units (unknown) date) (3.4-5.1) mmol/L unknown) (unknown) (no (unknown) (unknown) Prescriptions: (units (unknown) date) unknown) (unknown) (no (unknown) (unknown) Previous Rx's (units ( unknown) date) unknown) (unknown) (no (unknown) (unknown) Prior labs that we (units (unknown) date) have for her were unknown) greater than 1 year ago which has her (unknown) (no (unknown) (unknown) Psych (units (unkno wn) date) unknown) (unknown) (no (unknown) (unknown) Pulse Oximetry 95 (units (unknown) date) 08/02/22 01:20 unknown) (unknown) (no (unknown) (unknown) Pulse Oximetry 95 (units (unknown) date) 95 97 unknown) (unknown) (no (unknown) (unknown) Pulse Oximetry 96 (units (unknown) date) 97 96 unknown) (unknown) (no (unknown) (unknown) Pulse Oximetry 97 (units (unknown) date) 94 unknown) (unknown) (no (unknown) (unknown) Pulse Oximetry 97 (units (unknown) date) unknown) (unknown) (no (unknown) (unknown) Pulse Oximetry 98 (units (unknown) date) 98 unknown) (unknown) (no (unknown) (unknown) Pulse Oximetry 98 (units (unknown) date) unknown) (unknown) (no (unknown) (unknown) Pulse Rate 61 67 (units (unknown) date) unknown) (unknown) (no (unknown) (unknown) Pulse Rate 62 (units ( unknown) date) unknown) (unknown) (no (unknown) (unknown) Pulse Rate 65 65 (units (unknown) date) unknown) (unknown) (no (unknown) (unknown) Pulse Rate 68 (units ( unknown) date) unknown) (unknown) (no (unknown) (unknown) Pulse Rate 70 62 (units (unknown) date) 82 unknown) (unknown) (no (unknown) (unknown) Pulse Rate 78 (units ( unknown) date) 08/02/22 01:20 unknown) (unknown) (no (unknown) (unknown) Pulse Rate 78 61 (units (unknown) date) unknown) (unknown) (no (unknown) (unknown) Pyelonephritis can (units (unknown) date) appear similar unknown) noncontrast examination (unknown) (no (unknown) (unknown) RBC (4.0-5.2) (units ( unknown) date) X106/uL unknown) (unknown) (no (unknown) (unknown) RBC 4.26 (4.0-5.2) (units (unknown) date) X106/uL unknown) (unknown) (no (unknown) (unknown) RDW (11.6-14.8) % (units (unknown) date) unknown) (unknown) (no (unknown) (unknown) RDW 14.5 (units (unkno wn) date) (11.6-14.8) % unknown) (unknown) (no (unknown) (unknown) ROS Unobtainable: (units (unknown) date) All systems unknown) reviewed + are unremarkable except as noted in HPI (unknown) (no (unknown) (unknown) RSV (PCR) (units (unkn own) date) (Negative) unknown) (unknown) (no (unknown) (unknown) RSV (PCR) Negative (units (unknown) date) (Negative) unknown) (unknown) (no (unknown) (unknown) Radiologist's (units ( unknown) date) Impression: unknown) (unknown) (no (unknown) (unknown) Rate is 63 (units (unk nown) date) unknown) (unknown) (no (unknown) (unknown) Rate: regular rate (units (unknown) date) unknown) (unknown) (no (unknown) (unknown) Related Data (units (u nknown) date) unknown) (unknown) (no (unknown) (unknown) Resp (units (unkno wn) date) unknown) (unknown) (no (unknown) (unknown) Respiratory Rate (units (unknown) date) 16 18 unknown) (unknown) (no (unknown) (unknown) Respiratory Rate (units (unknown) date) 17 unknown) (unknown) (no (unknown) (unknown) Respiratory Rate (units (unknown) date) 19 08/02/22 01:20 unknown) (unknown) (no (unknown) (unknown) Respiratory Rate (units (unknown) date) 19 15 unknown) (unknown) (no (unknown) (unknown) Respiratory Rate (units (unknown) date) 27 H unknown) (unknown) (no (unknown) (unknown) Respiratory Rate (units (unknown) date) unknown) (unknown) (no (unknown) (unknown) Result diagrams: (units (unknown) date) unknown) (unknown) (no (unknown) (unknown) Retained ureteral (units (unknown) date) stent unknown) (unknown) (no (unknown) (unknown) Review of Systems (units (unknown) date) unknown) (unknown) (no (unknown) (unknown) Rhythm: regular (units (unknown) date) rhythm unknown) (unknown) (no (unknown) (unknown) Rx Instructions: (units (unknown) date) unknown) (unknown) (no (unknown) (unknown) SARS-CoV-2 (PCR) (units (unknown) date) (Negative) unknown) (unknown) (no (unknown) (unknown) SARS-CoV-2 (PCR) (units (unknown) date) Negative (Negative) unknown) (unknown) (no (unknown) (unknown) SVT (units (unkno wn) date) (supraventricular unknown) tachycardia) (unknown) (no (unknown) (unknown) Scores (units (unkno wn) date) unknown) (unknown) (no (unknown) (unknown) Signed By: (units (unk nown) date) unknown) (unknown) (no (unknown) (unknown) Skin (units (unkno wn) date) unknown) (unknown) (no (unknown) (unknown) Smoking Status: (units (unknown) date) Never smoker unknown) (unknown) (no (unknown) (unknown) Social History (units (unknown) date) (Reviewed 08/02/22 unknown) @ 05:41 by Mike Cobian DO) (unknown) (no (unknown) (unknown) Sodium 136 L (units (u nknown) date) (137-145) mmol/L unknown) (unknown) (no (unknown) (unknown) Sodium 137 (units (unk nown) date) (137-145) mmol/L unknown) (unknown) (no (unknown) (unknown) Sodium Chloride (units (unknown) date) (Normal Saline unknown) 0.9%) 1,000 mls @ 1,000 mls/hr IV BOLUS ONE (unknown) (no (unknown) (unknown) Sodium Chloride (units (unknown) date) (Normal Saline unknown) 0.9%) 1,000 mls @ 250 mls/hr IV CONT NORMAN (unknown) (no (unknown) (unknown) Sodium Urine (units (u nknown) date) Random Stat unknown) (unknown) (no (unknown) (unknown) Source: patient (units (unknown) date) and family unknown) (unknown) (no (unknown) (unknown) Speech: speech (units (unknown) date) normal unknown) (unknown) (no (unknown) (unknown) Start after 5 day (units (unknown) date) course of 2 caps unknown) daily is complete. (unknown) (no (unknown) (unknown) Stated complaint: (units (unknown) date) body pain/not able unknown) to eat or drink x 5 days (unknown) (no (unknown) (unknown) Stop: 08/02/22 (units (unknown) date) 02:39 unknown) (unknown) (no (unknown) (unknown) Stop: 08/02/22 (units (unknown) date) 04:57 unknown) (unknown) (no (unknown) (unknown) Substance Use (units ( unknown) date) Type: does not use unknown) (unknown) (no (unknown) (unknown) Surgical History (units (unknown) date) (Reviewed 08/02/22 unknown) @ 05:41 by Mike Cobian DO) (unknown) (no (unknown) (unknown) Temperature 98.7 F (units (unknown) date) 08/02/22 01:20 unknown) (unknown) (no (unknown) (unknown) Temperature 98.7 F (units (unknown) date) unknown) (unknown) (no (unknown) (unknown) Temperature (units (un known) date) unknown) (unknown) (no (unknown) (unknown) Time Seen by (units (u nknown) date) Provider: 08/02/22 unknown) 01:38 (unknown) (no (unknown) (unknown) Total Bilirubin (units (unknown) date) (0.2-1.3) mg/dL unknown) (unknown) (no (unknown) (unknown) Total Bilirubin (units (unknown) date) 0.7 (0.2-1.3) mg/dL unknown) (unknown) (no (unknown) (unknown) Total Protein (units ( unknown) date) (6.3-8.2) g/dL unknown) (unknown) (no (unknown) (unknown) Total Protein 7.3 (units (unknown) date) (6.3-8.2) g/dL unknown) (unknown) (no (unknown) (unknown) US - abdomen: (units ( unknown) date) unknown) (unknown) (no (unknown) (unknown) US abdomen (units (unk nown) date) complete Stat unknown) (unknown) (no (unknown) (unknown) Upset (units (unkno wn) date) unknown) (unknown) (no (unknown) (unknown) Ur Random Sodium (units (unknown) date) (30-90) mmol/L unknown) (unknown) (no (unknown) (unknown) Ur Random Sodium (units (unknown) date) 84 (30-90) mmol/L unknown) (unknown) (no (unknown) (unknown) Urine Creatinine (units (unknown) date) 69.7 mg/dL unknown) (unknown) (no (unknown) (unknown) Urine Creatinine (units (unknown) date) mg/dL unknown) (unknown) (no (unknown) (unknown) Urine Dip (units (unkn own) date) unknown) (unknown) (no (unknown) (unknown) Urine Specific (units (unknown) date) [place] 1.015 unknown) (unknown) (no (unknown) (unknown) Vital Signs - 8 hr (units (unknown) date) unknown) (unknown) (no (unknown) (unknown) Vital Signs (units (un known) date) unknown) (unknown) (no (unknown) (unknown) Vital signs: (units (u nknown) date) unknown) (unknown) (no (unknown) (unknown) WBC (4.5-11.0) (units (unknown) date) X103/uL unknown) (unknown) (no (unknown) (unknown) WBC 9.8 (4.5-11.0) (units (unknown) date) X103/uL unknown) (unknown) (no (unknown) (unknown) [Embedded Image (units (unknown) date) Not Available] unknown) (unknown) (no (unknown) (unknown) [From Pyridium] (units (unknown) date) unknown) (unknown) (no (unknown) (unknown) a couple days but (units (unknown) date) her symptoms were unknown) not improving and she started to feel worse (unknown) (no (unknown) (unknown) alcohol intake (units (unknown) date) frequency: 0-2 unknown) drinks per day (unknown) (no (unknown) (unknown) alcohol intake: (units (unknown) date) never unknown) (unknown) (no (unknown) (unknown) and below (units (unkn own) date) unknown) (unknown) (no (unknown) (unknown) biotin 5,000 mcg (units (unknown) date) Tablet, Sublingual unknown) (unknown) (no (unknown) (unknown) biotin 5,000 mcg (units (unknown) date) sublingual tablet unknown) 5,000 mcg sublingual DAILY 06/20/21 08/12/21 (unknown) (no (unknown) (unknown) breath activated (units (unknown) date) powder inhaler unknown) (unknown) (no (unknown) (unknown) budesonide 200 (units (unknown) date) mcg/actuation 50 unknown) mcg inhalation Q8HR 06/20/21 08/12/21 (unknown) (no (unknown) (unknown) budesonide 200 (units (unknown) date) mcg/actuation unknown) Aerosol Powdr Breath Activated (unknown) (no (unknown) (unknown) carvedilol 6.25 mg (units (unknown) date) Tablet unknown) (unknown) (no (unknown) (unknown) carvedilol 6.25 mg (units (unknown) date) tablet 6.25 mg PO unknown) BID 06/20/21 08/12/21 (unknown) (no (unknown) (unknown) cholecalciferol (units (unknown) date) (vitamin D3) 125 unknown) 125 mcg PO DAILY 06/20/21 08/12/21 (unknown) (no (unknown) (unknown) cholecalciferol (units (unknown) date) (vitamin D3) 125 unknown) mcg (5,000 unit) Tablet (unknown) (no (unknown) (unknown) ciprofloxacin HCl (units (unknown) date) 250 mg tablet 250 unknown) mg PO BEDTIME #60 tabs 09/02/21 (unknown) (no (unknown) (unknown) ciprofloxacin HCl (units (unknown) date) 250 mg tablet unknown) (unknown) (no (unknown) (unknown) consultation with (units (unknown) date) Nephrology. unknown) (unknown) (no (unknown) (unknown) creatinine at the (units (unknown) date) 1.3-1.7 range in unknown) her GFR in the 30s. Patient has not been (unknown) (no (unknown) (unknown) direction. She (units (unknown) date) comes to the unknown) emergency department today because of overall body (unknown) (no (unknown) (unknown) estradiol 0.01% (units (unknown) date) (0.1 mg/gram) 1 g unknown) vaginal 2XW #42.5 grams 08/19/21 (unknown) (no (unknown) (unknown) estradiol (units (unkn own) date) [Estrace] 0.01 % unknown) (0.1 mg/gram) cream (unknown) (no (unknown) (unknown) extremities (units (un known) date) unknown) (unknown) (no (unknown) (unknown) fosfomycin (units (unk nown) date) tromethamine 3 gram unknown) 3 g PO ONCE #1 ea 07/31/21 (unknown) (no (unknown) (unknown) fosfomycin (units (unk nown) date) tromethamine 3 gram unknown) 3 g PO ONCE #1 ea 08/01/21 (unknown) (no (unknown) (unknown) fosfomycin (units (unk nown) date) tromethamine 3 gram unknown) packet (unknown) (no (unknown) (unknown) furosemide 20 mg (units (unknown) date) Tablet unknown) (unknown) (no (unknown) (unknown) furosemide 20 mg (units (unknown) date) tablet 20 mg PO 6XW unknown) 06/20/21 08/12/21 (unknown) (no (unknown) (unknown) furosemide 40 mg (units (unknown) date) Tablet unknown) (unknown) (no (unknown) (unknown) furosemide 40 mg (units (unknown) date) tablet 40 mg PO unknown) WEEKLY 06/20/21 08/12/21 (unknown) (no (unknown) (unknown) having bowel (units (u nknown) date) movements. She unknown) denies any fevers. No recent travel. (unknown) (no (unknown) (unknown) household members: (units (unknown) date) spouse unknown) (unknown) (no (unknown) (unknown) is 8.9% which is (units (unknown) date) consistent with a unknown) post renal/obstructive pathology however I do (unknown) (no (unknown) (unknown) likely that the (units (unknown) date) cause of all of her unknown) nausea and vomiting even her abdominal (unknown) (no (unknown) (unknown) losartan 50 mg (units (unknown) date) Tablet unknown) (unknown) (no (unknown) (unknown) losartan 50 mg (units (unknown) date) tablet 50 mg PO unknown) DAILY 06/20/21 08/12/21 (unknown) (no (unknown) (unknown) mcg (5,000 unit) (units (unknown) date) tablet unknown) (unknown) (no (unknown) (unknown) metformin 500 mg (units (unknown) date) Tablet unknown) (unknown) (no (unknown) (unknown) metformin 500 mg (units (unknown) date) tablet 1,000 mg PO unknown) BID 07/26/21 08/12/21 (unknown) (no (unknown) (unknown) must administer (units (unknown) date) with a meal/food unknown) (unknown) (no (unknown) (unknown) not have a (units (unk nown) date) specific source of unknown) this as it does not appear to be an obstructive (unknown) (no (unknown) (unknown) obstructive (units (un known) date) uropathy. unknown) (unknown) (no (unknown) (unknown) of (units (unkno wn) date) unknown) (unknown) (no (unknown) (unknown) oral packet (units (un known) date) unknown) (unknown) (no (unknown) (unknown) oxycodone 5 mg (units (unknown) date) tablet 5 mg PO Q4H unknown) PRN pain #20 tabs 07/26/21 (unknown) (no (unknown) (unknown) oxycodone 5 mg (units (unknown) date) tablet unknown) (unknown) (no (unknown) (unknown) pain, belly pain, (units (unknown) date) vomiting, unable to unknown) drink for the past several days. Still (unknown) (no (unknown) (unknown) pain. She is in (units (unknown) date) acute renal unknown) failure/YESIKA given her creatinine of 10 and GFR 4. (unknown) (no (unknown) (unknown) phenazopyridine (units (unknown) date) Allergy Verified unknown) 08/12/21 08:17 (unknown) (no (unknown) (unknown) potassium 99 mg (units (unknown) date) Tablet unknown) (unknown) (no (unknown) (unknown) potassium 99 mg (units (unknown) date) tablet 99 mg PO unknown) DAILY 07/26/21 08/12/21 (unknown) (no (unknown) (unknown) prednisone Allergy (units (unknown) date) Severe Swelling unknown) Verified 08/02/22 01:20 (unknown) (no (unknown) (unknown) procaine [From (units (unknown) date) Novocain] Allergy unknown) Chest Pain Verified 08/02/22 01:20 (unknown) (no (unknown) (unknown) recently for UTI (units (unknown) date) like symptoms. Was unknown) sent home with [facility]. She took this for (unknown) (no (unknown) (unknown) rizatriptan (units (un known) date) Allergy Severe unknown) Difficulty Verified 08/02/22 01:20 (unknown) (no (unknown) (unknown) rosuvastatin 40 mg (units (unknown) date) Tablet unknown) (unknown) (no (unknown) (unknown) rosuvastatin 40 mg (units (unknown) date) tablet 40 mg PO unknown) DAILY 06/20/21 08/12/21 (unknown) (no (unknown) (unknown) s (units (unkno wn) date) unknown) (unknown) (no (unknown) (unknown) shellfish derived (units (unknown) date) AdvReac unknown) Gastrointestinal Verified 08/02/22 01:20 (unknown) (no (unknown) (unknown) signs of an (units (un known) date) infection. CT scans unknown) did not give a definitive etiology. Her FeNa (unknown) (no (unknown) (unknown) slightly. Care (units (unknown) date) turned over to Dr. pritchard) Gustavo to follow-up and most likely (unknown) (no (unknown) (unknown) so she contact her (units (unknown) date) primary doctor who unknown) looked up the culture results and told her (unknown) (no (unknown) (unknown) stone nor urinary (units (unknown) date) retention. After 2 unknown) L of fluid her creatinine only improved (unknown) (no (unknown) (unknown) takes 4 puffs (units ( unknown) date) qhs-(Pulmacort) unknown) (unknown) (no (unknown) (unknown) takes it 5x/week (units (unknown) date) unknown) (unknown) (no (unknown) (unknown) tamsulosin 0.4 mg (units (unknown) date) capsule 0.4 mg PO unknown) BEDTIME #60 caps 06/21/21 (unknown) (no (unknown) (unknown) tamsulosin 0.4 mg (units (unknown) date) capsule unknown) (unknown) (no (unknown) (unknown) tetracycline (units (u nknown) date) Allergy Severe unknown) ITCHING Verified 08/12/21 08:17 (unknown) (no (unknown) (unknown) that she did not (units (unknown) date) have an infection unknown) so she quit taking the medications per their (unknown) (no (unknown) (unknown) thiopental AdvReac (units (unknown) date) Palpitation unknown) Verified 08/02/22 01:20 (unknown) (no (unknown) (unknown) twice weekly (units (u nknown) date) thereafter. unknown) (unknown) (no (unknown) (unknown) upper abdominal (units (unknown) date) discomfort. Has unknown) pancreatitis based on her lipase which is most (unknown) (no (unknown) (unknown) vaginal cream (units ( unknown) date) (Estrace) unknown) (unknown) (no (unknown) (unknown) vomiting since (units (unknown) date) arrival here to the unknown) ER. Her urinalysis today does not show any (unknown) (no (unknown) (unknown) warfarin 2 mg (units ( unknown) date) Tablet unknown) (unknown) (no (unknown) (unknown) warfarin 2 mg (units ( unknown) date) tablet 2 mg PO 2XW unknown) 06/20/21 08/12/21 (unknown) (no (unknown) (unknown) warfarin 3 mg (units ( unknown) date) Tablet unknown) (unknown) (no (unknown) (unknown) warfarin 3 mg (units ( unknown) date) tablet 3 mg PO 5XW unknown) 06/20/21 08/12/21 Result panel 185 (unknown) (no date) (unknown) (unknown) 109 mmol/l (unkn own) (unknown) (no date) (unknown) (unknown) 13 mmol/l (unkn own) (unknown) (no date) (unknown) (unknown) 139 mmol/l (unkn own) (unknown) (no date) (unknown) (unknown) 231 u/l (unkn own) (unknown) (no date) (unknown) (unknown) 231 u/l (unkn own) (unknown) (no date) (unknown) (unknown) 4 ml/min (unkn own) (unknown) (no date) (unknown) (unknown) 4 ml/min (unkn own) (unknown) (no date) (unknown) (unknown) 5.5 mmol/l (unkn own) (unknown) (no date) (unknown) (unknown) 5.5 mmol/l (unkn own) (unknown) (no date) (unknown) (unknown) 65 mg/dl (unkn own) (unknown) (no date) (unknown) (unknown) 7.0 (units unknown) (unknown) (unknown) (no date) (unknown) (unknown) 8.4 mg/dl (unkn own) (unknown) (no date) (unknown) (unknown) 82 mg/dl (unkn own) (unknown) (no date) (unknown) (unknown) 82 mg/dl (unkn own) (unknown) (no date) (unknown) (unknown) 9.23 mg/dl (unkn own) (unknown) (no date) (unknown) (unknown) 9.23 mg/dl (unkn own) Result panel 186 (unknown) (no date) (unknown) (unknown) 7.1 (units unknown) (unknown) (unknown) (no date) (unknown) (unknown) 7.1 (units unknown) (unknown) (unknown) (no date) (unknown) (unknown) 82.9 seconds (unkn own) (unknown) (no date) (unknown) (unknown) 82.9 seconds (unkn own) Result panel 187 (unknown) (no date) (unknown) (unknown) 0.33 ng/ml (unkn own) (unknown) (no date) (unknown) (unknown) 0.33 ng/ml (unkn own) Result panel 188 (unknown) (no (unknown) (unknown) (no value) (units (unk nown) date) unknown) (unknown) (no (unknown) (unknown) <Francesca Gustavo, (units (unknown) date) DO - Last Filed: unknown) 08/02/22 08:46> (unknown) (no (unknown) (unknown) <Mike Mango, (units (unknown) date) DO - Last Filed: unknown) 08/02/22 06:47> (unknown) (no (unknown) (unknown) 0.4 mg PO BEDTIME (units (unknown) date) Qty: 60 0RF unknown) (unknown) (no (unknown) (unknown) 01:17 01:40 01:40 (units (unknown) date) unknown) (unknown) (no (unknown) (unknown) 01:20 08/02/22 (units (unknown) date) unknown) (unknown) (no (unknown) (unknown) 01:39 08/02/22 (units (unknown) date) unknown) (unknown) (no (unknown) (unknown) 02:00 (units (unkno wn) date) unknown) (unknown) (no (unknown) (unknown) 02:32 08/02/22 (units (unknown) date) unknown) (unknown) (no (unknown) (unknown) 03:00 08/02/22 (units (unknown) date) unknown) (unknown) (no (unknown) (unknown) 03:30 05:30 07:46 (units (unknown) date) unknown) (unknown) (no (unknown) (unknown) 03:30 (units (unkno wn) date) unknown) (unknown) (no (unknown) (unknown) 03:35 08/02/22 (units (unknown) date) unknown) (unknown) (no (unknown) (unknown) [id number] (units (unkno wn) date) unknown) (unknown) (no (unknown) (unknown) 04:00 (units (unkno wn) date) unknown) (unknown) (no (unknown) (unknown) 04:01 08/02/22 (units (unknown) date) unknown) (unknown) (no (unknown) (unknown) 04:30 08/02/22 (units (unknown) date) unknown) (unknown) (no (unknown) (unknown) 04:30 (units (unkno wn) date) unknown) (unknown) (no (unknown) (unknown) 05:00 08/02/22 (units (unknown) date) unknown) (unknown) (no (unknown) (unknown) 05:00 (units (unkno wn) date) unknown) (unknown) (no (unknown) (unknown) 05:30 08/02/22 (units (unknown) date) unknown) (unknown) (no (unknown) (unknown) 05:30 (units (unkno wn) date) unknown) (unknown) (no (unknown) (unknown) 07:46 07:46 (units (un known) date) unknown) (unknown) (no (unknown) (unknown) 1 g vaginal 2XW (units (unknown) date) Qty: 42.5 3RF unknown) (unknown) (no (unknown) (unknown) 1,000 mg PO BID (units (unknown) date) unknown) (unknown) (no (unknown) (unknown) 08/02/22 01:17 (units (unknown) date) unknown) (unknown) (no (unknown) (unknown) 08/02/22 01:25 (units (unknown) date) unknown) (unknown) (no (unknown) (unknown) 08/02/22 01:40 (units (unknown) date) unknown) (unknown) (no (unknown) (unknown) 08/02/22 02:20 (units (unknown) date) unknown) (unknown) (no (unknown) (unknown) 08/02/22 03:30 (units (unknown) date) unknown) (unknown) (no (unknown) (unknown) 08/02/22 05:30 (units (unknown) date) unknown) (unknown) (no (unknown) (unknown) 08/02/22 07:46 (units (unknown) date) unknown) (unknown) (no (unknown) (unknown) 08/02/22 07:50 (units (unknown) date) unknown) (unknown) (no (unknown) (unknown) 08/02/22 08/02/22 (units (unknown) date) 08/02/22 unknown) Range/Units (unknown) (no (unknown) (unknown) 08/02/22 08/02/22 (units (unknown) date) Range/Units unknown) (unknown) (no (unknown) (unknown) 08/02/22 (units (unkno wn) date) unknown) (unknown) (no (unknown) (unknown) 125 mcg PO DAILY (units (unknown) date) unknown) (unknown) (no (unknown) (unknown) 2 mg PO 2XW (units (un known) date) unknown) (unknown) (no (unknown) (unknown) 20 mg PO 6XW (units (u nknown) date) unknown) (unknown) (no (unknown) (unknown) 250 mg PO BEDTIME (units (unknown) date) Qty: 60 0RF unknown) (unknown) (no (unknown) (unknown) 3 g PO ONCE Qty: 1 (units (unknown) date) 0RF unknown) (unknown) (no (unknown) (unknown) 3 mg PO 5XW (units (un known) date) unknown) (unknown) (no (unknown) (unknown) 40 mg PO DAILY (units (unknown) date) unknown) (unknown) (no (unknown) (unknown) 40 mg PO WEEKLY (units (unknown) date) unknown) (unknown) (no (unknown) (unknown) 5 mg PO Q4H PRN (units (unknown) date) (Reason: pain) Qty: unknown) 20 0RF (unknown) (no (unknown) (unknown) 5,000 mcg (units (unkn own) date) sublingual DAILY unknown) (unknown) (no (unknown) (unknown) 50 mcg INHALATION (units (unknown) date) Q8HR unknown) (unknown) (no (unknown) (unknown) 50 mg PO DAILY (units (unknown) date) unknown) (unknown) (no (unknown) (unknown) 6.25 mg PO BID (units (unknown) date) unknown) (unknown) (no (unknown) (unknown) 99 mg PO DAILY (units (unknown) date) unknown) (unknown) (no (unknown) (unknown) AICD (automatic (units (unknown) date) cardioverter/defibr unknown) illator) present (11/29/20) (unknown) (no (unknown) (unknown) ALT (<35) IU/L (units (unknown) date) unknown) (unknown) (no (unknown) (unknown) ALT 27 (<35) IU/L (units (unknown) date) unknown) (unknown) (no (unknown) (unknown) AST (14-36) IU/L (units (unknown) date) unknown) (unknown) (no (unknown) (unknown) AST 32 (14-36) (units (unknown) date) IU/L unknown) (unknown) (no (unknown) (unknown) Acute kidney (units (u nknown) date) injury unknown) (unknown) (no (unknown) (unknown) Admin: 08/02/22 (units (unknown) date) 02:15 Dose: 1,000 unknown) mls/hr (unknown) (no (unknown) (unknown) Admin: 08/02/22 (units (unknown) date) 04:04 Dose: 1,000 unknown) mls/hr (unknown) (no (unknown) (unknown) Afib (units (unkno wn) date) unknown) (unknown) (no (unknown) (unknown) Age/Sex: 71 / F (units (unknown) date) unknown) (unknown) (no (unknown) (unknown) Albumin (3.5-5.0) (units (unknown) date) g/dL unknown) (unknown) (no (unknown) (unknown) Albumin 4.2 (units (un known) date) (3.5-5.0) g/dL unknown) (unknown) (no (unknown) (unknown) Albumin/Globulin (units (unknown) date) Ratio (1.0-2.8) unknown) (unknown) (no (unknown) (unknown) Albumin/Globulin (units (unknown) date) Ratio 1.4 (1.0-2.8) unknown) (unknown) (no (unknown) (unknown) Alkaline (units (unkno wn) date) Phosphatase unknown) (38-126) U/L (unknown) (no (unknown) (unknown) Alkaline (units (unkno wn) date) Phosphatase 54 unknown) (38-126) U/L (unknown) (no (unknown) (unknown) Allergies (units (unkn own) date) unknown) (unknown) (no (unknown) (unknown) Allergy/AdvReac (units (unknown) date) Type Severity unknown) Reaction Status Date / Time (unknown) (no (unknown) (unknown) Appearance: (units (un known) date) grossly normal and unknown) well kempt (unknown) (no (unknown) (unknown) Atrially (units (unkno wn) date) sensed/ventricularl unknown) y paced (unknown) (no (unknown) (unknown) Attestation: I (units (unknown) date) personally reviewed unknown) and interpreted this ECG as follows: (unknown) (no (unknown) (unknown) Attestation: I (units (unknown) date) reviewed the unknown) patient's lab results. (unknown) (no (unknown) (unknown) Attestation: I (units (unknown) date) reviewed the unknown) patient's medical records. (unknown) (no (unknown) (unknown) Auscultation: (units ( unknown) date) clear to unknown) auscultation bilaterally (unknown) (no (unknown) (unknown) BMP [Basic (units (unk nown) date) Metabolic Panel] unknown) Stat (unknown) (no (unknown) (unknown) BUN 63 H (7-17) (units (unknown) date) mg/dL unknown) (unknown) (no (unknown) (unknown) BUN 65 H (7-17) (units (unknown) date) mg/dL unknown) (unknown) (no (unknown) (unknown) BUN 67 H (7-17) (units (unknown) date) mg/dL unknown) (unknown) (no (unknown) (unknown) BUN/Creatinine (units (unknown) date) Ratio 6.7 (6-22) unknown) (unknown) (no (unknown) (unknown) BUN/Creatinine (units (unknown) date) Ratio 6.9 (6-22) unknown) (unknown) (no (unknown) (unknown) BUN/Creatinine (units (unknown) date) Ratio 7.0 (6-22) unknown) (unknown) (no (unknown) (unknown) Back/Spine/Pelvis (units (unknown) date) unknown) (unknown) (no (unknown) (unknown) Back: No CVA (units (u nknown) date) tenderness unknown) (unknown) (no (unknown) (unknown) Baso # (Auto) (units ( unknown) date) (0-100) /uL unknown) (unknown) (no (unknown) (unknown) Baso # (Auto) 100 (units (unknown) date) (0-100) /uL unknown) (unknown) (no (unknown) (unknown) Baso % (Auto) (units ( unknown) date) (0-2) % unknown) (unknown) (no (unknown) (unknown) Baso % (Auto) 0.7 (units (unknown) date) (0-2) % unknown) (unknown) (no (unknown) (unknown) Bedside Urine (units ( unknown) date) Bilirubin - unknown) Negative (unknown) (no (unknown) (unknown) Bedside Urine (units ( unknown) date) Glucose Negative unknown) (unknown) (no (unknown) (unknown) Bedside Urine (units ( unknown) date) Ketone +/- 5 unknown) (unknown) (no (unknown) (unknown) Bedside Urine (units ( unknown) date) Leukocytes - unknown) Negative (unknown) (no (unknown) (unknown) Bedside Urine (units ( unknown) date) Nitrite - Negative unknown) (unknown) (no (unknown) (unknown) Bedside Urine (units ( unknown) date) Occult Blood unknown) (unknown) (no (unknown) (unknown) Bedside Urine (units ( unknown) date) Protein ++ 100 unknown) (unknown) (no (unknown) (unknown) Bedside Urine (units ( unknown) date) Urobilinogen - unknown) Negative (unknown) (no (unknown) (unknown) Bedside Urine pH (units (unknown) date) 6.0 unknown) (unknown) (no (unknown) (unknown) Bilateral (units (unkn own) date) perinephric unknown) stranding. This can be an asymptomatic finding. (unknown) (no (unknown) (unknown) Bilateral renal (units (unknown) date) cysts unknown) (unknown) (no (unknown) (unknown) Blood Pressure (units (unknown) date) 109/53 L unknown) (unknown) (no (unknown) (unknown) Blood Pressure (units (unknown) date) 119/59 L unknown) (unknown) (no (unknown) (unknown) Blood Pressure (units (unknown) date) 130/69 08/02/22 unknown) 01:20 (unknown) (no (unknown) (unknown) Blood Pressure (units (unknown) date) 130/69 unknown) (unknown) (no (unknown) (unknown) Blood Pressure (units (unknown) date) 143/65 H 124/59 L unknown) (unknown) (no (unknown) (unknown) Blood Pressure (units (unknown) date) 146/67 H unknown) (unknown) (no (unknown) (unknown) Blood Pressure (units (unknown) date) unknown) (unknown) (no (unknown) (unknown) Breathing (units (unkn own) date) unknown) (unknown) (no (unknown) (unknown) CHF (congestive (units (unknown) date) heart failure) unknown) (unknown) (no (unknown) (unknown) CT kidney ureter (units (unknown) date) bladder (KUB) Stat unknown) (unknown) (no (unknown) (unknown) CT scan - (units (unkn own) date) abdomen/pelvis: unknown) (unknown) (no (unknown) (unknown) CVA (cerebral (units ( unknown) date) vascular accident) unknown) (unknown) (no (unknown) (unknown) Calcium 8.4 (units (un known) date) (8.4-10.2) mg/dL unknown) (unknown) (no (unknown) (unknown) Calcium 9.9 (units (un known) date) (8.4-10.2) mg/dL unknown) (unknown) (no (unknown) (unknown) Carbon Dioxide 13 (units (unknown) date) L (22-32) mmol/L unknown) (unknown) (no (unknown) (unknown) Cardiac arrest (units (unknown) date) (11/29/20) unknown) (unknown) (no (unknown) (unknown) Cardio (units (unkno wn) date) unknown) (unknown) (no (unknown) (unknown) Cardiomyopathy (units (unknown) date) unknown) (unknown) (no (unknown) (unknown) Chest (units (unkno wn) date) unknown) (unknown) (no (unknown) (unknown) Chief complaint: (units (unknown) date) Nausea/Vomiting/Huong unknown) rrhea (unknown) (no (unknown) (unknown) Chloride 103 (units (u nknown) date) (98-107) mmol/L unknown) (unknown) (no (unknown) (unknown) Chloride 109 H (units (unknown) date) (98-107) mmol/L unknown) (unknown) (no (unknown) (unknown) Cognition: normal (units (unknown) date) cognition unknown) (unknown) (no (unknown) (unknown) Complete Blood (units (unknown) date) Count AUTO DIFF unknown) Stat (unknown) (no (unknown) (unknown) Comprehensive (units ( unknown) date) Metabolic Panel unknown) Stat (unknown) (no (unknown) (unknown) Const (units (unkno wn) date) unknown) (unknown) (no (unknown) (unknown) Course (units (unkno wn) date) unknown) (unknown) (no (unknown) (unknown) Covid-19 + FLU A/B (units (unknown) date) + RSV - PCR Stat unknown) (unknown) (no (unknown) (unknown) Creatinine 10.0 H* (units (unknown) date) (0.52-1.04) mg/dL unknown) (unknown) (no (unknown) (unknown) Creatinine 9.15 H* (units (unknown) date) (0.52-1.04) mg/dL unknown) (unknown) (no (unknown) (unknown) Creatinine 9.23 H* (units (unknown) date) (0.52-1.04) mg/dL unknown) (unknown) (no (unknown) (unknown) Creatinine Urine (units (unknown) date) Random Stat unknown) (unknown) (no (unknown) (unknown) : 1950 (units (unknown) date) Acct:[id number] unknown) (unknown) (no (unknown) (unknown) Date of Service: (units (unknown) date) 08/02/22 unknown) (unknown) (no (unknown) (unknown) Departure (units (unkn own) date) unknown) (unknown) (no (unknown) (unknown) Diabetes (units (unkno wn) date) unknown) (unknown) (no (unknown) (unknown) Discharge Plan (units (unknown) date) unknown) (unknown) (no (unknown) (unknown) Discontinued (units (u nknown) date) Medications unknown) (unknown) (no (unknown) (unknown) Documented By: GC (units (unknown) date) unknown) (unknown) (no (unknown) (unknown) Documented By: KM (units (unknown) date) unknown) (unknown) (no (unknown) (unknown) Documented By: NR (units (unknown) date) unknown) (unknown) (no (unknown) (unknown) ECG Data (units (unkno wn) date) unknown) (unknown) (no (unknown) (unknown) ED Orders (units (unkn own) date) unknown) (unknown) (no (unknown) (unknown) EKG-12 Lead Stat (units (unknown) date) unknown) (unknown) (no (unknown) (unknown) ER Physician: (units ( unknown) date) Francesca Chen D.O. unknown) (unknown) (no (unknown) (unknown) Effort + (units (unkno wn) date) Inspection: normal unknown) respiratory effort (unknown) (no (unknown) (unknown) Emergency Report (units (unknown) date) unknown) (unknown) (no (unknown) (unknown) Eos # (Auto) (units (u nknown) date) (0-450) /uL unknown) (unknown) (no (unknown) (unknown) Eos # (Auto) 100 (units (unknown) date) (0-450) /uL unknown) (unknown) (no (unknown) (unknown) Eos % (Auto) (2-4) (units (unknown) date) % unknown) (unknown) (no (unknown) (unknown) Eos % (Auto) 1.2 L (units (unknown) date) (2-4) % unknown) (unknown) (no (unknown) (unknown) Esterase (units (unkno wn) date) unknown) (unknown) (no (unknown) (unknown) Estimated GFR 4 L (units (unknown) date) (>60) mL/min unknown) (unknown) (no (unknown) (unknown) Exam (units (unkno wn) date) unknown) (unknown) (no (unknown) (unknown) Extrem (units (unkno wn) date) unknown) (unknown) (no (unknown) (unknown) GCS (units (unkno wn) date) unknown) (unknown) (no (unknown) (unknown) GI (units (unkno wn) date) unknown) (unknown) (no (unknown) (unknown) General (units (unkno wn) date) unknown) (unknown) (no (unknown) (unknown) General: (units (unkno wn) date) cooperative, unknown) comfortable and No ill appearing (unknown) (no (unknown) (unknown) General: no rashes (units (unknown) date) or lesions noted unknown) (unknown) (no (unknown) (unknown) General: normal to (units (unknown) date) inspection, unknown) capillary refill normal and No edema (unknown) (no (unknown) (unknown) General: patient (units (unknown) date) alert, patient unknown) awake, patient oriented x3 and moves all (unknown) (no (unknown) (unknown) [place] coma scale (units (unknown) date) eye opening: unknown) Spontaneous (unknown) (no (unknown) (unknown) [place] coma scale (units (unknown) date) motor response: unknown) Obey commands (unknown) (no (unknown) (unknown) [place] coma scale (units (unknown) date) total score: 15 unknown) (unknown) (no (unknown) (unknown) [place] coma scale (units (unknown) date) verbal response: unknown) Orientated (unknown) (no (unknown) (unknown) Globulin (1.7-4.1) (units (unknown) date) g/dL unknown) (unknown) (no (unknown) (unknown) Globulin 3.1 (units (u nknown) date) (1.7-4.1) g/dL unknown) (unknown) (no (unknown) (unknown) Glucose 82 (units (unk nown) date) (80-110) mg/dL unknown) (unknown) (no (unknown) (unknown) Glucose 86 (units (unk nown) date) (80-110) mg/dL unknown) (unknown) (no (unknown) (unknown) Glucose 88 (units (unk nown) date) (80-110) mg/dL unknown) (unknown) (no (unknown) (unknown) HENMT (units (unkno wn) date) unknown) (unknown) (no (unknown) (unknown) HLD (units (unkno wn) date) (hyperlipidemia) unknown) (unknown) (no (unknown) (unknown) HPI - (units (unkno wn) date) Nausea/Vomiting/Huong unknown) rrhea (unknown) (no (unknown) (unknown) HPI Narrative: (units (unknown) date) unknown) (unknown) (no (unknown) (unknown) HTN (hypertension) (units (unknown) date) unknown) (unknown) (no (unknown) (unknown) Hct (36-46) % (units ( unknown) date) unknown) (unknown) (no (unknown) (unknown) Hct 38.4 (36-46) % (units (unknown) date) unknown) (unknown) (no (unknown) (unknown) Head: normal to (units (unknown) date) inspection and unknown) normocephalic (unknown) (no (unknown) (unknown) Hgb (12.0-16.0) (units (unknown) date) g/dL unknown) (unknown) (no (unknown) (unknown) Hgb 12.7 (units (unkno wn) date) (12.0-16.0) g/dL unknown) (unknown) (no (unknown) (unknown) History of Present (units (unknown) date) Illness unknown) (unknown) (no (unknown) (unknown) History of UTI (units (unknown) date) unknown) (unknown) (no (unknown) (unknown) History of colon (units (unknown) date) surgery unknown) (unknown) (no (unknown) (unknown) History of (units (unk nown) date) colonoscopy unknown) (unknown) (no (unknown) (unknown) History of (units (unk nown) date) hysterectomy unknown) (unknown) (no (unknown) (unknown) History of (units (unk nown) date) nephrolithiasis unknown) (unknown) (no (unknown) (unknown) History of (units (unk nown) date) thyroidectomy, unknown) subtotal (unknown) (no (unknown) (unknown) Home Medications (units (unknown) date) unknown) (unknown) (no (unknown) (unknown) Hx of appendectomy (units (unknown) date) unknown) (unknown) (no (unknown) (unknown) Hx of breast (units (u nknown) date) surgery unknown) (unknown) (no (unknown) (unknown) Hx of cystoscopy (units (unknown) date) (06/20/21) unknown) (unknown) (no (unknown) (unknown) Hx of eye surgery (units (unknown) date) unknown) (unknown) (no (unknown) (unknown) INR (0.9-1.3) (units ( unknown) date) unknown) (unknown) (no (unknown) (unknown) INR 7.1 H* (units (unk nown) date) (0.9-1.3) unknown) (unknown) (no (unknown) (unknown) Imaging Data (units (u nknown) date) unknown) (unknown) (no (unknown) (unknown) Influenza A (units (un known) date) (RT-PCR) (NEGATIVE) unknown) (unknown) (no (unknown) (unknown) Influenza A (units (un known) date) (RT-PCR) Flu a unknown) negative (NEGATIVE) (unknown) (no (unknown) (unknown) Influenza B (units (un known) date) (RT-PCR) (NEGATIVE) unknown) (unknown) (no (unknown) (unknown) Influenza B (units (un known) date) (RT-PCR) Flu b unknown) negative (NEGATIVE) (unknown) (no (unknown) (unknown) Initial Vital (units ( unknown) date) Signs unknown) (unknown) (no (unknown) (unknown) Initial Vital (units ( unknown) date) Signs: unknown) (unknown) (no (unknown) (unknown) Insert 1 g (units (unk nown) date) intravaginally at unknown) HS times 12 days then 1 g intravaginally at HS (unknown) (no (unknown) (unknown) Inspection: normal (units (unknown) date) to inspection unknown) (unknown) (no (unknown) (unknown) Interpretation: (units (unknown) date) unknown) (unknown) (no (unknown) (unknown) [facility] (units (unknown) date) [address] unknown) [place] [address] (unknown) (no (unknown) (unknown) LDH [Lactate (units (u nknown) date) Dehydrogenase] Stat unknown) (unknown) (no (unknown) (unknown) Lab Data (units (unkno wn) date) unknown) (unknown) (no (unknown) (unknown) Lab Results (units (un known) date) unknown) (unknown) (no (unknown) (unknown) Label Comments: (units (unknown) date) unknown) (unknown) (no (unknown) (unknown) Labs: (units (unkno wn) date) unknown) (unknown) (no (unknown) (unknown) Lactate (units (unkno wn) date) Dehydrogenase unknown) (120-246) U/L (unknown) (no (unknown) (unknown) Lactate (units (unkno wn) date) Dehydrogenase 231 unknown) (120-246) U/L (unknown) (no (unknown) (unknown) Last Admin: (units (un known) date) 08/02/22 02:48 unknown) Dose: 4 mg (unknown) (no (unknown) (unknown) Last Admin: (units (un known) date) 08/02/22 06:16 unknown) Dose: 250 mls/hr (unknown) (no (unknown) (unknown) Last Admin: (units (un known) date) 08/02/22 08:01 unknown) Dose: 6 ml (unknown) (no (unknown) (unknown) Last Infusion: (units (unknown) date) 08/02/22 03:27 unknown) Dose: 0 mls/hr (unknown) (no (unknown) (unknown) Last Infusion: (units (unknown) date) 08/02/22 05:05 unknown) Dose: 0 mls/hr (unknown) (no (unknown) (unknown) Left ureteral (units ( unknown) date) calculus unknown) (unknown) (no (unknown) (unknown) Lidocaine HCl (units ( unknown) date) (Lidocaine 2% unknown) (Glydo) 6 Ml Gel) 6 ml TOP NOW ONE (unknown) (no (unknown) (unknown) Lip/Tongue/Throat (units (unknown) date) unknown) (unknown) (no (unknown) (unknown) Lipase (23-300) (units (unknown) date) U/L unknown) (unknown) (no (unknown) (unknown) Lipase 2998 H (units ( unknown) date) (23-300) U/L unknown) (unknown) (no (unknown) (unknown) Lipase Stat (units (un known) date) unknown) (unknown) (no (unknown) (unknown) Lymph # (Auto) (units (unknown) date) (9952-9245) /uL unknown) (unknown) (no (unknown) (unknown) Lymph # (Auto) (units (unknown) date) 1500 (3025-3065) unknown) /uL (unknown) (no (unknown) (unknown) Lymph % (Auto) (units (unknown) date) (25-40) % unknown) (unknown) (no (unknown) (unknown) Lymph % (Auto) (units (unknown) date) 15.0 L (25-40) % unknown) (unknown) (no (unknown) (unknown) MCH (26-34) PG (units (unknown) date) unknown) (unknown) (no (unknown) (unknown) MCH 29.9 (26-34) (units (unknown) date) PG unknown) (unknown) (no (unknown) (unknown) MCHC (30-36) % (units (unknown) date) unknown) (unknown) (no (unknown) (unknown) MCHC 33.1 (30-36) (units (unknown) date) % unknown) (unknown) (no (unknown) (unknown) MCV (80-100) fL (units (unknown) date) unknown) (unknown) (no (unknown) (unknown) MCV 90.3 (80-100) (units (unknown) date) fL unknown) (unknown) (no (unknown) (unknown) MDM - (units (unkno wn) date) Nausea/Vomiting/Huong unknown) rrhea (unknown) (no (unknown) (unknown) MDM Narrative (units ( unknown) date) unknown) (unknown) (no (unknown) (unknown) Medical History (units (unknown) date) (Reviewed 08/02/22 unknown) @ 05:41 by Mike Cobian DO) (unknown) (no (unknown) (unknown) Medical Records (units (unknown) date) unknown) (unknown) (no (unknown) (unknown) Medical decision (units (unknown) date) making narrative: unknown) (unknown) (no (unknown) (unknown) Medication (units (unk nown) date) Instructions unknown) Recorded Confirmed (unknown) (no (unknown) (unknown) Medication (units (unk nown) date) Instructions unknown) Recorded (unknown) (no (unknown) (unknown) Mild echogenic (units (unknown) date) kidneys suggesting unknown) possible medical renal disease. No (unknown) (no (unknown) (unknown) Mode of arrival: (units (unknown) date) Ambulatory unknown) (unknown) (no (unknown) (unknown) [place] # (Auto) (units ( unknown) date) (0-900) /uL unknown) (unknown) (no (unknown) (unknown) [place] # (Auto) 700 (units (unknown) date) (0-900) /uL unknown) (unknown) (no (unknown) (unknown) [place] % (Auto) (units ( unknown) date) (3-14) % unknown) (unknown) (no (unknown) (unknown) [place] % (Auto) 7.6 (units (unknown) date) (3-14) % unknown) (unknown) (no (unknown) (unknown) Neuro (units (unkno wn) date) unknown) (unknown) (no (unknown) (unknown) Neut # (Auto) (units ( unknown) date) (1693-7621) /uL unknown) (unknown) (no (unknown) (unknown) Neut # (Auto) 7400 (units (unknown) date) H (7853-7007) /uL unknown) (unknown) (no (unknown) (unknown) Neut % (Auto) (units ( unknown) date) (50-75) % unknown) (unknown) (no (unknown) (unknown) Neut % (Auto) 75.5 (units (unknown) date) H (50-75) % unknown) (unknown) (no (unknown) (unknown) No Action (units (unkn own) date) unknown) (unknown) (no (unknown) (unknown) No obstructive (units (unknown) date) uropathy unknown) (unknown) (no (unknown) (unknown) Ondansetron HCl (units (unknown) date) (Ondansetron 4 Mg unknown) Odt) 4 mg PO NOW PRN (unknown) (no (unknown) (unknown) Ondansetron HCl (units (unknown) date) (Ondansetron 4 Mg/2 unknown) Ml Inj) 4 mg IV NOW PRN (unknown) (no (unknown) (unknown) Ordered: (units (unkno wn) date) unknown) (unknown) (no (unknown) (unknown) Orders (units (unkno wn) date) unknown) (unknown) (no (unknown) (unknown) Other: (units (unkno wn) date) unknown) (unknown) (no (unknown) (unknown) Oxygen Delivery (units (unknown) date) Method 08/02/22 unknown) 01:20 (unknown) (no (unknown) (unknown) Oxygen Delivery (units (unknown) date) Method Room Air unknown) (unknown) (no (unknown) (unknown) Oxygen Delivery (units (unknown) date) Method unknown) (unknown) (no (unknown) (unknown) PRN Reason: Nausea (units (unknown) date) And Vomiting unknown) (unknown) (no (unknown) (unknown) PT (10.1-12.7) (units (unknown) date) SECONDS unknown) (unknown) (no (unknown) (unknown) PT 82.9 H (units (unkn own) date) (10.1-12.7) SECONDS unknown) (unknown) (no (unknown) (unknown) 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 unknown) To seen here in the emergency department (unknown) (no (unknown) (unknown) Patient is (units (unk nown) date) well-appearing. Is unknown) not tachycardic. Not hypotensive. She does have (unknown) (no (unknown) (unknown) Patient: (units (unkno wn) date) Natasha Jaquez K unknown) MR#: [id number] (unknown) (no (unknown) (unknown) Phytonadione (units (u nknown) date) (Phytonadione (Vit unknown) K1) 5 Mg Tablet) 10 mg PO NOW ONE (unknown) (no (unknown) (unknown) Please take this (units (unknown) date) the morning of unknown) August 04, 2021. (unknown) (no (unknown) (unknown) Plt Count (units (unkn own) date) (150-400) X103/uL unknown) (unknown) (no (unknown) (unknown) Plt Count 262 (units ( unknown) date) (150-400) X103/uL unknown) (unknown) (no (unknown) (unknown) Postmenopausal (units (unknown) date) atrophic vaginitis unknown) (unknown) (no (unknown) (unknown) Potassium 5.5 H (units (unknown) date) (3.4-5.1) mmol/L unknown) (unknown) (no (unknown) (unknown) Potassium 5.7 H (units (unknown) date) (3.4-5.1) mmol/L unknown) (unknown) (no (unknown) (unknown) Potassium 5.8 H (units (unknown) date) (3.4-5.1) mmol/L unknown) (unknown) (no (unknown) (unknown) Prescriptions: (units (unknown) date) unknown) (unknown) (no (unknown) (unknown) Previous Rx's (units ( unknown) date) unknown) (unknown) (no (unknown) (unknown) Prior labs that we (units (unknown) date) have for her were unknown) greater than 1 year ago which has her (unknown) (no (unknown) (unknown) Procalcitonin (units ( unknown) date) (<0.5) ng/mL unknown) (unknown) (no (unknown) (unknown) Procalcitonin 0.33 (units (unknown) date) (<0.5) ng/mL unknown) (unknown) (no (unknown) (unknown) Procalcitonin Stat (units (unknown) date) unknown) (unknown) (no (unknown) (unknown) Prothrombin Time (units (unknown) date) INR Stat unknown) (unknown) (no (unknown) (unknown) Psych (units (unkno wn) date) unknown) (unknown) (no (unknown) (unknown) Pulse Oximetry 95 (units (unknown) date) 08/02/22 01:20 unknown) (unknown) (no (unknown) (unknown) Pulse Oximetry 95 (units (unknown) date) 95 97 unknown) (unknown) (no (unknown) (unknown) Pulse Oximetry 96 (units (unknown) date) 97 96 unknown) (unknown) (no (unknown) (unknown) Pulse Oximetry 97 (units (unknown) date) 94 unknown) (unknown) (no (unknown) (unknown) Pulse Oximetry 97 (units (unknown) date) unknown) (unknown) (no (unknown) (unknown) Pulse Oximetry 98 (units (unknown) date) 98 unknown) (unknown) (no (unknown) (unknown) Pulse Oximetry 98 (units (unknown) date) unknown) (unknown) (no (unknown) (unknown) Pulse Rate 61 67 (units (unknown) date) unknown) (unknown) (no (unknown) (unknown) Pulse Rate 62 (units ( unknown) date) unknown) (unknown) (no (unknown) (unknown) Pulse Rate 65 65 (units (unknown) date) unknown) (unknown) (no (unknown) (unknown) Pulse Rate 68 (units ( unknown) date) unknown) (unknown) (no (unknown) (unknown) Pulse Rate 70 62 (units (unknown) date) 82 unknown) (unknown) (no (unknown) (unknown) Pulse Rate 78 (units ( unknown) date) 08/02/22 01:20 unknown) (unknown) (no (unknown) (unknown) Pulse Rate 78 61 (units (unknown) date) unknown) (unknown) (no (unknown) (unknown) Pyelonephritis can (units (unknown) date) appear similar unknown) noncontrast examination (unknown) (no (unknown) (unknown) RBC (4.0-5.2) (units ( unknown) date) X106/uL unknown) (unknown) (no (unknown) (unknown) RBC 4.26 (4.0-5.2) (units (unknown) date) X106/uL unknown) (unknown) (no (unknown) (unknown) RDW (11.6-14.8) % (units (unknown) date) unknown) (unknown) (no (unknown) (unknown) RDW 14.5 (units (unkno wn) date) (11.6-14.8) % unknown) (unknown) (no (unknown) (unknown) ROS Unobtainable: (units (unknown) date) All systems unknown) reviewed + are unremarkable except as noted in HPI (unknown) (no (unknown) (unknown) RSV (PCR) (units (unkn own) date) (Negative) unknown) (unknown) (no (unknown) (unknown) RSV (PCR) Negative (units (unknown) date) (Negative) unknown) (unknown) (no (unknown) (unknown) Radiologist's (units ( unknown) date) Impression: unknown) (unknown) (no (unknown) (unknown) Rate is 63 (units (unk nown) date) unknown) (unknown) (no (unknown) (unknown) Rate: regular rate (units (unknown) date) unknown) (unknown) (no (unknown) (unknown) Related Data (units (u nknown) date) unknown) (unknown) (no (unknown) (unknown) Resp (units (unkno wn) date) unknown) (unknown) (no (unknown) (unknown) Respiratory Rate (units (unknown) date) 16 18 unknown) (unknown) (no (unknown) (unknown) Respiratory Rate (units (unknown) date) 17 unknown) (unknown) (no (unknown) (unknown) Respiratory Rate (units (unknown) date) 19 08/02/22 01:20 unknown) (unknown) (no (unknown) (unknown) Respiratory Rate (units (unknown) date) 19 15 unknown) (unknown) (no (unknown) (unknown) Respiratory Rate (units (unknown) date) 27 H unknown) (unknown) (no (unknown) (unknown) Respiratory Rate (units (unknown) date) unknown) (unknown) (no (unknown) (unknown) Result diagrams: (units (unknown) date) unknown) (unknown) (no (unknown) (unknown) Retained ureteral (units (unknown) date) stent unknown) (unknown) (no (unknown) (unknown) Review of Systems (units (unknown) date) unknown) (unknown) (no (unknown) (unknown) Rhythm: regular (units (unknown) date) rhythm unknown) (unknown) (no (unknown) (unknown) Rx Instructions: (units (unknown) date) unknown) (unknown) (no (unknown) (unknown) SARS-CoV-2 (PCR) (units (unknown) date) (Negative) unknown) (unknown) (no (unknown) (unknown) SARS-CoV-2 (PCR) (units (unknown) date) Negative (Negative) unknown) (unknown) (no (unknown) (unknown) SVT (units (unkno wn) date) (supraventricular unknown) tachycardia) (unknown) (no (unknown) (unknown) Scores (units (unkno wn) date) unknown) (unknown) (no (unknown) (unknown) Signed By: (units (unk nown) date) unknown) (unknown) (no (unknown) (unknown) Skin (units (unkno wn) date) unknown) (unknown) (no (unknown) (unknown) Smoking Status: (units (unknown) date) Never smoker unknown) (unknown) (no (unknown) (unknown) Social History (units (unknown) date) (Reviewed 08/02/22 unknown) @ 05:41 by Mike Cobian DO) (unknown) (no (unknown) (unknown) Sodium 136 L (units (u nknown) date) (137-145) mmol/L unknown) (unknown) (no (unknown) (unknown) Sodium 137 (units (unk nown) date) (137-145) mmol/L unknown) (unknown) (no (unknown) (unknown) Sodium 139 (units (unk nown) date) (137-145) mmol/L unknown) (unknown) (no (unknown) (unknown) Sodium Chloride (units (unknown) date) (Normal Saline unknown) 0.9%) 1,000 mls @ 1,000 mls/hr IV BOLUS ONE (unknown) (no (unknown) (unknown) Sodium Chloride (units (unknown) date) (Normal Saline unknown) 0.9%) 1,000 mls @ 250 mls/hr IV CONT NORMAN (unknown) (no (unknown) (unknown) Sodium Urine (units (u nknown) date) Random Stat unknown) (unknown) (no (unknown) (unknown) Source: patient (units (unknown) date) and family unknown) (unknown) (no (unknown) (unknown) Speech: speech (units (unknown) date) normal unknown) (unknown) (no (unknown) (unknown) Start after 5 day (units (unknown) date) course of 2 caps unknown) daily is complete. (unknown) (no (unknown) (unknown) Stated complaint: (units (unknown) date) body pain/not able unknown) to eat or drink x 5 days (unknown) (no (unknown) (unknown) Stop: 08/02/22 (units (unknown) date) 02:39 unknown) (unknown) (no (unknown) (unknown) Stop: 08/02/22 (units (unknown) date) 04:57 unknown) (unknown) (no (unknown) (unknown) Stop: 08/02/22 (units (unknown) date) 07:44 unknown) (unknown) (no (unknown) (unknown) Stop: 08/02/22 (units (unknown) date) 08:23 unknown) (unknown) (no (unknown) (unknown) Substance Use (units ( unknown) date) Type: does not use unknown) (unknown) (no (unknown) (unknown) Surgical History (units (unknown) date) (Reviewed 08/02/22 unknown) @ 05:41 by Mike Cobian DO) (unknown) (no (unknown) (unknown) Temperature 98.7 F (units (unknown) date) 08/02/22 01:20 unknown) (unknown) (no (unknown) (unknown) Temperature 98.7 F (units (unknown) date) unknown) (unknown) (no (unknown) (unknown) Temperature (units (un known) date) unknown) (unknown) (no (unknown) (unknown) Time Seen by (units (u nknown) date) Provider: 08/02/22 unknown) 01:38 (unknown) (no (unknown) (unknown) Total Bilirubin (units (unknown) date) (0.2-1.3) mg/dL unknown) (unknown) (no (unknown) (unknown) Total Bilirubin (units (unknown) date) 0.7 (0.2-1.3) mg/dL unknown) (unknown) (no (unknown) (unknown) Total Protein (units ( unknown) date) (6.3-8.2) g/dL unknown) (unknown) (no (unknown) (unknown) Total Protein 7.3 (units (unknown) date) (6.3-8.2) g/dL unknown) (unknown) (no (unknown) (unknown) US - abdomen: (units ( unknown) date) unknown) (unknown) (no (unknown) (unknown) US abdomen (units (unk nown) date) complete Stat unknown) (unknown) (no (unknown) (unknown) Upset (units (unkno wn) date) unknown) (unknown) (no (unknown) (unknown) Ur Random Sodium (units (unknown) date) (30-90) mmol/L unknown) (unknown) (no (unknown) (unknown) Ur Random Sodium (units (unknown) date) 84 (30-90) mmol/L unknown) (unknown) (no (unknown) (unknown) Urine Creatinine (units (unknown) date) 69.7 mg/dL unknown) (unknown) (no (unknown) (unknown) Urine Creatinine (units (unknown) date) mg/dL unknown) (unknown) (no (unknown) (unknown) Urine Dip (units (unkn own) date) unknown) (unknown) (no (unknown) (unknown) Urine Specific (units (unknown) date) [place] 1.015 unknown) (unknown) (no (unknown) (unknown) Vital Signs - 8 hr (units (unknown) date) unknown) (unknown) (no (unknown) (unknown) Vital Signs (units (un known) date) unknown) (unknown) (no (unknown) (unknown) Vital signs: (units (u nknown) date) unknown) (unknown) (no (unknown) (unknown) WBC (4.5-11.0) (units (unknown) date) X103/uL unknown) (unknown) (no (unknown) (unknown) WBC 9.8 (4.5-11.0) (units (unknown) date) X103/uL unknown) (unknown) (no (unknown) (unknown) [Embedded Image (units (unknown) date) Not Available] unknown) (unknown) (no (unknown) (unknown) [From Pyridium] (units (unknown) date) unknown) (unknown) (no (unknown) (unknown) a couple days but (units (unknown) date) her symptoms were unknown) not improving and she started to feel worse (unknown) (no (unknown) (unknown) alcohol intake (units (unknown) date) frequency: 0-2 unknown) drinks per day (unknown) (no (unknown) (unknown) alcohol intake: (units (unknown) date) never unknown) (unknown) (no (unknown) (unknown) and below (units (unkn own) date) unknown) (unknown) (no (unknown) (unknown) biotin 5,000 mcg (units (unknown) date) Tablet, Sublingual unknown) (unknown) (no (unknown) (unknown) biotin 5,000 mcg (units (unknown) date) sublingual tablet unknown) 5,000 mcg sublingual DAILY 06/20/21 08/12/21 (unknown) (no (unknown) (unknown) breath activated (units (unknown) date) powder inhaler unknown) (unknown) (no (unknown) (unknown) budesonide 200 (units (unknown) date) mcg/actuation 50 unknown) mcg inhalation Q8HR 06/20/21 08/12/21 (unknown) (no (unknown) (unknown) budesonide 200 (units (unknown) date) mcg/actuation unknown) Aerosol Powdr Breath Activated (unknown) (no (unknown) (unknown) carvedilol 6.25 mg (units (unknown) date) Tablet unknown) (unknown) (no (unknown) (unknown) carvedilol 6.25 mg (units (unknown) date) tablet 6.25 mg PO unknown) BID 06/20/21 08/12/21 (unknown) (no (unknown) (unknown) cholecalciferol (units (unknown) date) (vitamin D3) 125 unknown) 125 mcg PO DAILY 06/20/21 08/12/21 (unknown) (no (unknown) (unknown) cholecalciferol (units (unknown) date) (vitamin D3) 125 unknown) mcg (5,000 unit) Tablet (unknown) (no (unknown) (unknown) ciprofloxacin HCl (units (unknown) date) 250 mg tablet 250 unknown) mg PO BEDTIME #60 tabs 09/02/21 (unknown) (no (unknown) (unknown) ciprofloxacin HCl (units (unknown) date) 250 mg tablet unknown) (unknown) (no (unknown) (unknown) consultation with (units (unknown) date) Nephrology. unknown) (unknown) (no (unknown) (unknown) creatinine at the (units (unknown) date) 1.3-1.7 range in unknown) her GFR in the 30s. Patient has not been (unknown) (no (unknown) (unknown) direction. She (units (unknown) date) comes to the unknown) emergency department today because of overall body (unknown) (no (unknown) (unknown) estradiol 0.01% (units (unknown) date) (0.1 mg/gram) 1 g unknown) vaginal 2XW #42.5 grams 08/19/21 (unknown) (no (unknown) (unknown) estradiol (units (unkn own) date) [Estrace] 0.01 % unknown) (0.1 mg/gram) cream (unknown) (no (unknown) (unknown) extremities (units (un known) date) unknown) (unknown) (no (unknown) (unknown) fosfomycin (units (unk nown) date) tromethamine 3 gram unknown) 3 g PO ONCE #1 ea 07/31/21 (unknown) (no (unknown) (unknown) fosfomycin (units (unk nown) date) tromethamine 3 gram unknown) 3 g PO ONCE #1 ea 08/01/21 (unknown) (no (unknown) (unknown) fosfomycin (units (unk nown) date) tromethamine 3 gram unknown) packet (unknown) (no (unknown) (unknown) furosemide 20 mg (units (unknown) date) Tablet unknown) (unknown) (no (unknown) (unknown) furosemide 20 mg (units (unknown) date) tablet 20 mg PO 6XW unknown) 06/20/21 08/12/21 (unknown) (no (unknown) (unknown) furosemide 40 mg (units (unknown) date) Tablet unknown) (unknown) (no (unknown) (unknown) furosemide 40 mg (units (unknown) date) tablet 40 mg PO unknown) WEEKLY 06/20/21 08/12/21 (unknown) (no (unknown) (unknown) having bowel (units (u nknown) date) movements. She unknown) denies any fevers. No recent travel. (unknown) (no (unknown) (unknown) household members: (units (unknown) date) spouse unknown) (unknown) (no (unknown) (unknown) is 8.9% which is (units (unknown) date) consistent with a unknown) post renal/obstructive pathology however I do (unknown) (no (unknown) (unknown) likely that the (units (unknown) date) cause of all of her unknown) nausea and vomiting even her abdominal (unknown) (no (unknown) (unknown) losartan 50 mg (units (unknown) date) Tablet unknown) (unknown) (no (unknown) (unknown) losartan 50 mg (units (unknown) date) tablet 50 mg PO unknown) DAILY 06/20/21 08/12/21 (unknown) (no (unknown) (unknown) mcg (5,000 unit) (units (unknown) date) tablet unknown) (unknown) (no (unknown) (unknown) metformin 500 mg (units (unknown) date) Tablet unknown) (unknown) (no (unknown) (unknown) metformin 500 mg (units (unknown) date) tablet 1,000 mg PO unknown) BID 07/26/21 08/12/21 (unknown) (no (unknown) (unknown) must administer (units (unknown) date) with a meal/food unknown) (unknown) (no (unknown) (unknown) not have a (units (unk nown) date) specific source of unknown) this as it does not appear to be an obstructive (unknown) (no (unknown) (unknown) obstructive (units (un known) date) uropathy. unknown) (unknown) (no (unknown) (unknown) of (units (unkno wn) date) unknown) (unknown) (no (unknown) (unknown) oral packet (units (un known) date) unknown) (unknown) (no (unknown) (unknown) oxycodone 5 mg (units (unknown) date) tablet 5 mg PO Q4H unknown) PRN pain #20 tabs 07/26/21 (unknown) (no (unknown) (unknown) oxycodone 5 mg (units (unknown) date) tablet unknown) (unknown) (no (unknown) (unknown) pain, belly pain, (units (unknown) date) vomiting, unable to unknown) drink for the past several days. Still (unknown) (no (unknown) (unknown) pain. She is in (units (unknown) date) acute renal unknown) failure/YESIKA given her creatinine of 10 and GFR 4. (unknown) (no (unknown) (unknown) phenazopyridine (units (unknown) date) Allergy Verified unknown) 08/12/21 08:17 (unknown) (no (unknown) (unknown) potassium 99 mg (units (unknown) date) Tablet unknown) (unknown) (no (unknown) (unknown) potassium 99 mg (units (unknown) date) tablet 99 mg PO unknown) DAILY 07/26/21 08/12/21 (unknown) (no (unknown) (unknown) prednisone Allergy (units (unknown) date) Severe Swelling unknown) Verified 08/02/22 01:20 (unknown) (no (unknown) (unknown) procaine [From (units (unknown) date) Novocain] Allergy unknown) Chest Pain Verified 08/02/22 01:20 (unknown) (no (unknown) (unknown) recently for UTI (units (unknown) date) like symptoms. Was unknown) sent home with Sherry. She took this for (unknown) (no (unknown) (unknown) rizatriptan (units (un known) date) Allergy Severe unknown) Difficulty Verified 08/02/22 01:20 (unknown) (no (unknown) (unknown) rosuvastatin 40 mg (units (unknown) date) Tablet unknown) (unknown) (no (unknown) (unknown) rosuvastatin 40 mg (units (unknown) date) tablet 40 mg PO unknown) DAILY 06/20/21 08/12/21 (unknown) (no (unknown) (unknown) s (units (unkno wn) date) unknown) (unknown) (no (unknown) (unknown) shellfish derived (units (unknown) date) AdvReac unknown) Gastrointestinal Verified 08/02/22 01:20 (unknown) (no (unknown) (unknown) signs of an (units (un known) date) infection. CT scans unknown) did not give a definitive etiology. Her FeNa (unknown) (no (unknown) (unknown) slightly. Care (units (unknown) date) turned over to unknown) [facility] to follow-up and most likely (unknown) (no (unknown) (unknown) so she contact her (units (unknown) date) primary doctor who unknown) looked up the culture results and told her (unknown) (no (unknown) (unknown) stone nor urinary (units (unknown) date) retention. After 2 unknown) L of fluid her creatinine only improved (unknown) (no (unknown) (unknown) takes 4 puffs (units ( unknown) date) qhs-(Pulmacort) unknown) (unknown) (no (unknown) (unknown) takes it 5x/week (units (unknown) date) unknown) (unknown) (no (unknown) (unknown) tamsulosin 0.4 mg (units (unknown) date) capsule 0.4 mg PO unknown) BEDTIME #60 caps 06/21/21 (unknown) (no (unknown) (unknown) tamsulosin 0.4 mg (units (unknown) date) capsule unknown) (unknown) (no (unknown) (unknown) tetracycline (units (u nknown) date) Allergy Severe unknown) ITCHING Verified 08/12/21 08:17 (unknown) (no (unknown) (unknown) that she did not (units (unknown) date) have an infection unknown) so she quit taking the medications per their (unknown) (no (unknown) (unknown) thiopental AdvReac (units (unknown) date) Palpitation unknown) Verified 08/02/22 01:20 (unknown) (no (unknown) (unknown) twice weekly (units (u nknown) date) thereafter. unknown) (unknown) (no (unknown) (unknown) upper abdominal (units (unknown) date) discomfort. Has unknown) pancreatitis based on her lipase which is most (unknown) (no (unknown) (unknown) vaginal cream (units ( unknown) date) (Estrace) unknown) (unknown) (no (unknown) (unknown) vomiting since (units (unknown) date) arrival here to the unknown) ER. Her urinalysis today does not show any (unknown) (no (unknown) (unknown) warfarin 2 mg (units ( unknown) date) Tablet unknown) (unknown) (no (unknown) (unknown) warfarin 2 mg (units ( unknown) date) tablet 2 mg PO 2XW unknown) 06/20/21 08/12/21 (unknown) (no (unknown) (unknown) warfarin 3 mg (units ( unknown) date) Tablet unknown) (unknown) (no (unknown) (unknown) warfarin 3 mg (units ( unknown) date) tablet 3 mg PO 5XW unknown) 06/20/21 08/12/21 Result panel 189 (unknown) (no date) (unknown) (unknown) 2978 u/l (unkn own) Result panel 190 (unknown) (no (unknown) (unknown) (no value) (units (unk nown) date) unknown) (unknown) (no (unknown) (unknown) <Francesca Chen, (units (unknown) date) DO - Last Filed: unknown) 08/02/22 08:51> (unknown) (no (unknown) (unknown) <Mike Cobian, (units (unknown) date) DO - Last Filed: unknown) 08/02/22 06:47> (unknown) (no (unknown) (unknown) 0.4 mg PO BEDTIME (units (unknown) date) Qty: 60 0RF unknown) (unknown) (no (unknown) (unknown) 01:17 01:40 01:40 (units (unknown) date) unknown) (unknown) (no (unknown) (unknown) 01:20 08/02/22 (units (unknown) date) unknown) (unknown) (no (unknown) (unknown) 01:39 08/02/22 (units (unknown) date) unknown) (unknown) (no (unknown) (unknown) 02:00 (units (unkno wn) date) unknown) (unknown) (no (unknown) (unknown) 02:32 08/02/22 (units (unknown) date) unknown) (unknown) (no (unknown) (unknown) 03:00 08/02/22 (units (unknown) date) unknown) (unknown) (no (unknown) (unknown) 03:30 05:30 07:46 (units (unknown) date) unknown) (unknown) (no (unknown) (unknown) 03:30 (units (unkno wn) date) unknown) (unknown) (no (unknown) (unknown) 03:35 08/02/22 (units (unknown) date) unknown) (unknown) (no (unknown) (unknown) [id number] (units (unkno wn) date) unknown) (unknown) (no (unknown) (unknown) 04:00 (units (unkno wn) date) unknown) (unknown) (no (unknown) (unknown) 04:01 08/02/22 (units (unknown) date) unknown) (unknown) (no (unknown) (unknown) 04:30 08/02/22 (units (unknown) date) unknown) (unknown) (no (unknown) (unknown) 04:30 (units (unkno wn) date) unknown) (unknown) (no (unknown) (unknown) 05:00 08/02/22 (units (unknown) date) unknown) (unknown) (no (unknown) (unknown) 05:00 (units (unkno wn) date) unknown) (unknown) (no (unknown) (unknown) 05:30 08/02/22 (units (unknown) date) unknown) (unknown) (no (unknown) (unknown) 05:30 (units (unkno wn) date) unknown) (unknown) (no (unknown) (unknown) 07:46 07:46 (units (un known) date) unknown) (unknown) (no (unknown) (unknown) 1 g vaginal 2XW (units (unknown) date) Qty: 42.5 3RF unknown) (unknown) (no (unknown) (unknown) 1,000 mg PO BID (units (unknown) date) unknown) (unknown) (no (unknown) (unknown) 10.0 and now 9.23. (units (unknown) date) [place] catheter is unknown) placed she has very clear urine draining. (unknown) (no (unknown) (unknown) 08/02/22 01:17 (units (unknown) date) unknown) (unknown) (no (unknown) (unknown) 08/02/22 01:25 (units (unknown) date) unknown) (unknown) (no (unknown) (unknown) 08/02/22 01:40 (units (unknown) date) unknown) (unknown) (no (unknown) (unknown) 08/02/22 02:20 (units (unknown) date) unknown) (unknown) (no (unknown) (unknown) 08/02/22 03:30 (units (unknown) date) unknown) (unknown) (no (unknown) (unknown) 08/02/22 05:30 (units (unknown) date) unknown) (unknown) (no (unknown) (unknown) 08/02/22 07:46 (units (unknown) date) unknown) (unknown) (no (unknown) (unknown) 08/02/22 07:50 (units (unknown) date) unknown) (unknown) (no (unknown) (unknown) 08/02/22 08/02/22 (units (unknown) date) 08/02/22 unknown) Range/Units (unknown) (no (unknown) (unknown) 08/02/22 08/02/22 (units (unknown) date) Range/Units unknown) (unknown) (no (unknown) (unknown) 08/02/22 (units (unkno wn) date) Bot[facility]-patient unknown) signed out to me by Dr. Cobian if seen evaluated (unknown) (no (unknown) (unknown) 08/02/22 (units (unkno wn) date) unknown) (unknown) (no (unknown) (unknown) 125 mcg PO DAILY (units (unknown) date) unknown) (unknown) (no (unknown) (unknown) 2 mg PO 2XW (units (un known) date) unknown) (unknown) (no (unknown) (unknown) 20 mg PO 6XW (units (u nknown) date) unknown) (unknown) (no (unknown) (unknown) 250 mg PO BEDTIME (units (unknown) date) Qty: 60 0RF unknown) (unknown) (no (unknown) (unknown) 3 g PO ONCE Qty: 1 (units (unknown) date) 0RF unknown) (unknown) (no (unknown) (unknown) 3 mg PO 5XW (units (un known) date) unknown) (unknown) (no (unknown) (unknown) 40 mg PO DAILY (units (unknown) date) unknown) (unknown) (no (unknown) (unknown) 40 mg PO WEEKLY (units (unknown) date) unknown) (unknown) (no (unknown) (unknown) 5 mg PO Q4H PRN (units (unknown) date) (Reason: pain) Qty: unknown) 20 0RF (unknown) (no (unknown) (unknown) 5,000 mcg (units (unkn own) date) sublingual DAILY unknown) (unknown) (no (unknown) (unknown) 50 mcg INHALATION (units (unknown) date) Q8HR unknown) (unknown) (no (unknown) (unknown) 50 mg PO DAILY (units (unknown) date) unknown) (unknown) (no (unknown) (unknown) 6.25 mg PO BID (units (unknown) date) unknown) (unknown) (no (unknown) (unknown) 99 mg PO DAILY (units (unknown) date) unknown) (unknown) (no (unknown) (unknown) AICD (automatic (units (unknown) date) cardioverter/defibr unknown) illator) present (11/29/20) (unknown) (no (unknown) (unknown) ALT (<35) IU/L (units (unknown) date) unknown) (unknown) (no (unknown) (unknown) ALT 27 (<35) IU/L (units (unknown) date) unknown) (unknown) (no (unknown) (unknown) AST (14-36) IU/L (units (unknown) date) unknown) (unknown) (no (unknown) (unknown) AST 32 (14-36) (units (unknown) date) IU/L unknown) (unknown) (no (unknown) (unknown) Acute kidney (units (u nknown) date) injury unknown) (unknown) (no (unknown) (unknown) Admin: 08/02/22 (units (unknown) date) 02:15 Dose: 1,000 unknown) mls/hr (unknown) (no (unknown) (unknown) Admin: 08/02/22 (units (unknown) date) 04:04 Dose: 1,000 unknown) mls/hr (unknown) (no (unknown) (unknown) Afib (units (unkno wn) date) unknown) (unknown) (no (unknown) (unknown) Age/Sex: 71 / F (units (unknown) date) unknown) (unknown) (no (unknown) (unknown) Albumin (3.5-5.0) (units (unknown) date) g/dL unknown) (unknown) (no (unknown) (unknown) Albumin 4.2 (units (un known) date) (3.5-5.0) g/dL unknown) (unknown) (no (unknown) (unknown) Albumin/Globulin (units (unknown) date) Ratio (1.0-2.8) unknown) (unknown) (no (unknown) (unknown) Albumin/Globulin (units (unknown) date) Ratio 1.4 (1.0-2.8) unknown) (unknown) (no (unknown) (unknown) Alkaline (units (unkno wn) date) Phosphatase unknown) (38-126) U/L (unknown) (no (unknown) (unknown) Alkaline (units (unkno wn) date) Phosphatase 54 unknown) (38-126) U/L (unknown) (no (unknown) (unknown) Allergies (units (unkn own) date) unknown) (unknown) (no (unknown) (unknown) Allergy/AdvReac (units (unknown) date) Type Severity unknown) Reaction Status Date / Time (unknown) (no (unknown) (unknown) Appearance: (units (un known) date) grossly normal and unknown) well kempt (unknown) (no (unknown) (unknown) Atrially (units (unkno wn) date) sensed/ventricularl unknown) y paced (unknown) (no (unknown) (unknown) Attestation: I (units (unknown) date) personally reviewed unknown) and interpreted this ECG as follows: (unknown) (no (unknown) (unknown) Attestation: I (units (unknown) date) reviewed the unknown) patient's lab results. (unknown) (no (unknown) (unknown) Attestation: I (units (unknown) date) reviewed the unknown) patient's medical records. (unknown) (no (unknown) (unknown) Auscultation: (units ( unknown) date) clear to unknown) auscultation bilaterally (unknown) (no (unknown) (unknown) BMP [Basic (units (unk nown) date) Metabolic Panel] unknown) Stat (unknown) (no (unknown) (unknown) BUN 63 H (7-17) (units (unknown) date) mg/dL unknown) (unknown) (no (unknown) (unknown) BUN 65 H (7-17) (units (unknown) date) mg/dL unknown) (unknown) (no (unknown) (unknown) BUN 67 H (7-17) (units (unknown) date) mg/dL unknown) (unknown) (no (unknown) (unknown) BUN/Creatinine (units (unknown) date) Ratio 6.7 (6-22) unknown) (unknown) (no (unknown) (unknown) BUN/Creatinine (units (unknown) date) Ratio 6.9 (6-22) unknown) (unknown) (no (unknown) (unknown) BUN/Creatinine (units (unknown) date) Ratio 7.0 (6-22) unknown) (unknown) (no (unknown) (unknown) Back/Spine/Pelvis (units (unknown) date) unknown) (unknown) (no (unknown) (unknown) Back: No CVA (units (u nknown) date) tenderness unknown) (unknown) (no (unknown) (unknown) Baso # (Auto) (units ( unknown) date) (0-100) /uL unknown) (unknown) (no (unknown) (unknown) Baso # (Auto) 100 (units (unknown) date) (0-100) /uL unknown) (unknown) (no (unknown) (unknown) Baso % (Auto) (units ( unknown) date) (0-2) % unknown) (unknown) (no (unknown) (unknown) Baso % (Auto) 0.7 (units (unknown) date) (0-2) % unknown) (unknown) (no (unknown) (unknown) Bedside Urine (units ( unknown) date) Bilirubin - unknown) Negative (unknown) (no (unknown) (unknown) Bedside Urine (units ( unknown) date) Glucose Negative unknown) (unknown) (no (unknown) (unknown) Bedside Urine (units ( unknown) date) Ketone +/- 5 unknown) (unknown) (no (unknown) (unknown) Bedside Urine (units ( unknown) date) Leukocytes - unknown) Negative (unknown) (no (unknown) (unknown) Bedside Urine (units ( unknown) date) Nitrite - Negative unknown) (unknown) (no (unknown) (unknown) Bedside Urine (units ( unknown) date) Occult Blood unknown) (unknown) (no (unknown) (unknown) Bedside Urine (units ( unknown) date) Protein ++ 100 unknown) (unknown) (no (unknown) (unknown) Bedside Urine (units ( unknown) date) Urobilinogen - unknown) Negative (unknown) (no (unknown) (unknown) Bedside Urine pH (units (unknown) date) 6.0 unknown) (unknown) (no (unknown) (unknown) Bilateral (units (unkn own) date) perinephric unknown) stranding. This can be an asymptomatic finding. (unknown) (no (unknown) (unknown) Bilateral renal (units (unknown) date) cysts unknown) (unknown) (no (unknown) (unknown) Blood Pressure (units (unknown) date) 109/53 L unknown) (unknown) (no (unknown) (unknown) Blood Pressure (units (unknown) date) 119/59 L unknown) (unknown) (no (unknown) (unknown) Blood Pressure (units (unknown) date) 130/69 08/02/22 unknown) 01:20 (unknown) (no (unknown) (unknown) Blood Pressure (units (unknown) date) 130/69 unknown) (unknown) (no (unknown) (unknown) Blood Pressure (units (unknown) date) 143/65 H 124/59 L unknown) (unknown) (no (unknown) (unknown) Blood Pressure (units (unknown) date) 146/67 H unknown) (unknown) (no (unknown) (unknown) Blood Pressure (units (unknown) date) unknown) (unknown) (no (unknown) (unknown) Breathing (units (unkn own) date) unknown) (unknown) (no (unknown) (unknown) CHF (congestive (units (unknown) date) heart failure) unknown) (unknown) (no (unknown) (unknown) CT kidney ureter (units (unknown) date) bladder (KUB) Stat unknown) (unknown) (no (unknown) (unknown) CT scan - (units (unkn own) date) abdomen/pelvis: unknown) (unknown) (no (unknown) (unknown) CVA (cerebral (units ( unknown) date) vascular accident) unknown) (unknown) (no (unknown) (unknown) Calcium 8.4 (units (un known) date) (8.4-10.2) mg/dL unknown) (unknown) (no (unknown) (unknown) Calcium 9.9 (units (un known) date) (8.4-10.2) mg/dL unknown) (unknown) (no (unknown) (unknown) Carbon Dioxide 13 (units (unknown) date) L (22-32) mmol/L unknown) (unknown) (no (unknown) (unknown) Cardiac arrest (units (unknown) date) (11/29/20) unknown) (unknown) (no (unknown) (unknown) Cardio (units (unkno wn) date) unknown) (unknown) (no (unknown) (unknown) Cardiomyopathy (units (unknown) date) unknown) (unknown) (no (unknown) (unknown) Chest (units (unkno wn) date) unknown) (unknown) (no (unknown) (unknown) Chief complaint: (units (unknown) date) Nausea/Vomiting/Huong unknown) rrhea (unknown) (no (unknown) (unknown) Chloride 103 (units (u nknown) date) (98-107) mmol/L unknown) (unknown) (no (unknown) (unknown) Chloride 109 H (units (unknown) date) (98-107) mmol/L unknown) (unknown) (no (unknown) (unknown) Cognition: normal (units (unknown) date) cognition unknown) (unknown) (no (unknown) (unknown) Complete Blood (units (unknown) date) Count AUTO DIFF unknown) Stat (unknown) (no (unknown) (unknown) Comprehensive (units ( unknown) date) Metabolic Panel unknown) Stat (unknown) (no (unknown) (unknown) Const (units (unkno wn) date) unknown) (unknown) (no (unknown) (unknown) Course (units (unkno wn) date) unknown) (unknown) (no (unknown) (unknown) Covid-19 + FLU A/B (units (unknown) date) + RSV - PCR Stat unknown) (unknown) (no (unknown) (unknown) Creatinine 10.0 H* (units (unknown) date) (0.52-1.04) mg/dL unknown) (unknown) (no (unknown) (unknown) Creatinine 9.15 H* (units (unknown) date) (0.52-1.04) mg/dL unknown) (unknown) (no (unknown) (unknown) Creatinine 9.23 H* (units (unknown) date) (0.52-1.04) mg/dL unknown) (unknown) (no (unknown) (unknown) Creatinine Urine (units (unknown) date) Random Stat unknown) (unknown) (no (unknown) (unknown) : 1950 (units (unknown) date) Acct:[id number] unknown) (unknown) (no (unknown) (unknown) Date of Service: (units (unknown) date) 08/02/22 unknown) (unknown) (no (unknown) (unknown) Departure (units (unkn own) date) unknown) (unknown) (no (unknown) (unknown) Diabetes (units (unkno wn) date) unknown) (unknown) (no (unknown) (unknown) Discharge Plan (units (unknown) date) unknown) (unknown) (no (unknown) (unknown) Discontinued (units (u nknown) date) Medications unknown) (unknown) (no (unknown) (unknown) Documented By: GC (units (unknown) date) unknown) (unknown) (no (unknown) (unknown) Documented By: KM (units (unknown) date) unknown) (unknown) (no (unknown) (unknown) Documented By: NR (units (unknown) date) unknown) (unknown) (no (unknown) (unknown) ECG Data (units (unkno wn) date) unknown) (unknown) (no (unknown) (unknown) ED Orders (units (unkn own) date) unknown) (unknown) (no (unknown) (unknown) EKG-12 Lead Stat (units (unknown) date) unknown) (unknown) (no (unknown) (unknown) ER Physician: (units ( unknown) date) Francesca Chen D.O. unknown) (unknown) (no (unknown) (unknown) Effort + (units (unkno wn) date) Inspection: normal unknown) respiratory effort (unknown) (no (unknown) (unknown) Emergency Report (units (unknown) date) unknown) (unknown) (no (unknown) (unknown) Eos # (Auto) (units (u nknown) date) (0-450) /uL unknown) (unknown) (no (unknown) (unknown) Eos # (Auto) 100 (units (unknown) date) (0-450) /uL unknown) (unknown) (no (unknown) (unknown) Eos % (Auto) (2-4) (units (unknown) date) % unknown) (unknown) (no (unknown) (unknown) Eos % (Auto) 1.2 L (units (unknown) date) (2-4) % unknown) (unknown) (no (unknown) (unknown) Esterase (units (unkno wn) date) unknown) (unknown) (no (unknown) (unknown) Estimated GFR 4 L (units (unknown) date) (>60) mL/min unknown) (unknown) (no (unknown) (unknown) Exam (units (unkno wn) date) unknown) (unknown) (no (unknown) (unknown) Extrem (units (unkno wn) date) unknown) (unknown) (no (unknown) (unknown) GCS (units (unkno wn) date) unknown) (unknown) (no (unknown) (unknown) GI (units (unkno wn) date) unknown) (unknown) (no (unknown) (unknown) General (units (unkno wn) date) unknown) (unknown) (no (unknown) (unknown) General: (units (unkno wn) date) cooperative, unknown) comfortable and No ill appearing (unknown) (no (unknown) (unknown) General: no rashes (units (unknown) date) or lesions noted unknown) (unknown) (no (unknown) (unknown) General: normal to (units (unknown) date) inspection, unknown) capillary refill normal and No edema (unknown) (no (unknown) (unknown) General: patient (units (unknown) date) alert, patient unknown) awake, patient oriented x3 and moves all (unknown) (no (unknown) (unknown) [place] coma scale (units (unknown) date) eye opening: unknown) Spontaneous (unknown) (no (unknown) (unknown) [place] coma scale (units (unknown) date) motor response: unknown) Obey commands (unknown) (no (unknown) (unknown) [place] coma scale (units (unknown) date) total score: 15 unknown) (unknown) (no (unknown) (unknown) [place] coma scale (units (unknown) date) verbal response: unknown) Orientated (unknown) (no (unknown) (unknown) Globulin (1.7-4.1) (units (unknown) date) g/dL unknown) (unknown) (no (unknown) (unknown) Globulin 3.1 (units (u nknown) date) (1.7-4.1) g/dL unknown) (unknown) (no (unknown) (unknown) Glucose 82 (units (unk nown) date) (80-110) mg/dL unknown) (unknown) (no (unknown) (unknown) Glucose 86 (units (unk nown) date) (80-110) mg/dL unknown) (unknown) (no (unknown) (unknown) Glucose 88 (units (unk nown) date) (80-110) mg/dL unknown) (unknown) (no (unknown) (unknown) HENMT (units (unkno wn) date) unknown) (unknown) (no (unknown) (unknown) HLD (units (unkno wn) date) (hyperlipidemia) unknown) (unknown) (no (unknown) (unknown) HPI - (units (unkno wn) date) Nausea/Vomiting/Huong unknown) rrhea (unknown) (no (unknown) (unknown) HPI Narrative: (units (unknown) date) unknown) (unknown) (no (unknown) (unknown) HTN (hypertension) (units (unknown) date) unknown) (unknown) (no (unknown) (unknown) Hct (36-46) % (units ( unknown) date) unknown) (unknown) (no (unknown) (unknown) Hct 38.4 (36-46) % (units (unknown) date) unknown) (unknown) (no (unknown) (unknown) Head: normal to (units (unknown) date) inspection and unknown) normocephalic (unknown) (no (unknown) (unknown) Hgb (12.0-16.0) (units (unknown) date) g/dL unknown) (unknown) (no (unknown) (unknown) Hgb 12.7 (units (unkno wn) date) (12.0-16.0) g/dL unknown) (unknown) (no (unknown) (unknown) History of Present (units (unknown) date) Illness unknown) (unknown) (no (unknown) (unknown) History of UTI (units (unknown) date) unknown) (unknown) (no (unknown) (unknown) History of colon (units (unknown) date) surgery unknown) (unknown) (no (unknown) (unknown) History of (units (unk nown) date) colonoscopy unknown) (unknown) (no (unknown) (unknown) History of (units (unk nown) date) hysterectomy unknown) (unknown) (no (unknown) (unknown) History of (units (unk nown) date) nephrolithiasis unknown) (unknown) (no (unknown) (unknown) History of (units (unk nown) date) thyroidectomy, unknown) subtotal (unknown) (no (unknown) (unknown) Home Medications (units (unknown) date) unknown) (unknown) (no (unknown) (unknown) Hx of appendectomy (units (unknown) date) unknown) (unknown) (no (unknown) (unknown) Hx of breast (units (u nknown) date) surgery unknown) (unknown) (no (unknown) (unknown) Hx of cystoscopy (units (unknown) date) (06/20/21) unknown) (unknown) (no (unknown) (unknown) Hx of eye surgery (units (unknown) date) unknown) (unknown) (no (unknown) (unknown) INR (0.9-1.3) (units ( unknown) date) unknown) (unknown) (no (unknown) (unknown) INR 7.1 H* (units (unk nown) date) (0.9-1.3) unknown) (unknown) (no (unknown) (unknown) Imaging Data (units (u nknown) date) unknown) (unknown) (no (unknown) (unknown) Influenza A (units (un known) date) (RT-PCR) (NEGATIVE) unknown) (unknown) (no (unknown) (unknown) Influenza A (units (un known) date) (RT-PCR) Flu a unknown) negative (NEGATIVE) (unknown) (no (unknown) (unknown) Influenza B (units (un known) date) (RT-PCR) (NEGATIVE) unknown) (unknown) (no (unknown) (unknown) Influenza B (units (un known) date) (RT-PCR) Flu b unknown) negative (NEGATIVE) (unknown) (no (unknown) (unknown) Initial Vital (units ( unknown) date) Signs unknown) (unknown) (no (unknown) (unknown) Initial Vital (units ( unknown) date) Signs: unknown) (unknown) (no (unknown) (unknown) Insert 1 g (units (unk nown) date) intravaginally at unknown) HS times 12 days then 1 g intravaginally at HS (unknown) (no (unknown) (unknown) Inspection: normal (units (unknown) date) to inspection unknown) (unknown) (no (unknown) (unknown) Interpretation: (units (unknown) date) unknown) (unknown) (no (unknown) (unknown) [facility] (units (unknown) date) [address] unknown) [place] [address] (unknown) (no (unknown) (unknown) LDH [Lactate (units (u nknown) date) Dehydrogenase] Stat unknown) (unknown) (no (unknown) (unknown) Lab Data (units (unkno wn) date) unknown) (unknown) (no (unknown) (unknown) Lab Results (units (un known) date) unknown) (unknown) (no (unknown) (unknown) Label Comments: (units (unknown) date) unknown) (unknown) (no (unknown) (unknown) Labs: (units (unkno wn) date) unknown) (unknown) (no (unknown) (unknown) Lactate (units (unkno wn) date) Dehydrogenase unknown) (120-246) U/L (unknown) (no (unknown) (unknown) Lactate (units (unkno wn) date) Dehydrogenase 231 unknown) (120-246) U/L (unknown) (no (unknown) (unknown) Last Admin: (units (un known) date) 08/02/22 02:48 unknown) Dose: 4 mg (unknown) (no (unknown) (unknown) Last Admin: (units (un known) date) 08/02/22 06:16 unknown) Dose: 250 mls/hr (unknown) (no (unknown) (unknown) Last Admin: (units (un known) date) 08/02/22 08:01 unknown) Dose: 6 ml (unknown) (no (unknown) (unknown) Last Infusion: (units (unknown) date) 08/02/22 03:27 unknown) Dose: 0 mls/hr (unknown) (no (unknown) (unknown) Last Infusion: (units (unknown) date) 08/02/22 05:05 unknown) Dose: 0 mls/hr (unknown) (no (unknown) (unknown) Left ureteral (units ( unknown) date) calculus unknown) (unknown) (no (unknown) (unknown) Lidocaine HCl (units ( unknown) date) (Lidocaine 2% unknown) (Glydo) 6 Ml Gel) 6 ml TOP NOW ONE (unknown) (no (unknown) (unknown) Lip/Tongue/Throat (units (unknown) date) unknown) (unknown) (no (unknown) (unknown) Lipase (23-300) (units (unknown) date) U/L unknown) (unknown) (no (unknown) (unknown) Lipase 2998 H (units ( unknown) date) (23-300) U/L unknown) (unknown) (no (unknown) (unknown) Lipase Stat (units (un known) date) unknown) (unknown) (no (unknown) (unknown) Lymph # (Auto) (units (unknown) date) (9345-1596) /uL unknown) (unknown) (no (unknown) (unknown) Lymph # (Auto) (units (unknown) date) 1500 (1234-2740) unknown) /uL (unknown) (no (unknown) (unknown) Lymph % (Auto) (units (unknown) date) (25-40) % unknown) (unknown) (no (unknown) (unknown) Lymph % (Auto) (units (unknown) date) 15.0 L (25-40) % unknown) (unknown) (no (unknown) (unknown) MCH (26-34) PG (units (unknown) date) unknown) (unknown) (no (unknown) (unknown) MCH 29.9 (26-34) (units (unknown) date) PG unknown) (unknown) (no (unknown) (unknown) MCHC (30-36) % (units (unknown) date) unknown) (unknown) (no (unknown) (unknown) MCHC 33.1 (30-36) (units (unknown) date) % unknown) (unknown) (no (unknown) (unknown) MCV (80-100) fL (units (unknown) date) unknown) (unknown) (no (unknown) (unknown) MCV 90.3 (80-100) (units (unknown) date) fL unknown) (unknown) (no (unknown) (unknown) MDM - (units (unkno wn) date) Nausea/Vomiting/Huong unknown) rrhea (unknown) (no (unknown) (unknown) MDM Narrative (units ( unknown) date) unknown) (unknown) (no (unknown) (unknown) Medical History (units (unknown) date) (Reviewed 08/02/22 unknown) @ 05:41 by Mike Cobian DO) (unknown) (no (unknown) (unknown) Medical Records (units (unknown) date) unknown) (unknown) (no (unknown) (unknown) Medical decision (units (unknown) date) making narrative: unknown) (unknown) (no (unknown) (unknown) Medication (units (unk nown) date) Instructions unknown) Recorded Confirmed (unknown) (no (unknown) (unknown) Medication (units (unk nown) date) Instructions unknown) Recorded (unknown) (no (unknown) (unknown) Mild echogenic (units (unknown) date) kidneys suggesting unknown) possible medical renal disease. No (unknown) (no (unknown) (unknown) Mode of arrival: (units (unknown) date) Ambulatory unknown) (unknown) (no (unknown) (unknown) [place] # (Auto) (units ( unknown) date) (0-900) /uL unknown) (unknown) (no (unknown) (unknown) [place] # (Auto) 700 (units (unknown) date) (0-900) /uL unknown) (unknown) (no (unknown) (unknown) [place] % (Auto) (units ( unknown) date) (3-14) % unknown) (unknown) (no (unknown) (unknown) [place] % (Auto) 7.6 (units (unknown) date) (3-14) % unknown) (unknown) (no (unknown) (unknown) Neuro (units (unkno wn) date) unknown) (unknown) (no (unknown) (unknown) Neut # (Auto) (units ( unknown) date) (1535-8141) /uL unknown) (unknown) (no (unknown) (unknown) Neut # (Auto) 7400 (units (unknown) date) H (0106-7293) /uL unknown) (unknown) (no (unknown) (unknown) Neut % (Auto) (units ( unknown) date) (50-75) % unknown) (unknown) (no (unknown) (unknown) Neut % (Auto) 75.5 (units (unknown) date) H (50-75) % unknown) (unknown) (no (unknown) (unknown) No Action (units (unkn own) date) unknown) (unknown) (no (unknown) (unknown) No obstructive (units (unknown) date) uropathy unknown) (unknown) (no (unknown) (unknown) Ondansetron HCl (units (unknown) date) (Ondansetron 4 Mg unknown) Odt) 4 mg PO NOW PRN (unknown) (no (unknown) (unknown) Ondansetron HCl (units (unknown) date) (Ondansetron 4 Mg/2 unknown) Ml Inj) 4 mg IV NOW PRN (unknown) (no (unknown) (unknown) Ordered: (units (unkno wn) date) unknown) (unknown) (no (unknown) (unknown) Orders (units (unkno wn) date) unknown) (unknown) (no (unknown) (unknown) Other: (units (unkno wn) date) unknown) (unknown) (no (unknown) (unknown) Oxygen Delivery (units (unknown) date) Method 08/02/22 unknown) 01:20 (unknown) (no (unknown) (unknown) Oxygen Delivery (units (unknown) date) Method Room Air unknown) (unknown) (no (unknown) (unknown) Oxygen Delivery (units (unknown) date) Method unknown) (unknown) (no (unknown) (unknown) PRN Reason: Nausea (units (unknown) date) And Vomiting unknown) (unknown) (no (unknown) (unknown) PT (10.1-12.7) (units (unknown) date) SECONDS unknown) (unknown) (no (unknown) (unknown) PT 82.9 H (units (unkn own) date) (10.1-12.7) SECONDS unknown) (unknown) (no (unknown) (unknown) 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 unknown) To seen here in the emergency department (unknown) (no (unknown) (unknown) Patient is (units (unk nown) date) well-appearing. Is unknown) not tachycardic. Not hypotensive. She does have (unknown) (no (unknown) (unknown) Patient: (units (unkno wn) date) Natasha Jaquez K unknown) MR#: [id number] (unknown) (no (unknown) (unknown) Phytonadione (units (u nknown) date) (Phytonadione (Vit unknown) K1) 5 Mg Tablet) 10 mg PO NOW ONE (unknown) (no (unknown) (unknown) Please take this (units (unknown) date) the morning of unknown) August 04, 2021. (unknown) (no (unknown) (unknown) Plt Count (units (unkn own) date) (150-400) X103/uL unknown) (unknown) (no (unknown) (unknown) Plt Count 262 (units ( unknown) date) (150-400) X103/uL unknown) (unknown) (no (unknown) (unknown) Postmenopausal (units (unknown) date) atrophic vaginitis unknown) (unknown) (no (unknown) (unknown) Potassium 5.5 H (units (unknown) date) (3.4-5.1) mmol/L unknown) (unknown) (no (unknown) (unknown) Potassium 5.7 H (units (unknown) date) (3.4-5.1) mmol/L unknown) (unknown) (no (unknown) (unknown) Potassium 5.8 H (units (unknown) date) (3.4-5.1) mmol/L unknown) (unknown) (no (unknown) (unknown) Prescriptions: (units (unknown) date) unknown) (unknown) (no (unknown) (unknown) Previous Rx's (units ( unknown) date) unknown) (unknown) (no (unknown) (unknown) Prior labs that we (units (unknown) date) have for her were unknown) greater than 1 year ago which has her (unknown) (no (unknown) (unknown) Procalcitonin (units ( unknown) date) (<0.5) ng/mL unknown) (unknown) (no (unknown) (unknown) Procalcitonin 0.33 (units (unknown) date) (<0.5) ng/mL unknown) (unknown) (no (unknown) (unknown) Procalcitonin Stat (units (unknown) date) unknown) (unknown) (no (unknown) (unknown) Prothrombin Time (units (unknown) date) INR Stat unknown) (unknown) (no (unknown) (unknown) Psych (units (unkno wn) date) unknown) (unknown) (no (unknown) (unknown) Pulse Oximetry 95 (units (unknown) date) 08/02/22 01:20 unknown) (unknown) (no (unknown) (unknown) Pulse Oximetry 95 (units (unknown) date) 95 97 unknown) (unknown) (no (unknown) (unknown) Pulse Oximetry 96 (units (unknown) date) 97 96 unknown) (unknown) (no (unknown) (unknown) Pulse Oximetry 97 (units (unknown) date) 94 unknown) (unknown) (no (unknown) (unknown) Pulse Oximetry 97 (units (unknown) date) unknown) (unknown) (no (unknown) (unknown) Pulse Oximetry 98 (units (unknown) date) 98 unknown) (unknown) (no (unknown) (unknown) Pulse Oximetry 98 (units (unknown) date) unknown) (unknown) (no (unknown) (unknown) Pulse Rate 61 67 (units (unknown) date) unknown) (unknown) (no (unknown) (unknown) Pulse Rate 62 (units ( unknown) date) unknown) (unknown) (no (unknown) (unknown) Pulse Rate 65 65 (units (unknown) date) unknown) (unknown) (no (unknown) (unknown) Pulse Rate 68 (units ( unknown) date) unknown) (unknown) (no (unknown) (unknown) Pulse Rate 70 62 (units (unknown) date) 82 unknown) (unknown) (no (unknown) (unknown) Pulse Rate 78 (units ( unknown) date) 08/02/22 01:20 unknown) (unknown) (no (unknown) (unknown) Pulse Rate 78 61 (units (unknown) date) unknown) (unknown) (no (unknown) (unknown) Pyelonephritis can (units (unknown) date) appear similar unknown) noncontrast examination (unknown) (no (unknown) (unknown) RBC (4.0-5.2) (units ( unknown) date) X106/uL unknown) (unknown) (no (unknown) (unknown) RBC 4.26 (4.0-5.2) (units (unknown) date) X106/uL unknown) (unknown) (no (unknown) (unknown) RDW (11.6-14.8) % (units (unknown) date) unknown) (unknown) (no (unknown) (unknown) RDW 14.5 (units (unkno wn) date) (11.6-14.8) % unknown) (unknown) (no (unknown) (unknown) ROS Unobtainable: (units (unknown) date) All systems unknown) reviewed + are unremarkable except as noted in HPI (unknown) (no (unknown) (unknown) RSV (PCR) (units (unkn own) date) (Negative) unknown) (unknown) (no (unknown) (unknown) RSV (PCR) Negative (units (unknown) date) (Negative) unknown) (unknown) (no (unknown) (unknown) Radiologist's (units ( unknown) date) Impression: unknown) (unknown) (no (unknown) (unknown) Rate is 63 (units (unk nown) date) unknown) (unknown) (no (unknown) (unknown) Rate: regular rate (units (unknown) date) unknown) (unknown) (no (unknown) (unknown) Related Data (units (u nknown) date) unknown) (unknown) (no (unknown) (unknown) Resp (units (unkno wn) date) unknown) (unknown) (no (unknown) (unknown) Respiratory Rate (units (unknown) date) 16 18 unknown) (unknown) (no (unknown) (unknown) Respiratory Rate (units (unknown) date) 17 unknown) (unknown) (no (unknown) (unknown) Respiratory Rate (units (unknown) date) 19 08/02/22 01:20 unknown) (unknown) (no (unknown) (unknown) Respiratory Rate (units (unknown) date) 19 15 unknown) (unknown) (no (unknown) (unknown) Respiratory Rate (units (unknown) date) 27 H unknown) (unknown) (no (unknown) (unknown) Respiratory Rate (units (unknown) date) unknown) (unknown) (no (unknown) (unknown) Result diagrams: (units (unknown) date) unknown) (unknown) (no (unknown) (unknown) Retained ureteral (units (unknown) date) stent unknown) (unknown) (no (unknown) (unknown) Review of Systems (units (unknown) date) unknown) (unknown) (no (unknown) (unknown) Rhythm: regular (units (unknown) date) rhythm unknown) (unknown) (no (unknown) (unknown) Rx Instructions: (units (unknown) date) unknown) (unknown) (no (unknown) (unknown) SARS-CoV-2 (PCR) (units (unknown) date) (Negative) unknown) (unknown) (no (unknown) (unknown) SARS-CoV-2 (PCR) (units (unknown) date) Negative (Negative) unknown) (unknown) (no (unknown) (unknown) SVT (units (unkno wn) date) (supraventricular unknown) tachycardia) (unknown) (no (unknown) (unknown) Scores (units (unkno wn) date) unknown) (unknown) (no (unknown) (unknown) She continues to (units (unknown) date) get IV fluids. No unknown) sign of infection. INR is found to be (unknown) (no (unknown) (unknown) Signed By: (units (unk nown) date) unknown) (unknown) (no (unknown) (unknown) Skin (units (unkno wn) date) unknown) (unknown) (no (unknown) (unknown) Smoking Status: (units (unknown) date) Never smoker unknown) (unknown) (no (unknown) (unknown) Social History (units (unknown) date) (Reviewed 08/02/22 unknown) @ 05:41 by Mike Cobian DO) (unknown) (no (unknown) (unknown) Sodium 136 L (units (u nknown) date) (137-145) mmol/L unknown) (unknown) (no (unknown) (unknown) Sodium 137 (units (unk nown) date) (137-145) mmol/L unknown) (unknown) (no (unknown) (unknown) Sodium 139 (units (unk nown) date) (137-145) mmol/L unknown) (unknown) (no (unknown) (unknown) Sodium Chloride (units (unknown) date) (Normal Saline unknown) 0.9%) 1,000 mls @ 1,000 mls/hr IV BOLUS ONE (unknown) (no (unknown) (unknown) Sodium Chloride (units (unknown) date) (Normal Saline unknown) 0.9%) 1,000 mls @ 250 mls/hr IV CONT NORMAN (unknown) (no (unknown) (unknown) Sodium Urine (units (u nknown) date) Random Stat unknown) (unknown) (no (unknown) (unknown) Source: patient (units (unknown) date) and family unknown) (unknown) (no (unknown) (unknown) Speech: speech (units (unknown) date) normal unknown) (unknown) (no (unknown) (unknown) Start after 5 day (units (unknown) date) course of 2 caps unknown) daily is complete. (unknown) (no (unknown) (unknown) Stated complaint: (units (unknown) date) body pain/not able unknown) to eat or drink x 5 days (unknown) (no (unknown) (unknown) Stop: 08/02/22 (units (unknown) date) 02:39 unknown) (unknown) (no (unknown) (unknown) Stop: 08/02/22 (units (unknown) date) 04:57 unknown) (unknown) (no (unknown) (unknown) Stop: 08/02/22 (units (unknown) date) 07:44 unknown) (unknown) (no (unknown) (unknown) Stop: 08/02/22 (units (unknown) date) 08:23 unknown) (unknown) (no (unknown) (unknown) Substance Use (units ( unknown) date) Type: does not use unknown) (unknown) (no (unknown) (unknown) Surgical History (units (unknown) date) (Reviewed 08/02/22 unknown) @ 05:41 by Mike Cobian DO) (unknown) (no (unknown) (unknown) Temperature 98.7 F (units (unknown) date) 08/02/22 01:20 unknown) (unknown) (no (unknown) (unknown) Temperature 98.7 F (units (unknown) date) unknown) (unknown) (no (unknown) (unknown) Temperature (units (un known) date) unknown) (unknown) (no (unknown) (unknown) Time Seen by (units (u nknown) date) Provider: 08/02/22 unknown) 01:38 (unknown) (no (unknown) (unknown) Total Bilirubin (units (unknown) date) (0.2-1.3) mg/dL unknown) (unknown) (no (unknown) (unknown) Total Bilirubin (units (unknown) date) 0.7 (0.2-1.3) mg/dL unknown) (unknown) (no (unknown) (unknown) Total Protein (units ( unknown) date) (6.3-8.2) g/dL unknown) (unknown) (no (unknown) (unknown) Total Protein 7.3 (units (unknown) date) (6.3-8.2) g/dL unknown) (unknown) (no (unknown) (unknown) US - abdomen: (units ( unknown) date) unknown) (unknown) (no (unknown) (unknown) US abdomen (units (unk nown) date) complete Stat unknown) (unknown) (no (unknown) (unknown) Upset (units (unkno wn) date) unknown) (unknown) (no (unknown) (unknown) Ur Random Sodium (units (unknown) date) (30-90) mmol/L unknown) (unknown) (no (unknown) (unknown) Ur Random Sodium (units (unknown) date) 84 (30-90) mmol/L unknown) (unknown) (no (unknown) (unknown) Urine Creatinine (units (unknown) date) 69.7 mg/dL unknown) (unknown) (no (unknown) (unknown) Urine Creatinine (units (unknown) date) mg/dL unknown) (unknown) (no (unknown) (unknown) Urine Dip (units (unkn own) date) unknown) (unknown) (no (unknown) (unknown) Urine Specific (units (unknown) date) [place] 1.015 unknown) (unknown) (no (unknown) (unknown) Vital Signs - 8 hr (units (unknown) date) unknown) (unknown) (no (unknown) (unknown) Vital Signs (units (un known) date) unknown) (unknown) (no (unknown) (unknown) Vital signs: (units (u nknown) date) unknown) (unknown) (no (unknown) (unknown) WBC (4.5-11.0) (units (unknown) date) X103/uL unknown) (unknown) (no (unknown) (unknown) WBC 9.8 (4.5-11.0) (units (unknown) date) X103/uL unknown) (unknown) (no (unknown) (unknown) [Embedded Image (units (unknown) date) Not Available] unknown) (unknown) (no (unknown) (unknown) [From Pyridium] (units (unknown) date) unknown) (unknown) (no (unknown) (unknown) a couple days but (units (unknown) date) her symptoms were unknown) not improving and she started to feel worse (unknown) (no (unknown) (unknown) abdominal pain. (units (unknown) date) Blood work today unknown) does show improvement in high mild (unknown) (no (unknown) (unknown) alcohol intake (units (unknown) date) frequency: 0-2 unknown) drinks per day (unknown) (no (unknown) (unknown) alcohol intake: (units (unknown) date) never unknown) (unknown) (no (unknown) (unknown) and below (units (unkn own) date) unknown) (unknown) (no (unknown) (unknown) biotin 5,000 mcg (units (unknown) date) Tablet, Sublingual unknown) (unknown) (no (unknown) (unknown) biotin 5,000 mcg (units (unknown) date) sublingual tablet unknown) 5,000 mcg sublingual DAILY 06/20/21 08/12/21 (unknown) (no (unknown) (unknown) breath activated (units (unknown) date) powder inhaler unknown) (unknown) (no (unknown) (unknown) budesonide 200 (units (unknown) date) mcg/actuation 50 unknown) mcg inhalation Q8HR 06/20/21 08/12/21 (unknown) (no (unknown) (unknown) budesonide 200 (units (unknown) date) mcg/actuation unknown) Aerosol Powdr Breath Activated (unknown) (no (unknown) (unknown) carvedilol 6.25 mg (units (unknown) date) Tablet unknown) (unknown) (no (unknown) (unknown) carvedilol 6.25 mg (units (unknown) date) tablet 6.25 mg PO unknown) BID 06/20/21 08/12/21 (unknown) (no (unknown) (unknown) cholecalciferol (units (unknown) date) (vitamin D3) 125 unknown) 125 mcg PO DAILY 06/20/21 08/12/21 (unknown) (no (unknown) (unknown) cholecalciferol (units (unknown) date) (vitamin D3) 125 unknown) mcg (5,000 unit) Tablet (unknown) (no (unknown) (unknown) ciprofloxacin HCl (units (unknown) date) 250 mg tablet 250 unknown) mg PO BEDTIME #60 tabs 09/02/21 (unknown) (no (unknown) (unknown) ciprofloxacin HCl (units (unknown) date) 250 mg tablet unknown) (unknown) (no (unknown) (unknown) consultation with (units (unknown) date) Nephrology. unknown) (unknown) (no (unknown) (unknown) creatinine at the (units (unknown) date) 1.3-1.7 range in unknown) her GFR in the 30s. Patient has not been (unknown) (no (unknown) (unknown) direction. She (units (unknown) date) comes to the unknown) emergency department today because of overall body (unknown) (no (unknown) (unknown) elevated at 7.1 (units (unknown) date) thought to be unknown) somehow related to her renal failure. Vitamin K (unknown) (no (unknown) (unknown) estradiol 0.01% (units (unknown) date) (0.1 mg/gram) 1 g unknown) vaginal 2XW #42.5 grams 08/19/21 (unknown) (no (unknown) (unknown) estradiol (units (unkn own) date) [Estrace] 0.01 % unknown) (0.1 mg/gram) cream (unknown) (no (unknown) (unknown) extremities (units (un known) date) unknown) (unknown) (no (unknown) (unknown) fosfomycin (units (unk nown) date) tromethamine 3 gram unknown) 3 g PO ONCE #1 ea 07/31/21 (unknown) (no (unknown) (unknown) fosfomycin (units (unk nown) date) tromethamine 3 gram unknown) 3 g PO ONCE #1 ea 08/01/21 (unknown) (no (unknown) (unknown) fosfomycin (units (unk nown) date) tromethamine 3 gram unknown) packet (unknown) (no (unknown) (unknown) furosemide 20 mg (units (unknown) date) Tablet unknown) (unknown) (no (unknown) (unknown) furosemide 20 mg (units (unknown) date) tablet 20 mg PO 6XW unknown) 06/20/21 08/12/21 (unknown) (no (unknown) (unknown) furosemide 40 mg (units (unknown) date) Tablet unknown) (unknown) (no (unknown) (unknown) furosemide 40 mg (units (unknown) date) tablet 40 mg PO unknown) WEEKLY 06/20/21 08/12/21 (unknown) (no (unknown) (unknown) having bowel (units (u nknown) date) movements. She unknown) denies any fevers. No recent travel. (unknown) (no (unknown) (unknown) household members: (units (unknown) date) spouse unknown) (unknown) (no (unknown) (unknown) hyperkalemia it (units (unknown) date) was 5.8 now was 5 unknown) 5. Improvement in her creatinine as well was (unknown) (no (unknown) (unknown) is 8.9% which is (units (unknown) date) consistent with a unknown) post renal/obstructive pathology however I do (unknown) (no (unknown) (unknown) is ordered. (units (un known) date) unknown) (unknown) (no (unknown) (unknown) likely that the (units (unknown) date) cause of all of her unknown) nausea and vomiting even her abdominal (unknown) (no (unknown) (unknown) losartan 50 mg (units (unknown) date) Tablet unknown) (unknown) (no (unknown) (unknown) losartan 50 mg (units (unknown) date) tablet 50 mg PO unknown) DAILY 06/20/21 08/12/21 (unknown) (no (unknown) (unknown) mcg (5,000 unit) (units (unknown) date) tablet unknown) (unknown) (no (unknown) (unknown) metformin 500 mg (units (unknown) date) Tablet unknown) (unknown) (no (unknown) (unknown) metformin 500 mg (units (unknown) date) tablet 1,000 mg PO unknown) BID 07/26/21 08/12/21 (unknown) (no (unknown) (unknown) must administer (units (unknown) date) with a meal/food unknown) (unknown) (no (unknown) (unknown) not have a (units (unk nown) date) specific source of unknown) this as it does not appear to be an obstructive (unknown) (no (unknown) (unknown) obstructive (units (un known) date) uropathy. unknown) (unknown) (no (unknown) (unknown) of (units (unkno wn) date) unknown) (unknown) (no (unknown) (unknown) oral packet (units (un known) date) unknown) (unknown) (no (unknown) (unknown) oxycodone 5 mg (units (unknown) date) tablet 5 mg PO Q4H unknown) PRN pain #20 tabs 07/26/21 (unknown) (no (unknown) (unknown) oxycodone 5 mg (units (unknown) date) tablet unknown) (unknown) (no (unknown) (unknown) pain, belly pain, (units (unknown) date) vomiting, unable to unknown) drink for the past several days. Still (unknown) (no (unknown) (unknown) pain. She is in (units (unknown) date) acute renal unknown) failure/YESIKA given her creatinine of 10 and GFR 4. (unknown) (no (unknown) (unknown) patient myself. (units (unknown) date) She says overall unknown) she is feeling better. No nausea vomiting no (unknown) (no (unknown) (unknown) phenazopyridine (units (unknown) date) Allergy Verified unknown) 08/12/21 08:17 (unknown) (no (unknown) (unknown) potassium 99 mg (units (unknown) date) Tablet unknown) (unknown) (no (unknown) (unknown) potassium 99 mg (units (unknown) date) tablet 99 mg PO unknown) DAILY 07/26/21 08/12/21 (unknown) (no (unknown) (unknown) prednisone Allergy (units (unknown) date) Severe Swelling unknown) Verified 08/02/22 01:20 (unknown) (no (unknown) (unknown) procaine [From (units (unknown) date) Novocain] Allergy unknown) Chest Pain Verified 08/02/22 01:20 (unknown) (no (unknown) (unknown) recently for UTI (units (unknown) date) like symptoms. Was unknown) sent home with [facility]. She took this for (unknown) (no (unknown) (unknown) rizatriptan (units (un known) date) Allergy Severe unknown) Difficulty Verified 08/02/22 01:20 (unknown) (no (unknown) (unknown) rosuvastatin 40 mg (units (unknown) date) Tablet unknown) (unknown) (no (unknown) (unknown) rosuvastatin 40 mg (units (unknown) date) tablet 40 mg PO unknown) DAILY 06/20/21 08/12/21 (unknown) (no (unknown) (unknown) s (units (unkno wn) date) unknown) (unknown) (no (unknown) (unknown) shellfish derived (units (unknown) date) AdvReac unknown) Gastrointestinal Verified 08/02/22 01:20 (unknown) (no (unknown) (unknown) signs of an (units (un known) date) infection. CT scans unknown) did not give a definitive etiology. Her FeNa (unknown) (no (unknown) (unknown) slightly. Care (units (unknown) date) turned over to Dr. pritchard) Gustavo to follow-up and most likely (unknown) (no (unknown) (unknown) so she contact her (units (unknown) date) primary doctor who unknown) looked up the culture results and told her (unknown) (no (unknown) (unknown) stone nor urinary (units (unknown) date) retention. After 2 unknown) L of fluid her creatinine only improved (unknown) (no (unknown) (unknown) takes 4 puffs (units ( unknown) date) qhs-(Pulmacort) unknown) (unknown) (no (unknown) (unknown) takes it 5x/week (units (unknown) date) unknown) (unknown) (no (unknown) (unknown) tamsulosin 0.4 mg (units (unknown) date) capsule 0.4 mg PO unknown) BEDTIME #60 caps 06/21/21 (unknown) (no (unknown) (unknown) tamsulosin 0.4 mg (units (unknown) date) capsule unknown) (unknown) (no (unknown) (unknown) tetracycline (units (u nknown) date) Allergy Severe unknown) ITCHING Verified 08/12/21 08:17 (unknown) (no (unknown) (unknown) that she did not (units (unknown) date) have an infection unknown) so she quit taking the medications per their (unknown) (no (unknown) (unknown) thiopental AdvReac (units (unknown) date) Palpitation unknown) Verified 08/02/22 01:20 (unknown) (no (unknown) (unknown) twice weekly (units (u nknown) date) thereafter. unknown) (unknown) (no (unknown) (unknown) upper abdominal (units (unknown) date) discomfort. Has unknown) pancreatitis based on her lipase which is most (unknown) (no (unknown) (unknown) vaginal cream (units ( unknown) date) (Estrace) unknown) (unknown) (no (unknown) (unknown) vomiting since (units (unknown) date) arrival here to the unknown) ER. Her urinalysis today does not show any (unknown) (no (unknown) (unknown) warfarin 2 mg (units ( unknown) date) Tablet unknown) (unknown) (no (unknown) (unknown) warfarin 2 mg (units ( unknown) date) tablet 2 mg PO 2XW unknown) 06/20/21 08/12/21 (unknown) (no (unknown) (unknown) warfarin 3 mg (units ( unknown) date) Tablet unknown) (unknown) (no (unknown) (unknown) warfarin 3 mg (units ( unknown) date) tablet 3 mg PO 5XW unknown) 06/20/21 08/12/21 Result panel [id number] (unknown) (no (unknown) (unknown) (no value) (units (unk nown) date) unknown) (unknown) (no (unknown) (unknown) <Francesca Chen, (units (unknown) date) DO - Last Filed: unknown) 08/02/22 09:00> (unknown) (no (unknown) (unknown) <Mike Cobian, (units (unknown) date) DO - Last Filed: unknown) 08/02/22 06:47> (unknown) (no (unknown) (unknown) 0.4 mg PO BEDTIME (units (unknown) date) Qty: 60 0RF unknown) (unknown) (no (unknown) (unknown) 01:17 01:40 01:40 (units (unknown) date) unknown) (unknown) (no (unknown) (unknown) 01:20 08/02/22 (units (unknown) date) unknown) (unknown) (no (unknown) (unknown) 01:39 08/02/22 (units (unknown) date) unknown) (unknown) (no (unknown) (unknown) 02:00 (units (unkno wn) date) unknown) (unknown) (no (unknown) (unknown) 02:32 08/02/22 (units (unknown) date) unknown) (unknown) (no (unknown) (unknown) 03:00 08/02/22 (units (unknown) date) unknown) (unknown) (no (unknown) (unknown) 03:30 05:30 07:46 (units (unknown) date) unknown) (unknown) (no (unknown) (unknown) 03:30 (units (unkno wn) date) unknown) (unknown) (no (unknown) (unknown) 03:35 08/02/22 (units (unknown) date) unknown) (unknown) (no (unknown) (unknown) [id number] (units (unkno wn) date) unknown) (unknown) (no (unknown) (unknown) 04:00 (units (unkno wn) date) unknown) (unknown) (no (unknown) (unknown) 04:01 08/02/22 (units (unknown) date) unknown) (unknown) (no (unknown) (unknown) 04:30 08/02/22 (units (unknown) date) unknown) (unknown) (no (unknown) (unknown) 04:30 (units (unkno wn) date) unknown) (unknown) (no (unknown) (unknown) 05:00 08/02/22 (units (unknown) date) unknown) (unknown) (no (unknown) (unknown) 05:00 (units (unkno wn) date) unknown) (unknown) (no (unknown) (unknown) 05:30 08/02/22 (units (unknown) date) unknown) (unknown) (no (unknown) (unknown) 05:30 (units (unkno wn) date) unknown) (unknown) (no (unknown) (unknown) 07:46 07:46 07:50 (units (unknown) date) unknown) (unknown) (no (unknown) (unknown) 1 g vaginal 2XW (units (unknown) date) Qty: 42.5 3RF unknown) (unknown) (no (unknown) (unknown) 1,000 mg PO BID (units (unknown) date) unknown) (unknown) (no (unknown) (unknown) 10.0 and now 9.23. (units (unknown) date) [place] catheter is unknown) placed she has very clear urine draining. (unknown) (no (unknown) (unknown) 08/02/22 01:17 (units (unknown) date) unknown) (unknown) (no (unknown) (unknown) 08/02/22 01:25 (units (unknown) date) unknown) (unknown) (no (unknown) (unknown) 08/02/22 01:40 (units (unknown) date) unknown) (unknown) (no (unknown) (unknown) 08/02/22 02:20 (units (unknown) date) unknown) (unknown) (no (unknown) (unknown) 08/02/22 03:30 (units (unknown) date) unknown) (unknown) (no (unknown) (unknown) 08/02/22 05:30 (units (unknown) date) unknown) (unknown) (no (unknown) (unknown) 08/02/22 07:46 (units (unknown) date) unknown) (unknown) (no (unknown) (unknown) 08/02/22 07:50 (units (unknown) date) unknown) (unknown) (no (unknown) (unknown) 08/02/22 08/02/22 (units (unknown) date) 08/02/22 unknown) Range/Units (unknown) (no (unknown) (unknown) 08/02/22 12:00 (units (unknown) date) unknown) (unknown) (no (unknown) (unknown) 08/02/22 (units (unkno wn) date) Botnick-patient unknown) signed out to me by Dr. Cobian if seen evaluated (unknown) (no (unknown) (unknown) 08/02/22 (units (unkno wn) date) unknown) (unknown) (no (unknown) (unknown) 125 mcg PO DAILY (units (unknown) date) unknown) (unknown) (no (unknown) (unknown) 2 mg PO 2XW (units (un known) date) unknown) (unknown) (no (unknown) (unknown) 20 mg PO 6XW (units (u nknown) date) unknown) (unknown) (no (unknown) (unknown) 250 mg PO BEDTIME (units (unknown) date) Qty: 60 0RF unknown) (unknown) (no (unknown) (unknown) 3 g PO ONCE Qty: 1 (units (unknown) date) 0RF unknown) (unknown) (no (unknown) (unknown) 3 mg PO 5XW (units (un known) date) unknown) (unknown) (no (unknown) (unknown) 40 mg PO DAILY (units (unknown) date) unknown) (unknown) (no (unknown) (unknown) 40 mg PO WEEKLY (units (unknown) date) unknown) (unknown) (no (unknown) (unknown) 5 mg PO Q4H PRN (units (unknown) date) (Reason: pain) Qty: unknown) 20 0RF (unknown) (no (unknown) (unknown) 5,000 mcg (units (unkn own) date) sublingual DAILY unknown) (unknown) (no (unknown) (unknown) 50 mcg INHALATION (units (unknown) date) Q8HR unknown) (unknown) (no (unknown) (unknown) 50 mg PO DAILY (units (unknown) date) unknown) (unknown) (no (unknown) (unknown) 6.25 mg PO BID (units (unknown) date) unknown) (unknown) (no (unknown) (unknown) 99 mg PO DAILY (units (unknown) date) unknown) (unknown) (no (unknown) (unknown) AICD (automatic (units (unknown) date) cardioverter/defibr unknown) illator) present (11/29/20) (unknown) (no (unknown) (unknown) ALT (<35) IU/L (units (unknown) date) unknown) (unknown) (no (unknown) (unknown) ALT 27 (<35) IU/L (units (unknown) date) unknown) (unknown) (no (unknown) (unknown) AST (14-36) IU/L (units (unknown) date) unknown) (unknown) (no (unknown) (unknown) AST 32 (14-36) (units (unknown) date) IU/L unknown) (unknown) (no (unknown) (unknown) Acute kidney (units (u nknown) date) injury unknown) (unknown) (no (unknown) (unknown) Admin: 08/02/22 (units (unknown) date) 02:15 Dose: 1,000 unknown) mls/hr (unknown) (no (unknown) (unknown) Admin: 08/02/22 (units (unknown) date) 04:04 Dose: 1,000 unknown) mls/hr (unknown) (no (unknown) (unknown) Afib (units (unkno wn) date) unknown) (unknown) (no (unknown) (unknown) Age/Sex: 71 / F (units (unknown) date) unknown) (unknown) (no (unknown) (unknown) Albumin (3.5-5.0) (units (unknown) date) g/dL unknown) (unknown) (no (unknown) (unknown) Albumin 4.2 (units (un known) date) (3.5-5.0) g/dL unknown) (unknown) (no (unknown) (unknown) Albumin/Globulin (units (unknown) date) Ratio (1.0-2.8) unknown) (unknown) (no (unknown) (unknown) Albumin/Globulin (units (unknown) date) Ratio 1.4 (1.0-2.8) unknown) (unknown) (no (unknown) (unknown) Alkaline (units (unkno wn) date) Phosphatase unknown) (38-126) U/L (unknown) (no (unknown) (unknown) Alkaline (units (unkno wn) date) Phosphatase 54 unknown) (38-126) U/L (unknown) (no (unknown) (unknown) Allergies (units (unkn own) date) unknown) (unknown) (no (unknown) (unknown) Allergy/AdvReac (units (unknown) date) Type Severity unknown) Reaction Status Date / Time (unknown) (no (unknown) (unknown) Appearance: (units (un known) date) grossly normal and unknown) well kempt (unknown) (no (unknown) (unknown) Atrially (units (unkno wn) date) sensed/ventricularl unknown) y paced (unknown) (no (unknown) (unknown) Attestation: I (units (unknown) date) personally reviewed unknown) and interpreted this ECG as follows: (unknown) (no (unknown) (unknown) Attestation: I (units (unknown) date) reviewed the unknown) patient's lab results. (unknown) (no (unknown) (unknown) Attestation: I (units (unknown) date) reviewed the unknown) patient's medical records. (unknown) (no (unknown) (unknown) Auscultation: (units ( unknown) date) clear to unknown) auscultation bilaterally (unknown) (no (unknown) (unknown) BMP [Basic (units (unk nown) date) Metabolic Panel] unknown) Stat (unknown) (no (unknown) (unknown) BUN 63 H (7-17) (units (unknown) date) mg/dL unknown) (unknown) (no (unknown) (unknown) BUN 65 H (7-17) (units (unknown) date) mg/dL unknown) (unknown) (no (unknown) (unknown) BUN 67 H (7-17) (units (unknown) date) mg/dL unknown) (unknown) (no (unknown) (unknown) BUN/Creatinine (units (unknown) date) Ratio 6.7 (6-22) unknown) (unknown) (no (unknown) (unknown) BUN/Creatinine (units (unknown) date) Ratio 6.9 (6-22) unknown) (unknown) (no (unknown) (unknown) BUN/Creatinine (units (unknown) date) Ratio 7.0 (6-22) unknown) (unknown) (no (unknown) (unknown) Back/Spine/Pelvis (units (unknown) date) unknown) (unknown) (no (unknown) (unknown) Back: No CVA (units (u nknown) date) tenderness unknown) (unknown) (no (unknown) (unknown) Baso # (Auto) (units ( unknown) date) (0-100) /uL unknown) (unknown) (no (unknown) (unknown) Baso # (Auto) 100 (units (unknown) date) (0-100) /uL unknown) (unknown) (no (unknown) (unknown) Baso % (Auto) (units ( unknown) date) (0-2) % unknown) (unknown) (no (unknown) (unknown) Baso % (Auto) 0.7 (units (unknown) date) (0-2) % unknown) (unknown) (no (unknown) (unknown) Bedside Urine (units ( unknown) date) Bilirubin - unknown) Negative (unknown) (no (unknown) (unknown) Bedside Urine (units ( unknown) date) Glucose Negative unknown) (unknown) (no (unknown) (unknown) Bedside Urine (units ( unknown) date) Ketone +/- 5 unknown) (unknown) (no (unknown) (unknown) Bedside Urine (units ( unknown) date) Leukocytes - unknown) Negative (unknown) (no (unknown) (unknown) Bedside Urine (units ( unknown) date) Nitrite - Negative unknown) (unknown) (no (unknown) (unknown) Bedside Urine (units ( unknown) date) Occult Blood unknown) (unknown) (no (unknown) (unknown) Bedside Urine (units ( unknown) date) Protein ++ 100 unknown) (unknown) (no (unknown) (unknown) Bedside Urine (units ( unknown) date) Urobilinogen - unknown) Negative (unknown) (no (unknown) (unknown) Bedside Urine pH (units (unknown) date) 6.0 unknown) (unknown) (no (unknown) (unknown) Bilateral (units (unkn own) date) perinephric unknown) stranding. This can be an asymptomatic finding. (unknown) (no (unknown) (unknown) Bilateral renal (units (unknown) date) cysts unknown) (unknown) (no (unknown) (unknown) Blood Pressure (units (unknown) date) 109/53 L unknown) (unknown) (no (unknown) (unknown) Blood Pressure (units (unknown) date) 119/59 L unknown) (unknown) (no (unknown) (unknown) Blood Pressure (units (unknown) date) 130/69 08/02/22 unknown) 01:20 (unknown) (no (unknown) (unknown) Blood Pressure (units (unknown) date) 130/69 unknown) (unknown) (no (unknown) (unknown) Blood Pressure (units (unknown) date) 143/65 H 124/59 L unknown) (unknown) (no (unknown) (unknown) Blood Pressure (units (unknown) date) 146/67 H unknown) (unknown) (no (unknown) (unknown) Blood Pressure (units (unknown) date) unknown) (unknown) (no (unknown) (unknown) Breathing (units (unkn own) date) unknown) (unknown) (no (unknown) (unknown) CHF (congestive (units (unknown) date) heart failure) unknown) (unknown) (no (unknown) (unknown) CT kidney ureter (units (unknown) date) bladder (KUB) Stat unknown) (unknown) (no (unknown) (unknown) CT scan - (units (unkn own) date) abdomen/pelvis: unknown) (unknown) (no (unknown) (unknown) CVA (cerebral (units ( unknown) date) vascular accident) unknown) (unknown) (no (unknown) (unknown) Calcium 8.4 (units (un known) date) (8.4-10.2) mg/dL unknown) (unknown) (no (unknown) (unknown) Calcium 9.9 (units (un known) date) (8.4-10.2) mg/dL unknown) (unknown) (no (unknown) (unknown) Carbon Dioxide 13 (units (unknown) date) L (22-32) mmol/L unknown) (unknown) (no (unknown) (unknown) Cardiac arrest (units (unknown) date) (11/29/20) unknown) (unknown) (no (unknown) (unknown) Cardio (units (unkno wn) date) unknown) (unknown) (no (unknown) (unknown) Cardiomyopathy (units (unknown) date) unknown) (unknown) (no (unknown) (unknown) Chest (units (unkno wn) date) unknown) (unknown) (no (unknown) (unknown) Chief complaint: (units (unknown) date) Nausea/Vomiting/Huong unknown) rrhea (unknown) (no (unknown) (unknown) Chloride 103 (units (u nknown) date) (98-107) mmol/L unknown) (unknown) (no (unknown) (unknown) Chloride 109 H (units (unknown) date) (98-107) mmol/L unknown) (unknown) (no (unknown) (unknown) Cognition: normal (units (unknown) date) cognition unknown) (unknown) (no (unknown) (unknown) Complete Blood (units (unknown) date) Count AUTO DIFF unknown) Stat (unknown) (no (unknown) (unknown) Comprehensive (units ( unknown) date) Metabolic Panel unknown) Stat (unknown) (no (unknown) (unknown) Const (units (unkno wn) date) unknown) (unknown) (no (unknown) (unknown) Course (units (unkno wn) date) unknown) (unknown) (no (unknown) (unknown) Covid-19 + FLU A/B (units (unknown) date) + RSV - PCR Stat unknown) (unknown) (no (unknown) (unknown) Creatinine 10.0 H* (units (unknown) date) (0.52-1.04) mg/dL unknown) (unknown) (no (unknown) (unknown) Creatinine 9.15 H* (units (unknown) date) (0.52-1.04) mg/dL unknown) (unknown) (no (unknown) (unknown) Creatinine 9.23 H* (units (unknown) date) (0.52-1.04) mg/dL unknown) (unknown) (no (unknown) (unknown) Creatinine Urine (units (unknown) date) Random Stat unknown) (unknown) (no (unknown) (unknown) : 1950 (units (unknown) date) Acct:[id number] unknown) (unknown) (no (unknown) (unknown) Date of Service: (units (unknown) date) 08/02/22 unknown) (unknown) (no (unknown) (unknown) Departure (units (unkn own) date) unknown) (unknown) (no (unknown) (unknown) Diabetes (units (unkno wn) date) unknown) (unknown) (no (unknown) (unknown) Discharge Plan (units (unknown) date) unknown) (unknown) (no (unknown) (unknown) Discontinued (units (u nknown) date) Medications unknown) (unknown) (no (unknown) (unknown) Documented By: GC (units (unknown) date) unknown) (unknown) (no (unknown) (unknown) Documented By: KM (units (unknown) date) unknown) (unknown) (no (unknown) (unknown) Documented By: NR (units (unknown) date) unknown) (unknown) (no (unknown) (unknown) ECG Data (units (unkno wn) date) unknown) (unknown) (no (unknown) (unknown) ED Orders (units (unkn own) date) unknown) (unknown) (no (unknown) (unknown) EKG-12 Lead Stat (units (unknown) date) unknown) (unknown) (no (unknown) (unknown) ER Physician: (units ( unknown) date) Francesca Chen D.O. unknown) (unknown) (no (unknown) (unknown) Effort + (units (unkno wn) date) Inspection: normal unknown) respiratory effort (unknown) (no (unknown) (unknown) Emergency Report (units (unknown) date) unknown) (unknown) (no (unknown) (unknown) Eos # (Auto) (units (u nknown) date) (0-450) /uL unknown) (unknown) (no (unknown) (unknown) Eos # (Auto) 100 (units (unknown) date) (0-450) /uL unknown) (unknown) (no (unknown) (unknown) Eos % (Auto) (2-4) (units (unknown) date) % unknown) (unknown) (no (unknown) (unknown) Eos % (Auto) 1.2 L (units (unknown) date) (2-4) % unknown) (unknown) (no (unknown) (unknown) Esterase (units (unkno wn) date) unknown) (unknown) (no (unknown) (unknown) Estimated GFR 4 L (units (unknown) date) (>60) mL/min unknown) (unknown) (no (unknown) (unknown) Exam (units (unkno wn) date) unknown) (unknown) (no (unknown) (unknown) Extrem (units (unkno wn) date) unknown) (unknown) (no (unknown) (unknown) GCS (units (unkno wn) date) unknown) (unknown) (no (unknown) (unknown) GI (units (unkno wn) date) unknown) (unknown) (no (unknown) (unknown) General (units (unkno wn) date) unknown) (unknown) (no (unknown) (unknown) General: (units (unkno wn) date) cooperative, unknown) comfortable and No ill appearing (unknown) (no (unknown) (unknown) General: no rashes (units (unknown) date) or lesions noted unknown) (unknown) (no (unknown) (unknown) General: normal to (units (unknown) date) inspection, unknown) capillary refill normal and No edema (unknown) (no (unknown) (unknown) General: patient (units (unknown) date) alert, patient unknown) awake, patient oriented x3 and moves all (unknown) (no (unknown) (unknown) [place] coma scale (units (unknown) date) eye opening: unknown) Spontaneous (unknown) (no (unknown) (unknown) [place] coma scale (units (unknown) date) motor response: unknown) Obey commands (unknown) (no (unknown) (unknown) [place] coma scale (units (unknown) date) total score: 15 unknown) (unknown) (no (unknown) (unknown) [place] coma scale (units (unknown) date) verbal response: unknown) Orientated (unknown) (no (unknown) (unknown) Globulin (1.7-4.1) (units (unknown) date) g/dL unknown) (unknown) (no (unknown) (unknown) Globulin 3.1 (units (u nknown) date) (1.7-4.1) g/dL unknown) (unknown) (no (unknown) (unknown) Glucose 82 (units (unk nown) date) (80-110) mg/dL unknown) (unknown) (no (unknown) (unknown) Glucose 86 (units (unk nown) date) (80-110) mg/dL unknown) (unknown) (no (unknown) (unknown) Glucose 88 (units (unk nown) date) (80-110) mg/dL unknown) (unknown) (no (unknown) (unknown) HENMT (units (unkno wn) date) unknown) (unknown) (no (unknown) (unknown) HLD (units (unkno wn) date) (hyperlipidemia) unknown) (unknown) (no (unknown) (unknown) HPI - (units (unkno wn) date) Nausea/Vomiting/Huong unknown) rrhea (unknown) (no (unknown) (unknown) HPI Narrative: (units (unknown) date) unknown) (unknown) (no (unknown) (unknown) HTN (hypertension) (units (unknown) date) unknown) (unknown) (no (unknown) (unknown) Hct (36-46) % (units ( unknown) date) unknown) (unknown) (no (unknown) (unknown) Hct 38.4 (36-46) % (units (unknown) date) unknown) (unknown) (no (unknown) (unknown) Head: normal to (units (unknown) date) inspection and unknown) normocephalic (unknown) (no (unknown) (unknown) Hgb (12.0-16.0) (units (unknown) date) g/dL unknown) (unknown) (no (unknown) (unknown) Hgb 12.7 (units (unkno wn) date) (12.0-16.0) g/dL unknown) (unknown) (no (unknown) (unknown) History of Present (units (unknown) date) Illness unknown) (unknown) (no (unknown) (unknown) History of UTI (units (unknown) date) unknown) (unknown) (no (unknown) (unknown) History of colon (units (unknown) date) surgery unknown) (unknown) (no (unknown) (unknown) History of (units (unk nown) date) colonoscopy unknown) (unknown) (no (unknown) (unknown) History of (units (unk nown) date) hysterectomy unknown) (unknown) (no (unknown) (unknown) History of (units (unk nown) date) nephrolithiasis unknown) (unknown) (no (unknown) (unknown) History of (units (unk nown) date) thyroidectomy, unknown) subtotal (unknown) (no (unknown) (unknown) Home Medications (units (unknown) date) unknown) (unknown) (no (unknown) (unknown) Hx of appendectomy (units (unknown) date) unknown) (unknown) (no (unknown) (unknown) Hx of breast (units (u nknown) date) surgery unknown) (unknown) (no (unknown) (unknown) Hx of cystoscopy (units (unknown) date) (06/20/21) unknown) (unknown) (no (unknown) (unknown) Hx of eye surgery (units (unknown) date) unknown) (unknown) (no (unknown) (unknown) INR (0.9-1.3) (units ( unknown) date) unknown) (unknown) (no (unknown) (unknown) INR 7.1 H* (units (unk nown) date) (0.9-1.3) unknown) (unknown) (no (unknown) (unknown) Imaging Data (units (u nknown) date) unknown) (unknown) (no (unknown) (unknown) Influenza A (units (un known) date) (RT-PCR) (NEGATIVE) unknown) (unknown) (no (unknown) (unknown) Influenza A (units (un known) date) (RT-PCR) Flu a unknown) negative (NEGATIVE) (unknown) (no (unknown) (unknown) Influenza B (units (un known) date) (RT-PCR) (NEGATIVE) unknown) (unknown) (no (unknown) (unknown) Influenza B (units (un known) date) (RT-PCR) Flu b unknown) negative (NEGATIVE) (unknown) (no (unknown) (unknown) Initial Vital (units ( unknown) date) Signs unknown) (unknown) (no (unknown) (unknown) Initial Vital (units ( unknown) date) Signs: unknown) (unknown) (no (unknown) (unknown) Insert 1 g (units (unk nown) date) intravaginally at unknown) HS times 12 days then 1 g intravaginally at HS (unknown) (no (unknown) (unknown) Inspection: normal (units (unknown) date) to inspection unknown) (unknown) (no (unknown) (unknown) Interpretation: (units (unknown) date) unknown) (unknown) (no (unknown) (unknown) [facility] (units (unknown) date) [address] unknown) [place] [address] (unknown) (no (unknown) (unknown) LDH [Lactate (units (u nknown) date) Dehydrogenase] Stat unknown) (unknown) (no (unknown) (unknown) Lab Data (units (unkno wn) date) unknown) (unknown) (no (unknown) (unknown) Lab Results (units (un known) date) unknown) (unknown) (no (unknown) (unknown) Label Comments: (units (unknown) date) unknown) (unknown) (no (unknown) (unknown) Labs: (units (unkno wn) date) unknown) (unknown) (no (unknown) (unknown) Lactate (units (unkno wn) date) Dehydrogenase unknown) (120-246) U/L (unknown) (no (unknown) (unknown) Lactate (units (unkno wn) date) Dehydrogenase 231 unknown) (120-246) U/L (unknown) (no (unknown) (unknown) Last Admin: (units (un known) date) 08/02/22 02:48 unknown) Dose: 4 mg (unknown) (no (unknown) (unknown) Last Admin: (units (un known) date) 08/02/22 06:16 unknown) Dose: 250 mls/hr (unknown) (no (unknown) (unknown) Last Admin: (units (un known) date) 08/02/22 08:01 unknown) Dose: 6 ml (unknown) (no (unknown) (unknown) Last Admin: (units (un known) date) 08/02/22 08:53 unknown) Dose: 10 mg (unknown) (no (unknown) (unknown) Last Infusion: (units (unknown) date) 08/02/22 03:27 unknown) Dose: 0 mls/hr (unknown) (no (unknown) (unknown) Last Infusion: (units (unknown) date) 08/02/22 05:05 unknown) Dose: 0 mls/hr (unknown) (no (unknown) (unknown) Left ureteral (units ( unknown) date) calculus unknown) (unknown) (no (unknown) (unknown) Lidocaine HCl (units ( unknown) date) (Lidocaine 2% unknown) (Glydo) 6 Ml Gel) 6 ml TOP NOW ONE (unknown) (no (unknown) (unknown) Lip/Tongue/Throat (units (unknown) date) unknown) (unknown) (no (unknown) (unknown) Lipase (23-300) (units (unknown) date) U/L unknown) (unknown) (no (unknown) (unknown) Lipase 2978 H (units ( unknown) date) (23-300) U/L unknown) (unknown) (no (unknown) (unknown) Lipase 2998 H (units ( unknown) date) (23-300) U/L unknown) (unknown) (no (unknown) (unknown) Lipase Stat (units (un known) date) unknown) (unknown) (no (unknown) (unknown) Lymph # (Auto) (units (unknown) date) (0301-9427) /uL unknown) (unknown) (no (unknown) (unknown) Lymph # (Auto) (units (unknown) date) 1500 (1947-4029) unknown) /uL (unknown) (no (unknown) (unknown) Lymph % (Auto) (units (unknown) date) (25-40) % unknown) (unknown) (no (unknown) (unknown) Lymph % (Auto) (units (unknown) date) 15.0 L (25-40) % unknown) (unknown) (no (unknown) (unknown) MCH (26-34) PG (units (unknown) date) unknown) (unknown) (no (unknown) (unknown) MCH 29.9 (26-34) (units (unknown) date) PG unknown) (unknown) (no (unknown) (unknown) MCHC (30-36) % (units (unknown) date) unknown) (unknown) (no (unknown) (unknown) MCHC 33.1 (30-36) (units (unknown) date) % unknown) (unknown) (no (unknown) (unknown) MCV (80-100) fL (units (unknown) date) unknown) (unknown) (no (unknown) (unknown) MCV 90.3 (80-100) (units (unknown) date) fL unknown) (unknown) (no (unknown) (unknown) MDM - (units (unkno wn) date) Nausea/Vomiting/Huong unknown) rrhea (unknown) (no (unknown) (unknown) MDM Narrative (units ( unknown) date) unknown) (unknown) (no (unknown) (unknown) Medical History (units (unknown) date) (Reviewed 08/02/22 unknown) @ 05:41 by Mike Cobian DO) (unknown) (no (unknown) (unknown) Medical Records (units (unknown) date) unknown) (unknown) (no (unknown) (unknown) Medical decision (units (unknown) date) making narrative: unknown) (unknown) (no (unknown) (unknown) Medication (units (unk nown) date) Instructions unknown) Recorded Confirmed (unknown) (no (unknown) (unknown) Medication (units (unk nown) date) Instructions unknown) Recorded (unknown) (no (unknown) (unknown) Mild echogenic (units (unknown) date) kidneys suggesting unknown) possible medical renal disease. No (unknown) (no (unknown) (unknown) Mode of arrival: (units (unknown) date) Ambulatory unknown) (unknown) (no (unknown) (unknown) Burke # (Auto) (units ( unknown) date) (0-900) /uL unknown) (unknown) (no (unknown) (unknown) Burke # (Auto) 700 (units (unknown) date) (0-900) /uL unknown) (unknown) (no (unknown) (unknown) Burke % (Auto) (units ( unknown) date) (3-14) % unknown) (unknown) (no (unknown) (unknown) Burke % (Auto) 7.6 (units (unknown) date) (3-14) % unknown) (unknown) (no (unknown) (unknown) Neuro (units (unkno wn) date) unknown) (unknown) (no (unknown) (unknown) Neut # (Auto) (units ( unknown) date) (3967-2828) /uL unknown) (unknown) (no (unknown) (unknown) Neut # (Auto) 7400 (units (unknown) date) H (3399-8608) /uL unknown) (unknown) (no (unknown) (unknown) Neut % (Auto) (units ( unknown) date) (50-75) % unknown) (unknown) (no (unknown) (unknown) Neut % (Auto) 75.5 (units (unknown) date) H (50-75) % unknown) (unknown) (no (unknown) (unknown) No Action (units (unkn own) date) unknown) (unknown) (no (unknown) (unknown) No obstructive (units (unknown) date) uropathy unknown) (unknown) (no (unknown) (unknown) Ondansetron HCl (units (unknown) date) (Ondansetron 4 Mg unknown) Odt) 4 mg PO NOW PRN (unknown) (no (unknown) (unknown) Ondansetron HCl (units (unknown) date) (Ondansetron 4 Mg/2 unknown) Ml Inj) 4 mg IV NOW PRN (unknown) (no (unknown) (unknown) Ordered: (units (unkno wn) date) unknown) (unknown) (no (unknown) (unknown) Orders (units (unkno wn) date) unknown) (unknown) (no (unknown) (unknown) Other: (units (unkno wn) date) unknown) (unknown) (no (unknown) (unknown) Oxygen Delivery (units (unknown) date) Method 08/02/22 unknown) 01:20 (unknown) (no (unknown) (unknown) Oxygen Delivery (units (unknown) date) Method Room Air unknown) (unknown) (no (unknown) (unknown) Oxygen Delivery (units (unknown) date) Method unknown) (unknown) (no (unknown) (unknown) PRN Reason: Nausea (units (unknown) date) And Vomiting unknown) (unknown) (no (unknown) (unknown) PT (10.1-12.7) (units (unknown) date) SECONDS unknown) (unknown) (no (unknown) (unknown) PT 82.9 H (units (unkn own) date) (10.1-12.7) SECONDS unknown) (unknown) (no (unknown) (unknown) 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 unknown) To seen here in the emergency department (unknown) (no (unknown) (unknown) Patient is (units (unk nown) date) well-appearing. Is unknown) not tachycardic. Not hypotensive. She does have (unknown) (no (unknown) (unknown) Patient: (units (unkno wn) date) Natasha Jaquez K unknown) MR#: [id number] (unknown) (no (unknown) (unknown) Phytonadione (units (u nknown) date) (Phytonadione (Vit unknown) K1) 5 Mg Tablet) 10 mg PO NOW ONE (unknown) (no (unknown) (unknown) Please take this (units (unknown) date) the morning of unknown) August 04, 2021. (unknown) (no (unknown) (unknown) Plt Count (units (unkn own) date) (150-400) X103/uL unknown) (unknown) (no (unknown) (unknown) Plt Count 262 (units ( unknown) date) (150-400) X103/uL unknown) (unknown) (no (unknown) (unknown) Postmenopausal (units (unknown) date) atrophic vaginitis unknown) (unknown) (no (unknown) (unknown) Potassium 5.5 H (units (unknown) date) (3.4-5.1) mmol/L unknown) (unknown) (no (unknown) (unknown) Potassium 5.7 H (units (unknown) date) (3.4-5.1) mmol/L unknown) (unknown) (no (unknown) (unknown) Potassium 5.8 H (units (unknown) date) (3.4-5.1) mmol/L unknown) (unknown) (no (unknown) (unknown) Prescriptions: (units (unknown) date) unknown) (unknown) (no (unknown) (unknown) Previous Rx's (units ( unknown) date) unknown) (unknown) (no (unknown) (unknown) Prior labs that we (units (unknown) date) have for her were unknown) greater than 1 year ago which has her (unknown) (no (unknown) (unknown) Procalcitonin (units ( unknown) date) (<0.5) ng/mL unknown) (unknown) (no (unknown) (unknown) Procalcitonin 0.33 (units (unknown) date) (<0.5) ng/mL unknown) (unknown) (no (unknown) (unknown) Procalcitonin Stat (units (unknown) date) unknown) (unknown) (no (unknown) (unknown) Prothrombin Time (units (unknown) date) INR Stat unknown) (unknown) (no (unknown) (unknown) Psych (units (unkno wn) date) unknown) (unknown) (no (unknown) (unknown) Pulse Oximetry 95 (units (unknown) date) 08/02/22 01:20 unknown) (unknown) (no (unknown) (unknown) Pulse Oximetry 95 (units (unknown) date) 95 97 unknown) (unknown) (no (unknown) (unknown) Pulse Oximetry 96 (units (unknown) date) 97 96 unknown) (unknown) (no (unknown) (unknown) Pulse Oximetry 97 (units (unknown) date) 94 unknown) (unknown) (no (unknown) (unknown) Pulse Oximetry 97 (units (unknown) date) unknown) (unknown) (no (unknown) (unknown) Pulse Oximetry 98 (units (unknown) date) 98 unknown) (unknown) (no (unknown) (unknown) Pulse Oximetry 98 (units (unknown) date) unknown) (unknown) (no (unknown) (unknown) Pulse Rate 61 67 (units (unknown) date) unknown) (unknown) (no (unknown) (unknown) Pulse Rate 62 (units ( unknown) date) unknown) (unknown) (no (unknown) (unknown) Pulse Rate 65 65 (units (unknown) date) unknown) (unknown) (no (unknown) (unknown) Pulse Rate 68 (units ( unknown) date) unknown) (unknown) (no (unknown) (unknown) Pulse Rate 70 62 (units (unknown) date) 82 unknown) (unknown) (no (unknown) (unknown) Pulse Rate 78 (units ( unknown) date) 08/02/22 01:20 unknown) (unknown) (no (unknown) (unknown) Pulse Rate 78 61 (units (unknown) date) unknown) (unknown) (no (unknown) (unknown) Pyelonephritis can (units (unknown) date) appear similar unknown) noncontrast examination (unknown) (no (unknown) (unknown) RBC (4.0-5.2) (units ( unknown) date) X106/uL unknown) (unknown) (no (unknown) (unknown) RBC 4.26 (4.0-5.2) (units (unknown) date) X106/uL unknown) (unknown) (no (unknown) (unknown) RDW (11.6-14.8) % (units (unknown) date) unknown) (unknown) (no (unknown) (unknown) RDW 14.5 (units (unkno wn) date) (11.6-14.8) % unknown) (unknown) (no (unknown) (unknown) ROS Unobtainable: (units (unknown) date) All systems unknown) reviewed + are unremarkable except as noted in HPI (unknown) (no (unknown) (unknown) RSV (PCR) (units (unkn own) date) (Negative) unknown) (unknown) (no (unknown) (unknown) RSV (PCR) Negative (units (unknown) date) (Negative) unknown) (unknown) (no (unknown) (unknown) Radiologist's (units ( unknown) date) Impression: unknown) (unknown) (no (unknown) (unknown) Rate is 63 (units (unk nown) date) unknown) (unknown) (no (unknown) (unknown) Rate: regular rate (units (unknown) date) unknown) (unknown) (no (unknown) (unknown) Related Data (units (u nknown) date) unknown) (unknown) (no (unknown) (unknown) Resp (units (unkno wn) date) unknown) (unknown) (no (unknown) (unknown) Respiratory Rate (units (unknown) date) 16 18 unknown) (unknown) (no (unknown) (unknown) Respiratory Rate (units (unknown) date) 17 unknown) (unknown) (no (unknown) (unknown) Respiratory Rate (units (unknown) date) 19 08/02/22 01:20 unknown) (unknown) (no (unknown) (unknown) Respiratory Rate (units (unknown) date) 19 15 unknown) (unknown) (no (unknown) (unknown) Respiratory Rate (units (unknown) date) 27 H unknown) (unknown) (no (unknown) (unknown) Respiratory Rate (units (unknown) date) unknown) (unknown) (no (unknown) (unknown) Result diagrams: (units (unknown) date) unknown) (unknown) (no (unknown) (unknown) Retained ureteral (units (unknown) date) stent unknown) (unknown) (no (unknown) (unknown) Review of Systems (units (unknown) date) unknown) (unknown) (no (unknown) (unknown) Rhythm: regular (units (unknown) date) rhythm unknown) (unknown) (no (unknown) (unknown) Rx Instructions: (units (unknown) date) unknown) (unknown) (no (unknown) (unknown) SARS-CoV-2 (PCR) (units (unknown) date) (Negative) unknown) (unknown) (no (unknown) (unknown) SARS-CoV-2 (PCR) (units (unknown) date) Negative (Negative) unknown) (unknown) (no (unknown) (unknown) SVT (units (unkno wn) date) (supraventricular unknown) tachycardia) (unknown) (no (unknown) (unknown) Scores (units (unkno wn) date) unknown) (unknown) (no (unknown) (unknown) She continues to (units (unknown) date) get IV fluids. No unknown) sign of infection. INR is found to be (unknown) (no (unknown) (unknown) Signed By: (units (unk nown) date) unknown) (unknown) (no (unknown) (unknown) Skin (units (unkno wn) date) unknown) (unknown) (no (unknown) (unknown) Smoking Status: (units (unknown) date) Never smoker unknown) (unknown) (no (unknown) (unknown) Social History (units (unknown) date) (Reviewed 08/02/22 unknown) @ 05:41 by Mike Cobian DO) (unknown) (no (unknown) (unknown) Sodium 136 L (units (u nknown) date) (137-145) mmol/L unknown) (unknown) (no (unknown) (unknown) Sodium 137 (units (unk nown) date) (137-145) mmol/L unknown) (unknown) (no (unknown) (unknown) Sodium 139 (units (unk nown) date) (137-145) mmol/L unknown) (unknown) (no (unknown) (unknown) Sodium Chloride (units (unknown) date) (Normal Saline unknown) 0.9%) 1,000 mls @ 1,000 mls/hr IV BOLUS ONE (unknown) (no (unknown) (unknown) Sodium Chloride (units (unknown) date) (Normal Saline unknown) 0.9%) 1,000 mls @ 250 mls/hr IV CONT NORMAN (unknown) (no (unknown) (unknown) Sodium Urine (units (u nknown) date) Random Stat unknown) (unknown) (no (unknown) (unknown) Source: patient (units (unknown) date) and family unknown) (unknown) (no (unknown) (unknown) Speech: speech (units (unknown) date) normal unknown) (unknown) (no (unknown) (unknown) Start after 5 day (units (unknown) date) course of 2 caps unknown) daily is complete. (unknown) (no (unknown) (unknown) Stated complaint: (units (unknown) date) body pain/not able unknown) to eat or drink x 5 days (unknown) (no (unknown) (unknown) Stop: 08/02/22 (units (unknown) date) 02:39 unknown) (unknown) (no (unknown) (unknown) Stop: 08/02/22 (units (unknown) date) 04:57 unknown) (unknown) (no (unknown) (unknown) Stop: 08/02/22 (units (unknown) date) 07:44 unknown) (unknown) (no (unknown) (unknown) Stop: 08/02/22 (units (unknown) date) 08:23 unknown) (unknown) (no (unknown) (unknown) Substance Use (units ( unknown) date) Type: does not use unknown) (unknown) (no (unknown) (unknown) Surgical History (units (unknown) date) (Reviewed 08/02/22 unknown) @ 05:41 by Mike Coiban DO) (unknown) (no (unknown) (unknown) Temperature 98.7 F (units (unknown) date) 08/02/22 01:20 unknown) (unknown) (no (unknown) (unknown) Temperature 98.7 F (units (unknown) date) unknown) (unknown) (no (unknown) (unknown) Temperature (units (un known) date) unknown) (unknown) (no (unknown) (unknown) Time Seen by (units (u nknown) date) Provider: 08/02/22 unknown) 01:38 (unknown) (no (unknown) (unknown) Total Bilirubin (units (unknown) date) (0.2-1.3) mg/dL unknown) (unknown) (no (unknown) (unknown) Total Bilirubin (units (unknown) date) 0.7 (0.2-1.3) mg/dL unknown) (unknown) (no (unknown) (unknown) Total Protein (units ( unknown) date) (6.3-8.2) g/dL unknown) (unknown) (no (unknown) (unknown) Total Protein 7.3 (units (unknown) date) (6.3-8.2) g/dL unknown) (unknown) (no (unknown) (unknown) US - abdomen: (units ( unknown) date) unknown) (unknown) (no (unknown) (unknown) US abdomen (units (unk nown) date) complete Stat unknown) (unknown) (no (unknown) (unknown) Upset (units (unkno wn) date) unknown) (unknown) (no (unknown) (unknown) Ur Random Sodium (units (unknown) date) (30-90) mmol/L unknown) (unknown) (no (unknown) (unknown) Ur Random Sodium (units (unknown) date) 84 (30-90) mmol/L unknown) (unknown) (no (unknown) (unknown) Urine Creatinine (units (unknown) date) 69.7 mg/dL unknown) (unknown) (no (unknown) (unknown) Urine Creatinine (units (unknown) date) mg/dL unknown) (unknown) (no (unknown) (unknown) Urine Dip (units (unkn own) date) unknown) (unknown) (no (unknown) (unknown) Urine Specific (units (unknown) date) [place] 1.015 unknown) (unknown) (no (unknown) (unknown) Vital Signs - 8 hr (units (unknown) date) unknown) (unknown) (no (unknown) (unknown) Vital Signs (units (un known) date) unknown) (unknown) (no (unknown) (unknown) Vital signs: (units (u nknown) date) unknown) (unknown) (no (unknown) (unknown) WBC (4.5-11.0) (units (unknown) date) X103/uL unknown) (unknown) (no (unknown) (unknown) WBC 9.8 (4.5-11.0) (units (unknown) date) X103/uL unknown) (unknown) (no (unknown) (unknown) [Embedded Image (units (unknown) date) Not Available] unknown) (unknown) (no (unknown) (unknown) [From Pyridium] (units (unknown) date) unknown) (unknown) (no (unknown) (unknown) a couple days but (units (unknown) date) her symptoms were unknown) not improving and she started to feel worse (unknown) (no (unknown) (unknown) abdominal pain. (units (unknown) date) Blood work today unknown) does show improvement in high mild (unknown) (no (unknown) (unknown) alcohol intake (units (unknown) date) frequency: 0-2 unknown) drinks per day (unknown) (no (unknown) (unknown) alcohol intake: (units (unknown) date) never unknown) (unknown) (no (unknown) (unknown) and below (units (unkn own) date) unknown) (unknown) (no (unknown) (unknown) biotin 5,000 mcg (units (unknown) date) Tablet, Sublingual unknown) (unknown) (no (unknown) (unknown) biotin 5,000 mcg (units (unknown) date) sublingual tablet unknown) 5,000 mcg sublingual DAILY 06/20/21 08/12/21 (unknown) (no (unknown) (unknown) breath activated (units (unknown) date) powder inhaler unknown) (unknown) (no (unknown) (unknown) budesonide 200 (units (unknown) date) mcg/actuation 50 unknown) mcg inhalation Q8HR 06/20/21 08/12/21 (unknown) (no (unknown) (unknown) budesonide 200 (units (unknown) date) mcg/actuation unknown) Aerosol Powdr Breath Activated (unknown) (no (unknown) (unknown) carvedilol 6.25 mg (units (unknown) date) Tablet unknown) (unknown) (no (unknown) (unknown) carvedilol 6.25 mg (units (unknown) date) tablet 6.25 mg PO unknown) BID 06/20/21 08/12/21 (unknown) (no (unknown) (unknown) cholecalciferol (units (unknown) date) (vitamin D3) 125 unknown) 125 mcg PO DAILY 06/20/21 08/12/21 (unknown) (no (unknown) (unknown) cholecalciferol (units (unknown) date) (vitamin D3) 125 unknown) mcg (5,000 unit) Tablet (unknown) (no (unknown) (unknown) ciprofloxacin HCl (units (unknown) date) 250 mg tablet 250 unknown) mg PO BEDTIME #60 tabs 09/02/21 (unknown) (no (unknown) (unknown) ciprofloxacin HCl (units (unknown) date) 250 mg tablet unknown) (unknown) (no (unknown) (unknown) consultation with (units (unknown) date) Nephrology. unknown) (unknown) (no (unknown) (unknown) creatinine at the (units (unknown) date) 1.3-1.7 range in unknown) her GFR in the 30s. Patient has not been (unknown) (no (unknown) (unknown) direction. She (units (unknown) date) comes to the unknown) emergency department today because of overall body (unknown) (no (unknown) (unknown) elevated at 7.1 (units (unknown) date) thought to be unknown) somehow related to her renal failure. Vitamin K (unknown) (no (unknown) (unknown) estradiol 0.01% (units (unknown) date) (0.1 mg/gram) 1 g unknown) vaginal 2XW #42.5 grams 08/19/21 (unknown) (no (unknown) (unknown) estradiol (units (unkn own) date) [Estrace] 0.01 % unknown) (0.1 mg/gram) cream (unknown) (no (unknown) (unknown) extremities (units (un known) date) unknown) (unknown) (no (unknown) (unknown) fosfomycin (units (unk nown) date) tromethamine 3 gram unknown) 3 g PO ONCE #1 ea 07/31/21 (unknown) (no (unknown) (unknown) fosfomycin (units (unk nown) date) tromethamine 3 gram unknown) 3 g PO ONCE #1 ea 08/01/21 (unknown) (no (unknown) (unknown) fosfomycin (units (unk nown) date) tromethamine 3 gram unknown) packet (unknown) (no (unknown) (unknown) furosemide 20 mg (units (unknown) date) Tablet unknown) (unknown) (no (unknown) (unknown) furosemide 20 mg (units (unknown) date) tablet 20 mg PO 6XW unknown) 06/20/21 08/12/21 (unknown) (no (unknown) (unknown) furosemide 40 mg (units (unknown) date) Tablet unknown) (unknown) (no (unknown) (unknown) furosemide 40 mg (units (unknown) date) tablet 40 mg PO unknown) WEEKLY 06/20/21 08/12/21 (unknown) (no (unknown) (unknown) having bowel (units (u nknown) date) movements. She unknown) denies any fevers. No recent travel. (unknown) (no (unknown) (unknown) household members: (units (unknown) date) spouse unknown) (unknown) (no (unknown) (unknown) hyperkalemia it (units (unknown) date) was 5.8 now was 5 unknown) 5. Improvement in her creatinine as well was (unknown) (no (unknown) (unknown) is 8.9% which is (units (unknown) date) consistent with a unknown) post renal/obstructive pathology however I do (unknown) (no (unknown) (unknown) is ordered. (units (un known) date) unknown) (unknown) (no (unknown) (unknown) likely that the (units (unknown) date) cause of all of her unknown) nausea and vomiting even her abdominal (unknown) (no (unknown) (unknown) losartan 50 mg (units (unknown) date) Tablet unknown) (unknown) (no (unknown) (unknown) losartan 50 mg (units (unknown) date) tablet 50 mg PO unknown) DAILY 06/20/21 08/12/21 (unknown) (no (unknown) (unknown) mcg (5,000 unit) (units (unknown) date) tablet unknown) (unknown) (no (unknown) (unknown) metformin 500 mg (units (unknown) date) Tablet unknown) (unknown) (no (unknown) (unknown) metformin 500 mg (units (unknown) date) tablet 1,000 mg PO unknown) BID 07/26/21 08/12/21 (unknown) (no (unknown) (unknown) must administer (units (unknown) date) with a meal/food unknown) (unknown) (no (unknown) (unknown) not have a (units (unk nown) date) specific source of unknown) this as it does not appear to be an obstructive (unknown) (no (unknown) (unknown) obstructive (units (un known) date) uropathy. unknown) (unknown) (no (unknown) (unknown) of (units (unkno wn) date) unknown) (unknown) (no (unknown) (unknown) oral packet (units (un known) date) unknown) (unknown) (no (unknown) (unknown) oxycodone 5 mg (units (unknown) date) tablet 5 mg PO Q4H unknown) PRN pain #20 tabs 07/26/21 (unknown) (no (unknown) (unknown) oxycodone 5 mg (units (unknown) date) tablet unknown) (unknown) (no (unknown) (unknown) pain, belly pain, (units (unknown) date) vomiting, unable to unknown) drink for the past several days. Still (unknown) (no (unknown) (unknown) pain. She is in (units (unknown) date) acute renal unknown) failure/YESIKA given her creatinine of 10 and GFR 4. (unknown) (no (unknown) (unknown) patient myself. (units (unknown) date) She says overall unknown) she is feeling better. No nausea vomiting no (unknown) (no (unknown) (unknown) phenazopyridine (units (unknown) date) Allergy Verified unknown) 08/12/21 08:17 (unknown) (no (unknown) (unknown) potassium 99 mg (units (unknown) date) Tablet unknown) (unknown) (no (unknown) (unknown) potassium 99 mg (units (unknown) date) tablet 99 mg PO unknown) DAILY 07/26/21 08/12/21 (unknown) (no (unknown) (unknown) prednisone Allergy (units (unknown) date) Severe Swelling unknown) Verified 08/02/22 01:20 (unknown) (no (unknown) (unknown) procaine [From (units (unknown) date) Novocain] Allergy unknown) Chest Pain Verified 08/02/22 01:20 (unknown) (no (unknown) (unknown) recently for UTI (units (unknown) date) like symptoms. Was unknown) sent home with Arria NLG. She took this for (unknown) (no (unknown) (unknown) rizatriptan (units (un known) date) Allergy Severe unknown) Difficulty Verified 08/02/22 01:20 (unknown) (no (unknown) (unknown) rosuvastatin 40 mg (units (unknown) date) Tablet unknown) (unknown) (no (unknown) (unknown) rosuvastatin 40 mg (units (unknown) date) tablet 40 mg PO unknown) DAILY 06/20/21 08/12/21 (unknown) (no (unknown) (unknown) s (units (unkno wn) date) unknown) (unknown) (no (unknown) (unknown) shellfish derived (units (unknown) date) AdvReac unknown) Gastrointestinal Verified 08/02/22 01:20 (unknown) (no (unknown) (unknown) signs of an (units (un known) date) infection. CT scans unknown) did not give a definitive etiology. Her FeNa (unknown) (no (unknown) (unknown) slightly. Care (units (unknown) date) turned over to unknown) Gustavo to follow-up and most likely (unknown) (no (unknown) (unknown) so she contact her (units (unknown) date) primary doctor who unknown) looked up the culture results and told her (unknown) (no (unknown) (unknown) stone nor urinary (units (unknown) date) retention. After 2 unknown) L of fluid her creatinine only improved (unknown) (no (unknown) (unknown) takes 4 puffs (units ( unknown) date) qhs-(Pulmacort) unknown) (unknown) (no (unknown) (unknown) takes it 5x/week (units (unknown) date) unknown) (unknown) (no (unknown) (unknown) tamsulosin 0.4 mg (units (unknown) date) capsule 0.4 mg PO unknown) BEDTIME #60 caps 06/21/21 (unknown) (no (unknown) (unknown) tamsulosin 0.4 mg (units (unknown) date) capsule unknown) (unknown) (no (unknown) (unknown) tetracycline (units (u nknown) date) Allergy Severe unknown) ITCHING Verified 08/12/21 08:17 (unknown) (no (unknown) (unknown) that she did not (units (unknown) date) have an infection unknown) so she quit taking the medications per their (unknown) (no (unknown) (unknown) thiopental AdvReac (units (unknown) date) Palpitation unknown) Verified 08/02/22 01:20 (unknown) (no (unknown) (unknown) twice weekly (units (u nknown) date) thereafter. unknown) (unknown) (no (unknown) (unknown) upper abdominal (units (unknown) date) discomfort. Has unknown) pancreatitis based on her lipase which is most (unknown) (no (unknown) (unknown) vaginal cream (units ( unknown) date) (Estrace) unknown) (unknown) (no (unknown) (unknown) vomiting since (units (unknown) date) arrival here to the unknown) ER. Her urinalysis today does not show any (unknown) (no (unknown) (unknown) warfarin 2 mg (units ( unknown) date) Tablet unknown) (unknown) (no (unknown) (unknown) warfarin 2 mg (units ( unknown) date) tablet 2 mg PO 2XW unknown) 06/20/21 08/12/21 (unknown) (no (unknown) (unknown) warfarin 3 mg (units ( unknown) date) Tablet unknown) (unknown) (no (unknown) (unknown) warfarin 3 mg (units ( unknown) date) tablet 3 mg PO 5XW unknown) 06/20/21 08/12/21 Result panel 192 (unknown) (no (unknown) (unknown) (no value) (units (unk nown) date) unknown) (unknown) (no (unknown) (unknown) <Francesca Chen, (units (unknown) date) DO - Last Filed: unknown) 08/02/22 09:05> (unknown) (no (unknown) (unknown) <Mike Cobian, (units (unknown) date) DO - Last Filed: unknown) 08/02/22 06:47> (unknown) (no (unknown) (unknown) 0.4 mg PO BEDTIME (units (unknown) date) Qty: 60 0RF unknown) (unknown) (no (unknown) (unknown) 01:17 01:40 01:40 (units (unknown) date) unknown) (unknown) (no (unknown) (unknown) 01:20 08/02/22 (units (unknown) date) unknown) (unknown) (no (unknown) (unknown) 01:39 08/02/22 (units (unknown) date) unknown) (unknown) (no (unknown) (unknown) 02:00 (units (unkno wn) date) unknown) (unknown) (no (unknown) (unknown) 02:32 12/31/22 (units (unknown) date) unknown) (unknown) (no (unknown) (unknown) 03:00 08/02/22 (units (unknown) date) unknown) (unknown) (no (unknown) (unknown) 03:30 05:30 07:46 (units (unknown) date) unknown) (unknown) (no (unknown) (unknown) 03:30 (units (unkno wn) date) unknown) (unknown) (no (unknown) (unknown) 03:35 08/02/22 (units (unknown) date) unknown) (unknown) (no (unknown) (unknown) [id number] (units (unkno wn) date) unknown) (unknown) (no (unknown) (unknown) 04:00 (units (unkno wn) date) unknown) (unknown) (no (unknown) (unknown) 04:01 08/02/22 (units (unknown) date) unknown) (unknown) (no (unknown) (unknown) 04:30 08/02/22 (units (unknown) date) unknown) (unknown) (no (unknown) (unknown) 04:30 (units (unkno wn) date) unknown) (unknown) (no (unknown) (unknown) 05:00 08/02/22 (units (unknown) date) unknown) (unknown) (no (unknown) (unknown) 05:00 (units (unkno wn) date) unknown) (unknown) (no (unknown) (unknown) 05:30 08/02/22 (units (unknown) date) unknown) (unknown) (no (unknown) (unknown) 05:30 (units (unkno wn) date) unknown) (unknown) (no (unknown) (unknown) 07:46 07:46 07:50 (units (unknown) date) unknown) (unknown) (no (unknown) (unknown) 0900am- Dr. Cabrera (units (unknown) date) Nephrology, updated unknown) on patient's symptoms test results at this (unknown) (no (unknown) (unknown) 1 g vaginal 2XW (units (unknown) date) Qty: 42.5 3RF unknown) (unknown) (no (unknown) (unknown) 1,000 mg PO BID (units (unknown) date) unknown) (unknown) (no (unknown) (unknown) 10.0 and now 9.23. (units (unknown) date) [place] catheter is unknown) placed she has very clear urine draining. (unknown) (no (unknown) (unknown) 08/02/22 01:17 (units (unknown) date) unknown) (unknown) (no (unknown) (unknown) 08/02/22 01:25 (units (unknown) date) unknown) (unknown) (no (unknown) (unknown) 08/02/22 01:40 (units (unknown) date) unknown) (unknown) (no (unknown) (unknown) 08/02/22 02:20 (units (unknown) date) unknown) (unknown) (no (unknown) (unknown) 08/02/22 03:30 (units (unknown) date) unknown) (unknown) (no (unknown) (unknown) 08/02/22 05:30 (units (unknown) date) unknown) (unknown) (no (unknown) (unknown) 08/02/22 07:46 (units (unknown) date) unknown) (unknown) (no (unknown) (unknown) 08/02/22 07:50 (units (unknown) date) unknown) (unknown) (no (unknown) (unknown) 08/02/22 08/02/22 (units (unknown) date) 08/02/22 unknown) Range/Units (unknown) (no (unknown) (unknown) 08/02/22 12:00 (units (unknown) date) unknown) (unknown) (no (unknown) (unknown) 08/02/22 (units (unkno wn) date) Botnick-patient unknown) signed out to me by Dr. Cobian if seen evaluated (unknown) (no (unknown) (unknown) 08/02/22 (units (unkno wn) date) unknown) (unknown) (no (unknown) (unknown) 125 mcg PO DAILY (units (unknown) date) unknown) (unknown) (no (unknown) (unknown) 2 mg PO 2XW (units (un known) date) unknown) (unknown) (no (unknown) (unknown) 20 mg PO 6XW (units (u nknown) date) unknown) (unknown) (no (unknown) (unknown) 250 mg PO BEDTIME (units (unknown) date) Qty: 60 0RF unknown) (unknown) (no (unknown) (unknown) 3 g PO ONCE Qty: 1 (units (unknown) date) 0RF unknown) (unknown) (no (unknown) (unknown) 3 mg PO 5XW (units (un known) date) unknown) (unknown) (no (unknown) (unknown) 40 mg PO DAILY (units (unknown) date) unknown) (unknown) (no (unknown) (unknown) 40 mg PO WEEKLY (units (unknown) date) unknown) (unknown) (no (unknown) (unknown) 5 mg PO Q4H PRN (units (unknown) date) (Reason: pain) Qty: unknown) 20 0RF (unknown) (no (unknown) (unknown) 5,000 mcg (units (unkn own) date) sublingual DAILY unknown) (unknown) (no (unknown) (unknown) 50 mcg INHALATION (units (unknown) date) Q8HR unknown) (unknown) (no (unknown) (unknown) 50 mg PO DAILY (units (unknown) date) unknown) (unknown) (no (unknown) (unknown) 6.25 mg PO BID (units (unknown) date) unknown) (unknown) (no (unknown) (unknown) 99 mg PO DAILY (units (unknown) date) unknown) (unknown) (no (unknown) (unknown) AICD (automatic (units (unknown) date) cardioverter/defibr unknown) illator) present (11/29/20) (unknown) (no (unknown) (unknown) ALT (<35) IU/L (units (unknown) date) unknown) (unknown) (no (unknown) (unknown) ALT 27 (<35) IU/L (units (unknown) date) unknown) (unknown) (no (unknown) (unknown) AST (14-36) IU/L (units (unknown) date) unknown) (unknown) (no (unknown) (unknown) AST 32 (14-36) (units (unknown) date) IU/L unknown) (unknown) (no (unknown) (unknown) Acute kidney (units (u nknown) date) injury unknown) (unknown) (no (unknown) (unknown) Admin: 08/02/22 (units (unknown) date) 02:15 Dose: 1,000 unknown) mls/hr (unknown) (no (unknown) (unknown) Admin: 08/02/22 (units (unknown) date) 04:04 Dose: 1,000 unknown) mls/hr (unknown) (no (unknown) (unknown) Afib (units (unkno wn) date) unknown) (unknown) (no (unknown) (unknown) Age/Sex: 71 / F (units (unknown) date) unknown) (unknown) (no (unknown) (unknown) Albumin (3.5-5.0) (units (unknown) date) g/dL unknown) (unknown) (no (unknown) (unknown) Albumin 4.2 (units (un known) date) (3.5-5.0) g/dL unknown) (unknown) (no (unknown) (unknown) Albumin/Globulin (units (unknown) date) Ratio (1.0-2.8) unknown) (unknown) (no (unknown) (unknown) Albumin/Globulin (units (unknown) date) Ratio 1.4 (1.0-2.8) unknown) (unknown) (no (unknown) (unknown) Alkaline (units (unkno wn) date) Phosphatase unknown) (38-126) U/L (unknown) (no (unknown) (unknown) Alkaline (units (unkno wn) date) Phosphatase 54 unknown) (38-126) U/L (unknown) (no (unknown) (unknown) Allergies (units (unkn own) date) unknown) (unknown) (no (unknown) (unknown) Allergy/AdvReac (units (unknown) date) Type Severity unknown) Reaction Status Date / Time (unknown) (no (unknown) (unknown) Appearance: (units (un known) date) grossly normal and unknown) well kempt (unknown) (no (unknown) (unknown) Atrially (units (unkno wn) date) sensed/ventricularl unknown) y paced (unknown) (no (unknown) (unknown) Attestation: I (units (unknown) date) personally reviewed unknown) and interpreted this ECG as follows: (unknown) (no (unknown) (unknown) Attestation: I (units (unknown) date) reviewed the unknown) patient's lab results. (unknown) (no (unknown) (unknown) Attestation: I (units (unknown) date) reviewed the unknown) patient's medical records. (unknown) (no (unknown) (unknown) Auscultation: (units ( unknown) date) clear to unknown) auscultation bilaterally (unknown) (no (unknown) (unknown) BMP [Basic (units (unk nown) date) Metabolic Panel] unknown) Stat (unknown) (no (unknown) (unknown) BUN 63 H (7-17) (units (unknown) date) mg/dL unknown) (unknown) (no (unknown) (unknown) BUN 65 H (7-17) (units (unknown) date) mg/dL unknown) (unknown) (no (unknown) (unknown) BUN 67 H (7-17) (units (unknown) date) mg/dL unknown) (unknown) (no (unknown) (unknown) BUN/Creatinine (units (unknown) date) Ratio 6.7 (6-22) unknown) (unknown) (no (unknown) (unknown) BUN/Creatinine (units (unknown) date) Ratio 6.9 (6-22) unknown) (unknown) (no (unknown) (unknown) BUN/Creatinine (units (unknown) date) Ratio 7.0 (6-22) unknown) (unknown) (no (unknown) (unknown) Back/Spine/Pelvis (units (unknown) date) unknown) (unknown) (no (unknown) (unknown) Back: No CVA (units (u nknown) date) tenderness unknown) (unknown) (no (unknown) (unknown) Baso # (Auto) (units ( unknown) date) (0-100) /uL unknown) (unknown) (no (unknown) (unknown) Baso # (Auto) 100 (units (unknown) date) (0-100) /uL unknown) (unknown) (no (unknown) (unknown) Baso % (Auto) (units ( unknown) date) (0-2) % unknown) (unknown) (no (unknown) (unknown) Baso % (Auto) 0.7 (units (unknown) date) (0-2) % unknown) (unknown) (no (unknown) (unknown) Bedside Urine (units ( unknown) date) Bilirubin - unknown) Negative (unknown) (no (unknown) (unknown) Bedside Urine (units ( unknown) date) Glucose Negative unknown) (unknown) (no (unknown) (unknown) Bedside Urine (units ( unknown) date) Ketone +/- 5 unknown) (unknown) (no (unknown) (unknown) Bedside Urine (units ( unknown) date) Leukocytes - unknown) Negative (unknown) (no (unknown) (unknown) Bedside Urine (units ( unknown) date) Nitrite - Negative unknown) (unknown) (no (unknown) (unknown) Bedside Urine (units ( unknown) date) Occult Blood unknown) (unknown) (no (unknown) (unknown) Bedside Urine (units ( unknown) date) Protein ++ 100 unknown) (unknown) (no (unknown) (unknown) Bedside Urine (units ( unknown) date) Urobilinogen - unknown) Negative (unknown) (no (unknown) (unknown) Bedside Urine pH (units (unknown) date) 6.0 unknown) (unknown) (no (unknown) (unknown) Bilateral (units (unkn own) date) perinephric unknown) stranding. This can be an asymptomatic finding. (unknown) (no (unknown) (unknown) Bilateral renal (units (unknown) date) cysts unknown) (unknown) (no (unknown) (unknown) Blood Pressure (units (unknown) date) 109/53 L unknown) (unknown) (no (unknown) (unknown) Blood Pressure (units (unknown) date) 119/59 L unknown) (unknown) (no (unknown) (unknown) Blood Pressure (units (unknown) date) 130/69 08/02/22 unknown) 01:20 (unknown) (no (unknown) (unknown) Blood Pressure (units (unknown) date) 130/69 unknown) (unknown) (no (unknown) (unknown) Blood Pressure (units (unknown) date) 143/65 H 124/59 L unknown) (unknown) (no (unknown) (unknown) Blood Pressure (units (unknown) date) 146/67 H unknown) (unknown) (no (unknown) (unknown) Blood Pressure (units (unknown) date) unknown) (unknown) (no (unknown) (unknown) Breathing (units (unkn own) date) unknown) (unknown) (no (unknown) (unknown) CHF (congestive (units (unknown) date) heart failure) unknown) (unknown) (no (unknown) (unknown) CT kidney ureter (units (unknown) date) bladder (KUB) Stat unknown) (unknown) (no (unknown) (unknown) CT scan - (units (unkn own) date) abdomen/pelvis: unknown) (unknown) (no (unknown) (unknown) CVA (cerebral (units ( unknown) date) vascular accident) unknown) (unknown) (no (unknown) (unknown) Calcium 8.4 (units (un known) date) (8.4-10.2) mg/dL unknown) (unknown) (no (unknown) (unknown) Calcium 9.9 (units (un known) date) (8.4-10.2) mg/dL unknown) (unknown) (no (unknown) (unknown) Carbon Dioxide 13 (units (unknown) date) L (22-32) mmol/L unknown) (unknown) (no (unknown) (unknown) Cardiac arrest (units (unknown) date) (11/29/20) unknown) (unknown) (no (unknown) (unknown) Cardio (units (unkno wn) date) unknown) (unknown) (no (unknown) (unknown) Cardiomyopathy (units (unknown) date) unknown) (unknown) (no (unknown) (unknown) Chest (units (unkno wn) date) unknown) (unknown) (no (unknown) (unknown) Chief complaint: (units (unknown) date) Nausea/Vomiting/Huong unknown) rrhea (unknown) (no (unknown) (unknown) Chloride 103 (units (u nknown) date) (98-107) mmol/L unknown) (unknown) (no (unknown) (unknown) Chloride 109 H (units (unknown) date) (98-107) mmol/L unknown) (unknown) (no (unknown) (unknown) Cognition: normal (units (unknown) date) cognition unknown) (unknown) (no (unknown) (unknown) Complete Blood (units (unknown) date) Count AUTO DIFF unknown) Stat (unknown) (no (unknown) (unknown) Comprehensive (units ( unknown) date) Metabolic Panel unknown) Stat (unknown) (no (unknown) (unknown) Const (units (unkno wn) date) unknown) (unknown) (no (unknown) (unknown) Continue checking (units (unknown) date) light. Will likely unknown) need dialysis however no beds available at (unknown) (no (unknown) (unknown) Course (units (unkno wn) date) unknown) (unknown) (no (unknown) (unknown) Covid-19 + FLU A/B (units (unknown) date) + RSV - PCR Stat unknown) (unknown) (no (unknown) (unknown) Creatinine 10.0 H* (units (unknown) date) (0.52-1.04) mg/dL unknown) (unknown) (no (unknown) (unknown) Creatinine 9.15 H* (units (unknown) date) (0.52-1.04) mg/dL unknown) (unknown) (no (unknown) (unknown) Creatinine 9.23 H* (units (unknown) date) (0.52-1.04) mg/dL unknown) (unknown) (no (unknown) (unknown) Creatinine Urine (units (unknown) date) Random Stat unknown) (unknown) (no (unknown) (unknown) : 1950 (units (unknown) date) Acct:[id number] unknown) (unknown) (no (unknown) (unknown) Date of Service: (units (unknown) date) 08/02/22 unknown) (unknown) (no (unknown) (unknown) Departure (units (unkn own) date) unknown) (unknown) (no (unknown) (unknown) Diabetes (units (unkno wn) date) unknown) (unknown) (no (unknown) (unknown) Discharge Plan (units (unknown) date) unknown) (unknown) (no (unknown) (unknown) Discontinued (units (u nknown) date) Medications unknown) (unknown) (no (unknown) (unknown) Documented By: GC (units (unknown) date) unknown) (unknown) (no (unknown) (unknown) Documented By: KM (units (unknown) date) unknown) (unknown) (no (unknown) (unknown) Documented By: NR (units (unknown) date) unknown) (unknown) (no (unknown) (unknown) ECG Data (units (unkno wn) date) unknown) (unknown) (no (unknown) (unknown) ED Orders (units (unkn own) date) unknown) (unknown) (no (unknown) (unknown) EKG-12 Lead Stat (units (unknown) date) unknown) (unknown) (no (unknown) (unknown) ER Physician: (units ( unknown) date) Botnick,Francesca D.O. unknown) (unknown) (no (unknown) (unknown) Effort + (units (unkno wn) date) Inspection: normal unknown) respiratory effort (unknown) (no (unknown) (unknown) Emergency Report (units (unknown) date) unknown) (unknown) (no (unknown) (unknown) Eos # (Auto) (units (u nknown) date) (0-450) /uL unknown) (unknown) (no (unknown) (unknown) Eos # (Auto) 100 (units (unknown) date) (0-450) /uL unknown) (unknown) (no (unknown) (unknown) Eos % (Auto) (2-4) (units (unknown) date) % unknown) (unknown) (no (unknown) (unknown) Eos % (Auto) 1.2 L (units (unknown) date) (2-4) % unknown) (unknown) (no (unknown) (unknown) Esterase (units (unkno wn) date) unknown) (unknown) (no (unknown) (unknown) Estimated GFR 4 L (units (unknown) date) (>60) mL/min unknown) (unknown) (no (unknown) (unknown) Exam (units (unkno wn) date) unknown) (unknown) (no (unknown) (unknown) Extrem (units (unkno wn) date) unknown) (unknown) (no (unknown) (unknown) GCS (units (unkno wn) date) unknown) (unknown) (no (unknown) (unknown) GI (units (unkno wn) date) unknown) (unknown) (no (unknown) (unknown) General (units (unkno wn) date) unknown) (unknown) (no (unknown) (unknown) General: (units (unkno wn) date) cooperative, unknown) comfortable and No ill appearing (unknown) (no (unknown) (unknown) General: no rashes (units (unknown) date) or lesions noted unknown) (unknown) (no (unknown) (unknown) General: normal to (units (unknown) date) inspection, unknown) capillary refill normal and No edema (unknown) (no (unknown) (unknown) General: patient (units (unknown) date) alert, patient unknown) awake, patient oriented x3 and moves all (unknown) (no (unknown) (unknown) [place] coma scale (units (unknown) date) eye opening: unknown) Spontaneous (unknown) (no (unknown) (unknown) [place] coma scale (units (unknown) date) motor response: unknown) Obey commands (unknown) (no (unknown) (unknown) [place] coma scale (units (unknown) date) total score: 15 unknown) (unknown) (no (unknown) (unknown) [place] coma scale (units (unknown) date) verbal response: unknown) Orientated (unknown) (no (unknown) (unknown) Globulin (1.7-4.1) (units (unknown) date) g/dL unknown) (unknown) (no (unknown) (unknown) Globulin 3.1 (units (u nknown) date) (1.7-4.1) g/dL unknown) (unknown) (no (unknown) (unknown) Glucose 82 (units (unk nown) date) (80-110) mg/dL unknown) (unknown) (no (unknown) (unknown) Glucose 86 (units (unk nown) date) (80-110) mg/dL unknown) (unknown) (no (unknown) (unknown) Glucose 88 (units (unk nown) date) (80-110) mg/dL unknown) (unknown) (no (unknown) (unknown) HENMT (units (unkno wn) date) unknown) (unknown) (no (unknown) (unknown) HLD (units (unkno wn) date) (hyperlipidemia) unknown) (unknown) (no (unknown) (unknown) HPI - (units (unkno wn) date) Nausea/Vomiting/Huong unknown) rrhea (unknown) (no (unknown) (unknown) HPI Narrative: (units (unknown) date) unknown) (unknown) (no (unknown) (unknown) HTN (hypertension) (units (unknown) date) unknown) (unknown) (no (unknown) (unknown) Hct (36-46) % (units ( unknown) date) unknown) (unknown) (no (unknown) (unknown) Hct 38.4 (36-46) % (units (unknown) date) unknown) (unknown) (no (unknown) (unknown) Head: normal to (units (unknown) date) inspection and unknown) normocephalic (unknown) (no (unknown) (unknown) Hgb (12.0-16.0) (units (unknown) date) g/dL unknown) (unknown) (no (unknown) (unknown) Hgb 12.7 (units (unkno wn) date) (12.0-16.0) g/dL unknown) (unknown) (no (unknown) (unknown) History of Present (units (unknown) date) Illness unknown) (unknown) (no (unknown) (unknown) History of UTI (units (unknown) date) unknown) (unknown) (no (unknown) (unknown) History of colon (units (unknown) date) surgery unknown) (unknown) (no (unknown) (unknown) History of (units (unk nown) date) colonoscopy unknown) (unknown) (no (unknown) (unknown) History of (units (unk nown) date) hysterectomy unknown) (unknown) (no (unknown) (unknown) History of (units (unk nown) date) nephrolithiasis unknown) (unknown) (no (unknown) (unknown) History of (units (unk nown) date) thyroidectomy, unknown) subtotal (unknown) (no (unknown) (unknown) Home Medications (units (unknown) date) unknown) (unknown) (no (unknown) (unknown) Hx of appendectomy (units (unknown) date) unknown) (unknown) (no (unknown) (unknown) Hx of breast (units (u nknown) date) surgery unknown) (unknown) (no (unknown) (unknown) Hx of cystoscopy (units (unknown) date) (06/20/21) unknown) (unknown) (no (unknown) (unknown) Hx of eye surgery (units (unknown) date) unknown) (unknown) (no (unknown) (unknown) INR (0.9-1.3) (units ( unknown) date) unknown) (unknown) (no (unknown) (unknown) INR 7.1 H* (units (unk nown) date) (0.9-1.3) unknown) (unknown) (no (unknown) (unknown) Imaging Data (units (u nknown) date) unknown) (unknown) (no (unknown) (unknown) Influenza A (units (un known) date) (RT-PCR) (NEGATIVE) unknown) (unknown) (no (unknown) (unknown) Influenza A (units (un known) date) (RT-PCR) Flu a unknown) negative (NEGATIVE) (unknown) (no (unknown) (unknown) Influenza B (units (un known) date) (RT-PCR) (NEGATIVE) unknown) (unknown) (no (unknown) (unknown) Influenza B (units (un known) date) (RT-PCR) Flu b unknown) negative (NEGATIVE) (unknown) (no (unknown) (unknown) Initial Vital (units ( unknown) date) Signs unknown) (unknown) (no (unknown) (unknown) Initial Vital (units ( unknown) date) Signs: unknown) (unknown) (no (unknown) (unknown) Insert 1 g (units (unk nown) date) intravaginally at unknown) HS times 12 days then 1 g intravaginally at HS (unknown) (no (unknown) (unknown) Inspection: normal (units (unknown) date) to inspection unknown) (unknown) (no (unknown) (unknown) Interpretation: (units (unknown) date) unknown) (unknown) (no (unknown) (unknown) [facility] (units (unknown) date) [address] [place] [address] unknown) [place] [address] (unknown) (no (unknown) (unknown) LDH [Lactate (units (u nknown) date) Dehydrogenase] Stat unknown) (unknown) (no (unknown) (unknown) Lab Data (units (unkno wn) date) unknown) (unknown) (no (unknown) (unknown) Lab Results (units (un known) date) unknown) (unknown) (no (unknown) (unknown) Label Comments: (units (unknown) date) unknown) (unknown) (no (unknown) (unknown) Labs: (units (unkno wn) date) unknown) (unknown) (no (unknown) (unknown) Lactate (units (unkno wn) date) Dehydrogenase unknown) (120-246) U/L (unknown) (no (unknown) (unknown) Lactate (units (unkno wn) date) Dehydrogenase 231 unknown) (120-246) U/L (unknown) (no (unknown) (unknown) Last Admin: (units (un known) date) 08/02/22 02:48 unknown) Dose: 4 mg (unknown) (no (unknown) (unknown) Last Admin: (units (un known) date) 08/02/22 06:16 unknown) Dose: 250 mls/hr (unknown) (no (unknown) (unknown) Last Admin: (units (un known) date) 08/02/22 08:01 unknown) Dose: 6 ml (unknown) (no (unknown) (unknown) Last Admin: (units (un known) date) 08/02/22 08:53 unknown) Dose: 10 mg (unknown) (no (unknown) (unknown) Last Infusion: (units (unknown) date) 08/02/22 03:27 unknown) Dose: 0 mls/hr (unknown) (no (unknown) (unknown) Last Infusion: (units (unknown) date) 08/02/22 05:05 unknown) Dose: 0 mls/hr (unknown) (no (unknown) (unknown) Left ureteral (units ( unknown) date) calculus unknown) (unknown) (no (unknown) (unknown) Lidocaine HCl (units ( unknown) date) (Lidocaine 2% unknown) (Glydo) 6 Ml Gel) 6 ml TOP NOW ONE (unknown) (no (unknown) (unknown) Lip/Tongue/Throat (units (unknown) date) unknown) (unknown) (no (unknown) (unknown) Lipase (23-300) (units (unknown) date) U/L unknown) (unknown) (no (unknown) (unknown) Lipase 2978 H (units ( unknown) date) (23-300) U/L unknown) (unknown) (no (unknown) (unknown) Lipase 2998 H (units ( unknown) date) (23-300) U/L unknown) (unknown) (no (unknown) (unknown) Lipase Stat (units (un known) date) unknown) (unknown) (no (unknown) (unknown) Lymph # (Auto) (units (unknown) date) ([phone]) /uL unknown) (unknown) (no (unknown) (unknown) Lymph # (Auto) (units (unknown) date) 1500 ([id number]) unknown) /uL (unknown) (no (unknown) (unknown) Lymph % (Auto) (units (unknown) date) (25-40) % unknown) (unknown) (no (unknown) (unknown) Lymph % (Auto) (units (unknown) date) 15.0 L (25-40) % unknown) (unknown) (no (unknown) (unknown) MCH (26-34) PG (units (unknown) date) unknown) (unknown) (no (unknown) (unknown) MCH 29.9 (26-34) (units (unknown) date) PG unknown) (unknown) (no (unknown) (unknown) MCHC (30-36) % (units (unknown) date) unknown) (unknown) (no (unknown) (unknown) MCHC 33.1 (30-36) (units (unknown) date) % unknown) (unknown) (no (unknown) (unknown) MCV (80-100) fL (units (unknown) date) unknown) (unknown) (no (unknown) (unknown) MCV 90.3 (80-100) (units (unknown) date) fL unknown) (unknown) (no (unknown) (unknown) MDM - (units (unkno wn) date) Nausea/Vomiting/Huong unknown) rrhea (unknown) (no (unknown) (unknown) MDM Narrative (units ( unknown) date) unknown) (unknown) (no (unknown) (unknown) Medical History (units (unknown) date) (Reviewed 08/02/22 unknown) @ 05:41 by Mike Cobian DO) (unknown) (no (unknown) (unknown) Medical Records (units (unknown) date) unknown) (unknown) (no (unknown) (unknown) Medical decision (units (unknown) date) making narrative: unknown) (unknown) (no (unknown) (unknown) Medication (units (unk nown) date) Instructions unknown) Recorded Confirmed (unknown) (no (unknown) (unknown) Medication (units (unk nown) date) Instructions unknown) Recorded (unknown) (no (unknown) (unknown) Mild echogenic (units (unknown) date) kidneys suggesting unknown) possible medical renal disease. No (unknown) (no (unknown) (unknown) Mode of arrival: (units (unknown) date) Ambulatory unknown) (unknown) (no (unknown) (unknown) Burke # (Auto) (units ( unknown) date) (0-900) /uL unknown) (unknown) (no (unknown) (unknown) Burke # (Auto) 700 (units (unknown) date) (0-900) /uL unknown) (unknown) (no (unknown) (unknown) Burke % (Auto) (units ( unknown) date) (3-14) % unknown) (unknown) (no (unknown) (unknown) Burke % (Auto) 7.6 (units (unknown) date) (3-14) % unknown) (unknown) (no (unknown) (unknown) Neuro (units (unkno wn) date) unknown) (unknown) (no (unknown) (unknown) Neut # (Auto) (units ( unknown) date) (4096-9032) /uL unknown) (unknown) (no (unknown) (unknown) Neut # (Auto) 7400 (units (unknown) date) H (2404-9326) /uL unknown) (unknown) (no (unknown) (unknown) Neut % (Auto) (units ( unknown) date) (50-75) % unknown) (unknown) (no (unknown) (unknown) Neut % (Auto) 75.5 (units (unknown) date) H (50-75) % unknown) (unknown) (no (unknown) (unknown) No Action (units (unkn own) date) unknown) (unknown) (no (unknown) (unknown) No obstructive (units (unknown) date) uropathy unknown) (unknown) (no (unknown) (unknown) Ondansetron HCl (units (unknown) date) (Ondansetron 4 Mg unknown) Odt) 4 mg PO NOW PRN (unknown) (no (unknown) (unknown) Ondansetron HCl (units (unknown) date) (Ondansetron 4 Mg/2 unknown) Ml Inj) 4 mg IV NOW PRN (unknown) (no (unknown) (unknown) Ordered: (units (unkno wn) date) unknown) (unknown) (no (unknown) (unknown) Orders (units (unkno wn) date) unknown) (unknown) (no (unknown) (unknown) Other: (units (unkno wn) date) unknown) (unknown) (no (unknown) (unknown) Oxygen Delivery (units (unknown) date) Method 08/02/22 unknown) 01:20 (unknown) (no (unknown) (unknown) Oxygen Delivery (units (unknown) date) Method Room Air unknown) (unknown) (no (unknown) (unknown) Oxygen Delivery (units (unknown) date) Method unknown) (unknown) (no (unknown) (unknown) PRN Reason: Nausea (units (unknown) date) And Vomiting unknown) (unknown) (no (unknown) (unknown) PT (10.1-12.7) (units (unknown) date) SECONDS unknown) (unknown) (no (unknown) (unknown) PT 82.9 H (units (unkn own) date) (10.1-12.7) SECONDS unknown) (unknown) (no (unknown) (unknown) 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 unknown) To seen here in the emergency department (unknown) (no (unknown) (unknown) Patient is (units (unk nown) date) well-appearing. Is unknown) not tachycardic. Not hypotensive. She does have (unknown) (no (unknown) (unknown) Patient: (units (unkno wn) date) Natasha Jaquez K unknown) MR#: [id number] (unknown) (no (unknown) (unknown) Phytonadione (units (u nknown) date) (Phytonadione (Vit unknown) K1) 5 Mg Tablet) 10 mg PO NOW ONE (unknown) (no (unknown) (unknown) Please take this (units (unknown) date) the morning of unknown) August 04, 2021. (unknown) (no (unknown) (unknown) Plt Count (units (unkn own) date) (150-400) X103/uL unknown) (unknown) (no (unknown) (unknown) Plt Count 262 (units ( unknown) date) (150-400) X103/uL unknown) (unknown) (no (unknown) (unknown) Postmenopausal (units (unknown) date) atrophic vaginitis unknown) (unknown) (no (unknown) (unknown) Potassium 5.5 H (units (unknown) date) (3.4-5.1) mmol/L unknown) (unknown) (no (unknown) (unknown) Potassium 5.7 H (units (unknown) date) (3.4-5.1) mmol/L unknown) (unknown) (no (unknown) (unknown) Potassium 5.8 H (units (unknown) date) (3.4-5.1) mmol/L unknown) (unknown) (no (unknown) (unknown) Prescriptions: (units (unknown) date) unknown) (unknown) (no (unknown) (unknown) Previous Rx's (units ( unknown) date) unknown) (unknown) (no (unknown) (unknown) Prior labs that we (units (unknown) date) have for her were unknown) greater than 1 year ago which has her (unknown) (no (unknown) (unknown) Procalcitonin (units ( unknown) date) (<0.5) ng/mL unknown) (unknown) (no (unknown) (unknown) Procalcitonin 0.33 (units (unknown) date) (<0.5) ng/mL unknown) (unknown) (no (unknown) (unknown) Procalcitonin Stat (units (unknown) date) unknown) (unknown) (no (unknown) (unknown) Prothrombin Time (units (unknown) date) INR Stat unknown) (unknown) (no (unknown) (unknown) Psych (units (unkno wn) date) unknown) (unknown) (no (unknown) (unknown) Pulse Oximetry 95 (units (unknown) date) 08/02/22 01:20 unknown) (unknown) (no (unknown) (unknown) Pulse Oximetry 95 (units (unknown) date) 95 97 unknown) (unknown) (no (unknown) (unknown) Pulse Oximetry 96 (units (unknown) date) 97 96 unknown) (unknown) (no (unknown) (unknown) Pulse Oximetry 97 (units (unknown) date) 94 unknown) (unknown) (no (unknown) (unknown) Pulse Oximetry 97 (units (unknown) date) unknown) (unknown) (no (unknown) (unknown) Pulse Oximetry 98 (units (unknown) date) 98 unknown) (unknown) (no (unknown) (unknown) Pulse Oximetry 98 (units (unknown) date) unknown) (unknown) (no (unknown) (unknown) Pulse Rate 61 67 (units (unknown) date) unknown) (unknown) (no (unknown) (unknown) Pulse Rate 62 (units ( unknown) date) unknown) (unknown) (no (unknown) (unknown) Pulse Rate 65 65 (units (unknown) date) unknown) (unknown) (no (unknown) (unknown) Pulse Rate 68 (units ( unknown) date) unknown) (unknown) (no (unknown) (unknown) Pulse Rate 70 62 (units (unknown) date) 82 unknown) (unknown) (no (unknown) (unknown) Pulse Rate 78 (units ( unknown) date) 08/02/22 01:20 unknown) (unknown) (no (unknown) (unknown) Pulse Rate 78 61 (units (unknown) date) unknown) (unknown) (no (unknown) (unknown) Pyelonephritis can (units (unknown) date) appear similar unknown) noncontrast examination (unknown) (no (unknown) (unknown) RBC (4.0-5.2) (units ( unknown) date) X106/uL unknown) (unknown) (no (unknown) (unknown) RBC 4.26 (4.0-5.2) (units (unknown) date) X106/uL unknown) (unknown) (no (unknown) (unknown) RDW (11.6-14.8) % (units (unknown) date) unknown) (unknown) (no (unknown) (unknown) RDW 14.5 (units (unkno wn) date) (11.6-14.8) % unknown) (unknown) (no (unknown) (unknown) ROS Unobtainable: (units (unknown) date) All systems unknown) reviewed + are unremarkable except as noted in HPI (unknown) (no (unknown) (unknown) RSV (PCR) (units (unkn own) date) (Negative) unknown) (unknown) (no (unknown) (unknown) RSV (PCR) Negative (units (unknown) date) (Negative) unknown) (unknown) (no (unknown) (unknown) Radiologist's (units ( unknown) date) Impression: unknown) (unknown) (no (unknown) (unknown) Rate is 63 (units (unk nown) date) unknown) (unknown) (no (unknown) (unknown) Rate: regular rate (units (unknown) date) unknown) (unknown) (no (unknown) (unknown) Related Data (units (u nknown) date) unknown) (unknown) (no (unknown) (unknown) Resp (units (unkno wn) date) unknown) (unknown) (no (unknown) (unknown) Respiratory Rate (units (unknown) date) 16 18 unknown) (unknown) (no (unknown) (unknown) Respiratory Rate (units (unknown) date) 17 unknown) (unknown) (no (unknown) (unknown) Respiratory Rate (units (unknown) date) 19 08/02/22 01:20 unknown) (unknown) (no (unknown) (unknown) Respiratory Rate (units (unknown) date) 19 15 unknown) (unknown) (no (unknown) (unknown) Respiratory Rate (units (unknown) date) 27 H unknown) (unknown) (no (unknown) (unknown) Respiratory Rate (units (unknown) date) unknown) (unknown) (no (unknown) (unknown) Result diagrams: (units (unknown) date) unknown) (unknown) (no (unknown) (unknown) Retained ureteral (units (unknown) date) stent unknown) (unknown) (no (unknown) (unknown) Review of Systems (units (unknown) date) unknown) (unknown) (no (unknown) (unknown) Rhythm: regular (units (unknown) date) rhythm unknown) (unknown) (no (unknown) (unknown) Rx Instructions: (units (unknown) date) unknown) (unknown) (no (unknown) (unknown) SARS-CoV-2 (PCR) (units (unknown) date) (Negative) unknown) (unknown) (no (unknown) (unknown) SARS-CoV-2 (PCR) (units (unknown) date) Negative (Negative) unknown) (unknown) (no (unknown) (unknown) SVT (units (unkno wn) date) (supraventricular unknown) tachycardia) (unknown) (no (unknown) (unknown) Scores (units (unkno wn) date) unknown) (unknown) (no (unknown) (unknown) She continues to (units (unknown) date) get IV fluids. No unknown) sign of infection. INR is found to be (unknown) (no (unknown) (unknown) Signed By: (units (unk nown) date) unknown) (unknown) (no (unknown) (unknown) Irion. (units (unkno wn) date) unknown) (unknown) (no (unknown) (unknown) Skin (units (unkno wn) date) unknown) (unknown) (no (unknown) (unknown) Smoking Status: (units (unknown) date) Never smoker unknown) (unknown) (no (unknown) (unknown) Social History (units (unknown) date) (Reviewed 08/02/22 unknown) @ 05:41 by iMke Cobian DO) (unknown) (no (unknown) (unknown) Sodium 136 L (units (u nknown) date) (137-145) mmol/L unknown) (unknown) (no (unknown) (unknown) Sodium 137 (units (unk nown) date) (137-145) mmol/L unknown) (unknown) (no (unknown) (unknown) Sodium 139 (units (unk nown) date) (137-145) mmol/L unknown) (unknown) (no (unknown) (unknown) Sodium Chloride (units (unknown) date) (Normal Saline unknown) 0.9%) 1,000 mls @ 1,000 mls/hr IV BOLUS ONE (unknown) (no (unknown) (unknown) Sodium Chloride (units (unknown) date) (Normal Saline unknown) 0.9%) 1,000 mls @ 250 mls/hr IV CONT NORMAN (unknown) (no (unknown) (unknown) Sodium Urine (units (u nknown) date) Random Stat unknown) (unknown) (no (unknown) (unknown) Source: patient (units (unknown) date) and family unknown) (unknown) (no (unknown) (unknown) Speech: speech (units (unknown) date) normal unknown) (unknown) (no (unknown) (unknown) Start after 5 day (units (unknown) date) course of 2 caps unknown) daily is complete. (unknown) (no (unknown) (unknown) Stated complaint: (units (unknown) date) body pain/not able unknown) to eat or drink x 5 days (unknown) (no (unknown) (unknown) Stop: 08/02/22 (units (unknown) date) 02:39 unknown) (unknown) (no (unknown) (unknown) Stop: 08/02/22 (units (unknown) date) 04:57 unknown) (unknown) (no (unknown) (unknown) Stop: 08/02/22 (units (unknown) date) 07:44 unknown) (unknown) (no (unknown) (unknown) Stop: 08/02/22 (units (unknown) date) 08:23 unknown) (unknown) (no (unknown) (unknown) Substance Use (units ( unknown) date) Type: does not use unknown) (unknown) (no (unknown) (unknown) Surgical History (units (unknown) date) (Reviewed 08/02/22 unknown) @ 05:41 by Mike Cobian DO) (unknown) (no (unknown) (unknown) Temperature 98.7 F (units (unknown) date) 08/02/22 01:20 unknown) (unknown) (no (unknown) (unknown) Temperature 98.7 F (units (unknown) date) unknown) (unknown) (no (unknown) (unknown) Temperature (units (un known) date) unknown) (unknown) (no (unknown) (unknown) Time Seen by (units (u nknown) date) Provider: 08/02/22 unknown) 01:38 (unknown) (no (unknown) (unknown) Total Bilirubin (units (unknown) date) (0.2-1.3) mg/dL unknown) (unknown) (no (unknown) (unknown) Total Bilirubin (units (unknown) date) 0.7 (0.2-1.3) mg/dL unknown) (unknown) (no (unknown) (unknown) Total Protein (units ( unknown) date) (6.3-8.2) g/dL unknown) (unknown) (no (unknown) (unknown) Total Protein 7.3 (units (unknown) date) (6.3-8.2) g/dL unknown) (unknown) (no (unknown) (unknown) US - abdomen: (units ( unknown) date) unknown) (unknown) (no (unknown) (unknown) Upset (units (unkno wn) date) unknown) (unknown) (no (unknown) (unknown) Ur Random Sodium (units (unknown) date) (30-90) mmol/L unknown) (unknown) (no (unknown) (unknown) Ur Random Sodium (units (unknown) date) 84 (30-90) mmol/L unknown) (unknown) (no (unknown) (unknown) Urine Creatinine (units (unknown) date) 69.7 mg/dL unknown) (unknown) (no (unknown) (unknown) Urine Creatinine (units (unknown) date) mg/dL unknown) (unknown) (no (unknown) (unknown) Urine Dip (units (unkn own) date) unknown) (unknown) (no (unknown) (unknown) Urine Specific (units (unknown) date) [place] 1.015 unknown) (unknown) (no (unknown) (unknown) Vital Signs - 8 hr (units (unknown) date) unknown) (unknown) (no (unknown) (unknown) Vital Signs (units (un known) date) unknown) (unknown) (no (unknown) (unknown) Vital signs: (units (u nknown) date) unknown) (unknown) (no (unknown) (unknown) WBC (4.5-11.0) (units (unknown) date) X103/uL unknown) (unknown) (no (unknown) (unknown) WBC 9.8 (4.5-11.0) (units (unknown) date) X103/uL unknown) (unknown) (no (unknown) (unknown) [Embedded Image (units (unknown) date) Not Available] unknown) (unknown) (no (unknown) (unknown) [From Pyridium] (units (unknown) date) unknown) (unknown) (no (unknown) (unknown) a couple days but (units (unknown) date) her symptoms were unknown) not improving and she started to feel worse (unknown) (no (unknown) (unknown) abdominal pain. (units (unknown) date) Blood work today unknown) does show improvement in high mild (unknown) (no (unknown) (unknown) alcohol intake (units (unknown) date) frequency: 0-2 unknown) drinks per day (unknown) (no (unknown) (unknown) alcohol intake: (units (unknown) date) never unknown) (unknown) (no (unknown) (unknown) and below (units (unkn own) date) unknown) (unknown) (no (unknown) (unknown) biotin 5,000 mcg (units (unknown) date) Tablet, Sublingual unknown) (unknown) (no (unknown) (unknown) biotin 5,000 mcg (units (unknown) date) sublingual tablet unknown) 5,000 mcg sublingual DAILY 06/20/21 08/12/21 (unknown) (no (unknown) (unknown) breath activated (units (unknown) date) powder inhaler unknown) (unknown) (no (unknown) (unknown) budesonide 200 (units (unknown) date) mcg/actuation 50 unknown) mcg inhalation Q8HR 06/20/21 08/12/21 (unknown) (no (unknown) (unknown) budesonide 200 (units (unknown) date) mcg/actuation unknown) Aerosol Powdr Breath Activated (unknown) (no (unknown) (unknown) carvedilol 6.25 mg (units (unknown) date) Tablet unknown) (unknown) (no (unknown) (unknown) carvedilol 6.25 mg (units (unknown) date) tablet 6.25 mg PO unknown) BID 06/20/21 08/12/21 (unknown) (no (unknown) (unknown) cholecalciferol (units (unknown) date) (vitamin D3) 125 unknown) 125 mcg PO DAILY 06/20/21 08/12/21 (unknown) (no (unknown) (unknown) cholecalciferol (units (unknown) date) (vitamin D3) 125 unknown) mcg (5,000 unit) Tablet (unknown) (no (unknown) (unknown) ciprofloxacin HCl (units (unknown) date) 250 mg tablet 250 unknown) mg PO BEDTIME #60 tabs 09/02/21 (unknown) (no (unknown) (unknown) ciprofloxacin HCl (units (unknown) date) 250 mg tablet unknown) (unknown) (no (unknown) (unknown) consultation with (units (unknown) date) Nephrology. unknown) (unknown) (no (unknown) (unknown) creatinine at the (units (unknown) date) 1.3-1.7 range in unknown) her GFR in the 30s. Patient has not been (unknown) (no (unknown) (unknown) direction. She (units (unknown) date) comes to the unknown) emergency department today because of overall body (unknown) (no (unknown) (unknown) elevated at 7.1 (units (unknown) date) thought to be unknown) somehow related to her renal failure. Vitamin K (unknown) (no (unknown) (unknown) estradiol 0.01% (units (unknown) date) (0.1 mg/gram) 1 g unknown) vaginal 2XW #42.5 grams 08/19/21 (unknown) (no (unknown) (unknown) estradiol (units (unkn own) date) [Estrace] 0.01 % unknown) (0.1 mg/gram) cream (unknown) (no (unknown) (unknown) extremities (units (un known) date) unknown) (unknown) (no (unknown) (unknown) fosfomycin (units (unk nown) date) tromethamine 3 gram unknown) 3 g PO ONCE #1 ea 07/31/21 (unknown) (no (unknown) (unknown) fosfomycin (units (unk nown) date) tromethamine 3 gram unknown) 3 g PO ONCE #1 ea 08/01/21 (unknown) (no (unknown) (unknown) fosfomycin (units (unk nown) date) tromethamine 3 gram unknown) packet (unknown) (no (unknown) (unknown) furosemide 20 mg (units (unknown) date) Tablet unknown) (unknown) (no (unknown) (unknown) furosemide 20 mg (units (unknown) date) tablet 20 mg PO 6XW unknown) 06/20/21 08/12/21 (unknown) (no (unknown) (unknown) furosemide 40 mg (units (unknown) date) Tablet unknown) (unknown) (no (unknown) (unknown) furosemide 40 mg (units (unknown) date) tablet 40 mg PO unknown) WEEKLY 06/20/21 08/12/21 (unknown) (no (unknown) (unknown) having bowel (units (u nknown) date) movements. She unknown) denies any fevers. No recent travel. (unknown) (no (unknown) (unknown) household members: (units (unknown) date) spouse unknown) (unknown) (no (unknown) (unknown) hyperkalemia it (units (unknown) date) was 5.8 now was 5 unknown) 5. Improvement in her creatinine as well was (unknown) (no (unknown) (unknown) is 8.9% which is (units (unknown) date) consistent with a unknown) post renal/obstructive pathology however I do (unknown) (no (unknown) (unknown) is ordered. (units (un known) date) unknown) (unknown) (no (unknown) (unknown) likely that the (units (unknown) date) cause of all of her unknown) nausea and vomiting even her abdominal (unknown) (no (unknown) (unknown) losartan 50 mg (units (unknown) date) Tablet unknown) (unknown) (no (unknown) (unknown) losartan 50 mg (units (unknown) date) tablet 50 mg PO unknown) DAILY 06/20/21 08/12/21 (unknown) (no (unknown) (unknown) mcg (5,000 unit) (units (unknown) date) tablet unknown) (unknown) (no (unknown) (unknown) metformin 500 mg (units (unknown) date) Tablet unknown) (unknown) (no (unknown) (unknown) metformin 500 mg (units (unknown) date) tablet 1,000 mg PO unknown) BID 07/26/21 08/12/21 (unknown) (no (unknown) (unknown) must administer (units (unknown) date) with a meal/food unknown) (unknown) (no (unknown) (unknown) not have a (units (unk nown) date) specific source of unknown) this as it does not appear to be an obstructive (unknown) (no (unknown) (unknown) obstructive (units (un known) date) uropathy. unknown) (unknown) (no (unknown) (unknown) of (units (unkno wn) date) unknown) (unknown) (no (unknown) (unknown) oral packet (units (un known) date) unknown) (unknown) (no (unknown) (unknown) oxycodone 5 mg (units (unknown) date) tablet 5 mg PO Q4H unknown) PRN pain #20 tabs 07/26/21 (unknown) (no (unknown) (unknown) oxycodone 5 mg (units (unknown) date) tablet unknown) (unknown) (no (unknown) (unknown) pain, belly pain, (units (unknown) date) vomiting, unable to unknown) drink for the past several days. Still (unknown) (no (unknown) (unknown) pain. She is in (units (unknown) date) acute renal unknown) failure/YESIKA given her creatinine of 10 and GFR 4. (unknown) (no (unknown) (unknown) patient myself. (units (unknown) date) She says overall unknown) she is feeling better. No nausea vomiting no (unknown) (no (unknown) (unknown) phenazopyridine (units (unknown) date) Allergy Verified unknown) 08/12/21 08:17 (unknown) (no (unknown) (unknown) potassium 99 mg (units (unknown) date) Tablet unknown) (unknown) (no (unknown) (unknown) potassium 99 mg (units (unknown) date) tablet 99 mg PO unknown) DAILY 07/26/21 08/12/21 (unknown) (no (unknown) (unknown) prednisone Allergy (units (unknown) date) Severe Swelling unknown) Verified 08/02/22 01:20 (unknown) (no (unknown) (unknown) procaine [From (units (unknown) date) Novocain] Allergy unknown) Chest Pain Verified 08/02/22 01:20 (unknown) (no (unknown) (unknown) recently for UTI (units (unknown) date) like symptoms. Was unknown) sent home with Bactrim. She took this for (unknown) (no (unknown) (unknown) rizatriptan (units (un known) date) Allergy Severe unknown) Difficulty Verified 08/02/22 01:20 (unknown) (no (unknown) (unknown) rosuvastatin 40 mg (units (unknown) date) Tablet unknown) (unknown) (no (unknown) (unknown) rosuvastatin 40 mg (units (unknown) date) tablet 40 mg PO unknown) DAILY 06/20/21 08/12/21 (unknown) (no (unknown) (unknown) s (units (unkno wn) date) unknown) (unknown) (no (unknown) (unknown) shellfish derived (units (unknown) date) AdvReac unknown) Gastrointestinal Verified 08/02/22 01:20 (unknown) (no (unknown) (unknown) signs of an (units (un known) date) infection. CT scans unknown) did not give a definitive etiology. Her FeNa (unknown) (no (unknown) (unknown) slightly. Care (units (unknown) date) turned over to unknown) Gustavo to follow-up and most likely (unknown) (no (unknown) (unknown) so she contact her (units (unknown) date) primary doctor who unknown) looked up the culture results and told her (unknown) (no (unknown) (unknown) stone nor urinary (units (unknown) date) retention. After 2 unknown) L of fluid her creatinine only improved (unknown) (no (unknown) (unknown) takes 4 puffs (units ( unknown) date) qhs-(Pulmacort) unknown) (unknown) (no (unknown) (unknown) takes it 5x/week (units (unknown) date) unknown) (unknown) (no (unknown) (unknown) tamsulosin 0.4 mg (units (unknown) date) capsule 0.4 mg PO unknown) BEDTIME #60 caps 06/21/21 (unknown) (no (unknown) (unknown) tamsulosin 0.4 mg (units (unknown) date) capsule unknown) (unknown) (no (unknown) (unknown) tetracycline (units (u nknown) date) Allergy Severe unknown) ITCHING Verified 08/12/21 08:17 (unknown) (no (unknown) (unknown) that she did not (units (unknown) date) have an infection unknown) so she quit taking the medications per their (unknown) (no (unknown) (unknown) thiopental AdvReac (units (unknown) date) Palpitation unknown) Verified 08/02/22 01:20 (unknown) (no (unknown) (unknown) time agrees with a (units (unknown) date) bicarb drip 100 mEq unknown) for 75 an hour for about 1 day. (unknown) (no (unknown) (unknown) twice weekly (units (u nknown) date) thereafter. unknown) (unknown) (no (unknown) (unknown) upper abdominal (units (unknown) date) discomfort. Has unknown) pancreatitis based on her lipase which is most (unknown) (no (unknown) (unknown) vaginal cream (units ( unknown) date) (Estrace) unknown) (unknown) (no (unknown) (unknown) vomiting since (units (unknown) date) arrival here to the unknown) ER. Her urinalysis today does not show any (unknown) (no (unknown) (unknown) warfarin 2 mg (units ( unknown) date) Tablet unknown) (unknown) (no (unknown) (unknown) warfarin 2 mg (units ( unknown) date) tablet 2 mg PO 2XW unknown) 06/20/21 08/12/21 (unknown) (no (unknown) (unknown) warfarin 3 mg (units ( unknown) date) Tablet unknown) (unknown) (no (unknown) (unknown) warfarin 3 mg (units ( unknown) date) tablet 3 mg PO 5XW unknown) 06/20/21 08/12/21 Result panel 193 (unknown) (no (unknown) (unknown) (no value) (units (unk nown) date) unknown) (unknown) (no (unknown) (unknown) <Francesca Chen, (units (unknown) date) DO - Last Filed: unknown) 08/02/22 09:56> (unknown) (no (unknown) (unknown) <Mike Cobian, (units (unknown) date) DO - Last Filed: unknown) 08/02/22 06:47> (unknown) (no (unknown) (unknown) 0.4 mg PO BEDTIME (units (unknown) date) Qty: 60 0RF unknown) (unknown) (no (unknown) (unknown) 01:17 01:40 01:40 (units (unknown) date) unknown) (unknown) (no (unknown) (unknown) 02:00 08/02/22 (units (unknown) date) unknown) (unknown) (no (unknown) (unknown) 02:32 08/02/22 (units (unknown) date) unknown) (unknown) (no (unknown) (unknown) 03:00 (units (unkno wn) date) unknown) (unknown) (no (unknown) (unknown) 03:30 05:30 07:46 (units (unknown) date) unknown) (unknown) (no (unknown) (unknown) 03:30 08/02/22 (units (unknown) date) unknown) (unknown) (no (unknown) (unknown) 03:35 08/02/22 (units (unknown) date) unknown) (unknown) (no (unknown) (unknown) 03:35 (units (unkno wn) date) unknown) (unknown) (no (unknown) (unknown) [id number] (units (unkno wn) date) unknown) (unknown) (no (unknown) (unknown) 04:00 08/02/22 (units (unknown) date) unknown) (unknown) (no (unknown) (unknown) 04:01 08/02/22 (units (unknown) date) unknown) (unknown) (no (unknown) (unknown) 04:01 (units (unkno wn) date) unknown) (unknown) (no (unknown) (unknown) 04:30 08/02/22 (units (unknown) date) unknown) (unknown) (no (unknown) (unknown) 05:00 08/02/22 (units (unknown) date) unknown) (unknown) (no (unknown) (unknown) 05:00 (units (unkno wn) date) unknown) (unknown) (no (unknown) (unknown) 05:30 08/02/22 (units (unknown) date) unknown) (unknown) (no (unknown) (unknown) 05:30 (units (unkno wn) date) unknown) (unknown) (no (unknown) (unknown) 07:46 07:46 07:50 (units (unknown) date) unknown) (unknown) (no (unknown) (unknown) 0900am- Dr. Cabrera (units (unknown) date) Nephrology, updated unknown) on patient's symptoms test results at this (unknown) (no (unknown) (unknown) 1 g vaginal 2XW (units (unknown) date) Qty: 42.5 3RF unknown) (unknown) (no (unknown) (unknown) 1,000 mg PO BID (units (unknown) date) unknown) (unknown) (no (unknown) (unknown) 10.0 and now 9.23. (units (unknown) date) [place] catheter is unknown) placed she has very clear urine draining. (unknown) (no (unknown) (unknown) 08/02/22 01:17 (units (unknown) date) unknown) (unknown) (no (unknown) (unknown) 08/02/22 01:25 (units (unknown) date) unknown) (unknown) (no (unknown) (unknown) 08/02/22 01:40 (units (unknown) date) unknown) (unknown) (no (unknown) (unknown) 08/02/22 02:20 (units (unknown) date) unknown) (unknown) (no (unknown) (unknown) 08/02/22 03:30 (units (unknown) date) unknown) (unknown) (no (unknown) (unknown) 08/02/22 05:30 (units (unknown) date) unknown) (unknown) (no (unknown) (unknown) 08/02/22 07:46 (units (unknown) date) unknown) (unknown) (no (unknown) (unknown) 08/02/22 07:50 (units (unknown) date) unknown) (unknown) (no (unknown) (unknown) 08/02/22 08/02/22 (units (unknown) date) 08/02/22 unknown) Range/Units (unknown) (no (unknown) (unknown) 08/02/22 12:00 (units (unknown) date) unknown) (unknown) (no (unknown) (unknown) 08/02/22 (units (unkno wn) date) [facility]-patient unknown) signed out to me by Dr. Cobian if seen evaluated (unknown) (no (unknown) (unknown) 08/02/22 (units (unkno wn) date) unknown) (unknown) (no (unknown) (unknown) 125 mcg PO DAILY (units (unknown) date) unknown) (unknown) (no (unknown) (unknown) 2 mg PO 2XW (units (un known) date) unknown) (unknown) (no (unknown) (unknown) 20 mg PO 6XW (units (u nknown) date) unknown) (unknown) (no (unknown) (unknown) 250 mg PO BEDTIME (units (unknown) date) Qty: 60 0RF unknown) (unknown) (no (unknown) (unknown) 3 g PO ONCE Qty: 1 (units (unknown) date) 0RF unknown) (unknown) (no (unknown) (unknown) 3 mg PO 5XW (units (un known) date) unknown) (unknown) (no (unknown) (unknown) 40 mg PO DAILY (units (unknown) date) unknown) (unknown) (no (unknown) (unknown) 40 mg PO WEEKLY (units (unknown) date) unknown) (unknown) (no (unknown) (unknown) 5 mg PO Q4H PRN (units (unknown) date) (Reason: pain) Qty: unknown) 20 0RF (unknown) (no (unknown) (unknown) 5,000 mcg (units (unkn own) date) sublingual DAILY unknown) (unknown) (no (unknown) (unknown) 50 mcg INHALATION (units (unknown) date) Q8HR unknown) (unknown) (no (unknown) (unknown) 50 mg PO DAILY (units (unknown) date) unknown) (unknown) (no (unknown) (unknown) 6.25 mg PO BID (units (unknown) date) unknown) (unknown) (no (unknown) (unknown) 99 mg PO DAILY (units (unknown) date) unknown) (unknown) (no (unknown) (unknown) AICD (automatic (units (unknown) date) cardioverter/defibr unknown) illator) present (11/29/20) (unknown) (no (unknown) (unknown) ALT (<35) IU/L (units (unknown) date) unknown) (unknown) (no (unknown) (unknown) ALT 27 (<35) IU/L (units (unknown) date) unknown) (unknown) (no (unknown) (unknown) AST (14-36) IU/L (units (unknown) date) unknown) (unknown) (no (unknown) (unknown) AST 32 (14-36) (units (unknown) date) IU/L unknown) (unknown) (no (unknown) (unknown) Acute kidney (units (u nknown) date) injury unknown) (unknown) (no (unknown) (unknown) Admin: 08/02/22 (units (unknown) date) 02:15 Dose: 1,000 unknown) mls/hr (unknown) (no (unknown) (unknown) Admin: 08/02/22 (units (unknown) date) 04:04 Dose: 1,000 unknown) mls/hr (unknown) (no (unknown) (unknown) Afib (units (unkno wn) date) unknown) (unknown) (no (unknown) (unknown) Age/Sex: 71 / F (units (unknown) date) unknown) (unknown) (no (unknown) (unknown) Albumin (3.5-5.0) (units (unknown) date) g/dL unknown) (unknown) (no (unknown) (unknown) Albumin 4.2 (units (un known) date) (3.5-5.0) g/dL unknown) (unknown) (no (unknown) (unknown) Albumin/Globulin (units (unknown) date) Ratio (1.0-2.8) unknown) (unknown) (no (unknown) (unknown) Albumin/Globulin (units (unknown) date) Ratio 1.4 (1.0-2.8) unknown) (unknown) (no (unknown) (unknown) Alkaline (units (unkno wn) date) Phosphatase unknown) (38-126) U/L (unknown) (no (unknown) (unknown) Alkaline (units (unkno wn) date) Phosphatase 54 unknown) (38-126) U/L (unknown) (no (unknown) (unknown) Allergies (units (unkn own) date) unknown) (unknown) (no (unknown) (unknown) Allergy/AdvReac (units (unknown) date) Type Severity unknown) Reaction Status Date / Time (unknown) (no (unknown) (unknown) Appearance: (units (un known) date) grossly normal and unknown) well kempt (unknown) (no (unknown) (unknown) Atrially (units (unkno wn) date) sensed/ventricularl unknown) y paced (unknown) (no (unknown) (unknown) Attestation: I (units (unknown) date) personally reviewed unknown) and interpreted this ECG as follows: (unknown) (no (unknown) (unknown) Attestation: I (units (unknown) date) reviewed the unknown) patient's lab results. (unknown) (no (unknown) (unknown) Attestation: I (units (unknown) date) reviewed the unknown) patient's medical records. (unknown) (no (unknown) (unknown) Auscultation: (units ( unknown) date) clear to unknown) auscultation bilaterally (unknown) (no (unknown) (unknown) BMP [Basic (units (unk nown) date) Metabolic Panel] unknown) Stat (unknown) (no (unknown) (unknown) BUN 63 H (7-17) (units (unknown) date) mg/dL unknown) (unknown) (no (unknown) (unknown) BUN 65 H (7-17) (units (unknown) date) mg/dL unknown) (unknown) (no (unknown) (unknown) BUN 67 H (7-17) (units (unknown) date) mg/dL unknown) (unknown) (no (unknown) (unknown) BUN/Creatinine (units (unknown) date) Ratio 6.7 (6-22) unknown) (unknown) (no (unknown) (unknown) BUN/Creatinine (units (unknown) date) Ratio 6.9 (6-22) unknown) (unknown) (no (unknown) (unknown) BUN/Creatinine (units (unknown) date) Ratio 7.0 (6-22) unknown) (unknown) (no (unknown) (unknown) Back/Spine/Pelvis (units (unknown) date) unknown) (unknown) (no (unknown) (unknown) Back: No CVA (units (u nknown) date) tenderness unknown) (unknown) (no (unknown) (unknown) Baso # (Auto) (units ( unknown) date) (0-100) /uL unknown) (unknown) (no (unknown) (unknown) Baso # (Auto) 100 (units (unknown) date) (0-100) /uL unknown) (unknown) (no (unknown) (unknown) Baso % (Auto) (units ( unknown) date) (0-2) % unknown) (unknown) (no (unknown) (unknown) Baso % (Auto) 0.7 (units (unknown) date) (0-2) % unknown) (unknown) (no (unknown) (unknown) Bedside Urine (units ( unknown) date) Bilirubin - unknown) Negative (unknown) (no (unknown) (unknown) Bedside Urine (units ( unknown) date) Glucose Negative unknown) (unknown) (no (unknown) (unknown) Bedside Urine (units ( unknown) date) Ketone +/- 5 unknown) (unknown) (no (unknown) (unknown) Bedside Urine (units ( unknown) date) Leukocytes - unknown) Negative (unknown) (no (unknown) (unknown) Bedside Urine (units ( unknown) date) Nitrite - Negative unknown) (unknown) (no (unknown) (unknown) Bedside Urine (units ( unknown) date) Occult Blood unknown) (unknown) (no (unknown) (unknown) Bedside Urine (units ( unknown) date) Protein ++ 100 unknown) (unknown) (no (unknown) (unknown) Bedside Urine (units ( unknown) date) Urobilinogen - unknown) Negative (unknown) (no (unknown) (unknown) Bedside Urine pH (units (unknown) date) 6.0 unknown) (unknown) (no (unknown) (unknown) Bilateral (units (unkn own) date) perinephric unknown) stranding. This can be an asymptomatic finding. (unknown) (no (unknown) (unknown) Bilateral renal (units (unknown) date) cysts unknown) (unknown) (no (unknown) (unknown) Blood Pressure (units (unknown) date) 119/59 L unknown) (unknown) (no (unknown) (unknown) Blood Pressure (units (unknown) date) 124/59 L 109/53 L unknown) (unknown) (no (unknown) (unknown) Blood Pressure (units (unknown) date) 130/69 08/02/22 unknown) 01:20 (unknown) (no (unknown) (unknown) Blood Pressure (units (unknown) date) 143/65 H unknown) (unknown) (no (unknown) (unknown) Blood Pressure (units (unknown) date) 146/67 H unknown) (unknown) (no (unknown) (unknown) Blood Pressure (units (unknown) date) unknown) (unknown) (no (unknown) (unknown) Breathing (units (unkn own) date) unknown) (unknown) (no (unknown) (unknown) CHF (congestive (units (unknown) date) heart failure) unknown) (unknown) (no (unknown) (unknown) CT kidney ureter (units (unknown) date) bladder (KUB) Stat unknown) (unknown) (no (unknown) (unknown) CT scan - (units (unkn own) date) abdomen/pelvis: unknown) (unknown) (no (unknown) (unknown) CVA (cerebral (units ( unknown) date) vascular accident) unknown) (unknown) (no (unknown) (unknown) Calcium 8.4 (units (un known) date) (8.4-10.2) mg/dL unknown) (unknown) (no (unknown) (unknown) Calcium 9.9 (units (un known) date) (8.4-10.2) mg/dL unknown) (unknown) (no (unknown) (unknown) Carbon Dioxide 13 (units (unknown) date) L (22-32) mmol/L unknown) (unknown) (no (unknown) (unknown) Cardiac arrest (units (unknown) date) (11/29/20) unknown) (unknown) (no (unknown) (unknown) Cardio (units (unkno wn) date) unknown) (unknown) (no (unknown) (unknown) Cardiomyopathy (units (unknown) date) unknown) (unknown) (no (unknown) (unknown) Chest (units (unkno wn) date) unknown) (unknown) (no (unknown) (unknown) Chief complaint: (units (unknown) date) Nausea/Vomiting/Huong unknown) rrhea (unknown) (no (unknown) (unknown) Chloride 103 (units (u nknown) date) (98-107) mmol/L unknown) (unknown) (no (unknown) (unknown) Chloride 109 H (units (unknown) date) (98-107) mmol/L unknown) (unknown) (no (unknown) (unknown) Cognition: normal (units (unknown) date) cognition unknown) (unknown) (no (unknown) (unknown) Complete Blood (units (unknown) date) Count AUTO DIFF unknown) Stat (unknown) (no (unknown) (unknown) Comprehensive (units ( unknown) date) Metabolic Panel unknown) Stat (unknown) (no (unknown) (unknown) Const (units (unkno wn) date) unknown) (unknown) (no (unknown) (unknown) Continue checking (units (unknown) date) light. Will likely unknown) need dialysis however no beds available at (unknown) (no (unknown) (unknown) Course (units (unkno wn) date) unknown) (unknown) (no (unknown) (unknown) Covid-19 + FLU A/B (units (unknown) date) + RSV - PCR Stat unknown) (unknown) (no (unknown) (unknown) Creatinine 10.0 H* (units (unknown) date) (0.52-1.04) mg/dL unknown) (unknown) (no (unknown) (unknown) Creatinine 9.15 H* (units (unknown) date) (0.52-1.04) mg/dL unknown) (unknown) (no (unknown) (unknown) Creatinine 9.23 H* (units (unknown) date) (0.52-1.04) mg/dL unknown) (unknown) (no (unknown) (unknown) Creatinine Urine (units (unknown) date) Random Stat unknown) (unknown) (no (unknown) (unknown) : 1950 (units (unknown) date) Acct:[id number] unknown) (unknown) (no (unknown) (unknown) Date of Service: (units (unknown) date) 08/02/22 unknown) (unknown) (no (unknown) (unknown) Departure (units (unkn own) date) unknown) (unknown) (no (unknown) (unknown) Diabetes (units (unkno wn) date) unknown) (unknown) (no (unknown) (unknown) Discharge Plan (units (unknown) date) unknown) (unknown) (no (unknown) (unknown) Discontinued (units (u nknown) date) Medications unknown) (unknown) (no (unknown) (unknown) Documented By: GC (units (unknown) date) unknown) (unknown) (no (unknown) (unknown) Documented By: KM (units (unknown) date) unknown) (unknown) (no (unknown) (unknown) Documented By: NR (units (unknown) date) unknown) (unknown) (no (unknown) (unknown) ECG Data (units (unkno wn) date) unknown) (unknown) (no (unknown) (unknown) ED Orders (units (unkn own) date) unknown) (unknown) (no (unknown) (unknown) EKG-12 Lead Stat (units (unknown) date) unknown) (unknown) (no (unknown) (unknown) ER Physician: (units ( unknown) date) Francesca Chen D.O. unknown) (unknown) (no (unknown) (unknown) Effort + (units (unkno wn) date) Inspection: normal unknown) respiratory effort (unknown) (no (unknown) (unknown) Emergency Report (units (unknown) date) unknown) (unknown) (no (unknown) (unknown) Eos # (Auto) (units (u nknown) date) (0-450) /uL unknown) (unknown) (no (unknown) (unknown) Eos # (Auto) 100 (units (unknown) date) (0-450) /uL unknown) (unknown) (no (unknown) (unknown) Eos % (Auto) (2-4) (units (unknown) date) % unknown) (unknown) (no (unknown) (unknown) Eos % (Auto) 1.2 L (units (unknown) date) (2-4) % unknown) (unknown) (no (unknown) (unknown) Esterase (units (unkno wn) date) unknown) (unknown) (no (unknown) (unknown) Estimated GFR 4 L (units (unknown) date) (>60) mL/min unknown) (unknown) (no (unknown) (unknown) Exam (units (unkno wn) date) unknown) (unknown) (no (unknown) (unknown) Extrem (units (unkno wn) date) unknown) (unknown) (no (unknown) (unknown) GCS (units (unkno wn) date) unknown) (unknown) (no (unknown) (unknown) GI (units (unkno wn) date) unknown) (unknown) (no (unknown) (unknown) General (units (unkno wn) date) unknown) (unknown) (no (unknown) (unknown) General: (units (unkno wn) date) cooperative, unknown) comfortable and No ill appearing (unknown) (no (unknown) (unknown) General: no rashes (units (unknown) date) or lesions noted unknown) (unknown) (no (unknown) (unknown) General: normal to (units (unknown) date) inspection, unknown) capillary refill normal and No edema (unknown) (no (unknown) (unknown) General: patient (units (unknown) date) alert, patient unknown) awake, patient oriented x3 and moves all (unknown) (no (unknown) (unknown) [place] coma scale (units (unknown) date) eye opening: unknown) Spontaneous (unknown) (no (unknown) (unknown) [place] coma scale (units (unknown) date) motor response: unknown) Obey commands (unknown) (no (unknown) (unknown) [place] coma scale (units (unknown) date) total score: 15 unknown) (unknown) (no (unknown) (unknown) [place] coma scale (units (unknown) date) verbal response: unknown) Orientated (unknown) (no (unknown) (unknown) Globulin (1.7-4.1) (units (unknown) date) g/dL unknown) (unknown) (no (unknown) (unknown) Globulin 3.1 (units (u nknown) date) (1.7-4.1) g/dL unknown) (unknown) (no (unknown) (unknown) Glucose 82 (units (unk nown) date) (80-110) mg/dL unknown) (unknown) (no (unknown) (unknown) Glucose 86 (units (unk nown) date) (80-110) mg/dL unknown) (unknown) (no (unknown) (unknown) Glucose 88 (units (unk nown) date) (80-110) mg/dL unknown) (unknown) (no (unknown) (unknown) HENMT (units (unkno wn) date) unknown) (unknown) (no (unknown) (unknown) HLD (units (unkno wn) date) (hyperlipidemia) unknown) (unknown) (no (unknown) (unknown) HPI - (units (unkno wn) date) Nausea/Vomiting/Huong unknown) rrhea (unknown) (no (unknown) (unknown) HPI Narrative: (units (unknown) date) unknown) (unknown) (no (unknown) (unknown) HTN (hypertension) (units (unknown) date) unknown) (unknown) (no (unknown) (unknown) Hct (36-46) % (units ( unknown) date) unknown) (unknown) (no (unknown) (unknown) Hct 38.4 (36-46) % (units (unknown) date) unknown) (unknown) (no (unknown) (unknown) Head: normal to (units (unknown) date) inspection and unknown) normocephalic (unknown) (no (unknown) (unknown) Hgb (12.0-16.0) (units (unknown) date) g/dL unknown) (unknown) (no (unknown) (unknown) Hgb 12.7 (units (unkno wn) date) (12.0-16.0) g/dL unknown) (unknown) (no (unknown) (unknown) History of Present (units (unknown) date) Illness unknown) (unknown) (no (unknown) (unknown) History of UTI (units (unknown) date) unknown) (unknown) (no (unknown) (unknown) History of colon (units (unknown) date) surgery unknown) (unknown) (no (unknown) (unknown) History of (units (unk nown) date) colonoscopy unknown) (unknown) (no (unknown) (unknown) History of (units (unk nown) date) hysterectomy unknown) (unknown) (no (unknown) (unknown) History of (units (unk nown) date) nephrolithiasis unknown) (unknown) (no (unknown) (unknown) History of (units (unk nown) date) thyroidectomy, unknown) subtotal (unknown) (no (unknown) (unknown) Home Medications (units (unknown) date) unknown) (unknown) (no (unknown) (unknown) Hx of appendectomy (units (unknown) date) unknown) (unknown) (no (unknown) (unknown) Hx of breast (units (u nknown) date) surgery unknown) (unknown) (no (unknown) (unknown) Hx of cystoscopy (units (unknown) date) (06/20/21) unknown) (unknown) (no (unknown) (unknown) Hx of eye surgery (units (unknown) date) unknown) (unknown) (no (unknown) (unknown) INR (0.9-1.3) (units ( unknown) date) unknown) (unknown) (no (unknown) (unknown) INR 7.1 H* (units (unk nown) date) (0.9-1.3) unknown) (unknown) (no (unknown) (unknown) Imaging Data (units (u nknown) date) unknown) (unknown) (no (unknown) (unknown) Influenza A (units (un known) date) (RT-PCR) (NEGATIVE) unknown) (unknown) (no (unknown) (unknown) Influenza A (units (un known) date) (RT-PCR) Flu a unknown) negative (NEGATIVE) (unknown) (no (unknown) (unknown) Influenza B (units (un known) date) (RT-PCR) (NEGATIVE) unknown) (unknown) (no (unknown) (unknown) Influenza B (units (un known) date) (RT-PCR) Flu b unknown) negative (NEGATIVE) (unknown) (no (unknown) (unknown) Initial Vital (units ( unknown) date) Signs unknown) (unknown) (no (unknown) (unknown) Initial Vital (units ( unknown) date) Signs: unknown) (unknown) (no (unknown) (unknown) Insert 1 g (units (unk nown) date) intravaginally at unknown) HS times 12 days then 1 g intravaginally at HS (unknown) (no (unknown) (unknown) Inspection: normal (units (unknown) date) to inspection unknown) (unknown) (no (unknown) (unknown) Interpretation: (units (unknown) date) unknown) (unknown) (no (unknown) (unknown) [facility] (units (unknown) date) [address] unknown) [place] [address] (unknown) (no (unknown) (unknown) LDH [Lactate (units (u nknown) date) Dehydrogenase] Stat unknown) (unknown) (no (unknown) (unknown) Lab Data (units (unkno wn) date) unknown) (unknown) (no (unknown) (unknown) Lab Results (units (un known) date) unknown) (unknown) (no (unknown) (unknown) Label Comments: (units (unknown) date) unknown) (unknown) (no (unknown) (unknown) Labs: (units (unkno wn) date) unknown) (unknown) (no (unknown) (unknown) Lactate (units (unkno wn) date) Dehydrogenase unknown) (120-246) U/L (unknown) (no (unknown) (unknown) Lactate (units (unkno wn) date) Dehydrogenase 231 unknown) (120-246) U/L (unknown) (no (unknown) (unknown) Last Admin: (units (un known) date) 08/02/22 02:48 unknown) Dose: 4 mg (unknown) (no (unknown) (unknown) Last Admin: (units (un known) date) 08/02/22 06:16 unknown) Dose: 250 mls/hr (unknown) (no (unknown) (unknown) Last Admin: (units (un known) date) 08/02/22 08:01 unknown) Dose: 6 ml (unknown) (no (unknown) (unknown) Last Admin: (units (un known) date) 08/02/22 08:53 unknown) Dose: 10 mg (unknown) (no (unknown) (unknown) Last Infusion: (units (unknown) date) 08/02/22 03:27 unknown) Dose: 0 mls/hr (unknown) (no (unknown) (unknown) Last Infusion: (units (unknown) date) 08/02/22 05:05 unknown) Dose: 0 mls/hr (unknown) (no (unknown) (unknown) Left ureteral (units ( unknown) date) calculus unknown) (unknown) (no (unknown) (unknown) Lidocaine HCl (units ( unknown) date) (Lidocaine 2% unknown) (Glydo) 6 Ml Gel) 6 ml TOP NOW ONE (unknown) (no (unknown) (unknown) Lip/Tongue/Throat (units (unknown) date) unknown) (unknown) (no (unknown) (unknown) Lipase (23-300) (units (unknown) date) U/L unknown) (unknown) (no (unknown) (unknown) Lipase 2978 H (units ( unknown) date) (23-300) U/L unknown) (unknown) (no (unknown) (unknown) Lipase 2998 H (units ( unknown) date) (23-300) U/L unknown) (unknown) (no (unknown) (unknown) Lipase Stat (units (un known) date) unknown) (unknown) (no (unknown) (unknown) Lymph # (Auto) (units (unknown) date) (5022-1531) /uL unknown) (unknown) (no (unknown) (unknown) Lymph # (Auto) (units (unknown) date) 1500 (1859-2843) unknown) /uL (unknown) (no (unknown) (unknown) Lymph % (Auto) (units (unknown) date) (25-40) % unknown) (unknown) (no (unknown) (unknown) Lymph % (Auto) (units (unknown) date) 15.0 L (25-40) % unknown) (unknown) (no (unknown) (unknown) MCH (26-34) PG (units (unknown) date) unknown) (unknown) (no (unknown) (unknown) MCH 29.9 (26-34) (units (unknown) date) PG unknown) (unknown) (no (unknown) (unknown) MCHC (30-36) % (units (unknown) date) unknown) (unknown) (no (unknown) (unknown) MCHC 33.1 (30-36) (units (unknown) date) % unknown) (unknown) (no (unknown) (unknown) MCV (80-100) fL (units (unknown) date) unknown) (unknown) (no (unknown) (unknown) MCV 90.3 (80-100) (units (unknown) date) fL unknown) (unknown) (no (unknown) (unknown) MDM - (units (unkno wn) date) Nausea/Vomiting/Huong unknown) rrhea (unknown) (no (unknown) (unknown) MDM Narrative (units ( unknown) date) unknown) (unknown) (no (unknown) (unknown) Medical History (units (unknown) date) (Reviewed 08/02/22 unknown) @ 05:41 by Mike Cobian DO) (unknown) (no (unknown) (unknown) Medical Records (units (unknown) date) unknown) (unknown) (no (unknown) (unknown) Medical decision (units (unknown) date) making narrative: unknown) (unknown) (no (unknown) (unknown) Medication (units (unk nown) date) Instructions unknown) Recorded Confirmed (unknown) (no (unknown) (unknown) Medication (units (unk nown) date) Instructions unknown) Recorded (unknown) (no (unknown) (unknown) Mild echogenic (units (unknown) date) kidneys suggesting unknown) possible medical renal disease. No (unknown) (no (unknown) (unknown) Mode of arrival: (units (unknown) date) Ambulatory unknown) (unknown) (no (unknown) (unknown) [place] # (Auto) (units ( unknown) date) (0-900) /uL unknown) (unknown) (no (unknown) (unknown) [place] # (Auto) 700 (units (unknown) date) (0-900) /uL unknown) (unknown) (no (unknown) (unknown) [place] % (Auto) (units ( unknown) date) (3-14) % unknown) (unknown) (no (unknown) (unknown) [place] % (Auto) 7.6 (units (unknown) date) (3-14) % unknown) (unknown) (no (unknown) (unknown) Neuro (units (unkno wn) date) unknown) (unknown) (no (unknown) (unknown) Neut # (Auto) (units ( unknown) date) (9040-9832) /uL unknown) (unknown) (no (unknown) (unknown) Neut # (Auto) 7400 (units (unknown) date) H (0206-6894) /uL unknown) (unknown) (no (unknown) (unknown) Neut % (Auto) (units ( unknown) date) (50-75) % unknown) (unknown) (no (unknown) (unknown) Neut % (Auto) 75.5 (units (unknown) date) H (50-75) % unknown) (unknown) (no (unknown) (unknown) No Action (units (unkn own) date) unknown) (unknown) (no (unknown) (unknown) No obstructive (units (unknown) date) uropathy unknown) (unknown) (no (unknown) (unknown) Ondansetron HCl (units (unknown) date) (Ondansetron 4 Mg unknown) Odt) 4 mg PO NOW PRN (unknown) (no (unknown) (unknown) Ondansetron HCl (units (unknown) date) (Ondansetron 4 Mg/2 unknown) Ml Inj) 4 mg IV NOW PRN (unknown) (no (unknown) (unknown) Ordered: (units (unkno wn) date) unknown) (unknown) (no (unknown) (unknown) Orders (units (unkno wn) date) unknown) (unknown) (no (unknown) (unknown) Other: (units (unkno wn) date) unknown) (unknown) (no (unknown) (unknown) Oxygen Delivery (units (unknown) date) Method 08/02/22 unknown) 01:20 (unknown) (no (unknown) (unknown) PRN Reason: Nausea (units (unknown) date) And Vomiting unknown) (unknown) (no (unknown) (unknown) PT (10.1-12.7) (units (unknown) date) SECONDS unknown) (unknown) (no (unknown) (unknown) PT 82.9 H (units (unkn own) date) (10.1-12.7) SECONDS unknown) (unknown) (no (unknown) (unknown) 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 unknown) To seen here in the emergency department (unknown) (no (unknown) (unknown) Patient is (units (unk nown) date) well-appearing. Is unknown) not tachycardic. Not hypotensive. She does have (unknown) (no (unknown) (unknown) Patient: (units (unkno wn) date) Natasha Jaquez unknown) MR#: [id number] (unknown) (no (unknown) (unknown) Phytonadione (units (u nknown) date) (Phytonadione (Vit unknown) K1) 5 Mg Tablet) 10 mg PO NOW ONE (unknown) (no (unknown) (unknown) Please take this (units (unknown) date) the morning of unknown) August 04, 2021. (unknown) (no (unknown) (unknown) Plt Count (units (unkn own) date) (150-400) X103/uL unknown) (unknown) (no (unknown) (unknown) Plt Count 262 (units ( unknown) date) (150-400) X103/uL unknown) (unknown) (no (unknown) (unknown) Postmenopausal (units (unknown) date) atrophic vaginitis unknown) (unknown) (no (unknown) (unknown) Potassium 5.5 H (units (unknown) date) (3.4-5.1) mmol/L unknown) (unknown) (no (unknown) (unknown) Potassium 5.7 H (units (unknown) date) (3.4-5.1) mmol/L unknown) (unknown) (no (unknown) (unknown) Potassium 5.8 H (units (unknown) date) (3.4-5.1) mmol/L unknown) (unknown) (no (unknown) (unknown) Prescriptions: (units (unknown) date) unknown) (unknown) (no (unknown) (unknown) Previous Rx's (units ( unknown) date) unknown) (unknown) (no (unknown) (unknown) Prior labs that we (units (unknown) date) have for her were unknown) greater than 1 year ago which has her (unknown) (no (unknown) (unknown) Procalcitonin (units ( unknown) date) (<0.5) ng/mL unknown) (unknown) (no (unknown) (unknown) Procalcitonin 0.33 (units (unknown) date) (<0.5) ng/mL unknown) (unknown) (no (unknown) (unknown) Procalcitonin Stat (units (unknown) date) unknown) (unknown) (no (unknown) (unknown) Prothrombin Time (units (unknown) date) INR Stat unknown) (unknown) (no (unknown) (unknown) Psych (units (unkno wn) date) unknown) (unknown) (no (unknown) (unknown) Pulse Oximetry 94 (units (unknown) date) 97 unknown) (unknown) (no (unknown) (unknown) Pulse Oximetry 95 (units (unknown) date) 08/02/22 01:20 unknown) (unknown) (no (unknown) (unknown) Pulse Oximetry 96 (units (unknown) date) 98 unknown) (unknown) (no (unknown) (unknown) Pulse Oximetry 97 (units (unknown) date) 96 97 unknown) (unknown) (no (unknown) (unknown) Pulse Oximetry 97 (units (unknown) date) unknown) (unknown) (no (unknown) (unknown) Pulse Oximetry 98 (units (unknown) date) 98 unknown) (unknown) (no (unknown) (unknown) Pulse Rate 61 70 (units (unknown) date) 62 unknown) (unknown) (no (unknown) (unknown) Pulse Rate 65 62 (units (unknown) date) unknown) (unknown) (no (unknown) (unknown) Pulse Rate 65 (units ( unknown) date) unknown) (unknown) (no (unknown) (unknown) Pulse Rate 67 68 (units (unknown) date) unknown) (unknown) (no (unknown) (unknown) Pulse Rate 78 (units ( unknown) date) 08/02/22 01:20 unknown) (unknown) (no (unknown) (unknown) Pulse Rate 82 61 (units (unknown) date) unknown) (unknown) (no (unknown) (unknown) Pyelonephritis can (units (unknown) date) appear similar unknown) noncontrast examination (unknown) (no (unknown) (unknown) RBC (4.0-5.2) (units ( unknown) date) X106/uL unknown) (unknown) (no (unknown) (unknown) RBC 4.26 (4.0-5.2) (units (unknown) date) X106/uL unknown) (unknown) (no (unknown) (unknown) RDW (11.6-14.8) % (units (unknown) date) unknown) (unknown) (no (unknown) (unknown) RDW 14.5 (units (unkno wn) date) (11.6-14.8) % unknown) (unknown) (no (unknown) (unknown) ROS Unobtainable: (units (unknown) date) All systems unknown) reviewed + are unremarkable except as noted in HPI (unknown) (no (unknown) (unknown) RSV (PCR) (units (unkn own) date) (Negative) unknown) (unknown) (no (unknown) (unknown) RSV (PCR) Negative (units (unknown) date) (Negative) unknown) (unknown) (no (unknown) (unknown) Radiologist's (units ( unknown) date) Impression: unknown) (unknown) (no (unknown) (unknown) Rate is 63 (units (unk nown) date) unknown) (unknown) (no (unknown) (unknown) Rate: regular rate (units (unknown) date) unknown) (unknown) (no (unknown) (unknown) Related Data (units (u nknown) date) unknown) (unknown) (no (unknown) (unknown) Resp (units (unkno wn) date) unknown) (unknown) (no (unknown) (unknown) Respiratory Rate (units (unknown) date) 15 17 unknown) (unknown) (no (unknown) (unknown) Respiratory Rate (units (unknown) date) 16 unknown) (unknown) (no (unknown) (unknown) Respiratory Rate (units (unknown) date) 18 17 unknown) (unknown) (no (unknown) (unknown) Respiratory Rate (units (unknown) date) 19 08/02/22 01:20 unknown) (unknown) (no (unknown) (unknown) Respiratory Rate (units (unknown) date) 27 H unknown) (unknown) (no (unknown) (unknown) Respiratory Rate (units (unknown) date) unknown) (unknown) (no (unknown) (unknown) Result diagrams: (units (unknown) date) unknown) (unknown) (no (unknown) (unknown) Retained ureteral (units (unknown) date) stent unknown) (unknown) (no (unknown) (unknown) Review of Systems (units (unknown) date) unknown) (unknown) (no (unknown) (unknown) Rhythm: regular (units (unknown) date) rhythm unknown) (unknown) (no (unknown) (unknown) Rx Instructions: (units (unknown) date) unknown) (unknown) (no (unknown) (unknown) SARS-CoV-2 (PCR) (units (unknown) date) (Negative) unknown) (unknown) (no (unknown) (unknown) SARS-CoV-2 (PCR) (units (unknown) date) Negative (Negative) unknown) (unknown) (no (unknown) (unknown) SVT (units (unkno wn) date) (supraventricular unknown) tachycardia) (unknown) (no (unknown) (unknown) Scores (units (unkno wn) date) unknown) (unknown) (no (unknown) (unknown) She continues to (units (unknown) date) get IV fluids. No unknown) sign of infection. INR is found to be (unknown) (no (unknown) (unknown) Signed By: (units (unk nown) date) unknown) (unknown) (no (unknown) (unknown) Irion. (units (unkno wn) date) unknown) (unknown) (no (unknown) (unknown) Skin (units (unkno wn) date) unknown) (unknown) (no (unknown) (unknown) Smoking Status: (units (unknown) date) Never smoker unknown) (unknown) (no (unknown) (unknown) Social History (units (unknown) date) (Reviewed 08/02/22 unknown) @ 05:41 by Mike Cobian DO) (unknown) (no (unknown) (unknown) Sodium 136 L (units (u nknown) date) (137-145) mmol/L unknown) (unknown) (no (unknown) (unknown) Sodium 137 (units (unk nown) date) (137-145) mmol/L unknown) (unknown) (no (unknown) (unknown) Sodium 139 (units (unk nown) date) (137-145) mmol/L unknown) (unknown) (no (unknown) (unknown) Sodium Bicarbonate (units (unknown) date) 150 meq/ ([place]rose) unknown) 1,150 mls @ 75 mls/hr IV CONT NORMAN (unknown) (no (unknown) (unknown) Sodium Chloride (units (unknown) date) (Normal Saline unknown) 0.9%) 1,000 mls @ 1,000 mls/hr IV BOLUS ONE (unknown) (no (unknown) (unknown) Sodium Chloride (units (unknown) date) (Normal Saline unknown) 0.9%) 1,000 mls @ 250 mls/hr IV CONT NORMAN (unknown) (no (unknown) (unknown) Sodium Urine (units (u nknown) date) Random Stat unknown) (unknown) (no (unknown) (unknown) Source: patient (units (unknown) date) and family unknown) (unknown) (no (unknown) (unknown) Speech: speech (units (unknown) date) normal unknown) (unknown) (no (unknown) (unknown) Start after 5 day (units (unknown) date) course of 2 caps unknown) daily is complete. (unknown) (no (unknown) (unknown) Stated complaint: (units (unknown) date) body pain/not able unknown) to eat or drink x 5 days (unknown) (no (unknown) (unknown) Stop: 08/02/22 (units (unknown) date) 02:39 unknown) (unknown) (no (unknown) (unknown) Stop: 08/02/22 (units (unknown) date) 04:57 unknown) (unknown) (no (unknown) (unknown) Stop: 08/02/22 (units (unknown) date) 07:44 unknown) (unknown) (no (unknown) (unknown) Stop: 08/02/22 (units (unknown) date) 08:23 unknown) (unknown) (no (unknown) (unknown) Substance Use (units ( unknown) date) Type: does not use unknown) (unknown) (no (unknown) (unknown) Surgical History (units (unknown) date) (Reviewed 08/02/22 unknown) @ 05:41 by Mike Cobian DO) (unknown) (no (unknown) (unknown) Temperature 98.7 F (units (unknown) date) 08/02/22 01:20 unknown) (unknown) (no (unknown) (unknown) Time Seen by (units (u nknown) date) Provider: 08/02/22 unknown) 01:38 (unknown) (no (unknown) (unknown) Total Bilirubin (units (unknown) date) (0.2-1.3) mg/dL unknown) (unknown) (no (unknown) (unknown) Total Bilirubin (units (unknown) date) 0.7 (0.2-1.3) mg/dL unknown) (unknown) (no (unknown) (unknown) Total Protein (units ( unknown) date) (6.3-8.2) g/dL unknown) (unknown) (no (unknown) (unknown) Total Protein 7.3 (units (unknown) date) (6.3-8.2) g/dL unknown) (unknown) (no (unknown) (unknown) US - abdomen: (units ( unknown) date) unknown) (unknown) (no (unknown) (unknown) Upset (units (unkno wn) date) unknown) (unknown) (no (unknown) (unknown) Ur Random Sodium (units (unknown) date) (30-90) mmol/L unknown) (unknown) (no (unknown) (unknown) Ur Random Sodium (units (unknown) date) 84 (30-90) mmol/L unknown) (unknown) (no (unknown) (unknown) Urine Creatinine (units (unknown) date) 69.7 mg/dL unknown) (unknown) (no (unknown) (unknown) Urine Creatinine (units (unknown) date) mg/dL unknown) (unknown) (no (unknown) (unknown) Urine Dip (units (unkn own) date) unknown) (unknown) (no (unknown) (unknown) Urine Specific (units (unknown) date) [place] 1.015 unknown) (unknown) (no (unknown) (unknown) Vital Signs - 8 hr (units (unknown) date) unknown) (unknown) (no (unknown) (unknown) Vital Signs (units (un known) date) unknown) (unknown) (no (unknown) (unknown) Vital signs: (units (u nknown) date) unknown) (unknown) (no (unknown) (unknown) WBC (4.5-11.0) (units (unknown) date) X103/uL unknown) (unknown) (no (unknown) (unknown) WBC 9.8 (4.5-11.0) (units (unknown) date) X103/uL unknown) (unknown) (no (unknown) (unknown) [Embedded Image (units (unknown) date) Not Available] unknown) (unknown) (no (unknown) (unknown) [From Pyridium] (units (unknown) date) unknown) (unknown) (no (unknown) (unknown) a couple days but (units (unknown) date) her symptoms were unknown) not improving and she started to feel worse (unknown) (no (unknown) (unknown) abdominal pain. (units (unknown) date) Blood work today unknown) does show improvement in high mild (unknown) (no (unknown) (unknown) alcohol intake (units (unknown) date) frequency: 0-2 unknown) drinks per day (unknown) (no (unknown) (unknown) alcohol intake: (units (unknown) date) never unknown) (unknown) (no (unknown) (unknown) and below (units (unkn own) date) unknown) (unknown) (no (unknown) (unknown) biotin 5,000 mcg (units (unknown) date) Tablet, Sublingual unknown) (unknown) (no (unknown) (unknown) biotin 5,000 mcg (units (unknown) date) sublingual tablet unknown) 5,000 mcg sublingual DAILY 06/20/21 08/12/21 (unknown) (no (unknown) (unknown) breath activated (units (unknown) date) powder inhaler unknown) (unknown) (no (unknown) (unknown) budesonide 200 (units (unknown) date) mcg/actuation 50 unknown) mcg inhalation Q8HR 06/20/21 08/12/21 (unknown) (no (unknown) (unknown) budesonide 200 (units (unknown) date) mcg/actuation unknown) Aerosol Powdr Breath Activated (unknown) (no (unknown) (unknown) carvedilol 6.25 mg (units (unknown) date) Tablet unknown) (unknown) (no (unknown) (unknown) carvedilol 6.25 mg (units (unknown) date) tablet 6.25 mg PO unknown) BID 06/20/21 08/12/21 (unknown) (no (unknown) (unknown) cholecalciferol (units (unknown) date) (vitamin D3) 125 unknown) 125 mcg PO DAILY 06/20/21 08/12/21 (unknown) (no (unknown) (unknown) cholecalciferol (units (unknown) date) (vitamin D3) 125 unknown) mcg (5,000 unit) Tablet (unknown) (no (unknown) (unknown) ciprofloxacin HCl (units (unknown) date) 250 mg tablet 250 unknown) mg PO BEDTIME #60 tabs 09/02/21 (unknown) (no (unknown) (unknown) ciprofloxacin HCl (units (unknown) date) 250 mg tablet unknown) (unknown) (no (unknown) (unknown) consultation with (units (unknown) date) Nephrology. unknown) (unknown) (no (unknown) (unknown) creatinine at the (units (unknown) date) 1.3-1.7 range in unknown) her GFR in the 30s. Patient has not been (unknown) (no (unknown) (unknown) direction. She (units (unknown) date) comes to the unknown) emergency department today because of overall body (unknown) (no (unknown) (unknown) elevated at 7.1 (units (unknown) date) thought to be unknown) somehow related to her renal failure. Vitamin K (unknown) (no (unknown) (unknown) estradiol 0.01% (units (unknown) date) (0.1 mg/gram) 1 g unknown) vaginal 2XW #42.5 grams 08/19/21 (unknown) (no (unknown) (unknown) estradiol (units (unkn own) date) [Estrace] 0.01 % unknown) (0.1 mg/gram) cream (unknown) (no (unknown) (unknown) extremities (units (un known) date) unknown) (unknown) (no (unknown) (unknown) fosfomycin (units (unk nown) date) tromethamine 3 gram unknown) 3 g PO ONCE #1 ea 07/31/21 (unknown) (no (unknown) (unknown) fosfomycin (units (unk nown) date) tromethamine 3 gram unknown) 3 g PO ONCE #1 ea 08/01/21 (unknown) (no (unknown) (unknown) fosfomycin (units (unk nown) date) tromethamine 3 gram unknown) packet (unknown) (no (unknown) (unknown) furosemide 20 mg (units (unknown) date) Tablet unknown) (unknown) (no (unknown) (unknown) furosemide 20 mg (units (unknown) date) tablet 20 mg PO 6XW unknown) 06/20/21 08/12/21 (unknown) (no (unknown) (unknown) furosemide 40 mg (units (unknown) date) Tablet unknown) (unknown) (no (unknown) (unknown) furosemide 40 mg (units (unknown) date) tablet 40 mg PO unknown) WEEKLY 06/20/21 08/12/21 (unknown) (no (unknown) (unknown) having bowel (units (u nknown) date) movements. She unknown) denies any fevers. No recent travel. (unknown) (no (unknown) (unknown) household members: (units (unknown) date) spouse unknown) (unknown) (no (unknown) (unknown) hyperkalemia it (units (unknown) date) was 5.8 now was 5 unknown) 5. Improvement in her creatinine as well was (unknown) (no (unknown) (unknown) is 8.9% which is (units (unknown) date) consistent with a unknown) post renal/obstructive pathology however I do (unknown) (no (unknown) (unknown) is ordered. (units (un known) date) unknown) (unknown) (no (unknown) (unknown) likely that the (units (unknown) date) cause of all of her unknown) nausea and vomiting even her abdominal (unknown) (no (unknown) (unknown) losartan 50 mg (units (unknown) date) Tablet unknown) (unknown) (no (unknown) (unknown) losartan 50 mg (units (unknown) date) tablet 50 mg PO unknown) DAILY 06/20/21 08/12/21 (unknown) (no (unknown) (unknown) mcg (5,000 unit) (units (unknown) date) tablet unknown) (unknown) (no (unknown) (unknown) metformin 500 mg (units (unknown) date) Tablet unknown) (unknown) (no (unknown) (unknown) metformin 500 mg (units (unknown) date) tablet 1,000 mg PO unknown) BID 07/26/21 08/12/21 (unknown) (no (unknown) (unknown) must administer (units (unknown) date) with a meal/food unknown) (unknown) (no (unknown) (unknown) not have a (units (unk nown) date) specific source of unknown) this as it does not appear to be an obstructive (unknown) (no (unknown) (unknown) obstructive (units (un known) date) uropathy. unknown) (unknown) (no (unknown) (unknown) of (units (unkno wn) date) unknown) (unknown) (no (unknown) (unknown) oral packet (units (un known) date) unknown) (unknown) (no (unknown) (unknown) oxycodone 5 mg (units (unknown) date) tablet 5 mg PO Q4H unknown) PRN pain #20 tabs 07/26/21 (unknown) (no (unknown) (unknown) oxycodone 5 mg (units (unknown) date) tablet unknown) (unknown) (no (unknown) (unknown) pain, belly pain, (units (unknown) date) vomiting, unable to unknown) drink for the past several days. Still (unknown) (no (unknown) (unknown) pain. She is in (units (unknown) date) acute renal unknown) failure/YESIKA given her creatinine of 10 and GFR 4. (unknown) (no (unknown) (unknown) patient myself. (units (unknown) date) She says overall unknown) she is feeling better. No nausea vomiting no (unknown) (no (unknown) (unknown) phenazopyridine (units (unknown) date) Allergy Verified unknown) 08/12/21 08:17 (unknown) (no (unknown) (unknown) potassium 99 mg (units (unknown) date) Tablet unknown) (unknown) (no (unknown) (unknown) potassium 99 mg (units (unknown) date) tablet 99 mg PO unknown) DAILY 07/26/21 08/12/21 (unknown) (no (unknown) (unknown) prednisone Allergy (units (unknown) date) Severe Swelling unknown) Verified 08/02/22 01:20 (unknown) (no (unknown) (unknown) procaine [From (units (unknown) date) Novocain] Allergy unknown) Chest Pain Verified 08/02/22 01:20 (unknown) (no (unknown) (unknown) recently for UTI (units (unknown) date) like symptoms. Was unknown) sent home with [facility]. She took this for (unknown) (no (unknown) (unknown) rizatriptan (units (un known) date) Allergy Severe unknown) Difficulty Verified 08/02/22 01:20 (unknown) (no (unknown) (unknown) rosuvastatin 40 mg (units (unknown) date) Tablet unknown) (unknown) (no (unknown) (unknown) rosuvastatin 40 mg (units (unknown) date) tablet 40 mg PO unknown) DAILY 06/20/21 08/12/21 (unknown) (no (unknown) (unknown) s (units (unkno wn) date) unknown) (unknown) (no (unknown) (unknown) shellfish derived (units (unknown) date) AdvReac unknown) Gastrointestinal Verified 08/02/22 01:20 (unknown) (no (unknown) (unknown) signs of an (units (un known) date) infection. CT scans unknown) did not give a definitive etiology. Her FeNa (unknown) (no (unknown) (unknown) slightly. Care (units (unknown) date) turned over to unknown) [facility] to follow-up and most likely (unknown) (no (unknown) (unknown) so she contact her (units (unknown) date) primary doctor who unknown) looked up the culture results and told her (unknown) (no (unknown) (unknown) stone nor urinary (units (unknown) date) retention. After 2 unknown) L of fluid her creatinine only improved (unknown) (no (unknown) (unknown) takes 4 puffs (units ( unknown) date) qhs-(Pulmacort) unknown) (unknown) (no (unknown) (unknown) takes it 5x/week (units (unknown) date) unknown) (unknown) (no (unknown) (unknown) tamsulosin 0.4 mg (units (unknown) date) capsule 0.4 mg PO unknown) BEDTIME #60 caps 06/21/21 (unknown) (no (unknown) (unknown) tamsulosin 0.4 mg (units (unknown) date) capsule unknown) (unknown) (no (unknown) (unknown) tetracycline (units (u nknown) date) Allergy Severe unknown) ITCHING Verified 08/12/21 08:17 (unknown) (no (unknown) (unknown) that she did not (units (unknown) date) have an infection unknown) so she quit taking the medications per their (unknown) (no (unknown) (unknown) thiopental AdvReac (units (unknown) date) Palpitation unknown) Verified 08/02/22 01:20 (unknown) (no (unknown) (unknown) time agrees with a (units (unknown) date) bicarb drip 100 mEq unknown) for 75 an hour for about 1 day. (unknown) (no (unknown) (unknown) twice weekly (units (u nknown) date) thereafter. unknown) (unknown) (no (unknown) (unknown) upper abdominal (units (unknown) date) discomfort. Has unknown) pancreatitis based on her lipase which is most (unknown) (no (unknown) (unknown) vaginal cream (units ( unknown) date) (Estrace) unknown) (unknown) (no (unknown) (unknown) vomiting since (units (unknown) date) arrival here to the unknown) ER. Her urinalysis today does not show any (unknown) (no (unknown) (unknown) warfarin 2 mg (units ( unknown) date) Tablet unknown) (unknown) (no (unknown) (unknown) warfarin 2 mg (units ( unknown) date) tablet 2 mg PO 2XW unknown) 06/20/21 08/12/21 (unknown) (no (unknown) (unknown) warfarin 3 mg (units ( unknown) date) Tablet unknown) (unknown) (no (unknown) (unknown) warfarin 3 mg (units ( unknown) date) tablet 3 mg PO 5XW unknown) 06/20/21 08/12/21 Result panel 194 (unknown) (no date) (unknown) (unknown) 110 mmol/l (unkn own) (unknown) (no date) (unknown) (unknown) 13 mmol/l (unkn own) (unknown) (no date) (unknown) (unknown) 138 mmol/l (unkn own) (unknown) (no date) (unknown) (unknown) 4 ml/min (unkn own) (unknown) (no date) (unknown) (unknown) 4 ml/min (unkn own) (unknown) (no date) (unknown) (unknown) 5.5 mmol/l (unkn own) (unknown) (no date) (unknown) (unknown) 5.5 mmol/l (unkn own) (unknown) (no date) (unknown) (unknown) 64 mg/dl (unkn own) (unknown) (no date) (unknown) (unknown) 7.1 (units unknown) (unknown) (unknown) (no date) (unknown) (unknown) 78 mg/dl (unkn own) (unknown) (no date) (unknown) (unknown) 78 mg/dl (unkn own) (unknown) (no date) (unknown) (unknown) 8.0 mg/dl (unkn own) (unknown) (no date) (unknown) (unknown) 9.00 mg/dl (unkn own) (unknown) (no date) (unknown) (unknown) 9.00 mg/dl (unkn own) Result panel 195 (unknown) (no date) (unknown) (unknown) 103 mmol/l (unkn own) (unknown) (no date) (unknown) (unknown) 137 mmol/l (unkn own) (unknown) (no date) (unknown) (unknown) 16 mmol/l (unkn own) (unknown) (no date) (unknown) (unknown) 170 mg/dl (unkn own) (unknown) (no date) (unknown) (unknown) 170 mg/dl (unkn own) (unknown) (no date) (unknown) (unknown) 4 ml/min (unkn own) (unknown) (no date) (unknown) (unknown) 4 ml/min (unkn own) (unknown) (no date) (unknown) (unknown) 4.4 mmol/l (unkn own) (unknown) (no date) (unknown) (unknown) 67 mg/dl (unkn own) (unknown) (no date) (unknown) (unknown) 7.4 (units unknown) (unknown) (unknown) (no date) (unknown) (unknown) 8.2 mg/dl (unkn own) (unknown) (no date) (unknown) (unknown) 9.00 mg/dl (unkn own) (unknown) (no date) (unknown) (unknown) 9.00 mg/dl (unkn own) Result panel 196 (unknown) (no (unknown) (unknown) (no value) (units (unk nown) date) unknown) (unknown) (no (unknown) (unknown) <Electronically (units (unknown) date) signed by Mike Cobian D.O.> (unknown) (no (unknown) (unknown) <Francesca Chen, (units (unknown) date) DO - Last Filed: unknown) 08/02/22 09:56> (unknown) (no (unknown) (unknown) <Mike Cobian (units (unknown) date) DO - Last Filed: unknown) 08/03/22 07:16> (unknown) (no (unknown) (unknown) 00:00 08/03/22 (units (unknown) date) unknown) (unknown) (no (unknown) (unknown) 00:00 (units (unkno wn) date) unknown) (unknown) (no (unknown) (unknown) 00:30 08/03/22 (units (unknown) date) unknown) (unknown) (no (unknown) (unknown) 08/03/22 0716 (units ( unknown) date) unknown) (unknown) (no (unknown) (unknown) 08/03/22 07:00 (units (unknown) date) unknown) (unknown) (no (unknown) (unknown) 08/03/22 (units (unkno wn) date) unknown) (unknown) (no (unknown) (unknown) 01:00 08/03/22 (units (unknown) date) unknown) (unknown) (no (unknown) (unknown) 01:17 01:40 01:40 (units (unknown) date) unknown) (unknown) (no (unknown) (unknown) 01:30 (units (unkno wn) date) unknown) (unknown) (no (unknown) (unknown) 02:00 08/03/22 (units (unknown) date) unknown) (unknown) (no (unknown) (unknown) 02:30 (units (unkno wn) date) unknown) (unknown) (no (unknown) (unknown) 03:00 08/03/22 (units (unknown) date) unknown) (unknown) (no (unknown) (unknown) 03:30 08/03/22 (units (unknown) date) unknown) (unknown) (no (unknown) (unknown) 03:30 05:30 07:46 (units (unknown) date) unknown) (unknown) (no (unknown) (unknown) [id number] (units (unkno wn) date) unknown) (unknown) (no (unknown) (unknown) 04:00 (units (unkno wn) date) unknown) (unknown) (no (unknown) (unknown) 04:01 08/03/22 (units (unknown) date) unknown) (unknown) (no (unknown) (unknown) 04:30 (units (unkno wn) date) unknown) (unknown) (no (unknown) (unknown) 05:00 08/03/22 (units (unknown) date) unknown) (unknown) (no (unknown) (unknown) 05:30 (units (unkno wn) date) unknown) (unknown) (no (unknown) (unknown) 07:46 07:46 07:50 (units (unknown) date) unknown) (unknown) (no (unknown) (unknown) 0900am- Dr. Cabrera (units (unknown) date) Nephrology, updated unknown) on patient's symptoms test results at this (unknown) (no (unknown) (unknown) 1,000 mg PO QID (units (unknown) date) unknown) (unknown) (no (unknown) (unknown) 10.0 and now 9.23. (units (unknown) date) [place] catheter is unknown) placed she has very clear urine draining. (unknown) (no (unknown) (unknown) 100 mg DAILY (units (u nknown) date) unknown) (unknown) (no (unknown) (unknown) 08/02/22 01:40 (units (unknown) date) unknown) (unknown) (no (unknown) (unknown) 08/02/22 08/02/22 (units (unknown) date) 08/02/22 unknown) Range/Units (unknown) (no (unknown) (unknown) 08/02/22 08/02/22 (units (unknown) date) Range/Units unknown) (unknown) (no (unknown) (unknown) 08/02/22 18:00 (units (unknown) date) unknown) (unknown) (no (unknown) (unknown) 08/02/22 (units (unkno wn) date) [place]-patient unknown) signed out to ar by Dr. Cobian if seen evaluated (unknown) (no (unknown) (unknown) 08/02/22 (units (unkno wn) date) unknown) (unknown) (no (unknown) (unknown) 125 mcg PO QMWF (units (unknown) date) unknown) (unknown) (no (unknown) (unknown) 12:00 18:00 (units (un known) date) unknown) (unknown) (no (unknown) (unknown) 2 mg PO WEEKLY (units (unknown) date) unknown) (unknown) (no (unknown) (unknown) 20 mg PO DAILY (units (unknown) date) unknown) (unknown) (no (unknown) (unknown) 23:30 08/03/22 (units (unknown) date) unknown) (unknown) (no (unknown) (unknown) 3 mg PO Q6W (units (un known) date) unknown) (unknown) (no (unknown) (unknown) 40 mg PO DAILY (units (unknown) date) unknown) (unknown) (no (unknown) (unknown) 5,000 mcg (units (unkn own) date) sublingual QMWF unknown) (unknown) (no (unknown) (unknown) 50 mcg INHALATION (units (unknown) date) QID unknown) (unknown) (no (unknown) (unknown) 50 mg PO DAILY (units (unknown) date) unknown) (unknown) (no (unknown) (unknown) 6.25 mg PO BID (units (unknown) date) unknown) (unknown) (no (unknown) (unknown) 99 mg PO DAILY (units (unknown) date) unknown) (unknown) (no (unknown) (unknown) AICD (automatic (units (unknown) date) cardioverter/defibr unknown) illator) present (11/29/20) (unknown) (no (unknown) (unknown) ALT (<35) IU/L (units (unknown) date) unknown) (unknown) (no (unknown) (unknown) ALT 27 (<35) IU/L (units (unknown) date) unknown) (unknown) (no (unknown) (unknown) AST (14-36) IU/L (units (unknown) date) unknown) (unknown) (no (unknown) (unknown) AST 32 (14-36) (units (unknown) date) IU/L unknown) (unknown) (no (unknown) (unknown) Acetaminophen (units ( unknown) date) (Acetaminophen 325 unknown) Mg Tablet) 650 mg PO NOW ONE (unknown) (no (unknown) (unknown) Acute kidney (units (u nknown) date) injury unknown) (unknown) (no (unknown) (unknown) Admin: 08/02/22 (units (unknown) date) 02:15 Dose: 1,000 unknown) mls/hr (unknown) (no (unknown) (unknown) Admin: 08/02/22 (units (unknown) date) 04:04 Dose: 1,000 unknown) mls/hr (unknown) (no (unknown) (unknown) Admin: 08/02/22 (units (unknown) date) 06:16 Dose: 250 unknown) mls/hr (unknown) (no (unknown) (unknown) Admin: 08/02/22 (units (unknown) date) 10:16 Dose: 75 unknown) mls/hr (unknown) (no (unknown) (unknown) Afib (units (unkno wn) date) unknown) (unknown) (no (unknown) (unknown) Age/Sex: 71 / F (units (unknown) date) unknown) (unknown) (no (unknown) (unknown) Albumin (3.5-5.0) (units (unknown) date) g/dL unknown) (unknown) (no (unknown) (unknown) Albumin 4.2 (units (un known) date) (3.5-5.0) g/dL unknown) (unknown) (no (unknown) (unknown) Albumin/Globulin (units (unknown) date) Ratio (1.0-2.8) unknown) (unknown) (no (unknown) (unknown) Albumin/Globulin (units (unknown) date) Ratio 1.4 (1.0-2.8) unknown) (unknown) (no (unknown) (unknown) Alkaline (units (unkno wn) date) Phosphatase unknown) (38-126) U/L (unknown) (no (unknown) (unknown) Alkaline (units (unkno wn) date) Phosphatase 54 unknown) (38-126) U/L (unknown) (no (unknown) (unknown) Allergies (units (unkn own) date) unknown) (unknown) (no (unknown) (unknown) Allergy/AdvReac (units (unknown) date) Type Severity unknown) Reaction Status Date / Time (unknown) (no (unknown) (unknown) Appearance: (units (un known) date) grossly normal and unknown) well kempt (unknown) (no (unknown) (unknown) Atrially (units (unkno wn) date) sensed/ventricularl unknown) y paced (unknown) (no (unknown) (unknown) Attestation: I (units (unknown) date) personally reviewed unknown) and interpreted this ECG as follows: (unknown) (no (unknown) (unknown) Attestation: I (units (unknown) date) reviewed the unknown) patient's lab results. (unknown) (no (unknown) (unknown) Attestation: I (units (unknown) date) reviewed the unknown) patient's medical records. (unknown) (no (unknown) (unknown) Auscultation: (units ( unknown) date) clear to unknown) auscultation bilaterally (unknown) (no (unknown) (unknown) BUN 63 H (7-17) (units (unknown) date) mg/dL unknown) (unknown) (no (unknown) (unknown) BUN 64 H 67 H (units ( unknown) date) (7-17) mg/dL unknown) (unknown) (no (unknown) (unknown) BUN 65 H (7-17) (units (unknown) date) mg/dL unknown) (unknown) (no (unknown) (unknown) BUN 67 H (7-17) (units (unknown) date) mg/dL unknown) (unknown) (no (unknown) (unknown) BUN/Creatinine (units (unknown) date) Ratio 6.7 (6-22) unknown) (unknown) (no (unknown) (unknown) BUN/Creatinine (units (unknown) date) Ratio 6.9 (-22) unknown) (unknown) (no (unknown) (unknown) BUN/Creatinine (units (unknown) date) Ratio 7.0 (-22) unknown) (unknown) (no (unknown) (unknown) BUN/Creatinine (units (unknown) date) Ratio 7.1 7.4 unknown) (22) (unknown) (no (unknown) (unknown) Back/Spine/Pelvis (units (unknown) date) unknown) (unknown) (no (unknown) (unknown) Back: No CVA (units (u nknown) date) tenderness unknown) (unknown) (no (unknown) (unknown) Baso # (Auto) (units ( unknown) date) (0-100) /uL unknown) (unknown) (no (unknown) (unknown) Baso # (Auto) 100 (units (unknown) date) (0-100) /uL unknown) (unknown) (no (unknown) (unknown) Baso % (Auto) (units ( unknown) date) (0-2) % unknown) (unknown) (no (unknown) (unknown) Baso % (Auto) 0.7 (units (unknown) date) (0-2) % unknown) (unknown) (no (unknown) (unknown) Bedside Urine (units ( unknown) date) Bilirubin - unknown) Negative (unknown) (no (unknown) (unknown) Bedside Urine (units ( unknown) date) Glucose Negative unknown) (unknown) (no (unknown) (unknown) Bedside Urine (units ( unknown) date) Ketone +/- 5 unknown) (unknown) (no (unknown) (unknown) Bedside Urine (units ( unknown) date) Leukocytes - unknown) Negative (unknown) (no (unknown) (unknown) Bedside Urine (units ( unknown) date) Nitrite - Negative unknown) (unknown) (no (unknown) (unknown) Bedside Urine (units ( unknown) date) Occult Blood unknown) (unknown) (no (unknown) (unknown) Bedside Urine (units ( unknown) date) Protein ++ 100 unknown) (unknown) (no (unknown) (unknown) Bedside Urine (units ( unknown) date) Urobilinogen - unknown) Negative (unknown) (no (unknown) (unknown) Bedside Urine pH (units (unknown) date) 6.0 unknown) (unknown) (no (unknown) (unknown) Bilateral (units (unkn own) date) perinephric unknown) stranding. This can be an asymptomatic finding. (unknown) (no (unknown) (unknown) Bilateral renal (units (unknown) date) cysts unknown) (unknown) (no (unknown) (unknown) Blood Pressure (units (unknown) date) 117/56 L unknown) (unknown) (no (unknown) (unknown) Blood Pressure (units (unknown) date) 127/59 L unknown) (unknown) (no (unknown) (unknown) Blood Pressure (units (unknown) date) 130/69 08/02/22 unknown) 01:20 (unknown) (no (unknown) (unknown) Blood Pressure (units (unknown) date) 137/63 unknown) (unknown) (no (unknown) (unknown) Blood Pressure (units (unknown) date) unknown) (unknown) (no (unknown) (unknown) Breathing (units (unkn own) date) unknown) (unknown) (no (unknown) (unknown) CHF (congestive (units (unknown) date) heart failure) unknown) (unknown) (no (unknown) (unknown) CT scan - (units (unkn own) date) abdomen/pelvis: unknown) (unknown) (no (unknown) (unknown) CVA (cerebral (units ( unknown) date) vascular accident) unknown) (unknown) (no (unknown) (unknown) Calcium 8.0 L 8.2 (units (unknown) date) L (8.4-10.2) mg/dL unknown) (unknown) (no (unknown) (unknown) Calcium 8.4 (units (un known) date) (8.4-10.2) mg/dL unknown) (unknown) (no (unknown) (unknown) Calcium 9.9 (units (un known) date) (8.4-10.2) mg/dL unknown) (unknown) (no (unknown) (unknown) Carbon Dioxide 13 (units (unknown) date) L (22-32) mmol/L unknown) (unknown) (no (unknown) (unknown) Carbon Dioxide 13 (units (unknown) date) L 16 L (22-32) unknown) mmol/L (unknown) (no (unknown) (unknown) Cardiac arrest (units (unknown) date) (11/29/20) unknown) (unknown) (no (unknown) (unknown) Cardio (units (unkno wn) date) unknown) (unknown) (no (unknown) (unknown) Cardiomyopathy (units (unknown) date) unknown) (unknown) (no (unknown) (unknown) Carvedilol (units (unk nown) date) (Carvedilol 3.125 unknown) Mg Tablet) 6.25 mg PO BID [place]MAN (unknown) (no (unknown) (unknown) Chest (units (unkno wn) date) unknown) (unknown) (no (unknown) (unknown) Chief complaint: (units (unknown) date) Nausea/Vomiting/Huong unknown) rrhea (unknown) (no (unknown) (unknown) Chloride 103 (units (u nknown) date) (98-107) mmol/L unknown) (unknown) (no (unknown) (unknown) Chloride 109 H (units (unknown) date) (98-107) mmol/L unknown) (unknown) (no (unknown) (unknown) Chloride 110 H 103 (units (unknown) date) (98-107) mmol/L unknown) (unknown) (no (unknown) (unknown) Cognition: normal (units (unknown) date) cognition unknown) (unknown) (no (unknown) (unknown) Complete Blood (units (unknown) date) Count AUTO DIFF unknown) Stat (unknown) (no (unknown) (unknown) Comprehensive (units ( unknown) date) Metabolic Panel unknown) Stat (unknown) (no (unknown) (unknown) Const (units (unkno wn) date) unknown) (unknown) (no (unknown) (unknown) Continue checking (units (unknown) date) light. Will likely unknown) need dialysis however no beds available at (unknown) (no (unknown) (unknown) Course (units (unkno wn) date) unknown) (unknown) (no (unknown) (unknown) Creatinine 10.0 H* (units (unknown) date) (0.52-1.04) mg/dL unknown) (unknown) (no (unknown) (unknown) Creatinine 9.00 H* (units (unknown) date) 9.00 H* (0.52-1.04) unknown) mg/dL (unknown) (no (unknown) (unknown) Creatinine 9.15 H* (units (unknown) date) (0.52-1.04) mg/dL unknown) (unknown) (no (unknown) (unknown) Creatinine 9.23 H* (units (unknown) date) (0.52-1.04) mg/dL unknown) (unknown) (no (unknown) (unknown) : 1950 (units (unknown) date) Acct:[id number] unknown) (unknown) (no (unknown) (unknown) Date of Service: (units (unknown) date) 08/02/22 unknown) (unknown) (no (unknown) (unknown) Departure (units (unkn own) date) unknown) (unknown) (no (unknown) (unknown) Diabetes (units (unkno wn) date) unknown) (unknown) (no (unknown) (unknown) Discharge Plan (units (unknown) date) unknown) (unknown) (no (unknown) (unknown) Discontinued (units (u nknown) date) Medications unknown) (unknown) (no (unknown) (unknown) Documented By: GC (units (unknown) date) unknown) (unknown) (no (unknown) (unknown) Documented By: KM (units (unknown) date) unknown) (unknown) (no (unknown) (unknown) Documented By: NR (units (unknown) date) unknown) (unknown) (no (unknown) (unknown) Dr cobian (units (unkn own) date) 08/02-08/03: Assumed unknown) care of patient. Reviewed patient's events over (unknown) (no (unknown) (unknown) ECG Data (units (unkno wn) date) unknown) (unknown) (no (unknown) (unknown) ED Orders (units (unkn own) date) unknown) (unknown) (no (unknown) (unknown) ER Physician: (units ( unknown) date) Francesca Chen D.O. unknown) (unknown) (no (unknown) (unknown) Effort + (units (unkno wn) date) Inspection: normal unknown) respiratory effort (unknown) (no (unknown) (unknown) Emergency Report (units (unknown) date) unknown) (unknown) (no (unknown) (unknown) Eos # (Auto) (units (u nknown) date) (0-450) /uL unknown) (unknown) (no (unknown) (unknown) Eos # (Auto) 100 (units (unknown) date) (0-450) /uL unknown) (unknown) (no (unknown) (unknown) Eos % (Auto) (2-4) (units (unknown) date) % unknown) (unknown) (no (unknown) (unknown) Eos % (Auto) 1.2 L (units (unknown) date) (2-4) % unknown) (unknown) (no (unknown) (unknown) Esterase (units (unkno wn) date) unknown) (unknown) (no (unknown) (unknown) Estimated GFR 4 L (units (unknown) date) (>60) mL/min unknown) (unknown) (no (unknown) (unknown) Estimated GFR 4 L (units (unknown) date) 4 L (>60) mL/min unknown) (unknown) (no (unknown) (unknown) Exam (units (unkno wn) date) unknown) (unknown) (no (unknown) (unknown) Extrem (units (unkno wn) date) unknown) (unknown) (no (unknown) (unknown) GCS (units (unkno wn) date) unknown) (unknown) (no (unknown) (unknown) GI (units (unkno wn) date) unknown) (unknown) (no (unknown) (unknown) General (units (unkno wn) date) unknown) (unknown) (no (unknown) (unknown) General: (units (unkno wn) date) cooperative, unknown) comfortable and No ill appearing (unknown) (no (unknown) (unknown) General: no rashes (units (unknown) date) or lesions noted unknown) (unknown) (no (unknown) (unknown) General: normal to (units (unknown) date) inspection, unknown) capillary refill normal and No edema (unknown) (no (unknown) (unknown) General: patient (units (unknown) date) alert, patient unknown) awake, patient oriented x3 and moves all (unknown) (no (unknown) (unknown) [place] coma scale (units (unknown) date) eye opening: unknown) Spontaneous (unknown) (no (unknown) (unknown) [place] coma scale (units (unknown) date) motor response: unknown) Obey commands (unknown) (no (unknown) (unknown) [place] coma scale (units (unknown) date) total score: 15 unknown) (unknown) (no (unknown) (unknown) [place] coma scale (units (unknown) date) verbal response: unknown) Orientated (unknown) (no (unknown) (unknown) Globulin (1.7-4.1) (units (unknown) date) g/dL unknown) (unknown) (no (unknown) (unknown) Globulin 3.1 (units (u nknown) date) (1.7-4.1) g/dL unknown) (unknown) (no (unknown) (unknown) Glucose 78 L 170 H (units (unknown) date) (80-110) mg/dL unknown) (unknown) (no (unknown) (unknown) Glucose 82 (units (unk nown) date) (80-110) mg/dL unknown) (unknown) (no (unknown) (unknown) Glucose 86 (units (unk nown) date) (80-110) mg/dL unknown) (unknown) (no (unknown) (unknown) Glucose 88 (units (unk nown) date) (80-110) mg/dL unknown) (unknown) (no (unknown) (unknown) Glucose POC 101 (units (unknown) date) unknown) (unknown) (no (unknown) (unknown) HENMT (units (unkno wn) date) unknown) (unknown) (no (unknown) (unknown) HLD (units (unkno wn) date) (hyperlipidemia) unknown) (unknown) (no (unknown) (unknown) HPI - (units (unkno wn) date) Nausea/Vomiting/Huong unknown) rrhea (unknown) (no (unknown) (unknown) HPI Narrative: (units (unknown) date) unknown) (unknown) (no (unknown) (unknown) HTN (hypertension) (units (unknown) date) unknown) (unknown) (no (unknown) (unknown) Hct (36-46) % (units ( unknown) date) unknown) (unknown) (no (unknown) (unknown) Hct 38.4 (36-46) % (units (unknown) date) unknown) (unknown) (no (unknown) (unknown) Head: normal to (units (unknown) date) inspection and unknown) normocephalic (unknown) (no (unknown) (unknown) Hgb (12.0-16.0) (units (unknown) date) g/dL unknown) (unknown) (no (unknown) (unknown) Hgb 12.7 (units (unkno wn) date) (12.0-16.0) g/dL unknown) (unknown) (no (unknown) (unknown) History of Present (units (unknown) date) Illness unknown) (unknown) (no (unknown) (unknown) History of UTI (units (unknown) date) unknown) (unknown) (no (unknown) (unknown) History of colon (units (unknown) date) surgery unknown) (unknown) (no (unknown) (unknown) History of (units (unk nown) date) colonoscopy unknown) (unknown) (no (unknown) (unknown) History of (units (unk nown) date) hysterectomy unknown) (unknown) (no (unknown) (unknown) History of (units (unk nown) date) nephrolithiasis unknown) (unknown) (no (unknown) (unknown) History of (units (unk nown) date) thyroidectomy, unknown) subtotal (unknown) (no (unknown) (unknown) Home Medications (units (unknown) date) unknown) (unknown) (no (unknown) (unknown) Hx of appendectomy (units (unknown) date) unknown) (unknown) (no (unknown) (unknown) Hx of breast (units (u nknown) date) surgery unknown) (unknown) (no (unknown) (unknown) Hx of cystoscopy (units (unknown) date) (06/20/21) unknown) (unknown) (no (unknown) (unknown) Hx of eye surgery (units (unknown) date) unknown) (unknown) (no (unknown) (unknown) INR (0.9-1.3) (units ( unknown) date) unknown) (unknown) (no (unknown) (unknown) INR 7.1 H* (units (unk nown) date) (0.9-1.3) unknown) (unknown) (no (unknown) (unknown) Imaging Data (units (u nknown) date) unknown) (unknown) (no (unknown) (unknown) Influenza A (units (un known) date) (RT-PCR) (NEGATIVE) unknown) (unknown) (no (unknown) (unknown) Influenza A (units (un known) date) (RT-PCR) Flu a unknown) negative (NEGATIVE) (unknown) (no (unknown) (unknown) Influenza B (units (un known) date) (RT-PCR) (NEGATIVE) unknown) (unknown) (no (unknown) (unknown) Influenza B (units (un known) date) (RT-PCR) Flu b unknown) negative (NEGATIVE) (unknown) (no (unknown) (unknown) Initial Vital (units ( unknown) date) Signs unknown) (unknown) (no (unknown) (unknown) Initial Vital (units ( unknown) date) Signs: unknown) (unknown) (no (unknown) (unknown) Inspection: normal (units (unknown) date) to inspection unknown) (unknown) (no (unknown) (unknown) Interpretation: (units (unknown) date) unknown) (unknown) (no (unknown) (unknown) [facility] (units (unknown) date) [address] unknown) [place] [address] (unknown) (no (unknown) (unknown) Lab Data (units (unkno wn) date) unknown) (unknown) (no (unknown) (unknown) Lab Results (units (un known) date) unknown) (unknown) (no (unknown) (unknown) Label Comments: (units (unknown) date) unknown) (unknown) (no (unknown) (unknown) Labs: (units (unkno wn) date) unknown) (unknown) (no (unknown) (unknown) Lactate (units (unkno wn) date) Dehydrogenase unknown) (120-246) U/L (unknown) (no (unknown) (unknown) Lactate (units (unkno wn) date) Dehydrogenase 231 unknown) (120-246) U/L (unknown) (no (unknown) (unknown) Last Admin: (units (un known) date) 08/03/22 01:02 unknown) Dose: 75 mls/hr (unknown) (no (unknown) (unknown) Last Admin: (units (un known) date) 08/03/22 01:52 unknown) Dose: 650 mg (unknown) (no (unknown) (unknown) Last Admin: (units (un known) date) 08/02/22 02:48 unknown) Dose: 4 mg (unknown) (no (unknown) (unknown) Last Admin: (units (un known) date) 08/02/22 08:01 unknown) Dose: 6 ml (unknown) (no (unknown) (unknown) Last Admin: (units (un known) date) 08/02/22 08:53 unknown) Dose: 10 mg (unknown) (no (unknown) (unknown) Last Admin: (units (un known) date) 08/02/22 20:59 unknown) Dose: 6.25 mg (unknown) (no (unknown) (unknown) Last Infusion: (units (unknown) date) 08/03/22 01:03 unknown) Dose: 0 mls/hr (unknown) (no (unknown) (unknown) Last Infusion: (units (unknown) date) 08/02/22 03:27 unknown) Dose: 0 mls/hr (unknown) (no (unknown) (unknown) Last Infusion: (units (unknown) date) 08/02/22 05:05 unknown) Dose: 0 mls/hr (unknown) (no (unknown) (unknown) Last Infusion: (units (unknown) date) 08/02/22 10:20 unknown) Dose: 0 mls/hr (unknown) (no (unknown) (unknown) Left ureteral (units ( unknown) date) calculus unknown) (unknown) (no (unknown) (unknown) Lidocaine HCl (units ( unknown) date) (Lidocaine 2% unknown) (Glydo) 6 Ml Gel) 6 ml TOP NOW ONE (unknown) (no (unknown) (unknown) Lip/Tongue/Throat (units (unknown) date) unknown) (unknown) (no (unknown) (unknown) Lipase (23-300) (units (unknown) date) U/L unknown) (unknown) (no (unknown) (unknown) Lipase 2978 H (units ( unknown) date) (23-300) U/L unknown) (unknown) (no (unknown) (unknown) Lipase 2998 H (units ( unknown) date) (23-300) U/L unknown) (unknown) (no (unknown) (unknown) Lipase Stat (units (un known) date) unknown) (unknown) (no (unknown) (unknown) Lymph # (Auto) (units (unknown) date) (6057-4249) /uL unknown) (unknown) (no (unknown) (unknown) Lymph # (Auto) (units (unknown) date) 1500 (7151-0111) unknown) /uL (unknown) (no (unknown) (unknown) Lymph % (Auto) (units (unknown) date) (25-40) % unknown) (unknown) (no (unknown) (unknown) Lymph % (Auto) (units (unknown) date) 15.0 L (25-40) % unknown) (unknown) (no (unknown) (unknown) MCH (26-34) PG (units (unknown) date) unknown) (unknown) (no (unknown) (unknown) MCH 29.9 (26-34) (units (unknown) date) PG unknown) (unknown) (no (unknown) (unknown) MCHC (30-36) % (units (unknown) date) unknown) (unknown) (no (unknown) (unknown) MCHC 33.1 (30-36) (units (unknown) date) % unknown) (unknown) (no (unknown) (unknown) MCV (80-100) fL (units (unknown) date) unknown) (unknown) (no (unknown) (unknown) MCV 90.3 (80-100) (units (unknown) date) fL unknown) (unknown) (no (unknown) (unknown) MDM - (units (unkno wn) date) Nausea/Vomiting/Huong unknown) rrhea (unknown) (no (unknown) (unknown) MDM Narrative (units ( unknown) date) unknown) (unknown) (no (unknown) (unknown) Medical History (units (unknown) date) (Reviewed 08/02/22 unknown) @ 05:41 by Mike Cobian DO) (unknown) (no (unknown) (unknown) Medical Records (units (unknown) date) unknown) (unknown) (no (unknown) (unknown) Medical decision (units (unknown) date) making narrative: unknown) (unknown) (no (unknown) (unknown) Medication (units (unk nown) date) Instructions unknown) Recorded Confirmed (unknown) (no (unknown) (unknown) Mild echogenic (units (unknown) date) kidneys suggesting unknown) possible medical renal disease. No (unknown) (no (unknown) (unknown) Mode of arrival: (units (unknown) date) Ambulatory unknown) (unknown) (no (unknown) (unknown) [place] # (Auto) (units ( unknown) date) (0-900) /uL unknown) (unknown) (no (unknown) (unknown) [place] # (Auto) 700 (units (unknown) date) (0-900) /uL unknown) (unknown) (no (unknown) (unknown) [place] % (Auto) (units ( unknown) date) (3-14) % unknown) (unknown) (no (unknown) (unknown) [place] % (Auto) 7.6 (units (unknown) date) (3-14) % unknown) (unknown) (no (unknown) (unknown) Neuro (units (unkno wn) date) unknown) (unknown) (no (unknown) (unknown) Neut # (Auto) (units ( unknown) date) (5459-9887) /uL unknown) (unknown) (no (unknown) (unknown) Neut # (Auto) 7400 (units (unknown) date) H (7003-9010) /uL unknown) (unknown) (no (unknown) (unknown) Neut % (Auto) (units ( unknown) date) (50-75) % unknown) (unknown) (no (unknown) (unknown) Neut % (Auto) 75.5 (units (unknown) date) H (50-75) % unknown) (unknown) (no (unknown) (unknown) No Action (units (unkn own) date) unknown) (unknown) (no (unknown) (unknown) No obstructive (units (unknown) date) uropathy unknown) (unknown) (no (unknown) (unknown) Ondansetron HCl (units (unknown) date) (Ondansetron 4 Mg unknown) Odt) 4 mg PO NOW PRN (unknown) (no (unknown) (unknown) Ondansetron HCl (units (unknown) date) (Ondansetron 4 Mg/2 unknown) Ml Inj) 4 mg IV NOW PRN (unknown) (no (unknown) (unknown) Ordered: (units (unkno wn) date) unknown) (unknown) (no (unknown) (unknown) Orders (units (unkno wn) date) unknown) (unknown) (no (unknown) (unknown) Other: (units (unkno wn) date) unknown) (unknown) (no (unknown) (unknown) Oxygen Delivery (units (unknown) date) Method 08/02/22 unknown) 01:20 (unknown) (no (unknown) (unknown) PRN Reason: Nausea (units (unknown) date) And Vomiting unknown) (unknown) (no (unknown) (unknown) PT (10.1-12.7) (units (unknown) date) SECONDS unknown) (unknown) (no (unknown) (unknown) PT 82.9 H (units (unkn own) date) (10.1-12.7) SECONDS unknown) (unknown) (no (unknown) (unknown) Pacemaker/AICD (units (unknown) date) left upper chest unknown) (unknown) (no (unknown) (unknown) Palpation: soft, (units (unknown) date) No firm and tender unknown) (unknown) (no (unknown) (unknown) Patient (units (unkno wn) date) Disposition: Xfer unknown) Acute [facility] (unknown) (no (unknown) (unknown) Patient History (units (unknown) date) unknown) (unknown) (no (unknown) (unknown) Patient is a (units (u nknown) date) 71-year-old female. unknown) To seen here in the emergency department (unknown) (no (unknown) (unknown) Patient is (units (unk nown) date) well-appearing. Is unknown) not tachycardic. Not hypotensive. She does have (unknown) (no (unknown) (unknown) Patient: (units (unkno wn) date) Grabner,Natasha K unknown) MR#: [id number] (unknown) (no (unknown) (unknown) Phytonadione (units (u nknown) date) (Phytonadione (Vit unknown) K1) 5 Mg Tablet) 10 mg PO NOW ONE (unknown) (no (unknown) (unknown) Plt Count (units (unkn own) date) (150-400) X103/uL unknown) (unknown) (no (unknown) (unknown) Plt Count 262 (units ( unknown) date) (150-400) X103/uL unknown) (unknown) (no (unknown) (unknown) Point of Care (units ( unknown) date) Testing unknown) (unknown) (no (unknown) (unknown) Postmenopausal (units (unknown) date) atrophic vaginitis unknown) (unknown) (no (unknown) (unknown) Potassium 5.5 H (units (unknown) date) (3.4-5.1) mmol/L unknown) (unknown) (no (unknown) (unknown) Potassium 5.5 H (units (unknown) date) 4.4 (3.4-5.1) unknown) mmol/L (unknown) (no (unknown) (unknown) Potassium 5.7 H (units (unknown) date) (3.4-5.1) mmol/L unknown) (unknown) (no (unknown) (unknown) Potassium 5.8 H (units (unknown) date) (3.4-5.1) mmol/L unknown) (unknown) (no (unknown) (unknown) Prescriptions: (units (unknown) date) unknown) (unknown) (no (unknown) (unknown) Prior labs that we (units (unknown) date) have for her were unknown) greater than 1 year ago which has her (unknown) (no (unknown) (unknown) Procalcitonin (units ( unknown) date) (<0.5) ng/mL unknown) (unknown) (no (unknown) (unknown) Procalcitonin 0.33 (units (unknown) date) (<0.5) ng/mL unknown) (unknown) (no (unknown) (unknown) Prothrombin Time (units (unknown) date) INR Stat unknown) (unknown) (no (unknown) (unknown) Psych (units (unkno wn) date) unknown) (unknown) (no (unknown) (unknown) Pulse Oximetry 91 (units (unknown) date) 93 91 unknown) (unknown) (no (unknown) (unknown) Pulse Oximetry 92 (units (unknown) date) 92 unknown) (unknown) (no (unknown) (unknown) Pulse Oximetry 94 (units (unknown) date) 94 unknown) (unknown) (no (unknown) (unknown) Pulse Oximetry 95 (units (unknown) date) 08/02/22 01:20 unknown) (unknown) (no (unknown) (unknown) Pulse Oximetry 95 (units (unknown) date) 94 94 unknown) (unknown) (no (unknown) (unknown) Pulse Oximetry 96 (units (unknown) date) 92 unknown) (unknown) (no (unknown) (unknown) Pulse Rate 54 L 53 (units (unknown) date) L unknown) (unknown) (no (unknown) (unknown) Pulse Rate 54 L 56 (units (unknown) date) L 55 L unknown) (unknown) (no (unknown) (unknown) Pulse Rate 54 L 56 (units (unknown) date) L unknown) (unknown) (no (unknown) (unknown) Pulse Rate 54 L 57 (units (unknown) date) L unknown) (unknown) (no (unknown) (unknown) Pulse Rate 54 L 70 (units (unknown) date) 53 L unknown) (unknown) (no (unknown) (unknown) Pulse Rate 55 L 55 (units (unknown) date) L unknown) (unknown) (no (unknown) (unknown) Pulse Rate 78 (units ( unknown) date) 08/02/22 01:20 unknown) (unknown) (no (unknown) (unknown) Pyelonephritis can (units (unknown) date) appear similar unknown) noncontrast examination (unknown) (no (unknown) (unknown) RBC (4.0-5.2) (units ( unknown) date) X106/uL unknown) (unknown) (no (unknown) (unknown) RBC 4.26 (4.0-5.2) (units (unknown) date) X106/uL unknown) (unknown) (no (unknown) (unknown) RDW (11.6-14.8) % (units (unknown) date) unknown) (unknown) (no (unknown) (unknown) RDW 14.5 (units (unkno wn) date) (11.6-14.8) % unknown) (unknown) (no (unknown) (unknown) ROS Unobtainable: (units (unknown) date) All systems unknown) reviewed + are unremarkable except as noted in HPI (unknown) (no (unknown) (unknown) RSV (PCR) (units (unkn own) date) (Negative) unknown) (unknown) (no (unknown) (unknown) RSV (PCR) Negative (units (unknown) date) (Negative) unknown) (unknown) (no (unknown) (unknown) Radiologist's (units ( unknown) date) Impression: unknown) (unknown) (no (unknown) (unknown) Rate is 63 (units (unk nown) date) unknown) (unknown) (no (unknown) (unknown) Rate: regular rate (units (unknown) date) unknown) (unknown) (no (unknown) (unknown) Related Data (units (u nknown) date) unknown) (unknown) (no (unknown) (unknown) Resp (units (unkno wn) date) unknown) (unknown) (no (unknown) (unknown) Respiratory Rate (units (unknown) date) 19 08/02/22 01:20 unknown) (unknown) (no (unknown) (unknown) Result diagrams: (units (unknown) date) unknown) (unknown) (no (unknown) (unknown) Retained ureteral (units (unknown) date) stent unknown) (unknown) (no (unknown) (unknown) Review of Systems (units (unknown) date) unknown) (unknown) (no (unknown) (unknown) Rhythm: regular (units (unknown) date) rhythm unknown) (unknown) (no (unknown) (unknown) Rx Instructions: (units (unknown) date) unknown) (unknown) (no (unknown) (unknown) SARS-CoV-2 (PCR) (units (unknown) date) (Negative) unknown) (unknown) (no (unknown) (unknown) SARS-CoV-2 (PCR) (units (unknown) date) Negative (Negative) unknown) (unknown) (no (unknown) (unknown) SVT (units (unkno wn) date) (supraventricular unknown) tachycardia) (unknown) (no (unknown) (unknown) Scores (units (unkno wn) date) unknown) (unknown) (no (unknown) (unknown) She continues to (units (unknown) date) get IV fluids. No unknown) sign of infection. INR is found to be (unknown) (no (unknown) (unknown) Signed By: (units (unk nown) date) unknown) (unknown) (no (unknown) (unknown) Irion. (units (unkno wn) date) unknown) (unknown) (no (unknown) (unknown) Skin (units (unkno wn) date) unknown) (unknown) (no (unknown) (unknown) Smoking Status: (units (unknown) date) Never smoker unknown) (unknown) (no (unknown) (unknown) Social History (units (unknown) date) (Reviewed 08/02/22 unknown) @ 05:41 by Mike Cobian DO) (unknown) (no (unknown) (unknown) Sodium 136 L (units (u nknown) date) (137-145) mmol/L unknown) (unknown) (no (unknown) (unknown) Sodium 137 (units (unk nown) date) (137-145) mmol/L unknown) (unknown) (no (unknown) (unknown) Sodium 138 137 (units (unknown) date) (137-145) mmol/L unknown) (unknown) (no (unknown) (unknown) Sodium 139 (units (unk nown) date) (137-145) mmol/L unknown) (unknown) (no (unknown) (unknown) Sodium Bicarbonate (units (unknown) date) 150 meq/ ([place]) unknown) 1,150 mls @ 75 mls/hr IV CONT NORMAN (unknown) (no (unknown) (unknown) Sodium Chloride (units (unknown) date) (Normal Saline unknown) 0.9%) 1,000 mls @ 1,000 mls/hr IV BOLUS ONE (unknown) (no (unknown) (unknown) Sodium Chloride (units (unknown) date) (Normal Saline unknown) 0.9%) 1,000 mls @ 250 mls/hr IV CONT NORMAN (unknown) (no (unknown) (unknown) Source: patient (units (unknown) date) and family unknown) (unknown) (no (unknown) (unknown) Speech: speech (units (unknown) date) normal unknown) (unknown) (no (unknown) (unknown) Stated complaint: (units (unknown) date) body pain/not able unknown) to eat or drink x 5 days (unknown) (no (unknown) (unknown) Stop: 08/03/22 (units (unknown) date) 01:37 unknown) (unknown) (no (unknown) (unknown) Stop: 08/02/22 (units (unknown) date) 02:39 unknown) (unknown) (no (unknown) (unknown) Stop: 08/02/22 (units (unknown) date) 04:57 unknown) (unknown) (no (unknown) (unknown) Stop: 08/02/22 (units (unknown) date) 07:44 unknown) (unknown) (no (unknown) (unknown) Stop: 08/02/22 (units (unknown) date) 08:23 unknown) (unknown) (no (unknown) (unknown) Substance Use (units ( unknown) date) Type: does not use unknown) (unknown) (no (unknown) (unknown) Surgical History (units (unknown) date) (Reviewed 08/02/22 unknown) @ 05:41 by Mike Cobian DO) (unknown) (no (unknown) (unknown) TAKE ONE TABLET BY (units (unknown) date) MOUTH ONE TIME unknown) DAILY (unknown) (no (unknown) (unknown) TAKE THIS ON (units (u nknown) date) SUNDAYS unknown) (unknown) (no (unknown) (unknown) Temperature 98.7 F (units (unknown) date) 08/02/22 01:20 unknown) (unknown) (no (unknown) (unknown) Time Seen by (units (u nknown) date) Provider: 08/02/22 unknown) 01:38 (unknown) (no (unknown) (unknown) Total Bilirubin (units (unknown) date) (0.2-1.3) mg/dL unknown) (unknown) (no (unknown) (unknown) Total Bilirubin (units (unknown) date) 0.7 (0.2-1.3) mg/dL unknown) (unknown) (no (unknown) (unknown) Total Protein (units ( unknown) date) (6.3-8.2) g/dL unknown) (unknown) (no (unknown) (unknown) Total Protein 7.3 (units (unknown) date) (6.3-8.2) g/dL unknown) (unknown) (no (unknown) (unknown) US - abdomen: (units ( unknown) date) unknown) (unknown) (no (unknown) (unknown) Upset (units (unkno wn) date) unknown) (unknown) (no (unknown) (unknown) Ur Random Sodium (units (unknown) date) (30-90) mmol/L unknown) (unknown) (no (unknown) (unknown) Ur Random Sodium (units (unknown) date) 84 (30-90) mmol/L unknown) (unknown) (no (unknown) (unknown) Urine Creatinine (units (unknown) date) 69.7 mg/dL unknown) (unknown) (no (unknown) (unknown) Urine Creatinine (units (unknown) date) mg/dL unknown) (unknown) (no (unknown) (unknown) Urine Dip (units (unkn own) date) unknown) (unknown) (no (unknown) (unknown) Urine Specific (units (unknown) date) [place] 1.015 unknown) (unknown) (no (unknown) (unknown) Vital Signs - 8 hr (units (unknown) date) unknown) (unknown) (no (unknown) (unknown) Vital Signs (units (un known) date) unknown) (unknown) (no (unknown) (unknown) Vital signs: (units (u nknown) date) unknown) (unknown) (no (unknown) (unknown) WBC (4.5-11.0) (units (unknown) date) X103/uL unknown) (unknown) (no (unknown) (unknown) WBC 9.8 (4.5-11.0) (units (unknown) date) X103/uL unknown) (unknown) (no (unknown) (unknown) [Embedded Image (units (unknown) date) Not Available] unknown) (unknown) (no (unknown) (unknown) [From Pyridium] (units (unknown) date) unknown) (unknown) (no (unknown) (unknown) a couple days but (units (unknown) date) her symptoms were unknown) not improving and she started to feel worse (unknown) (no (unknown) (unknown) abdominal pain. (units (unknown) date) Blood work today unknown) does show improvement in high mild (unknown) (no (unknown) (unknown) alcohol intake (units (unknown) date) frequency: 0-2 unknown) drinks per day (unknown) (no (unknown) (unknown) alcohol intake: (units (unknown) date) never unknown) (unknown) (no (unknown) (unknown) allopurinol 100 mg (units (unknown) date) tablet 100 mg DAILY unknown) 08/02/22 08/02/22 (unknown) (no (unknown) (unknown) allopurinol 100 mg (units (unknown) date) tablet unknown) (unknown) (no (unknown) (unknown) and below (units (unkn own) date) unknown) (unknown) (no (unknown) (unknown) biotin 5,000 mcg (units (unknown) date) Tablet, Sublingual unknown) (unknown) (no (unknown) (unknown) biotin 5,000 mcg (units (unknown) date) sublingual tablet unknown) 5,000 mcg sublingual QMWF 06/20/21 08/02/22 (unknown) (no (unknown) (unknown) breath activated (units (unknown) date) powder inhaler unknown) (unknown) (no (unknown) (unknown) budesonide 200 (units (unknown) date) mcg/actuation 50 unknown) mcg inhalation QID 06/20/21 08/12/21 (unknown) (no (unknown) (unknown) budesonide 200 (units (unknown) date) mcg/actuation unknown) Aerosol Powdr Breath Activated (unknown) (no (unknown) (unknown) carvedilol 6.25 mg (units (unknown) date) Tablet unknown) (unknown) (no (unknown) (unknown) carvedilol 6.25 mg (units (unknown) date) tablet 6.25 mg PO unknown) BID 06/20/21 08/02/22 (unknown) (no (unknown) (unknown) cholecalciferol (units (unknown) date) (vitamin D3) 125 unknown) 125 mcg PO QMWF 06/20/21 08/02/22 (unknown) (no (unknown) (unknown) cholecalciferol (units (unknown) date) (vitamin D3) 125 unknown) mcg (5,000 unit) Tablet (unknown) (no (unknown) (unknown) consultation with (units (unknown) date) Nephrology. unknown) (unknown) (no (unknown) (unknown) creatinine at the (units (unknown) date) 1.3-1.7 range in unknown) her GFR in the 30s. Patient has not been (unknown) (no (unknown) (unknown) direction. She (units (unknown) date) comes to the unknown) emergency department today because of overall body (unknown) (no (unknown) (unknown) elevated at 7.1 (units (unknown) date) thought to be unknown) somehow related to her renal failure. Vitamin K (unknown) (no (unknown) (unknown) extremities (units (un known) date) unknown) (unknown) (no (unknown) (unknown) furosemide 20 mg (units (unknown) date) Tablet unknown) (unknown) (no (unknown) (unknown) furosemide 20 mg (units (unknown) date) tablet 20 mg PO unknown) DAILY 06/20/21 08/02/22 (unknown) (no (unknown) (unknown) having bowel (units (u nknown) date) movements. She unknown) denies any fevers. No recent travel. (unknown) (no (unknown) (unknown) household members: (units (unknown) date) spouse unknown) (unknown) (no (unknown) (unknown) hyperkalemia it (units (unknown) date) was 5.8 now was 5 unknown) 5. Improvement in her creatinine as well was (unknown) (no (unknown) (unknown) is 8.9% which is (units (unknown) date) consistent with a unknown) post renal/obstructive pathology however I do (unknown) (no (unknown) (unknown) is ordered. (units (un known) date) unknown) (unknown) (no (unknown) (unknown) likely that the (units (unknown) date) cause of all of her unknown) nausea and vomiting even her abdominal (unknown) (no (unknown) (unknown) losartan 50 mg (units (unknown) date) Tablet unknown) (unknown) (no (unknown) (unknown) losartan 50 mg (units (unknown) date) tablet 50 mg PO unknown) DAILY 06/20/21 08/02/22 (unknown) (no (unknown) (unknown) mcg (5,000 unit) (units (unknown) date) tablet unknown) (unknown) (no (unknown) (unknown) metformin 500 mg (units (unknown) date) Tablet unknown) (unknown) (no (unknown) (unknown) metformin 500 mg (units (unknown) date) tablet 1,000 mg PO unknown) QID 07/26/21 08/02/22 (unknown) (no (unknown) (unknown) must administer (units (unknown) date) with a meal/food unknown) (unknown) (no (unknown) (unknown) not have a (units (unk nown) date) specific source of unknown) this as it does not appear to be an obstructive (unknown) (no (unknown) (unknown) obstructive (units (un known) date) uropathy. unknown) (unknown) (no (unknown) (unknown) of (units (unkno wn) date) unknown) (unknown) (no (unknown) (unknown) pain, belly pain, (units (unknown) date) vomiting, unable to unknown) drink for the past several days. Still (unknown) (no (unknown) (unknown) pain. She is in (units (unknown) date) acute renal unknown) failure/YESIKA given her creatinine of 10 and GFR 4. (unknown) (no (unknown) (unknown) patient myself. (units (unknown) date) She says overall unknown) she is feeling better. No nausea vomiting no (unknown) (no (unknown) (unknown) phenazopyridine (units (unknown) date) Allergy Verified unknown) 08/12/21 08:17 (unknown) (no (unknown) (unknown) potassium 99 mg (units (unknown) date) Tablet unknown) (unknown) (no (unknown) (unknown) potassium 99 mg (units (unknown) date) tablet 99 mg PO unknown) DAILY 07/26/21 08/02/22 (unknown) (no (unknown) (unknown) prednisone Allergy (units (unknown) date) Severe Swelling unknown) Verified 08/02/22 01:20 (unknown) (no (unknown) (unknown) procaine [From (units (unknown) date) Novocain] Allergy unknown) Chest Pain Verified 08/02/22 01:20 (unknown) (no (unknown) (unknown) recently for UTI (units (unknown) date) like symptoms. Was unknown) sent home with [facility]. She took this for (unknown) (no (unknown) (unknown) rizatriptan (units (un known) date) Allergy Severe unknown) Difficulty Verified 08/02/22 01:20 (unknown) (no (unknown) (unknown) rosuvastatin 40 mg (units (unknown) date) Tablet unknown) (unknown) (no (unknown) (unknown) rosuvastatin 40 mg (units (unknown) date) tablet 40 mg PO unknown) DAILY 06/20/21 08/02/22 (unknown) (no (unknown) (unknown) s (units (unkno wn) date) unknown) (unknown) (no (unknown) (unknown) shellfish derived (units (unknown) date) AdvReac unknown) Gastrointestinal Verified 08/02/22 01:20 (unknown) (no (unknown) (unknown) signs of an (units (un known) date) infection. CT scans unknown) did not give a definitive etiology. Her FeNa (unknown) (no (unknown) (unknown) slightly. Care (units (unknown) date) turned over to Dr. pritchard) Gustavo to follow-up and most likely (unknown) (no (unknown) (unknown) so she contact her (units (unknown) date) primary doctor who unknown) looked up the culture results and told her (unknown) (no (unknown) (unknown) stone nor urinary (units (unknown) date) retention. After 2 unknown) L of fluid her creatinine only improved (unknown) (no (unknown) (unknown) supratherapeutic (units (unknown) date) on INR but no unknown) active bleeding. Care turned over to Dr. Chen (unknown) (no (unknown) (unknown) takes 4 puffs (units ( unknown) date) qhs-(Pulmacort) unknown) (unknown) (no (unknown) (unknown) takes it 5x/week- (units (unknown) date) NOT ON SUNDAYS unknown) (unknown) (no (unknown) (unknown) tetracycline (units (u nknown) date) Allergy Severe unknown) ITCHING Verified 08/12/21 08:17 (unknown) (no (unknown) (unknown) that she did not (units (unknown) date) have an infection unknown) so she quit taking the medications per their (unknown) (no (unknown) (unknown) the day. Is on a (units (unknown) date) bicarb drip. unknown) Creatinine not much improved. Patient is (unknown) (no (unknown) (unknown) thiopental AdvReac (units (unknown) date) Palpitation unknown) Verified 08/02/22 01:20 (unknown) (no (unknown) (unknown) time agrees with a (units (unknown) date) bicarb drip 100 mEq unknown) for 75 an hour for about 1 day. (unknown) (no (unknown) (unknown) to continue to (units (unknown) date) observe until unknown) disposition can be made. (unknown) (no (unknown) (unknown) upper abdominal (units (unknown) date) discomfort. Has unknown) pancreatitis based on her lipase which is most (unknown) (no (unknown) (unknown) vomiting since (units (unknown) date) arrival here to the unknown) ER. Her urinalysis today does not show any (unknown) (no (unknown) (unknown) warfarin 2 mg (units ( unknown) date) Tablet unknown) (unknown) (no (unknown) (unknown) warfarin 2 mg (units ( unknown) date) tablet 2 mg PO unknown) WEEKLY 06/20/21 08/02/22 (unknown) (no (unknown) (unknown) warfarin 3 mg (units ( unknown) date) Tablet unknown) (unknown) (no (unknown) (unknown) warfarin 3 mg (units ( unknown) date) tablet 3 mg PO Q6W unknown) 06/20/21 08/02/22 Result panel 197 (unknown) (no (unknown) (unknown) (no value) (units (unk nown) date) unknown) (unknown) (no (unknown) (unknown) <Electronically (units (unknown) date) signed by Mike Cobian D.O.> (unknown) (no (unknown) (unknown) <Francesca Chen, (units (unknown) date) DO - Last Filed: unknown) 08/03/22 08:04> (unknown) (no (unknown) (unknown) <Mike Cobian (units (unknown) date) DO - Last Filed: unknown) 08/03/22 07:16> (unknown) (no (unknown) (unknown) 00:30 08/03/22 (units (unknown) date) unknown) (unknown) (no (unknown) (unknown) 08/03/22 0716 (units ( unknown) date) unknown) (unknown) (no (unknown) (unknown) 08/03/22 07:00 (units (unknown) date) unknown) (unknown) (no (unknown) (unknown) 08/03/22 (units (unkno wn) date) unknown) (unknown) (no (unknown) (unknown) 01:00 08/03/22 (units (unknown) date) unknown) (unknown) (no (unknown) (unknown) 01:17 01:40 01:40 (units (unknown) date) unknown) (unknown) (no (unknown) (unknown) 01:30 (units (unkno wn) date) unknown) (unknown) (no (unknown) (unknown) 02:00 08/03/22 (units (unknown) date) unknown) (unknown) (no (unknown) (unknown) 02:30 (units (unkno wn) date) unknown) (unknown) (no (unknown) (unknown) 03:00 08/03/22 (units (unknown) date) unknown) (unknown) (no (unknown) (unknown) 03:30 08/03/22 (units (unknown) date) unknown) (unknown) (no (unknown) (unknown) 03:30 05:30 07:46 (units (unknown) date) unknown) (unknown) (no (unknown) (unknown) [id number] (units (unkno wn) date) unknown) (unknown) (no (unknown) (unknown) 04:00 (units (unkno wn) date) unknown) (unknown) (no (unknown) (unknown) 04:01 08/03/22 (units (unknown) date) unknown) (unknown) (no (unknown) (unknown) 04:30 (units (unkno wn) date) unknown) (unknown) (no (unknown) (unknown) 05:00 08/03/22 (units (unknown) date) unknown) (unknown) (no (unknown) (unknown) 05:30 08/03/22 (units (unknown) date) unknown) (unknown) (no (unknown) (unknown) 06:00 08/03/22 (units (unknown) date) unknown) (unknown) (no (unknown) (unknown) 06:00 (units (unkno wn) date) unknown) (unknown) (no (unknown) (unknown) 06:30 08/03/22 (units (unknown) date) unknown) (unknown) (no (unknown) (unknown) 07:00 (units (unkno wn) date) unknown) (unknown) (no (unknown) (unknown) 07:46 07:46 07:50 (units (unknown) date) unknown) (unknown) (no (unknown) (unknown) 0900am- Dr. Cabrera (units (unknown) date) Nephrology, updated unknown) on patient's symptoms test results at this (unknown) (no (unknown) (unknown) 1,000 mg PO QID (units (unknown) date) unknown) (unknown) (no (unknown) (unknown) 10.0 and now 9.23. (units (unknown) date) [place] catheter is unknown) placed she has very clear urine draining. (unknown) (no (unknown) (unknown) 100 mg DAILY (units (u nknown) date) unknown) (unknown) (no (unknown) (unknown) 08/02/22 01:40 (units (unknown) date) unknown) (unknown) (no (unknown) (unknown) 08/02/22 08/02/22 (units (unknown) date) 08/02/22 unknown) Range/Units (unknown) (no (unknown) (unknown) 08/02/22 08/02/22 (units (unknown) date) Range/Units unknown) (unknown) (no (unknown) (unknown) 08/02/22 18:00 (units (unknown) date) unknown) (unknown) (no (unknown) (unknown) 08/02/22 (units (unkno wn) date) [place]-patient unknown) signed out to me by Dr. Cobian if seen evaluated (unknown) (no (unknown) (unknown) 125 mcg PO QMWF (units (unknown) date) unknown) (unknown) (no (unknown) (unknown) 12:00 18:00 (units (un known) date) unknown) (unknown) (no (unknown) (unknown) 2 mg PO WEEKLY (units (unknown) date) unknown) (unknown) (no (unknown) (unknown) 20 mg PO DAILY (units (unknown) date) unknown) (unknown) (no (unknown) (unknown) 3 mg PO Q6W (units (un known) date) unknown) (unknown) (no (unknown) (unknown) 40 mg PO DAILY (units (unknown) date) unknown) (unknown) (no (unknown) (unknown) 5,000 mcg (units (unkn own) date) sublingual QMWF unknown) (unknown) (no (unknown) (unknown) 50 mcg INHALATION (units (unknown) date) QID unknown) (unknown) (no (unknown) (unknown) 50 mg PO DAILY (units (unknown) date) unknown) (unknown) (no (unknown) (unknown) 6.25 mg PO BID (units (unknown) date) unknown) (unknown) (no (unknown) (unknown) 99 mg PO DAILY (units (unknown) date) unknown) (unknown) (no (unknown) (unknown) AICD (automatic (units (unknown) date) cardioverter/defibr unknown) illator) present (11/29/20) (unknown) (no (unknown) (unknown) ALT (<35) IU/L (units (unknown) date) unknown) (unknown) (no (unknown) (unknown) ALT 27 (<35) IU/L (units (unknown) date) unknown) (unknown) (no (unknown) (unknown) AST (14-36) IU/L (units (unknown) date) unknown) (unknown) (no (unknown) (unknown) AST 32 (14-36) (units (unknown) date) IU/L unknown) (unknown) (no (unknown) (unknown) Acetaminophen (units ( unknown) date) (Acetaminophen 325 unknown) Mg Tablet) 650 mg PO NOW ONE (unknown) (no (unknown) (unknown) Acute kidney (units (u nknown) date) injury unknown) (unknown) (no (unknown) (unknown) Admin: 08/02/22 (units (unknown) date) 02:15 Dose: 1,000 unknown) mls/hr (unknown) (no (unknown) (unknown) Admin: 08/02/22 (units (unknown) date) 04:04 Dose: 1,000 unknown) mls/hr (unknown) (no (unknown) (unknown) Admin: 08/02/22 (units (unknown) date) 06:16 Dose: 250 unknown) mls/hr (unknown) (no (unknown) (unknown) Admin: 08/02/22 (units (unknown) date) 10:16 Dose: 75 unknown) mls/hr (unknown) (no (unknown) (unknown) Afib (units (unkno wn) date) unknown) (unknown) (no (unknown) (unknown) Age/Sex: 71 / F (units (unknown) date) unknown) (unknown) (no (unknown) (unknown) Albumin (3.5-5.0) (units (unknown) date) g/dL unknown) (unknown) (no (unknown) (unknown) Albumin 4.2 (units (un known) date) (3.5-5.0) g/dL unknown) (unknown) (no (unknown) (unknown) Albumin/Globulin (units (unknown) date) Ratio (1.0-2.8) unknown) (unknown) (no (unknown) (unknown) Albumin/Globulin (units (unknown) date) Ratio 1.4 (1.0-2.8) unknown) (unknown) (no (unknown) (unknown) Alkaline (units (unkno wn) date) Phosphatase unknown) (38-126) U/L (unknown) (no (unknown) (unknown) Alkaline (units (unkno wn) date) Phosphatase 54 unknown) (38-126) U/L (unknown) (no (unknown) (unknown) Allergies (units (unkn own) date) unknown) (unknown) (no (unknown) (unknown) Allergy/AdvReac (units (unknown) date) Type Severity unknown) Reaction Status Date / Time (unknown) (no (unknown) (unknown) Appearance: (units (un known) date) grossly normal and unknown) well kempt (unknown) (no (unknown) (unknown) Atrially (units (unkno wn) date) sensed/ventricularl unknown) y paced (unknown) (no (unknown) (unknown) Attestation: I (units (unknown) date) personally reviewed unknown) and interpreted this ECG as follows: (unknown) (no (unknown) (unknown) Attestation: I (units (unknown) date) reviewed the unknown) patient's lab results. (unknown) (no (unknown) (unknown) Attestation: I (units (unknown) date) reviewed the unknown) patient's medical records. (unknown) (no (unknown) (unknown) Auscultation: (units ( unknown) date) clear to unknown) auscultation bilaterally (unknown) (no (unknown) (unknown) BUN 63 H (7-17) (units (unknown) date) mg/dL unknown) (unknown) (no (unknown) (unknown) BUN 64 H 67 H (units ( unknown) date) (7-17) mg/dL unknown) (unknown) (no (unknown) (unknown) BUN 65 H (7-17) (units (unknown) date) mg/dL unknown) (unknown) (no (unknown) (unknown) BUN 67 H (7-17) (units (unknown) date) mg/dL unknown) (unknown) (no (unknown) (unknown) BUN/Creatinine (units (unknown) date) Ratio 6.7 (6-22) unknown) (unknown) (no (unknown) (unknown) BUN/Creatinine (units (unknown) date) Ratio 6.9 (-22) unknown) (unknown) (no (unknown) (unknown) BUN/Creatinine (units (unknown) date) Ratio 7.0 (-22) unknown) (unknown) (no (unknown) (unknown) BUN/Creatinine (units (unknown) date) Ratio 7.1 7.4 unknown) (22) (unknown) (no (unknown) (unknown) Back/Spine/Pelvis (units (unknown) date) unknown) (unknown) (no (unknown) (unknown) Back: No CVA (units (u nknown) date) tenderness unknown) (unknown) (no (unknown) (unknown) Baso # (Auto) (units ( unknown) date) (0-100) /uL unknown) (unknown) (no (unknown) (unknown) Baso # (Auto) 100 (units (unknown) date) (0-100) /uL unknown) (unknown) (no (unknown) (unknown) Baso % (Auto) (units ( unknown) date) (0-2) % unknown) (unknown) (no (unknown) (unknown) Baso % (Auto) 0.7 (units (unknown) date) (0-2) % unknown) (unknown) (no (unknown) (unknown) Bedside Urine (units ( unknown) date) Bilirubin - unknown) Negative (unknown) (no (unknown) (unknown) Bedside Urine (units ( unknown) date) Glucose Negative unknown) (unknown) (no (unknown) (unknown) Bedside Urine (units ( unknown) date) Ketone +/- 5 unknown) (unknown) (no (unknown) (unknown) Bedside Urine (units ( unknown) date) Leukocytes - unknown) Negative (unknown) (no (unknown) (unknown) Bedside Urine (units ( unknown) date) Nitrite - Negative unknown) (unknown) (no (unknown) (unknown) Bedside Urine (units ( unknown) date) Occult Blood unknown) (unknown) (no (unknown) (unknown) Bedside Urine (units ( unknown) date) Protein ++ 100 unknown) (unknown) (no (unknown) (unknown) Bedside Urine (units ( unknown) date) Urobilinogen - unknown) Negative (unknown) (no (unknown) (unknown) Bedside Urine pH (units (unknown) date) 6.0 unknown) (unknown) (no (unknown) (unknown) Bilateral (units (unkn own) date) perinephric unknown) stranding. This can be an asymptomatic finding. (unknown) (no (unknown) (unknown) Bilateral renal (units (unknown) date) cysts unknown) (unknown) (no (unknown) (unknown) Blood Pressure (units (unknown) date) 110/57 L unknown) (unknown) (no (unknown) (unknown) Blood Pressure (units (unknown) date) 117/56 L unknown) (unknown) (no (unknown) (unknown) Blood Pressure (units (unknown) date) 130/69 08/02/22 unknown) 01:20 (unknown) (no (unknown) (unknown) Blood Pressure (units (unknown) date) 137/63 unknown) (unknown) (no (unknown) (unknown) Blood Pressure (units (unknown) date) unknown) (unknown) (no (unknown) (unknown) Breathing (units (unkn own) date) unknown) (unknown) (no (unknown) (unknown) CHF (congestive (units (unknown) date) heart failure) unknown) (unknown) (no (unknown) (unknown) CT scan - (units (unkn own) date) abdomen/pelvis: unknown) (unknown) (no (unknown) (unknown) CVA (cerebral (units ( unknown) date) vascular accident) unknown) (unknown) (no (unknown) (unknown) Calcium 8.0 L 8.2 (units (unknown) date) L (8.4-10.2) mg/dL unknown) (unknown) (no (unknown) (unknown) Calcium 8.4 (units (un known) date) (8.4-10.2) mg/dL unknown) (unknown) (no (unknown) (unknown) Calcium 9.9 (units (un known) date) (8.4-10.2) mg/dL unknown) (unknown) (no (unknown) (unknown) Carbon Dioxide 13 (units (unknown) date) L (22-32) mmol/L unknown) (unknown) (no (unknown) (unknown) Carbon Dioxide 13 (units (unknown) date) L 16 L (22-32) unknown) mmol/L (unknown) (no (unknown) (unknown) Cardiac arrest (units (unknown) date) (11/29/20) unknown) (unknown) (no (unknown) (unknown) Cardio (units (unkno wn) date) unknown) (unknown) (no (unknown) (unknown) Cardiomyopathy (units (unknown) date) unknown) (unknown) (no (unknown) (unknown) Carvedilol (units (unk nown) date) (Carvedilol 3.125 unknown) Mg Tablet) 6.25 mg PO BID NORMAN (unknown) (no (unknown) (unknown) Chest (units (unkno wn) date) unknown) (unknown) (no (unknown) (unknown) Chief complaint: (units (unknown) date) Nausea/Vomiting/Huong unknown) rrhea (unknown) (no (unknown) (unknown) Chloride 103 (units (u nknown) date) (98-107) mmol/L unknown) (unknown) (no (unknown) (unknown) Chloride 109 H (units (unknown) date) (98-107) mmol/L unknown) (unknown) (no (unknown) (unknown) Chloride 110 H 103 (units (unknown) date) (98-107) mmol/L unknown) (unknown) (no (unknown) (unknown) Cognition: normal (units (unknown) date) cognition unknown) (unknown) (no (unknown) (unknown) Complete Blood (units (unknown) date) Count AUTO DIFF unknown) Stat (unknown) (no (unknown) (unknown) Comprehensive (units ( unknown) date) Metabolic Panel unknown) Stat (unknown) (no (unknown) (unknown) Const (units (unkno wn) date) unknown) (unknown) (no (unknown) (unknown) Continue checking (units (unknown) date) light. Will likely unknown) need dialysis however no beds available at (unknown) (no (unknown) (unknown) Course (units (unkno wn) date) unknown) (unknown) (no (unknown) (unknown) Creatinine 10.0 H* (units (unknown) date) (0.52-1.04) mg/dL unknown) (unknown) (no (unknown) (unknown) Creatinine 9.00 H* (units (unknown) date) 9.00 H* (0.52-1.04) unknown) mg/dL (unknown) (no (unknown) (unknown) Creatinine 9.15 H* (units (unknown) date) (0.52-1.04) mg/dL unknown) (unknown) (no (unknown) (unknown) Creatinine 9.23 H* (units (unknown) date) (0.52-1.04) mg/dL unknown) (unknown) (no (unknown) (unknown) : 1950 (units (unknown) date) Acct:[id number] unknown) (unknown) (no (unknown) (unknown) Date of Service: (units (unknown) date) 08/02/22 unknown) (unknown) (no (unknown) (unknown) Departure (units (unkn own) date) unknown) (unknown) (no (unknown) (unknown) Diabetes (units (unkno wn) date) unknown) (unknown) (no (unknown) (unknown) Discharge Plan (units (unknown) date) unknown) (unknown) (no (unknown) (unknown) Discontinued (units (u nknown) date) Medications unknown) (unknown) (no (unknown) (unknown) Documented By: GC (units (unknown) date) unknown) (unknown) (no (unknown) (unknown) Documented By: KM (units (unknown) date) unknown) (unknown) (no (unknown) (unknown) Documented By: NR (units (unknown) date) unknown) (unknown) (no (unknown) (unknown) Dr cobian (units (unkn own) date) 08/02-08/03: Assumed unknown) care of patient. Reviewed patient's events over (unknown) (no (unknown) (unknown) ECG Data (units (unkno wn) date) unknown) (unknown) (no (unknown) (unknown) ED Orders (units (unkn own) date) unknown) (unknown) (no (unknown) (unknown) ER Physician: (units ( unknown) date) Francesca Chen D.O. unknown) (unknown) (no (unknown) (unknown) Effort + (units (unkno wn) date) Inspection: normal unknown) respiratory effort (unknown) (no (unknown) (unknown) Emergency Report (units (unknown) date) unknown) (unknown) (no (unknown) (unknown) Eos # (Auto) (units (u nknown) date) (0-450) /uL unknown) (unknown) (no (unknown) (unknown) Eos # (Auto) 100 (units (unknown) date) (0-450) /uL unknown) (unknown) (no (unknown) (unknown) Eos % (Auto) (2-4) (units (unknown) date) % unknown) (unknown) (no (unknown) (unknown) Eos % (Auto) 1.2 L (units (unknown) date) (2-4) % unknown) (unknown) (no (unknown) (unknown) Esterase (units (unkno wn) date) unknown) (unknown) (no (unknown) (unknown) Estimated GFR 4 L (units (unknown) date) (>60) mL/min unknown) (unknown) (no (unknown) (unknown) Estimated GFR 4 L (units (unknown) date) 4 L (>60) mL/min unknown) (unknown) (no (unknown) (unknown) Exam (units (unkno wn) date) unknown) (unknown) (no (unknown) (unknown) Extrem (units (unkno wn) date) unknown) (unknown) (no (unknown) (unknown) GCS (units (unkno wn) date) unknown) (unknown) (no (unknown) (unknown) GI (units (unkno wn) date) unknown) (unknown) (no (unknown) (unknown) General (units (unkno wn) date) unknown) (unknown) (no (unknown) (unknown) General: (units (unkno wn) date) cooperative, unknown) comfortable and No ill appearing (unknown) (no (unknown) (unknown) General: no rashes (units (unknown) date) or lesions noted unknown) (unknown) (no (unknown) (unknown) General: normal to (units (unknown) date) inspection, unknown) capillary refill normal and No edema (unknown) (no (unknown) (unknown) General: patient (units (unknown) date) alert, patient unknown) awake, patient oriented x3 and moves all (unknown) (no (unknown) (unknown) [place] coma scale (units (unknown) date) eye opening: unknown) Spontaneous (unknown) (no (unknown) (unknown) [place] coma scale (units (unknown) date) motor response: unknown) Obey commands (unknown) (no (unknown) (unknown) [place] coma scale (units (unknown) date) total score: 15 unknown) (unknown) (no (unknown) (unknown) [place] coma scale (units (unknown) date) verbal response: unknown) Orientated (unknown) (no (unknown) (unknown) Globulin (1.7-4.1) (units (unknown) date) g/dL unknown) (unknown) (no (unknown) (unknown) Globulin 3.1 (units (u nknown) date) (1.7-4.1) g/dL unknown) (unknown) (no (unknown) (unknown) Glucose 78 L 170 H (units (unknown) date) (80-110) mg/dL unknown) (unknown) (no (unknown) (unknown) Glucose 82 (units (unk nown) date) (80-110) mg/dL unknown) (unknown) (no (unknown) (unknown) Glucose 86 (units (unk nown) date) (80-110) mg/dL unknown) (unknown) (no (unknown) (unknown) Glucose 88 (units (unk nown) date) (80-110) mg/dL unknown) (unknown) (no (unknown) (unknown) Glucose POC 101 (units (unknown) date) unknown) (unknown) (no (unknown) (unknown) HENMT (units (unkno wn) date) unknown) (unknown) (no (unknown) (unknown) HLD (units (unkno wn) date) (hyperlipidemia) unknown) (unknown) (no (unknown) (unknown) HPI - (units (unkno wn) date) Nausea/Vomiting/Huong unknown) rrhea (unknown) (no (unknown) (unknown) HPI Narrative: (units (unknown) date) unknown) (unknown) (no (unknown) (unknown) HTN (hypertension) (units (unknown) date) unknown) (unknown) (no (unknown) (unknown) Hct (36-46) % (units ( unknown) date) unknown) (unknown) (no (unknown) (unknown) Hct 38.4 (36-46) % (units (unknown) date) unknown) (unknown) (no (unknown) (unknown) Head: normal to (units (unknown) date) inspection and unknown) normocephalic (unknown) (no (unknown) (unknown) Hgb (12.0-16.0) (units (unknown) date) g/dL unknown) (unknown) (no (unknown) (unknown) Hgb 12.7 (units (unkno wn) date) (12.0-16.0) g/dL unknown) (unknown) (no (unknown) (unknown) History of Present (units (unknown) date) Illness unknown) (unknown) (no (unknown) (unknown) History of UTI (units (unknown) date) unknown) (unknown) (no (unknown) (unknown) History of colon (units (unknown) date) surgery unknown) (unknown) (no (unknown) (unknown) History of (units (unk nown) date) colonoscopy unknown) (unknown) (no (unknown) (unknown) History of (units (unk nown) date) hysterectomy unknown) (unknown) (no (unknown) (unknown) History of (units (unk nown) date) nephrolithiasis unknown) (unknown) (no (unknown) (unknown) History of (units (unk nown) date) thyroidectomy, unknown) subtotal (unknown) (no (unknown) (unknown) Home Medications (units (unknown) date) unknown) (unknown) (no (unknown) (unknown) Hx of appendectomy (units (unknown) date) unknown) (unknown) (no (unknown) (unknown) Hx of breast (units (u nknown) date) surgery unknown) (unknown) (no (unknown) (unknown) Hx of cystoscopy (units (unknown) date) (06/20/21) unknown) (unknown) (no (unknown) (unknown) Hx of eye surgery (units (unknown) date) unknown) (unknown) (no (unknown) (unknown) INR (0.9-1.3) (units ( unknown) date) unknown) (unknown) (no (unknown) (unknown) INR 7.1 H* (units (unk nown) date) (0.9-1.3) unknown) (unknown) (no (unknown) (unknown) Imaging Data (units (u nknown) date) unknown) (unknown) (no (unknown) (unknown) Influenza A (units (un known) date) (RT-PCR) (NEGATIVE) unknown) (unknown) (no (unknown) (unknown) Influenza A (units (un known) date) (RT-PCR) Flu a unknown) negative (NEGATIVE) (unknown) (no (unknown) (unknown) Influenza B (units (un known) date) (RT-PCR) (NEGATIVE) unknown) (unknown) (no (unknown) (unknown) Influenza B (units (un known) date) (RT-PCR) Flu b unknown) negative (NEGATIVE) (unknown) (no (unknown) (unknown) Initial Vital (units ( unknown) date) Signs unknown) (unknown) (no (unknown) (unknown) Initial Vital (units ( unknown) date) Signs: unknown) (unknown) (no (unknown) (unknown) Inspection: normal (units (unknown) date) to inspection unknown) (unknown) (no (unknown) (unknown) Interpretation: (units (unknown) date) unknown) (unknown) (no (unknown) (unknown) [facility] (units (unknown) date) [address] unknown) [place] [address] (unknown) (no (unknown) (unknown) Lab Data (units (unkno wn) date) unknown) (unknown) (no (unknown) (unknown) Lab Results (units (un known) date) unknown) (unknown) (no (unknown) (unknown) Label Comments: (units (unknown) date) unknown) (unknown) (no (unknown) (unknown) Labs: (units (unkno wn) date) unknown) (unknown) (no (unknown) (unknown) Lactate (units (unkno wn) date) Dehydrogenase unknown) (120-246) U/L (unknown) (no (unknown) (unknown) Lactate (units (unkno wn) date) Dehydrogenase 231 unknown) (120-246) U/L (unknown) (no (unknown) (unknown) Last Admin: (units (un known) date) 08/03/22 01:02 unknown) Dose: 75 mls/hr (unknown) (no (unknown) (unknown) Last Admin: (units (un known) date) 08/03/22 01:52 unknown) Dose: 650 mg (unknown) (no (unknown) (unknown) Last Admin: (units (un known) date) 08/02/22 02:48 unknown) Dose: 4 mg (unknown) (no (unknown) (unknown) Last Admin: (units (un known) date) 08/02/22 08:01 unknown) Dose: 6 ml (unknown) (no (unknown) (unknown) Last Admin: (units (un known) date) 08/02/22 08:53 unknown) Dose: 10 mg (unknown) (no (unknown) (unknown) Last Admin: (units (un known) date) 08/02/22 20:59 unknown) Dose: 6.25 mg (unknown) (no (unknown) (unknown) Last Infusion: (units (unknown) date) 08/03/22 01:03 unknown) Dose: 0 mls/hr (unknown) (no (unknown) (unknown) Last Infusion: (units (unknown) date) 08/02/22 03:27 unknown) Dose: 0 mls/hr (unknown) (no (unknown) (unknown) Last Infusion: (units (unknown) date) 08/02/22 05:05 unknown) Dose: 0 mls/hr (unknown) (no (unknown) (unknown) Last Infusion: (units (unknown) date) 08/02/22 10:20 unknown) Dose: 0 mls/hr (unknown) (no (unknown) (unknown) Left ureteral (units ( unknown) date) calculus unknown) (unknown) (no (unknown) (unknown) Lidocaine HCl (units ( unknown) date) (Lidocaine 2% unknown) (Glydo) 6 Ml Gel) 6 ml TOP NOW ONE (unknown) (no (unknown) (unknown) Lip/Tongue/Throat (units (unknown) date) unknown) (unknown) (no (unknown) (unknown) Lipase (23-300) (units (unknown) date) U/L unknown) (unknown) (no (unknown) (unknown) Lipase 2978 H (units ( unknown) date) (23-300) U/L unknown) (unknown) (no (unknown) (unknown) Lipase 2998 H (units ( unknown) date) (23-300) U/L unknown) (unknown) (no (unknown) (unknown) Lipase Stat (units (un known) date) unknown) (unknown) (no (unknown) (unknown) Lymph # (Auto) (units (unknown) date) (0776-7397) /uL unknown) (unknown) (no (unknown) (unknown) Lymph # (Auto) (units (unknown) date) 1500 (1180-2227) unknown) /uL (unknown) (no (unknown) (unknown) Lymph % (Auto) (units (unknown) date) (25-40) % unknown) (unknown) (no (unknown) (unknown) Lymph % (Auto) (units (unknown) date) 15.0 L (25-40) % unknown) (unknown) (no (unknown) (unknown) MCH (26-34) PG (units (unknown) date) unknown) (unknown) (no (unknown) (unknown) MCH 29.9 (26-34) (units (unknown) date) PG unknown) (unknown) (no (unknown) (unknown) MCHC (30-36) % (units (unknown) date) unknown) (unknown) (no (unknown) (unknown) MCHC 33.1 (30-36) (units (unknown) date) % unknown) (unknown) (no (unknown) (unknown) MCV (80-100) fL (units (unknown) date) unknown) (unknown) (no (unknown) (unknown) MCV 90.3 (80-100) (units (unknown) date) fL unknown) (unknown) (no (unknown) (unknown) MDM - (units (unkno wn) date) Nausea/Vomiting/Huong unknown) rrhea (unknown) (no (unknown) (unknown) MDM Narrative (units ( unknown) date) unknown) (unknown) (no (unknown) (unknown) Medical History (units (unknown) date) (Reviewed 08/02/22 unknown) @ 05:41 by Mike Cobian DO) (unknown) (no (unknown) (unknown) Medical Records (units (unknown) date) unknown) (unknown) (no (unknown) (unknown) Medical decision (units (unknown) date) making narrative: unknown) (unknown) (no (unknown) (unknown) Medication (units (unk nown) date) Instructions unknown) Recorded Confirmed (unknown) (no (unknown) (unknown) Mild echogenic (units (unknown) date) kidneys suggesting unknown) possible medical renal disease. No (unknown) (no (unknown) (unknown) Mode of arrival: (units (unknown) date) Ambulatory unknown) (unknown) (no (unknown) (unknown) [place] # (Auto) (units ( unknown) date) (0-900) /uL unknown) (unknown) (no (unknown) (unknown) [place] # (Auto) 700 (units (unknown) date) (0-900) /uL unknown) (unknown) (no (unknown) (unknown) [place] % (Auto) (units ( unknown) date) (3-14) % unknown) (unknown) (no (unknown) (unknown) [place] % (Auto) 7.6 (units (unknown) date) (3-14) % unknown) (unknown) (no (unknown) (unknown) Neuro (units (unkno wn) date) unknown) (unknown) (no (unknown) (unknown) Neut # (Auto) (units ( unknown) date) (0983-0383) /uL unknown) (unknown) (no (unknown) (unknown) Neut # (Auto) 7400 (units (unknown) date) H (7908-7681) /uL unknown) (unknown) (no (unknown) (unknown) Neut % (Auto) (units ( unknown) date) (50-75) % unknown) (unknown) (no (unknown) (unknown) Neut % (Auto) 75.5 (units (unknown) date) H (50-75) % unknown) (unknown) (no (unknown) (unknown) No Action (units (unkn own) date) unknown) (unknown) (no (unknown) (unknown) No obstructive (units (unknown) date) uropathy unknown) (unknown) (no (unknown) (unknown) Ondansetron HCl (units (unknown) date) (Ondansetron 4 Mg unknown) Odt) 4 mg PO NOW PRN (unknown) (no (unknown) (unknown) Ondansetron HCl (units (unknown) date) (Ondansetron 4 Mg/2 unknown) Ml Inj) 4 mg IV NOW PRN (unknown) (no (unknown) (unknown) Ordered: (units (unkno wn) date) unknown) (unknown) (no (unknown) (unknown) Orders (units (unkno wn) date) unknown) (unknown) (no (unknown) (unknown) Other: (units (unkno wn) date) unknown) (unknown) (no (unknown) (unknown) Oxygen Delivery (units (unknown) date) Method 08/02/22 unknown) 01:20 (unknown) (no (unknown) (unknown) PRN Reason: Nausea (units (unknown) date) And Vomiting unknown) (unknown) (no (unknown) (unknown) PT (10.1-12.7) (units (unknown) date) SECONDS unknown) (unknown) (no (unknown) (unknown) PT 82.9 H (units (unkn own) date) (10.1-12.7) SECONDS unknown) (unknown) (no (unknown) (unknown) Pacemaker/AICD (units (unknown) date) left upper chest unknown) (unknown) (no (unknown) (unknown) Palpation: soft, (units (unknown) date) No firm and tender unknown) (unknown) (no (unknown) (unknown) Patient (units (unkno wn) date) Disposition: Xfer unknown) Acute [facility] (unknown) (no (unknown) (unknown) Patient History (units (unknown) date) unknown) (unknown) (no (unknown) (unknown) Patient is a (units (u nknown) date) 71-year-old female. unknown) To seen here in the emergency department (unknown) (no (unknown) (unknown) Patient is (units (unk nown) date) well-appearing. Is unknown) not tachycardic. Not hypotensive. She does have (unknown) (no (unknown) (unknown) Patient: (units (unkno wn) date) Grabner,Natasha K unknown) MR#: [id number] (unknown) (no (unknown) (unknown) Phytonadione (units (u nknown) date) (Phytonadione (Vit unknown) K1) 5 Mg Tablet) 10 mg PO NOW ONE (unknown) (no (unknown) (unknown) Plt Count (units (unkn own) date) (150-400) X103/uL unknown) (unknown) (no (unknown) (unknown) Plt Count 262 (units ( unknown) date) (150-400) X103/uL unknown) (unknown) (no (unknown) (unknown) Point of Care (units ( unknown) date) Testing unknown) (unknown) (no (unknown) (unknown) Postmenopausal (units (unknown) date) atrophic vaginitis unknown) (unknown) (no (unknown) (unknown) Potassium 5.5 H (units (unknown) date) (3.4-5.1) mmol/L unknown) (unknown) (no (unknown) (unknown) Potassium 5.5 H (units (unknown) date) 4.4 (3.4-5.1) unknown) mmol/L (unknown) (no (unknown) (unknown) Potassium 5.7 H (units (unknown) date) (3.4-5.1) mmol/L unknown) (unknown) (no (unknown) (unknown) Potassium 5.8 H (units (unknown) date) (3.4-5.1) mmol/L unknown) (unknown) (no (unknown) (unknown) Prescriptions: (units (unknown) date) unknown) (unknown) (no (unknown) (unknown) Prior labs that we (units (unknown) date) have for her were unknown) greater than 1 year ago which has her (unknown) (no (unknown) (unknown) Procalcitonin (units ( unknown) date) (<0.5) ng/mL unknown) (unknown) (no (unknown) (unknown) Procalcitonin 0.33 (units (unknown) date) (<0.5) ng/mL unknown) (unknown) (no (unknown) (unknown) Prothrombin Time (units (unknown) date) INR Stat unknown) (unknown) (no (unknown) (unknown) Psych (units (unkno wn) date) unknown) (unknown) (no (unknown) (unknown) Pulse Oximetry 91 (units (unknown) date) 93 91 unknown) (unknown) (no (unknown) (unknown) Pulse Oximetry 92 (units (unknown) date) 91 93 unknown) (unknown) (no (unknown) (unknown) Pulse Oximetry 92 (units (unknown) date) 92 unknown) (unknown) (no (unknown) (unknown) Pulse Oximetry 95 (units (unknown) date) 08/02/22 01:20 unknown) (unknown) (no (unknown) (unknown) Pulse Oximetry 95 (units (unknown) date) 94 94 unknown) (unknown) (no (unknown) (unknown) Pulse Oximetry 96 (units (unknown) date) 92 unknown) (unknown) (no (unknown) (unknown) Pulse Rate 52 L 53 (units (unknown) date) L 53 L unknown) (unknown) (no (unknown) (unknown) Pulse Rate 54 L 53 (units (unknown) date) L unknown) (unknown) (no (unknown) (unknown) Pulse Rate 54 L 56 (units (unknown) date) L 55 L unknown) (unknown) (no (unknown) (unknown) Pulse Rate 54 L 56 (units (unknown) date) L unknown) (unknown) (no (unknown) (unknown) Pulse Rate 54 L 70 (units (unknown) date) 53 L unknown) (unknown) (no (unknown) (unknown) Pulse Rate 55 L 55 (units (unknown) date) L unknown) (unknown) (no (unknown) (unknown) Pulse Rate 78 (units ( unknown) date) 08/02/22 01:20 unknown) (unknown) (no (unknown) (unknown) Pyelonephritis can (units (unknown) date) appear similar unknown) noncontrast examination (unknown) (no (unknown) (unknown) RBC (4.0-5.2) (units ( unknown) date) X106/uL unknown) (unknown) (no (unknown) (unknown) RBC 4.26 (4.0-5.2) (units (unknown) date) X106/uL unknown) (unknown) (no (unknown) (unknown) RDW (11.6-14.8) % (units (unknown) date) unknown) (unknown) (no (unknown) (unknown) RDW 14.5 (units (unkno wn) date) (11.6-14.8) % unknown) (unknown) (no (unknown) (unknown) ROS Unobtainable: (units (unknown) date) All systems unknown) reviewed + are unremarkable except as noted in HPI (unknown) (no (unknown) (unknown) RSV (PCR) (units (unkn own) date) (Negative) unknown) (unknown) (no (unknown) (unknown) RSV (PCR) Negative (units (unknown) date) (Negative) unknown) (unknown) (no (unknown) (unknown) Radiologist's (units ( unknown) date) Impression: unknown) (unknown) (no (unknown) (unknown) Rate is 63 (units (unk nown) date) unknown) (unknown) (no (unknown) (unknown) Rate: regular rate (units (unknown) date) unknown) (unknown) (no (unknown) (unknown) Related Data (units (u nknown) date) unknown) (unknown) (no (unknown) (unknown) Resp (units (unkno wn) date) unknown) (unknown) (no (unknown) (unknown) Respiratory Rate (units (unknown) date) 19 08/02/22 01:20 unknown) (unknown) (no (unknown) (unknown) Result diagrams: (units (unknown) date) unknown) (unknown) (no (unknown) (unknown) Retained ureteral (units (unknown) date) stent unknown) (unknown) (no (unknown) (unknown) Review of Systems (units (unknown) date) unknown) (unknown) (no (unknown) (unknown) Rhythm: regular (units (unknown) date) rhythm unknown) (unknown) (no (unknown) (unknown) Rx Instructions: (units (unknown) date) unknown) (unknown) (no (unknown) (unknown) SARS-CoV-2 (PCR) (units (unknown) date) (Negative) unknown) (unknown) (no (unknown) (unknown) SARS-CoV-2 (PCR) (units (unknown) date) Negative (Negative) unknown) (unknown) (no (unknown) (unknown) SVT (units (unkno wn) date) (supraventricular unknown) tachycardia) (unknown) (no (unknown) (unknown) Scores (units (unkno wn) date) unknown) (unknown) (no (unknown) (unknown) She continues to (units (unknown) date) get IV fluids. No unknown) sign of infection. INR is found to be (unknown) (no (unknown) (unknown) Signed By: (units (unk nown) date) unknown) (unknown) (no (unknown) (unknown) Ana. (units (unkno wn) date) unknown) (unknown) (no (unknown) (unknown) Skin (units (unkno wn) date) unknown) (unknown) (no (unknown) (unknown) Smoking Status: (units (unknown) date) Never smoker unknown) (unknown) (no (unknown) (unknown) Social History (units (unknown) date) (Reviewed 08/02/22 unknown) @ 05:41 by Mike Cobian DO) (unknown) (no (unknown) (unknown) Sodium 136 L (units (u nknown) date) (137-145) mmol/L unknown) (unknown) (no (unknown) (unknown) Sodium 137 (units (unk nown) date) (137-145) mmol/L unknown) (unknown) (no (unknown) (unknown) Sodium 138 137 (units (unknown) date) (137-145) mmol/L unknown) (unknown) (no (unknown) (unknown) Sodium 139 (units (unk nown) date) (137-145) mmol/L unknown) (unknown) (no (unknown) (unknown) Sodium Bicarbonate (units (unknown) date) 150 meq/ (Dextrose) unknown) 1,150 mls @ 75 mls/hr IV CONT NORMAN (unknown) (no (unknown) (unknown) Sodium Chloride (units (unknown) date) (Normal Saline unknown) 0.9%) 1,000 mls @ 1,000 mls/hr IV BOLUS ONE (unknown) (no (unknown) (unknown) Sodium Chloride (units (unknown) date) (Normal Saline unknown) 0.9%) 1,000 mls @ 250 mls/hr IV CONT NORMAN (unknown) (no (unknown) (unknown) Source: patient (units (unknown) date) and family unknown) (unknown) (no (unknown) (unknown) Speech: speech (units (unknown) date) normal unknown) (unknown) (no (unknown) (unknown) Stated complaint: (units (unknown) date) body pain/not able unknown) to eat or drink x 5 days (unknown) (no (unknown) (unknown) Stop: 08/03/22 (units (unknown) date) 01:37 unknown) (unknown) (no (unknown) (unknown) Stop: 08/02/22 (units (unknown) date) 02:39 unknown) (unknown) (no (unknown) (unknown) Stop: 08/02/22 (units (unknown) date) 04:57 unknown) (unknown) (no (unknown) (unknown) Stop: 08/02/22 (units (unknown) date) 07:44 unknown) (unknown) (no (unknown) (unknown) Stop: 08/02/22 (units (unknown) date) 08:23 unknown) (unknown) (no (unknown) (unknown) Substance Use (units ( unknown) date) Type: does not use unknown) (unknown) (no (unknown) (unknown) Surgical History (units (unknown) date) (Reviewed 08/02/22 unknown) @ 05:41 by Mike Cobian DO) (unknown) (no (unknown) (unknown) TAKE ONE TABLET BY (units (unknown) date) MOUTH ONE TIME unknown) DAILY (unknown) (no (unknown) (unknown) TAKE THIS ON (units (u nknown) date) SUNDAYS unknown) (unknown) (no (unknown) (unknown) Temperature 98.7 F (units (unknown) date) 08/02/22 01:20 unknown) (unknown) (no (unknown) (unknown) Time Seen by (units (u nknown) date) Provider: 08/02/22 unknown) 01:38 (unknown) (no (unknown) (unknown) Total Bilirubin (units (unknown) date) (0.2-1.3) mg/dL unknown) (unknown) (no (unknown) (unknown) Total Bilirubin (units (unknown) date) 0.7 (0.2-1.3) mg/dL unknown) (unknown) (no (unknown) (unknown) Total Protein (units ( unknown) date) (6.3-8.2) g/dL unknown) (unknown) (no (unknown) (unknown) Total Protein 7.3 (units (unknown) date) (6.3-8.2) g/dL unknown) (unknown) (no (unknown) (unknown) US - abdomen: (units ( unknown) date) unknown) (unknown) (no (unknown) (unknown) Upset (units (unkno wn) date) unknown) (unknown) (no (unknown) (unknown) Ur Random Sodium (units (unknown) date) (30-90) mmol/L unknown) (unknown) (no (unknown) (unknown) Ur Random Sodium (units (unknown) date) 84 (30-90) mmol/L unknown) (unknown) (no (unknown) (unknown) Urine Creatinine (units (unknown) date) 69.7 mg/dL unknown) (unknown) (no (unknown) (unknown) Urine Creatinine (units (unknown) date) mg/dL unknown) (unknown) (no (unknown) (unknown) Urine Dip (units (unkn own) date) unknown) (unknown) (no (unknown) (unknown) Urine Specific (units (unknown) date) [place] 1.015 unknown) (unknown) (no (unknown) (unknown) Vital Signs - 8 hr (units (unknown) date) unknown) (unknown) (no (unknown) (unknown) Vital Signs (units (un known) date) unknown) (unknown) (no (unknown) (unknown) Vital signs: (units (u nknown) date) unknown) (unknown) (no (unknown) (unknown) WBC (4.5-11.0) (units (unknown) date) X103/uL unknown) (unknown) (no (unknown) (unknown) WBC 9.8 (4.5-11.0) (units (unknown) date) X103/uL unknown) (unknown) (no (unknown) (unknown) [Embedded Image (units (unknown) date) Not Available] unknown) (unknown) (no (unknown) (unknown) [From Pyridium] (units (unknown) date) unknown) (unknown) (no (unknown) (unknown) a couple days but (units (unknown) date) her symptoms were unknown) not improving and she started to feel worse (unknown) (no (unknown) (unknown) abdominal pain. (units (unknown) date) Blood work today unknown) does show improvement in high mild (unknown) (no (unknown) (unknown) alcohol intake (units (unknown) date) frequency: 0-2 unknown) drinks per day (unknown) (no (unknown) (unknown) alcohol intake: (units (unknown) date) never unknown) (unknown) (no (unknown) (unknown) allopurinol 100 mg (units (unknown) date) tablet 100 mg DAILY unknown) 08/02/22 08/02/22 (unknown) (no (unknown) (unknown) allopurinol 100 mg (units (unknown) date) tablet unknown) (unknown) (no (unknown) (unknown) and below (units (unkn own) date) unknown) (unknown) (no (unknown) (unknown) biotin 5,000 mcg (units (unknown) date) Tablet, Sublingual unknown) (unknown) (no (unknown) (unknown) biotin 5,000 mcg (units (unknown) date) sublingual tablet unknown) 5,000 mcg sublingual QMWF 06/20/21 08/02/22 (unknown) (no (unknown) (unknown) breath activated (units (unknown) date) powder inhaler unknown) (unknown) (no (unknown) (unknown) budesonide 200 (units (unknown) date) mcg/actuation 50 unknown) mcg inhalation QID 06/20/21 08/12/21 (unknown) (no (unknown) (unknown) budesonide 200 (units (unknown) date) mcg/actuation unknown) Aerosol Powdr Breath Activated (unknown) (no (unknown) (unknown) carvedilol 6.25 mg (units (unknown) date) Tablet unknown) (unknown) (no (unknown) (unknown) carvedilol 6.25 mg (units (unknown) date) tablet 6.25 mg PO unknown) BID 06/20/21 08/02/22 (unknown) (no (unknown) (unknown) cholecalciferol (units (unknown) date) (vitamin D3) 125 unknown) 125 mcg PO QMWF 06/20/21 08/02/22 (unknown) (no (unknown) (unknown) cholecalciferol (units (unknown) date) (vitamin D3) 125 unknown) mcg (5,000 unit) Tablet (unknown) (no (unknown) (unknown) consultation with (units (unknown) date) Nephrology. unknown) (unknown) (no (unknown) (unknown) creatinine at the (units (unknown) date) 1.3-1.7 range in unknown) her GFR in the 30s. Patient has not been (unknown) (no (unknown) (unknown) direction. She (units (unknown) date) comes to the unknown) emergency department today because of overall body (unknown) (no (unknown) (unknown) elevated at 7.1 (units (unknown) date) thought to be unknown) somehow related to her renal failure. Vitamin K (unknown) (no (unknown) (unknown) extremities (units (un known) date) unknown) (unknown) (no (unknown) (unknown) furosemide 20 mg (units (unknown) date) Tablet unknown) (unknown) (no (unknown) (unknown) furosemide 20 mg (units (unknown) date) tablet 20 mg PO unknown) DAILY 06/20/21 08/02/22 (unknown) (no (unknown) (unknown) having bowel (units (u nknown) date) movements. She unknown) denies any fevers. No recent travel. (unknown) (no (unknown) (unknown) household members: (units (unknown) date) spouse unknown) (unknown) (no (unknown) (unknown) hyperkalemia it (units (unknown) date) was 5.8 now was 5 unknown) 5. Improvement in her creatinine as well was (unknown) (no (unknown) (unknown) is 8.9% which is (units (unknown) date) consistent with a unknown) post renal/obstructive pathology however I do (unknown) (no (unknown) (unknown) is ordered. (units (un known) date) unknown) (unknown) (no (unknown) (unknown) likely that the (units (unknown) date) cause of all of her unknown) nausea and vomiting even her abdominal (unknown) (no (unknown) (unknown) losartan 50 mg (units (unknown) date) Tablet unknown) (unknown) (no (unknown) (unknown) losartan 50 mg (units (unknown) date) tablet 50 mg PO unknown) DAILY 06/20/21 08/02/22 (unknown) (no (unknown) (unknown) mcg (5,000 unit) (units (unknown) date) tablet unknown) (unknown) (no (unknown) (unknown) metformin 500 mg (units (unknown) date) Tablet unknown) (unknown) (no (unknown) (unknown) metformin 500 mg (units (unknown) date) tablet 1,000 mg PO unknown) QID 07/26/21 08/02/22 (unknown) (no (unknown) (unknown) must administer (units (unknown) date) with a meal/food unknown) (unknown) (no (unknown) (unknown) not have a (units (unk nown) date) specific source of unknown) this as it does not appear to be an obstructive (unknown) (no (unknown) (unknown) obstructive (units (un known) date) uropathy. unknown) (unknown) (no (unknown) (unknown) of (units (unkno wn) date) unknown) (unknown) (no (unknown) (unknown) pain, belly pain, (units (unknown) date) vomiting, unable to unknown) drink for the past several days. Still (unknown) (no (unknown) (unknown) pain. She is in (units (unknown) date) acute renal unknown) failure/YESIKA given her creatinine of 10 and GFR 4. (unknown) (no (unknown) (unknown) patient myself. (units (unknown) date) She says overall unknown) she is feeling better. No nausea vomiting no (unknown) (no (unknown) (unknown) phenazopyridine (units (unknown) date) Allergy Verified unknown) 08/12/21 08:17 (unknown) (no (unknown) (unknown) potassium 99 mg (units (unknown) date) Tablet unknown) (unknown) (no (unknown) (unknown) potassium 99 mg (units (unknown) date) tablet 99 mg PO unknown) DAILY 07/26/21 08/02/22 (unknown) (no (unknown) (unknown) prednisone Allergy (units (unknown) date) Severe Swelling unknown) Verified 08/02/22 01:20 (unknown) (no (unknown) (unknown) procaine [From (units (unknown) date) Novocain] Allergy unknown) Chest Pain Verified 08/02/22 01:20 (unknown) (no (unknown) (unknown) recently for UTI (units (unknown) date) like symptoms. Was unknown) sent home with [facility]. She took this for (unknown) (no (unknown) (unknown) rizatriptan (units (un known) date) Allergy Severe unknown) Difficulty Verified 08/02/22 01:20 (unknown) (no (unknown) (unknown) rosuvastatin 40 mg (units (unknown) date) Tablet unknown) (unknown) (no (unknown) (unknown) rosuvastatin 40 mg (units (unknown) date) tablet 40 mg PO unknown) DAILY 06/20/21 08/02/22 (unknown) (no (unknown) (unknown) s (units (unkno wn) date) unknown) (unknown) (no (unknown) (unknown) shellfish derived (units (unknown) date) AdvReac unknown) Gastrointestinal Verified 08/02/22 01:20 (unknown) (no (unknown) (unknown) signs of an (units (un known) date) infection. CT scans unknown) did not give a definitive etiology. Her FeNa (unknown) (no (unknown) (unknown) slightly. Care (units (unknown) date) turned over to Dr. terry Chen to follow-up and most likely (unknown) (no (unknown) (unknown) so she contact her (units (unknown) date) primary doctor who unknown) looked up the culture results and told her (unknown) (no (unknown) (unknown) stone nor urinary (units (unknown) date) retention. After 2 unknown) L of fluid her creatinine only improved (unknown) (no (unknown) (unknown) supratherapeutic (units (unknown) date) on INR but no unknown) active bleeding. Care turned over to Dr. Chen (unknown) (no (unknown) (unknown) takes 4 puffs (units ( unknown) date) qhs-(Pulmacort) unknown) (unknown) (no (unknown) (unknown) takes it 5x/week- (units (unknown) date) NOT ON SUNDAYS unknown) (unknown) (no (unknown) (unknown) tetracycline (units (u nknown) date) Allergy Severe unknown) ITCHING Verified 08/12/21 08:17 (unknown) (no (unknown) (unknown) that she did not (units (unknown) date) have an infection unknown) so she quit taking the medications per their (unknown) (no (unknown) (unknown) the day. Is on a (units (unknown) date) bicarb drip. unknown) Creatinine not much improved. Patient is (unknown) (no (unknown) (unknown) thiopental AdvReac (units (unknown) date) Palpitation unknown) Verified 08/02/22 01:20 (unknown) (no (unknown) (unknown) time agrees with a (units (unknown) date) bicarb drip 100 mEq unknown) for 75 an hour for about 1 day. (unknown) (no (unknown) (unknown) to continue to (units (unknown) date) observe until unknown) disposition can be made. (unknown) (no (unknown) (unknown) upper abdominal (units (unknown) date) discomfort. Has unknown) pancreatitis based on her lipase which is most (unknown) (no (unknown) (unknown) vomiting since (units (unknown) date) arrival here to the unknown) ER. Her urinalysis today does not show any (unknown) (no (unknown) (unknown) warfarin 2 mg (units ( unknown) date) Tablet unknown) (unknown) (no (unknown) (unknown) warfarin 2 mg (units ( unknown) date) tablet 2 mg PO unknown) WEEKLY 06/20/21 08/02/22 (unknown) (no (unknown) (unknown) warfarin 3 mg (units ( unknown) date) Tablet unknown) (unknown) (no (unknown) (unknown) warfarin 3 mg (units ( unknown) date) tablet 3 mg PO Q6W unknown) 06/20/21 08/02/22 Result panel 198 (unknown) (no date) (unknown) (unknown) 0 /ul (unkn own) (unknown) (no date) (unknown) (unknown) 0.7 % (unkn own) (unknown) (no date) (unknown) (unknown) 10.4 % (unkn own) (unknown) (no date) (unknown) (unknown) 10.8 g/dl (unkn own) (unknown) (no date) (unknown) (unknown) 1300 /ul (unkn own) (unknown) (no date) (unknown) (unknown) 14.2 % (unkn own) (unknown) (no date) (unknown) (unknown) 18.0 % (unkn own) (unknown) (no date) (unknown) (unknown) 193 x10 3/ul (unkn own) (unknown) (no date) (unknown) (unknown) 200 /ul (unkn own) (unknown) (no date) (unknown) (unknown) 3.3 % (unkn own) (unknown) (no date) (unknown) (unknown) 3.56 x10 6/ul (unkn own) (unknown) (no date) (unknown) (unknown) 30.3 pg (unkn own) (unknown) (no date) (unknown) (unknown) 31.3 % (unkn own) (unknown) (no date) (unknown) (unknown) 34.5 % (unkn own) (unknown) (no date) (unknown) (unknown) 4700 /ul (unkn own) (unknown) (no date) (unknown) (unknown) 67.6 % (unkn own) (unknown) (no date) (unknown) (unknown) 7.0 x10 3/ul (unkn own) (unknown) (no date) (unknown) (unknown) 700 /ul (unkn own) (unknown) (no date) (unknown) (unknown) 88.0 fl (unkn own) Result panel 199 (unknown) (no date) (unknown) (unknown) 4.7 (units unknown) (unknown) (unknown) (no date) (unknown) (unknown) 4.7 (units unknown) (unknown) (unknown) (no date) (unknown) (unknown) 54.9 seconds (unkn own) (unknown) (no date) (unknown) (unknown) 54.9 seconds (unkn own) Result panel 200 (unknown) (no date) (unknown) (unknown) 0.5 mg/dl (unkn own) (unknown) (no date) (unknown) (unknown) 1.2 (units unknown) (unknown) (unknown) (no date) (unknown) (unknown) 100 mmol/l (unkn own) (unknown) (no date) (unknown) (unknown) 132 mg/dl (unkn own) (unknown) (no date) (unknown) (unknown) 132 mg/dl (unkn own) (unknown) (no date) (unknown) (unknown) 137 mmol/l (unkn own) (unknown) (no date) (unknown) (unknown) 2.6 g/dl (unkn own) (unknown) (no date) (unknown) (unknown) 21 iu/l (unkn own) (unknown) (no date) (unknown) (unknown) 23 mmol/l (unkn own) (unknown) (no date) (unknown) (unknown) 25 iu/l (unkn own) (unknown) (no date) (unknown) (unknown) 3.1 g/dl (unkn own) (unknown) (no date) (unknown) (unknown) 4 ml/min (unkn own) (unknown) (no date) (unknown) (unknown) 4 ml/min (unkn own) (unknown) (no date) (unknown) (unknown) 4.0 mmol/l (unkn own) (unknown) (no date) (unknown) (unknown) 41 u/l (unkn own) (unknown) (no date) (unknown) (unknown) 5.7 g/dl (unkn own) (unknown) (no date) (unknown) (unknown) 7.7 (units unknown) (unknown) (unknown) (no date) (unknown) (unknown) 72 mg/dl (unkn own) (unknown) (no date) (unknown) (unknown) 8.7 mg/dl (unkn own) (unknown) (no date) (unknown) (unknown) 9.31 mg/dl (unkn own) (unknown) (no date) (unknown) (unknown) 9.31 mg/dl (unkn own) Result panel 201 (unknown) (no date) (unknown) (unknown) 0.5 mg/dl (unkn own) (unknown) (no date) (unknown) (unknown) 1.2 (units unknown) (unknown) (unknown) (no date) (unknown) (unknown) 100 mmol/l (unkn own) (unknown) (no date) (unknown) (unknown) 132 mg/dl (unkn own) (unknown) (no date) (unknown) (unknown) 132 mg/dl (unkn own) (unknown) (no date) (unknown) (unknown) 137 mmol/l (unkn own) (unknown) (no date) (unknown) (unknown) 2.6 g/dl (unkn own) (unknown) (no date) (unknown) (unknown) 21 iu/l (unkn own) (unknown) (no date) (unknown) (unknown) 23 mmol/l (unkn own) (unknown) (no date) (unknown) (unknown) 25 iu/l (unkn own) (unknown) (no date) (unknown) (unknown) 3.1 g/dl (unkn own) (unknown) (no date) (unknown) (unknown) 3228 u/l (unkn own) (unknown) (no date) (unknown) (unknown) 4 ml/min (unkn own) (unknown) (no date) (unknown) (unknown) 4 ml/min (unkn own) (unknown) (no date) (unknown) (unknown) 4.0 mmol/l (unkn own) (unknown) (no date) (unknown) (unknown) 41 u/l (unkn own) (unknown) (no date) (unknown) (unknown) 5.7 g/dl (unkn own) (unknown) (no date) (unknown) (unknown) 7.7 (units unknown) (unknown) (unknown) (no date) (unknown) (unknown) 72 mg/dl (unkn own) (unknown) (no date) (unknown) (unknown) 8.7 mg/dl (unkn own) (unknown) (no date) (unknown) (unknown) 9.31 mg/dl (unkn own) (unknown) (no date) (unknown) (unknown) 9.31 mg/dl (unkn own) Result panel 202 (unknown) (no date) (unknown) (unknown) 0 /ul (unkn own) (unknown) (no date) (unknown) (unknown) 0.6 % (unkn own) (unknown) (no date) (unknown) (unknown) 10.2 % (unkn own) (unknown) (no date) (unknown) (unknown) 1000 /ul (unkn own) (unknown) (no date) (unknown) (unknown) 11.1 g/dl (unkn own) (unknown) (no date) (unknown) (unknown) 12.6 % (unkn own) (unknown) (no date) (unknown) (unknown) 13.9 % (unkn own) (unknown) (no date) (unknown) (unknown) 199 x10 3/ul (unkn own) (unknown) (no date) (unknown) (unknown) 200 /ul (unkn own) (unknown) (no date) (unknown) (unknown) 3.0 % (unkn own) (unknown) (no date) (unknown) (unknown) 3.57 x10 6/ul (unkn own) (unknown) (no date) (unknown) (unknown) 31.0 pg (unkn own) (unknown) (no date) (unknown) (unknown) 31.5 % (unkn own) (unknown) (no date) (unknown) (unknown) 35.1 % (unkn own) (unknown) (no date) (unknown) (unknown) 5600 /ul (unkn own) (unknown) (no date) (unknown) (unknown) 7.7 x10 3/ul (unkn own) (unknown) (no date) (unknown) (unknown) 73.6 % (unkn own) (unknown) (no date) (unknown) (unknown) 800 /ul (unkn own) (unknown) (no date) (unknown) (unknown) 88.4 fl (unkn own) Result panel 203 (unknown) (no date) (unknown) (unknown) 0.5 mg/dl (unkn own) (unknown) (no date) (unknown) (unknown) 1.1 (units unknown) (unknown) (unknown) (no date) (unknown) (unknown) 101 mmol/l (unkn own) (unknown) (no date) (unknown) (unknown) 112 mg/dl (unkn own) (unknown) (no date) (unknown) (unknown) 112 mg/dl (unkn own) (unknown) (no date) (unknown) (unknown) 137 mmol/l (unkn own) (unknown) (no date) (unknown) (unknown) 2.7 g/dl (unkn own) (unknown) (no date) (unknown) (unknown) 20 mmol/l (unkn own) (unknown) (no date) (unknown) (unknown) 21 iu/l (unkn own) (unknown) (no date) (unknown) (unknown) 27 iu/l (unkn own) (unknown) (no date) (unknown) (unknown) 3.1 g/dl (unkn own) (unknown) (no date) (unknown) (unknown) 3886 u/l (unkn own) (unknown) (no date) (unknown) (unknown) 4 ml/min (unkn own) (unknown) (no date) (unknown) (unknown) 4 ml/min (unkn own) (unknown) (no date) (unknown) (unknown) 4.1 mmol/l (unkn own) (unknown) (no date) (unknown) (unknown) 44 u/l (unkn own) (unknown) (no date) (unknown) (unknown) 5.8 g/dl (unkn own) (unknown) (no date) (unknown) (unknown) 7.5 (units unknown) (unknown) (unknown) (no date) (unknown) (unknown) 72 mg/dl (unkn own) (unknown) (no date) (unknown) (unknown) 8.9 mg/dl (unkn own) (unknown) (no date) (unknown) (unknown) 9.63 mg/dl (unkn own) (unknown) (no date) (unknown) (unknown) 9.63 mg/dl (unkn own) Result panel 204 (unknown) (no date) (unknown) (unknown) 2.5 (units unknown) (unknown) (unknown) (no date) (unknown) (unknown) 29.4 seconds (unkn own) (unknown) (no date) (unknown) (unknown) 29.4 seconds (unkn own) Result panel 205 (unknown) (no date) (unknown) (unknown) 0 /ul (unkn own) (unknown) (no date) (unknown) (unknown) 0.5 % (unkn own) (unknown) (no date) (unknown) (unknown) 10.1 g/dl (unkn own) (unknown) (no date) (unknown) (unknown) 10.9 % (unkn own) (unknown) (no date) (unknown) (unknown) 14.0 % (unkn own) (unknown) (no date) (unknown) (unknown) 183 x10 3/ul (unkn own) (unknown) (no date) (unknown) (unknown) 29.9 % (unkn own) (unknown) (no date) (unknown) (unknown) 3.1 % (unkn own) (unknown) (no date) (unknown) (unknown) 3.34 x10 6/ul (unkn own) (unknown) (no date) (unknown) (unknown) 30.3 pg (unkn own) (unknown) (no date) (unknown) (unknown) 300 /ul (unkn own) (unknown) (no date) (unknown) (unknown) 34.0 % (unkn own) (unknown) (no date) (unknown) (unknown) 6400 /ul (unkn own) (unknown) (no date) (unknown) (unknown) 75.8 % (unkn own) (unknown) (no date) (unknown) (unknown) 8.4 x10 3/ul (unkn own) (unknown) (no date) (unknown) (unknown) 800 /ul (unkn own) (unknown) (no date) (unknown) (unknown) 89.3 fl (unkn own) (unknown) (no date) (unknown) (unknown) 9.7 % (unkn own) (unknown) (no date) (unknown) (unknown) 900 /ul (unkn own) Result panel 206 (unknown) (no date) (unknown) (unknown) 0.5 mg/dl (unkn own) (unknown) (no date) (unknown) (unknown) 1.1 (units unknown) (unknown) (unknown) (no date) (unknown) (unknown) 105 mmol/l (unkn own) (unknown) (no date) (unknown) (unknown) 113 mg/dl (unkn own) (unknown) (no date) (unknown) (unknown) 113 mg/dl (unkn own) (unknown) (no date) (unknown) (unknown) 138 mmol/l (unkn own) (unknown) (no date) (unknown) (unknown) 18 iu/l (unkn own) (unknown) (no date) (unknown) (unknown) 2.3 g/dl (unkn own) (unknown) (no date) (unknown) (unknown) 2.6 g/dl (unkn own) (unknown) (no date) (unknown) (unknown) 21 mmol/l (unkn own) (unknown) (no date) (unknown) (unknown) 2420 u/l (unkn own) (unknown) (no date) (unknown) (unknown) 25 iu/l (unkn own) (unknown) (no date) (unknown) (unknown) 4 ml/min (unkn own) (unknown) (no date) (unknown) (unknown) 4 ml/min (unkn own) (unknown) (no date) (unknown) (unknown) 4.6 mmol/l (unkn own) (unknown) (no date) (unknown) (unknown) 4.9 g/dl (unkn own) (unknown) (no date) (unknown) (unknown) 43 u/l (unkn own) (unknown) (no date) (unknown) (unknown) 67 mg/dl (unkn own) (unknown) (no date) (unknown) (unknown) 7.1 (units unknown) (unknown) (unknown) (no date) (unknown) (unknown) 8.7 mg/dl (unkn own) (unknown) (no date) (unknown) (unknown) 9.43 mg/dl (unkn own) (unknown) (no date) (unknown) (unknown) 9.43 mg/dl (unkn own) Result panel 207 (unknown) (no date) (unknown) (unknown) 0 /ul (unkn own) (unknown) (no date) (unknown) (unknown) 0.5 % (unkn own) (unknown) (no date) (unknown) (unknown) 10.7 % (unkn own) (unknown) (no date) (unknown) (unknown) 1000 /ul (unkn own) (unknown) (no date) (unknown) (unknown) 11.5 % (unkn own) (unknown) (no date) (unknown) (unknown) 14.1 % (unkn own) (unknown) (no date) (unknown) (unknown) 164 x10 3/ul (unkn own) (unknown) (no date) (unknown) (unknown) 28.4 % (unkn own) (unknown) (no date) (unknown) (unknown) 3.16 x10 6/ul (unkn own) (unknown) (no date) (unknown) (unknown) 30.2 pg (unkn own) (unknown) (no date) (unknown) (unknown) 33.6 % (unkn own) (unknown) (no date) (unknown) (unknown) 4.4 % (unkn own) (unknown) (no date) (unknown) (unknown) 400 /ul (unkn own) (unknown) (no date) (unknown) (unknown) 6200 /ul (unkn own) (unknown) (no date) (unknown) (unknown) 72.9 % (unkn own) (unknown) (no date) (unknown) (unknown) 8.5 x10 3/ul (unkn own) (unknown) (no date) (unknown) (unknown) 9.5 g/dl (unkn own) (unknown) (no date) (unknown) (unknown) 90.1 fl (unkn own) (unknown) (no date) (unknown) (unknown) 900 /ul (unkn own) Result panel 208 (unknown) (no date) (unknown) (unknown) 2.7 (units unknown) (unknown) (unknown) (no date) (unknown) (unknown) 30.8 seconds (unkn own) Result panel 209 (unknown) (no date) (unknown) (unknown) 0.5 mg/dl (unkn own) (unknown) (no date) (unknown) (unknown) 1.0 (units unknown) (unknown) (unknown) (no date) (unknown) (unknown) 102 mg/dl (unkn own) (unknown) (no date) (unknown) (unknown) 102 mg/dl (unkn own) (unknown) (no date) (unknown) (unknown) 108 mmol/l (unkn own) (unknown) (no date) (unknown) (unknown) 135 mmol/l (unkn own) (unknown) (no date) (unknown) (unknown) 1539 u/l (unkn own) (unknown) (no date) (unknown) (unknown) 16 iu/l (unkn own) (unknown) (no date) (unknown) (unknown) 18 mmol/l (unkn own) (unknown) (no date) (unknown) (unknown) 2.5 g/dl (unkn own) (unknown) (no date) (unknown) (unknown) 2.5 g/dl (unkn own) (unknown) (no date) (unknown) (unknown) 24 iu/l (unkn own) (unknown) (no date) (unknown) (unknown) 4 ml/min (unkn own) (unknown) (no date) (unknown) (unknown) 4 ml/min (unkn own) (unknown) (no date) (unknown) (unknown) 4.3 mmol/l (unkn own) (unknown) (no date) (unknown) (unknown) 41 u/l (unkn own) (unknown) (no date) (unknown) (unknown) 5.0 g/dl (unkn own) (unknown) (no date) (unknown) (unknown) 64 mg/dl (unkn own) (unknown) (no date) (unknown) (unknown) 7.0 (units unknown) (unknown) (unknown) (no date) (unknown) (unknown) 8.5 mg/dl (unkn own) (unknown) (no date) (unknown) (unknown) 9.12 mg/dl (unkn own) (unknown) (no date) (unknown) (unknown) 9.12 mg/dl (unkn own) Result panel 210 (unknown) (no date) (unknown) (unknown) 0.7 % (unkn own) (unknown) (no date) (unknown) (unknown) 10.3 g/dl (unkn own) (unknown) (no date) (unknown) (unknown) 100 /ul (unkn own) (unknown) (no date) (unknown) (unknown) 11.0 % (unkn own) (unknown) (no date) (unknown) (unknown) 14.5 % (unkn own) (unknown) (no date) (unknown) (unknown) 203 x10 3/ul (unkn own) (unknown) (no date) (unknown) (unknown) 3.37 x10 6/ul (unkn own) (unknown) (no date) (unknown) (unknown) 30.3 % (unkn own) (unknown) (no date) (unknown) (unknown) 30.5 pg (unkn own) (unknown) (no date) (unknown) (unknown) 33.9 % (unkn own) (unknown) (no date) (unknown) (unknown) 500 /ul (unkn own) (unknown) (no date) (unknown) (unknown) 6.2 % (unkn own) (unknown) (no date) (unknown) (unknown) 6200 /ul (unkn own) (unknown) (no date) (unknown) (unknown) 72.9 % (unkn own) (unknown) (no date) (unknown) (unknown) 8.5 x10 3/ul (unkn own) (unknown) (no date) (unknown) (unknown) 800 /ul (unkn own) (unknown) (no date) (unknown) (unknown) 9.2 % (unkn own) (unknown) (no date) (unknown) (unknown) 90.0 fl (unkn own) (unknown) (no date) (unknown) (unknown) 900 /ul (unkn own) Result panel 211 (unknown) (no date) (unknown) (unknown) 2.4 (units unknown) (unknown) (unknown) (no date) (unknown) (unknown) 27.7 seconds (unkn own) Result panel 212 (unknown) (no date) (unknown) (unknown) 0.5 mg/dl (unkn own) (unknown) (no date) (unknown) (unknown) 1.0 (units unknown) (unknown) (unknown) (no date) (unknown) (unknown) 105 mmol/l (unkn own) (unknown) (no date) (unknown) (unknown) 136 mmol/l (unkn own) (unknown) (no date) (unknown) (unknown) 17 iu/l (unkn own) (unknown) (no date) (unknown) (unknown) 2.7 g/dl (unkn own) (unknown) (no date) (unknown) (unknown) 2.8 g/dl (unkn own) (unknown) (no date) (unknown) (unknown) 20 mmol/l (unkn own) (unknown) (no date) (unknown) (unknown) 25 iu/l (unkn own) (unknown) (no date) (unknown) (unknown) 4 ml/min (unkn own) (unknown) (no date) (unknown) (unknown) 4 ml/min (unkn own) (unknown) (no date) (unknown) (unknown) 4.6 mmol/l (unkn own) (unknown) (no date) (unknown) (unknown) 48 u/l (unkn own) (unknown) (no date) (unknown) (unknown) 5.5 g/dl (unkn own) (unknown) (no date) (unknown) (unknown) 6.7 (units unknown) (unknown) (unknown) (no date) (unknown) (unknown) 61 mg/dl (unkn own) (unknown) (no date) (unknown) (unknown) 8.6 mg/dl (unkn own) (unknown) (no date) (unknown) (unknown) 9.09 mg/dl (unkn own) (unknown) (no date) (unknown) (unknown) 9.09 mg/dl (unkn own) (unknown) (no date) (unknown) (unknown) 90 mg/dl (unkn own) (unknown) (no date) (unknown) (unknown) 90 mg/dl (unkn own) (unknown) (no date) (unknown) (unknown) 958 u/l (unkn own) Result panel 213 (unknown) (no (unknown) (unknown) (no value) (units (unk nown) date) unknown) (unknown) (no (unknown) (unknown) [id number] (units (unkno wn) date) unknown) (unknown) (no (unknown) (unknown) 08/06/22 (units (unkno wn) date) unknown) (unknown) (no (unknown) (unknown) [address] (units (unkn own) date) Street unknown) (unknown) (no (unknown) (unknown) Accession (units (unkn own) date) Number: unknown) [id number] (unknown) (no (unknown) (unknown) Age/Sex: 71 / F (units (unknown) date) Date of Service: unknown) (unknown) (no (unknown) (unknown) [place] (units ( unknown) date) [id number] unknown) (unknown) (no (unknown) (unknown) Approved by: (units (u nknown) date) Adelaida Felix, macho) Ruy on 08/06/2022 at 10:47 (unknown) (no (unknown) (unknown) COMPARISON: (units (un known) date) None. unknown) (unknown) (no (unknown) (unknown) : 1950 (units (unknown) date) Acct:[id number] unknown) (unknown) (no (unknown) (unknown) Dictated by: (units (u nknown) date) Adelaida Felix, macho) Ruy on 08/06/2022 at 10:46 (unknown) (no (unknown) (unknown) FINDINGS: The (units ( unknown) date) internal jugular unknown) vein, visualized portions of the subclavian (unknown) (no (unknown) (unknown) IMPRESSION: No (units (unknown) date) deep venous unknown) thrombosis. (unknown) (no (unknown) (unknown) INDICATIONS: (units (u nknown) date) swelling left unknown) arm (unknown) (no (unknown) (unknown) [facility] (units (unknown) date) unknown) (unknown) (no (unknown) (unknown) Loc: ED (units (unkno wn) date) unknown) (unknown) (no (unknown) (unknown) Ordering (units (unkno wn) date) Provider: unknown) Miguel Roca MD (unknown) (no (unknown) (unknown) PROCEDURE: US (units ( unknown) date) PERIPH VENOUS UP unknown) EXTREM LT (unknown) (no (unknown) (unknown) Patient: (units (unkno wn) date) Natasha Jaquez K unknown) MR#: [id number] (unknown) (no (unknown) (unknown) Procedure: US (units ( unknown) date) periph venous up unknown) extrem lt (unknown) (no (unknown) (unknown) Real-time (units (unkn own) date) imaging, as well unknown) as color and pulse Doppler interrogation, was (unknown) (no (unknown) (unknown) Signed (units (unkno wn) date) unknown) (unknown) (no (unknown) (unknown) TECHNIQUE: (units (unk nown) date) unknown) (unknown) (no (unknown) (unknown) Ultrasound (units (unk nown) date) Report unknown) (unknown) (no (unknown) (unknown) axillary, and (units ( unknown) date) brachial veins unknown) are free of intraluminal thrombus. Where (unknown) (no (unknown) (unknown) compressibility (units (unknown) date) , without unknown) thrombus. (unknown) (no (unknown) (unknown) demonstrate (units (un known) date) unknown) (unknown) (no (unknown) (unknown) fossa. (units (unkno wn) date) unknown) (unknown) (no (unknown) (unknown) left upper (units (unk nown) date) extremity deep unknown) veins from the inferior neck to the antecubital (unknown) (no (unknown) (unknown) normal (units (unkno wn) date) intraluminal unknown) flow, with expected phasicity and pulsatility. Additional (unknown) (no (unknown) (unknown) of the cephalic (units (unknown) date) and basilic unknown) veins of the superficial system demonstrate normal (unknown) (no (unknown) (unknown) performed of (units (u nknown) date) the unknown) (unknown) (no (unknown) (unknown) physically (units (unk nown) date) unknown) (unknown) (no (unknown) (unknown) possible, the (units ( unknown) date) veins are unknown) normally compressible. Color and pulse Doppler (unknown) (no (unknown) (unknown) scanning (units (unkno wn) date) unknown) (unknown) (no (unknown) (unknown) vein, (units (unkno wn) date) unknown) Result panel 214 (unknown) (no date) (unknown) (unknown) 0.8 % (unkn own) (unknown) (no date) (unknown) (unknown) 10.8 g/dl (unkn own) (unknown) (no date) (unknown) (unknown) 100 /ul (unkn own) (unknown) (no date) (unknown) (unknown) 11.5 % (unkn own) (unknown) (no date) (unknown) (unknown) 14.1 % (unkn own) (unknown) (no date) (unknown) (unknown) 227 x10 3/ul (unkn own) (unknown) (no date) (unknown) (unknown) 3.59 x10 6/ul (unkn own) (unknown) (no date) (unknown) (unknown) 30.0 pg (unkn own) (unknown) (no date) (unknown) (unknown) 32.2 % (unkn own) (unknown) (no date) (unknown) (unknown) 33.4 % (unkn own) (unknown) (no date) (unknown) (unknown) 400 /ul (unkn own) (unknown) (no date) (unknown) (unknown) 5.4 % (unkn own) (unknown) (no date) (unknown) (unknown) 5600 /ul (unkn own) (unknown) (no date) (unknown) (unknown) 600 /ul (unkn own) (unknown) (no date) (unknown) (unknown) 7.6 x10 3/ul (unkn own) (unknown) (no date) (unknown) (unknown) 7.9 % (unkn own) (unknown) (no date) (unknown) (unknown) 74.4 % (unkn own) (unknown) (no date) (unknown) (unknown) 89.7 fl (unkn own) (unknown) (no date) (unknown) (unknown) 900 /ul (unkn own) Result panel 215 (unknown) (no date) (unknown) (unknown) 1.9 (units unknown) (unknown) (unknown) (no date) (unknown) (unknown) 22.4 seconds (unkn own) (unknown) (no date) (unknown) (unknown) 22.4 seconds (unkn own) Result panel 216 (unknown) (no date) (unknown) (unknown) 0.5 mg/dl (unkn own) (unknown) (no date) (unknown) (unknown) 1.0 (units unknown) (unknown) (unknown) (no date) (unknown) (unknown) 105 mmol/l (unkn own) (unknown) (no date) (unknown) (unknown) 135 mmol/l (unkn own) (unknown) (no date) (unknown) (unknown) 149 mg/dl (unkn own) (unknown) (no date) (unknown) (unknown) 149 mg/dl (unkn own) (unknown) (no date) (unknown) (unknown) 16 iu/l (unkn own) (unknown) (no date) (unknown) (unknown) 17 mmol/l (unkn own) (unknown) (no date) (unknown) (unknown) 2.8 g/dl (unkn own) (unknown) (no date) (unknown) (unknown) 2.8 g/dl (unkn own) (unknown) (no date) (unknown) (unknown) 26 iu/l (unkn own) (unknown) (no date) (unknown) (unknown) 4 ml/min (unkn own) (unknown) (no date) (unknown) (unknown) 4 ml/min (unkn own) (unknown) (no date) (unknown) (unknown) 4.5 mmol/l (unkn own) (unknown) (no date) (unknown) (unknown) 5.6 g/dl (unkn own) (unknown) (no date) (unknown) (unknown) 51 u/l (unkn own) (unknown) (no date) (unknown) (unknown) 6.6 (units unknown) (unknown) (unknown) (no date) (unknown) (unknown) 65 mg/dl (unkn own) (unknown) (no date) (unknown) (unknown) 8.7 mg/dl (unkn own) (unknown) (no date) (unknown) (unknown) 9.91 mg/dl (unkn own) (unknown) (no date) (unknown) (unknown) 9.91 mg/dl (unkn own) (unknown) (no date) (unknown) (unknown) 912 u/l (unkn own) Result panel 217 (unknown) (no date) (unknown) (unknown) 4.4 mg/dl (unkn own) Social History date description facility 2022-07-26 00:00 Never smoked tobacco (finding) [facility] 2022-08-02 00:00 Never smoked tobacco (finding) [facility] Vital Signs date measurement value units 2022-07-26 00:00 BMI 22.3 kg/m2 2022-07-26 00:00 BP_diastolic 62 mmHg 2022-07-26 00:00 BP_systolic 139 mmHg 2022-07-26 00:00 heart_rate 63 /min 2022-07-26 00:00 height_metric 162.56 cm 2022-07-26 00:00 height_standard 64 in 2022-07-26 00:00 o2_saturation 95 % 2022-07-26 00:00 respiration_rate 17 /min 2022-07-26 00:00 temperature_metric 36.5 C 2022-07-26 00:00 temperature_standard 97.7 F 2022-07-26 00:00 weight_metric 58.96 kg 2022-07-26 00:00 weight_standard 129.98 lb 2022-08-02 00:00 BMI 22.4 kg/m2 2022-08-02 00:00 height_metric 160.02 cm 2022-08-02 00:00 height_standard 63 in 2022-08-02 00:00 weight_metric 57.6 kg 2022-08-02 00:00 weight_standard 126.99 lb 2022-08-07 00:00 BP_diastolic 75 mmHg 2022-08-07 00:00 BP_systolic 154 mmHg 2022-08-07 00:00 heart_rate 73 /min 2022-08-07 00:00 o2_saturation 95 % 2022-08-07 00:00 respiration_rate 27 /min 2022-08-07 00:00 temperature_metric 36.89 C 2022-08-07 00:00 temperature_standard 98.4 F
--- NOTE | 2022-08-26 16:10 | ED Physician Documentation ---
PD HPI ABD PAIN - Stated complaint Stated Complaint: FEMALE GI - Chief complaint Chief Complaint: Abd Pain - History obtained from History obtained from: Patient - Additional information Additional information: 71yo woman comes in via POV. Had UTI mid-July and put on bactrim. Started having N/V. Then hospitalized with YESIKA and pancreatitis and transferred to higher level of care d/t need for dialysis. Still getting ESRD. Has had no BM for 17 days. Feels v uncomfortable d/t same. Review of Systems Constitutional: denies: Fever, Chills Cardiac: denies: Chest pain / pressure, Palpitations Respiratory: denies: Dyspnea, Cough PD PAST MEDICAL HISTORY - Allergies Allergies/Adverse Reactions: Allergies Allergy/AdvReac Type Severity Reaction Status Date / Time phenazopyridine [From Azo] Allergy Emesis Verified 08/26/22 15:12 prednisone Allergy Itching Verified 08/26/22 15:12 procaine [From Novocain] Allergy Anaphylaxis Verified 08/26/22 15:12 rizatriptan Allergy Anaphylaxis Verified 08/26/22 15:12 salmon oil Allergy Emesis Verified 08/26/22 15:12 sulfamethoxazole Allergy Emesis Verified 08/26/22 15:12 [From Bactrim] tetracycline Allergy Emesis Verified 08/26/22 15:12 thiopental Allergy Anxiety Verified 08/26/22 15:12 trimethoprim [From Bactrim] Allergy Emesis Verified 08/26/22 15:12 PD ED PE NORMAL - Vitals Vital signs reviewed: Yes - General General: Alert and oriented X 3, No acute distress - Cardiac Cardiac: RRR, No murmur - Respiratory Respiratory: No respiratory distress - Abdomen Abdomen: Other (Distended, with diffuse tenderness.) - Derm Derm: Normal color, Warm and dry - Neuro Neuro: Alert and oriented X 3, Normal speech Results - Vitals Vitals: Vital Signs - 24 hr 08/26/22 08/26/22 08/26/22 15:05 16:08 17:30 Temperature 36.5 C Heart Rate 86 77 80 Respiratory 16 18 20 Rate Blood Pressure 148/74 H 148/73 H O2 Saturation 97 99 08/26/22 08/26/22 08/26/22 17:36 17:40 17:45 Temperature Heart Rate 80 81 82 Respiratory 18 18 18 Rate Blood Pressure 120/99 H 128/75 104/61 O2 Saturation 99 99 100 08/26/22 17:50 Temperature Heart Rate 82 Respiratory 20 Rate Blood Pressure 129/84 H O2 Saturation 100 Oxygen O2 Source Nasal cannula Oxygen Flow Rate 2 - Labs Labs: Laboratory Tests 08/26/22 16:33 WBC 10.3 RBC 3.32 L Hgb 9.9 L Hct 31.9 L MCV 96.1 MCH 29.8 MCHC 31.0 L RDW 14.5 Plt Count 435 MPV 9.8 Neut # (Auto) 7.3 H Lymph # (Auto) 1.2 L [place] # (Auto) 1.4 H Eos # (Auto) 0.3 Baso # (Auto) 0.1 Absolute Nucleated RBC 0.00 Nucleated RBC % 0.0 PD Medical Decision Making - ED course ED course: 71-year-old woman with multiple recent medical issues presents with a fecal impaction. She requested sedation for disimpaction and she was sedated with divided doses of propofol totaling 80 mg with excellent effect and disimpacted with a combination of digital disimpaction and large enema. 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 She already has lactulose at home which is appropriate. We discussed the incidental findings on CT and she understands the need for Urology follow-up. Departure - Departure Disposition: 01 Home, Self Care Clinical Impression: Fecal impaction Condition: Good Record reviewed to determine appropriate education?: Yes Instructions: ED Impaction Fecal Treated Comments: You were seen today for a fecal impaction. We successfully sedated you And addressed this. On CT imaging there were other findings that do need follow-up with urology, specifically the right sided kidney stone and right-sided blood near the kidney likely related to your prior biopsy. Follow-up with your urologist, next available appointment. Continue routine dialysis. Follow-up with your new primary care physician for primary care and consideration of surgical referral for tight anal sphincter. You can take the lactulose that you are already prescribed up to 4 times a day to prevent recurrent fecal impaction.
[2022-08-26 16:48] LABS: BASOPHILS # (AUTO) 0.1 10^3/uL (0.0-0.1); BASOPHILS % (AUTO) 1.1 %; EOSINOPHILS # (AUTO) 0.3 10^3/uL (0.0-0.7); EOSINOPHILS % (AUTO) 2.6 %; HCT - HEMATOCRIT 31.9 % (37.0-47.0); HGB - HEMOGLOBIN 9.9 g/dL (12.0-16.0); LYMPHOCYTES # (AUTO) 1.2 10^3/uL (1.5-3.5); LYMPHOCYTES % (AUTO) 11.5 %; MEAN CORPUSCULAR HEMOGLOBIN 29.8 pg (27.0-31.0); MEAN CORPUSCULAR VOLUME 96.1 fL (81.0-99.0); MEAN PLATELET VOLUME 9.8 fL (7.9-10.8); MONOCYTES # (AUTO) 1.4 10^3/uL (0.0-1.0); MONOCYTES % (AUTO) 13.2 %; NEUTROPHILS # (AUTO) 7.3 10^3/uL (1.5-6.6); PLT - PLATELET COUNT 435 10^3/uL (130-450); RED BLOOD COUNT 3.32 10^6/uL (4.20-5.40); RED CELL DISTRIBUTION WIDTH 14.5 % (12.0-15.0); WHITE BLOOD COUNT 10.3 x10^3/uL (4.8-10.8)
[2022-08-26] MEDS ORDERED: PROPOFOL 200 MG/20 ML VIAL IVP STA ×2 (17:03→17:53)
--- NOTE | 2022-08-26 18:15 | CT Report ---
PROCEDURE: ABDOMEN/PELVIS WO INDICATIONS: abd pain TECHNIQUE: Noncontrast 5 mm thick sections acquired from the diaphragms to the symphysis. 5 mm coronal and sagi ttal reformats were then performed. For radiation dose reduction, the following was used: automated exposure control, adjustment of mA and/or kV according to patient size. COMPARISON: None. FINDINGS: Image quality: Excellent. ABDOMEN: Lung bases: Lung bases are clear. Heart size is enlarged and there are multiple pacemaker leads pre sent.. Solid organs: Liver and spleen are normal in size. Punctate parenchymal hepatic calcification consis tent with granuloma Gallbladder is distended. There are punctate peripheral or mural calcifications in or on the gallbladder. No dependently layering intraluminal calculi. There is an anterior subcapsular right perinephric hematoma with heterogeneous increased attenuation measuring 1.9 cm in maximal thickness extending from the superior to inferior pole. Trace amount of a djacent perinephric fluid. There is a residual 7 mm calcification in the right renal pelvis but no di stal hydronephrosis. Within the left kidney along the posterior lower pole, there is probably a minim ally complicated cyst measuring about 5.2 cm in diameter. Along the cortex of the mid pole, there are 2 rounded areas of peripherally increased attenuation, and two more cortical cysts arising from the upper pole. No hydronephrosis or left nephrolithiasis. No hydroureter. Peritoneum and bowel: There is a moderate amount of solid rectal stool. Diverticulosis of the descen ding and sigmoid colon and mildly increased quantity of colonic stool proximally. Small bowel loops a re normal. Stomach is partially decompressed. No free fluid or air. Nodes and vessels: No retroperitoneal or mesenteric adenopathy by size criteria. Aorta and inferior vena cava are normal in caliber. Miscellaneous: There has been prior ventral hernia repair with a large amount of mesh. Immediately ca udal to the inferior margin of the mesh, there is a tiny nonobstructing Chatman's hernia without over lying inflammation.. PELVIS: Genitourinary: Bladder wall thickness is normal. Diminutive uterus. Right ovary was not seen. Left ovary morphology is nonspecific on CT. Miscellaneous: No inguinal hernias or adenopathy. Bones: No suspicious bony lesions. No vertebral body compression fractures. IMPRESSION: 1. Rectal and colonic obstipation. 2. Nonobstructing right intrapelvic calcification. 3. Subacute to chronic right perinephric hematoma based on attenuation and lack of significant overly ing inflammation. 4. Nonspecific hyperdense cystic structures in the lateral midpole of left kidney. These may be hyper dense, proteinaceous or hemorrhagic cysts, hematoma secondary to any prior intervention, less likely renal abscesses, again given lack of significant inflammation. Correlate clinically and consider comp arison to prior cross-sectional imaging. 5. Nonobstructing Chatman's hernia in the low midline abdomen below the mesh of prior hernia repair. 6. Findings discussed with Dr. Cutler in the emergency room at 1709 hours. Reviewed by: Paula Brush MD on 08/26/2022 5:14 PM AKST Approved by: Paula Brush MD on 08/26/2022 5:14 PM [place] Station ID: [id number]
[2022-08-26 18:52] VITALS: BP 134/89
== END 2022-08-26 18:52 | disposition home or self-care (01) ==
LOC: ED 15:01
DX: K56.41 Fecal impaction (principal)
CPT/HCPCS: 36415; 80053; 83735; 85025; 94770; 96374; 99283

== ENCOUNTER 2022-09-11 11:23 | Outpatient (CLI) | payer MEDICARE, OTHER ==
[2022-09-11 12:04] LABS: INR 2.7 (0.8-1.2); PT - PROTHROMBIN TIME 28.9 secs (9.9-12.6)
== END 2022-09-11 11:24 | disposition home or self-care (01) ==
LOC: LAB 11:23
DX: I63.9 Cerebral infarction, unspecified (principal); Z79.01 Long term (current) use of anticoagulants
CPT/HCPCS: 36415; 85610

== ENCOUNTER 2022-09-16 15:12 | Outpatient (CLI) | payer MEDICARE, OTHER ==
--- NOTE | 2022-09-17 09:42 | XRAY Report ---
PROCEDURE: Knee 3 View RT INDICATIONS: RIGHT KNEE PAIN TECHNIQUE: 2 views of the both knee(s) were acquired. COMPARISON: X-ray right knee, 08/25/2022. FINDINGS: Bones: No fractures or dislocations. No suspicious bony lesions. [id number] tricompartmental knee joint degeneration. Soft tissues: Moderate joint effusion. No suspicious soft tissue calcifications. IMPRESSION: 1. Mild osteoarthritic changes. 2. Moderate knee joint effusion. Reviewed by: Terrell Barker MD on 09/17/2022 9:41 AM PST Approved by: Terrell Barker MD on 09/17/2022 9:41 AM PST Station ID: [id number]
== END 2022-09-16 15:13 | disposition home or self-care (01) ==
LOC: DI.WOS 15:12
PROVIDERS: ATTEND Orthopaedic Surgery
DX: M17.11 Unilateral primary osteoarthritis, right knee (principal); M25.461 Effusion, right knee

== ENCOUNTER 2022-11-07 08:00 | Outpatient (CLI) | payer MEDICARE, OTHER | END 2022-11-07 08:01 | disposition home or self-care (01) | LOC: LAB.N 08:00 | PROVIDERS: ATTEND Physician Assistant | DX: Z79.01 Long term (current) use of anticoagulants (principal); Z86.79 Personal history of other diseases of the circulatory system ==

== ENCOUNTER 2022-11-14 08:00 | Outpatient (CLI) | payer MEDICARE, OTHER | END 2022-11-14 23:59 | disposition home or self-care (01) | LOC: LAB.N 08:00 | PROVIDERS: ATTEND Physician Assistant | DX: Z79.01 Long term (current) use of anticoagulants (principal); Z86.79 Personal history of other diseases of the circulatory system ==

== ENCOUNTER 2022-11-28 15:09 | Outpatient (CLI) | payer MEDICARE, OTHER ==
--- NOTE | 2022-11-28 16:15 | DEXA Report ---
PROCEDURE: Dexa Spine and/or Hip INDICATIONS: POST MENOPAUSAL TECHNIQUE: Dual energy x-ray absorptiometry (DXA) was performed on a [employer]. Regions measur ed are the AP Spine, femoral neck, and if needed forearm. COMPARISON: None. FINDINGS: Lumbar Spine: Bone Mineral Density 1.160 g/cm/cm,T score -0.2, Left Femoral Neck: Bone Mineral Density 0.839 g/cm/cm, T score -1.4, Left Hip: Bone Mineral Density 0.847 g/cm/cm,T score -1.3, (T score greater or equal to -1.0: NORMAL) (T score from -1.1 to -2.4: OSTEOPENIA) (T score less than or equal to -2.5 to: OSTEOPOROSIS) Impression: Osteopenia. Patients with diagnosis of osteoporosis or osteopenia should have regular bone mineral density assess ment. For those eligible for Medicare, routine testing is allowed once every 2 years. Testing frequ ency can be increased for patients who have rapidly progressing disease or for those who are receivin g medical therapy to restore bone mass. Reviewed by: Emmanuel Crowe MD on 11/28/2022 4:13 PM PDT Approved by: Emmanuel Crowe MD on 11/28/2022 4:13 PM PDT Station ID: [id number]
== END 2022-11-28 15:10 | disposition home or self-care (01) ==
LOC: DI 15:09
PROVIDERS: ATTEND Physician Assistant
DX: M85.89 Other specified disorders of bone density and structure, multiple sites (principal); Z78.0 Asymptomatic menopausal state

== ENCOUNTER 2022-12-12 08:00 | Outpatient (CLI) | payer MEDICARE, OTHER | END 2022-12-12 23:59 | disposition home or self-care (01) | LOC: LAB.N 08:00 | PROVIDERS: ATTEND Physician Assistant | DX: Z79.01 Long term (current) use of anticoagulants (principal); Z86.79 Personal history of other diseases of the circulatory system ==

== ENCOUNTER 2023-01-09 08:00 | Outpatient (CLI) | payer MEDICARE, OTHER | END 2023-01-09 23:59 | disposition home or self-care (01) | LOC: LAB.N 08:00 | PROVIDERS: ATTEND Physician Assistant | DX: Z79.01 Long term (current) use of anticoagulants (principal); Z86.79 Personal history of other diseases of the circulatory system ==

== ENCOUNTER 2023-01-23 08:00 | Outpatient (CLI) | payer MEDICARE, OTHER | END 2023-01-23 23:59 | disposition home or self-care (01) | LOC: LAB.N 08:00 | PROVIDERS: ATTEND Physician Assistant | DX: Z79.01 Long term (current) use of anticoagulants (principal); Z86.79 Personal history of other diseases of the circulatory system ==

== ENCOUNTER 2023-02-06 08:00 | Outpatient (CLI) | payer MEDICARE, OTHER | END 2023-02-06 23:59 | disposition home or self-care (01) | LOC: LAB.N 08:00 | PROVIDERS: ATTEND Physician Assistant | DX: Z79.01 Long term (current) use of anticoagulants (principal); Z86.79 Personal history of other diseases of the circulatory system ==

== ENCOUNTER 2023-03-06 08:00 | Outpatient (CLI) | payer MEDICARE, OTHER | END 2023-03-06 23:59 | disposition home or self-care (01) | LOC: LAB.WCP 08:00 | PROVIDERS: ATTEND Physician Assistant | DX: Z79.01 Long term (current) use of anticoagulants (principal); Z86.79 Personal history of other diseases of the circulatory system ==

== ENCOUNTER 2023-07-10 08:00 | Outpatient (CLI) | payer MEDICARE, OTHER | END 2023-07-10 08:01 | disposition home or self-care (01) | LOC: LAB.WCP 08:00 | PROVIDERS: ATTEND Physician Assistant | DX: Z51.81 Encounter for therapeutic drug level monitoring (principal); Z79.01 Long term (current) use of anticoagulants; Z86.79 Personal history of other diseases of the circulatory system ==

== ENCOUNTER → 2023-07-24 | Outpatient (CLI) | payer MEDICARE, OTHER | LOC: LAB.WCP 08:00 | PROVIDERS: ATTEND Physician Assistant | DX: Z51.81 Encounter for therapeutic drug level monitoring (principal); Z79.01 Long term (current) use of anticoagulants; Z86.79 Personal history of other diseases of the circulatory system ==

== ENCOUNTER 2023-08-07 08:00 | Outpatient (CLI) | payer MEDICARE, OTHER | END 2023-08-07 08:01 | disposition home or self-care (01) | LOC: LAB.N 08:00 | PROVIDERS: ATTEND Physician Assistant | DX: Z51.81 Encounter for therapeutic drug level monitoring (principal); Z79.01 Long term (current) use of anticoagulants; Z86.79 Personal history of other diseases of the circulatory system ==

== ENCOUNTER 2023-08-07 11:07 | Emergency (ER) | payer MEDICARE, OTHER ==
--- NOTE | 2023-08-07 11:38 | XRAY Report ---
PROCEDURE: Chest 2V INDICATIONS: Cough TECHNIQUE: 2 views of the chest were acquired. COMPARISON: None. FINDINGS: Surgical changes and devices: Pacemaker. Lungs and pleura: There is minimal appearance of left basilar opacity with blunting of the costophre gage angle. Mediastinum: Mediastinal contours appear normal. Heart size is normal. Bones and chest wall: No suspicious bony lesions. Overlying soft tissues appear unremarkable. IMPRESSION: Minimal left effusion. Developing areas of underlying pneumonia and/or atelectasis cannot be excluded . Reviewed by: Adelaida Felix MD on 08/07/2023 11:36 AM [facility] Approved by: Adelaida Felix MD on 08/07/2023 11:36 AM [facility] Station ID: [id number]
[2023-08-07 12:24] LABS: CORONAVIRUS 229E-RESP PCR NOT DETECTED; CORONAVIRUS HKU1-RESP PCR NOT DETECTED; CORONAVIRUS NL63-RESP PCR NOT DETECTED; CORONAVIRUS OC43-RESP PCR NOT DETECTED; HUMAN METAPNEUMOVIRUS NOT DETECTED; RHINOVIRUS/ENTEROVIRUS NOT DETECTED; SARS-CoV-2 -RESP PCR PANEL NOT DETECTED
[2023-08-07 12:25] LABS: B. PARAPERTUSSIS- RESP PCR PAN NOT DETECTED; B. PERTUSSIS- RESP PCR PANEL NOT DETECTED; C. PNEUMONIAE- RESP PCR PANEL NOT DETECTED; INFLUENZA A H3- RESP PCR PANEL DETECTED; INFLUENZA B - RESP PCR PANEL NOT DETECTED; M. PNEUMONIAE- RESP PCR PANEL NOT DETECTED; PARAINFLUENZA VIRUS 1 NOT DETECTED; PARAINFLUENZA VIRUS 2 NOT DETECTED; PARAINFLUENZA VIRUS 3 NOT DETECTED; PARAINFLUENZA VIRUS 4 NOT DETECTED; RSV- RESP PCR PANEL NOT DETECTED
--- NOTE | 2023-08-07 12:33 | ED Physician Documentation ---
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 Patient was seen at walk-in clinic about 7 days ago and was placed on doxycycline And 4 mg of dexamethasone for presumed pneumonia no imaging was completed at that time she said that she has not missed any doses of her doxycycline and reports an ongoing shortness of breath and wheezing feels like she is just not recovering. She originally started feeling symptoms of an upper respiratory infection beginning around July 28 when her grandson was visiting her who also had similar URI symptoms. Since then she feels like she is just having a hard time recovering from this. She says that she is been taking her Pulmicort and albuterol inhalers at home consistently. She denies any fevers or chills. Patient states that she feels like she is able to take a deep breath then but is having a hard time fully emptying her lungs and says that she feels a burning sensation in her chest with each inhalation. PD PAST MEDICAL HISTORY - Past Medical History Past Medical History: Yes Cardiovascular: Congestive heart failure, Hypertension, [place] Respiratory: Asthma Neuro: CVA Endocrine/Autoimmune: Type 2 diabetes Other Past Medical History: CKD - Present Medications Home Medications: Ambulatory Orders Medication Instructions Recorded Confirmed Albuterol 2.5 mg INH Q4H PRN #30 ml 08/07/23 Amox/Clav 500/125 [Augmentin 1 tablet PO Q12H 5 Days #10 tablet 08/07/23 500/125] Azithromycin 250 mg PO DAILY #4 tablet 08/07/23 - Allergies Allergies/Adverse Reactions: Allergies Allergy/AdvReac Type Severity Reaction Status Date / Time phenazopyridine [From Azo] Allergy Emesis Verified 08/26/22 15:12 prednisone Allergy Itching Verified 08/26/22 15:12 procaine [From Novocain] Allergy Anaphylaxis Verified 08/26/22 15:12 rizatriptan Allergy Anaphylaxis Verified 08/26/22 15:12 salmon oil Allergy Emesis Verified 08/26/22 15:12 sulfamethoxazole Allergy Emesis Verified 08/26/22 15:12 [From Bactrim] tetracycline Allergy Emesis Verified 08/26/22 15:12 thiopental Allergy Anxiety Verified 08/26/22 15:12 trimethoprim [From Bactrim] Allergy Emesis Verified 08/26/22 15:12 - Social History Does the pt smoke?: No Smoking Status: Never smoker PD ED PE NORMAL - Vitals Vital signs reviewed: Yes - General General: Alert and oriented X 3 - HEENT HEENT: Atraumatic - Neck Neck: No JVD - Cardiac Cardiac: RRR, No murmur, No gallop, Strong equal pulses - Respiratory Respiratory: No respiratory distress, Other (rhonchi bilaterally) - Abdomen Abdomen: Soft - Psych Psych: Normal mood Results - Vitals Vitals: Vital Signs - 24 hr 08/07/23 08/07/23 08/07/23 11:11 14:24 15:05 Temperature 36.4 C L Heart Rate 76 69 87 Respiratory 20 18 18 Rate Blood Pressure 133/98 H O2 Saturation 97 08/07/23 15:18 Temperature 36.5 C Heart Rate 86 Respiratory 18 Rate Blood Pressure 130/88 H O2 Saturation 98 Oxygen O2 Source Room air - EKG (time done) 1241 EKG releavant findings:: EKG personally interpreted by author of this note. Relevant findings are: Rate: Rate (enter#) (58), Other Rhythm: Paced (AV paced) [place]: RAD Intervals: Prolonged [place] Ischemia: T wave inversion (T wave inversions to leads V4, V5, and V6) Compare to prior EKG: Old EKG unavailable - Labs Labs: Laboratory Tests 08/07/23 08/07/23 08/07/23 11:22 12:53 12:53 WBC 13.6 H RBC 4.78 Hgb 14.2 Hct 42.6 MCV 89.1 MCH 29.7 MCHC 33.3 RDW 12.8 Plt Count 252 MPV 10.7 Neut # (Auto) 11.7 H Lymph # (Auto) 1.0 L [place] # (Auto) 0.7 Eos # (Auto) 0.0 Baso # (Auto) 0.0 Absolute Nucleated RBC 0.00 Nucleated RBC % 0.0 Sodium 136 Potassium 3.9 Chloride 104 Carbon Dioxide 22 Anion Gap 10.0 BUN 64 H Creatinine 2.4 H Estimated GFR (MDRD) 20 L Glucose 228 H Calcium 9.8 Magnesium 1.8 Total Bilirubin 0.5 AST 20 ALT 22 Alkaline Phosphatase 68 Total Protein 7.4 Albumin 4.2 Globulin 3.2 Albumin/Globulin Ratio 1.3 Nasal Adenovirus (PCR) NOT DETECTED Nasal B. parapertussis DNA (PCR) NOT DETECTED Nasal Coronavir 229E PCR NOT DETECTED Nasal Coronavir HKU1 PCR NOT DETECTED Nasal Coronavir NL63 PCR NOT DETECTED Nasal Coronavir OC43 PCR NOT DETECTED Nasal Enterovir/Rhinovir PCR NOT DETECTED Nasal Influenza A H3 PCR DETECTED A Nasal Influenza B PCR NOT DETECTED Nasal Parainfluen 1 PCR NOT DETECTED Nasal Parainfluen 2 PCR NOT DETECTED Nasal Parainfluen 3 PCR NOT DETECTED Nasal Parainfluen 4 PCR NOT DETECTED Nasal RSV (PCR) NOT DETECTED Nasal B.pertussis DNA PCR NOT DETECTED Nasal C.pneumoniae (PCR) NOT DETECTED Wojciech Human Metapneumo PCR NOT DETECTED Nasal M.pneumoniae (PCR) NOT DETECTED Nasal SARS-CoV-2 (PCR) NOT DETECTED - Rads (name of study) chest xray Relevant Findings:: Final report received, EMP independent interpretation of te st (Pacemaker visualized. No cardiomegaly, no pulmonary effusions. Does appear to have pneumonia developing bilaterally) PD Medical Decision Making - ED course ED course: 72-year-old female with complex past medical history. X-ray complete which does reveal pneumonia. CBC and CMP ordered given patient's history of renal failure. On room air patient appears to be at 97%. DuoNeb ordered to help with the shortness of breath with patient is experiencing as well as rhonchi auscultated. Patient was able to follow-up labs she has recently had with her primary care provider on her phone from June 2023 which reveals a BUN of 34, creatinine 2.59, GFR 19 BUN 13. Her GFR appears at baseline at 20 today, but her BUN is elevated at 20. This is most likely prerenal given that she has been feeling well and has been eating and drinking as much as she normally does.She is also tested positive for influenza A and has a slight bump in her WBCs 13.Given patient's kidney function creatinine clearance is 8 we will do renally adjusted Augmentin 500 mg/125 twice a day for total of 5 days. Azithromycin 500 mg today and then a prescription of 250 mg azithromycin once a day for the next 4 days will be sent to her preferred pharmacy. Patient was told that she needs to have her renal function rechecked in about 5 days with her primary care provider as well as a check in, in regards to her Community-acquired pneumonia. Later in the visit about the patient is on Coumadin INR today is 3.7 she was told to hold her Coumadin for today I informed her to hold it for 7 days well. Patient was advised to have her INR rechecked on Thursday patient says that she plans to eat a salad tonight for additional support of vitamin K. She was given very strict return precautions and was told to have her labs rechecked in about 5 days to have renal function also reevaluated. Departure - Departure Disposition: Home, Self Care Clinical Impression: Influenza A Pneumonia Qualifiers: Pneumonia type: due to unspecified organism Laterality: bilateral Condition: Fair Instructions: Pneumonia Dc Prescriptions: Albuterol 2.5 mg INH Q4H PRN #30 ml PRN Reason: Wheezing Amox/Clav 500/125 [Augmentin 500/125] 1 tablet PO Q12H 5 Days #10 tablet Azithromycin 250 mg PO DAILY #4 tablet Comments: Thank you for trusting us with your care. It appears that you still have pneumonia unfortunately the doxycycline does not appear to be covering it. Stop taking doxycycline. We started you on an antibiotic called Augmentin and I prescribed it with a renal adjustment. He will take this once a day every 12 hours for the next 5 days. He took the first dose here in the emergency department today. We also started you on an antibiotic called azithromycin. You took the first dose here in the emergency department today and then you will start tomorrow once daily until you run out. Please follow-up with your primary care provider to have your labs rechecked in 5 days please come back to the emergency department if you are having any worsening shortness of breath, chest pain, nausea vomiting or any other concerning symptoms. Forms: PCP List Discharge Date/Time: 08/07/23 15:18
[2023-08-07 12:59] LABS: BASOPHILS % (AUTO) 0.1 %; EOSINOPHILS % (AUTO) 0.1 %; HCT - HEMATOCRIT 42.6 % (37.0-47.0); HGB - HEMOGLOBIN 14.2 g/dL (12.0-16.0); LYMPHOCYTES % (AUTO) 7.1 %; MEAN CORPUSCULAR HEMOGLOBIN 29.7 pg (27.0-31.0); MEAN CORPUSCULAR HGB CONC 33.3 g/dL (32.0-36.0); MEAN CORPUSCULAR VOLUME 89.1 fL (81.0-99.0); MEAN PLATELET VOLUME 10.7 fL (7.9-10.8); MONOCYTES # (AUTO) 0.7 10^3/uL (0.0-1.0); MONOCYTES % (AUTO) 5.4 %; NEUTROPHILS # (AUTO) 11.7 10^3/uL (1.5-6.6); NEUTROPHILS % (AUTO) 86.4 %; PLT - PLATELET COUNT 252 10^3/uL (130-450); RED BLOOD COUNT 4.78 10^6/uL (4.20-5.40); RED CELL DISTRIBUTION WIDTH 12.8 % (12.0-15.0); WHITE BLOOD COUNT 13.6 x10^3/uL (4.8-10.8)
[2023-08-07 13:12] LABS: ALBUMIN 4.2 g/dL (3.2-5.5); ALBUMIN/GLOBULIN RATIO 1.3 (1.0-2.2); BILIRUBIN,TOTAL 0.5 mg/dL (0.2-1.0); CALCIUM 9.8 mg/dL (8.5-10.3); CREATININE 2.4 mg/dL (0.6-1.3); MAGNESIUM 1.8 mg/dL (1.7-2.3); POTASSIUM 3.9 mmol/L (3.5-4.5); TOTAL PROTEIN 7.4 g/dL (6.4-8.9)
[2023-08-07] MEDS ORDERED: IPRATROPIUM/ALBUTEROL 3 ML NEB INH STA ×2 (14:01→14:52)
[2023-08-07] MEDS ORDERED: AZITHROMYCIN 250 MG TABLET PO STA (14:37)
[2023-08-07 15:21] VITALS: BP 130/88; O2SAT 98
== END 2023-08-07 15:18 | disposition home or self-care (01) ==
LOC: ED 11:07
DX: J10.00 Influenza due to other identified influenza virus with unspecified type of pneumonia (principal); E11.22 Type 2 diabetes mellitus with diabetic chronic kidney disease; I13.2 Hypertensive heart and chronic kidney disease with heart failure and with stage 5 chronic kidney disease, or end stage renal disease; N18.6 End stage renal disease; Z99.2 Dependence on renal dialysis
CPT/HCPCS: 36415; 71046; 80053; 83735; 85025; 87633; 93005; 94640; 99284; A9270

== ENCOUNTER 2023-08-11 10:07 | Outpatient (CLI) | payer MEDICARE, OTHER ==
[2023-08-11 12:07] LABS: BASOPHILS % (AUTO) 0.3 %; EOSINOPHILS # (AUTO) 0.3 10^3/uL (0.0-0.7); EOSINOPHILS % (AUTO) 2.1 %; HCT - HEMATOCRIT 38.5 % (37.0-47.0); HGB - HEMOGLOBIN 12.5 g/dL (12.0-16.0); LYMPHOCYTES # (AUTO) 1.4 10^3/uL (1.5-3.5); LYMPHOCYTES % (AUTO) 11.5 %; MEAN CORPUSCULAR HEMOGLOBIN 29.9 pg (27.0-31.0); MEAN CORPUSCULAR HGB CONC 32.5 g/dL (32.0-36.0); MEAN CORPUSCULAR VOLUME 92.1 fL (81.0-99.0); MEAN PLATELET VOLUME 11.2 fL (7.9-10.8); MONOCYTES # (AUTO) 1.3 10^3/uL (0.0-1.0); MONOCYTES % (AUTO) 10.9 %; NEUTROPHILS # (AUTO) 8.7 10^3/uL (1.5-6.6); NEUTROPHILS % (AUTO) 73.8 %; PLT - PLATELET COUNT 241 10^3/uL (130-450); RED BLOOD COUNT 4.18 10^6/uL (4.20-5.40); RED CELL DISTRIBUTION WIDTH 13.2 % (12.0-15.0); WHITE BLOOD COUNT 11.8 x10^3/uL (4.8-10.8)
[2023-08-11 12:46] LABS: ALBUMIN 3.3 g/dL (3.2-5.5); ALBUMIN/GLOBULIN RATIO 1.1 (1.0-2.2); ALKALINE PHOSPHATASE 76 IU/L (42-121); ALT ALANINE AMINOTRANSFERASE 11 IU/L (10-60); AST ASPARTATE AMINOTRANSFERASE 11 IU/L (10-42); BILIRUBIN,TOTAL 0.6 mg/dL (0.2-1.0); BUN - BLOOD UREA NITROGEN 44 mg/dL (6-20); CALCIUM 9.4 mg/dL (8.5-10.3); CARBON DIOXIDE - CO2 22 mmol/L (21-32); CHLORIDE 109 mmol/L (101-111); CHOL/HDL RATIO 4.2 (<4.4); CHOLESTEROL 117 mg/dL; CREATININE 2.2 mg/dL (0.6-1.3); GFR - MDRD 22 (>89); GLUCOSE 226 mg/dL (74-104); HDL CHOLESTEROL 28 mg/dL; LDL CHOLESTEROL,CALCULATED 42 mg/dL; LDL/HDL RATIO 1.5 (<4.4); POTASSIUM 4.3 mmol/L (3.5-4.5); SODIUM 136 mmol/L (135-145); TOTAL PROTEIN 6.2 g/dL (6.4-8.9); TRIGLYCERIDES 235 mg/dL (48-352); VLDL CHOLESTEROL 47 mg/dL
[2023-08-11 12:57] LABS: CREATININE,URINE 133.3 mg/dL; MICROALBUM/CREATININE RATIO,UR 177.8 ug/mg (<30.0); MICROALBUMIN,URINE 23.7 mg/dL
[2023-08-11 12:59] LABS: ESTIMATED AVERAGE GLUCOSE 237 mg/dL (70-100); HEMOGLOBIN A1c% 9.9 % (4.27-6.07)
== END 2023-08-11 10:08 | disposition home or self-care (01) ==
LOC: LAB.N 10:07
PROVIDERS: ATTEND Physician Assistant
DX: E11.9 Type 2 diabetes mellitus without complications (principal); Z79.01 Long term (current) use of anticoagulants; Z86.79 Personal history of other diseases of the circulatory system
CPT/HCPCS: 36415; 80053; 80061; 82043; 82570; 83036; 83721; 85025; 85610

== ENCOUNTER 2023-08-11 10:50 | Emergency (ER) | payer MEDICARE, OTHER ==
[2023-08-11] MEDS ORDERED: IPRATROPIUM/ALBUTEROL 3 ML NEB INH STA (12:42)
[2023-08-11] MEDS ORDERED: DEXAMETHASONE 10 MG/ML VIAL IM STA (12:42)
--- NOTE | 2023-08-11 12:55 | XRAY Report ---
PROCEDURE: Chest 1V INDICATIONS: chest pain L, recent tonia PNA TECHNIQUE: One view of the chest was acquired. COMPARISON: 08/07/2023 FINDINGS: Surgical changes and devices: Left-sided pacer. Lungs and pleura: No pleural effusions or pneumothorax. Lungs are clear. Mediastinum: Mediastinal contours appear normal. Heart size is normal. Bones and chest wall: No suspicious bony lesions. Overlying soft tissues appear unremarkable. IMPRESSION: No acute cardiopulmonary process. Reviewed by: Lonny Calixto MD on 08/11/2023 12:54 PM PST Approved by: Lonny Calixto MD on 08/11/2023 12:54 PM PST Station ID: [id number]
--- NOTE | 2023-08-11 14:23 | ED Physician Documentation ---
PD HPI CHEST PAIN - Stated complaint Stated Complaint: STABBING PX - Chief complaint Chief Complaint: Cardiac - History obtained from History obtained from: Patient - Additional information Additional information: The pt comes to the ED for CC of L chest stabbing pain, worse with deep breaths or coughing. The pt was dx with influenza A and pneumonia over the past couple of weeks, and completed a course of antibiotics for the pneumonia a couple of weeks ago. She has continued to have a productive cough (influenza dx came a week after the pneumonia dx), but states she is mostly feeling improved, and denies SOB or fevers. She states the pain is just really bothering her, and she is wondering if the pneumonia has come back. No lower extremity edema. No other complaints at this time. PD PAST MEDICAL HISTORY - Past Medical History Past Medical History: Yes Cardiovascular: Congestive heart failure, Hypertension, [place] Respiratory: Asthma Neuro: CVA Endocrine/Autoimmune: Type 2 diabetes, HyPERthyroidism GI: GERD TAPE EDITOR: None : Renal insuffiency Psych: None Musculoskeletal: Osteoarthritis Derm: None - Past Surgical History Past Surgical History: Yes General: Bowel surgery /TAPE EDITOR: Hysterectomy, Breast reduction Cardiovascular: Pacemaker, AICD - Present Medications Home Medications: Ambulatory Orders Medication Instructions Recorded Confirmed Albuterol 2.5 mg INH Q4H PRN #30 ml 08/07/23 08/11/23 Amox/Clav 500/125 [Augmentin 1 tablet PO Q12H 5 Days #10 tablet 08/07/23 08/11/23 500/125] Azithromycin 250 mg PO DAILY #4 tablet 08/07/23 08/11/23 Albuterol Sulf [Ventolin Hfa 2 - 3 puffs INH Q4HR PRN #1 each 08/08/23 08/11/23 Inhaler] Amlodipine Besylate [Norvasc] 2.5 mg PO DAILY 08/11/23 08/11/23 Budesonide [Pulmicort] 2 puffs INH BID 08/11/23 08/11/23 HYDROcod/ACETAM 5/325 [[place] 5/325] 1 - 2 tablet PO Q6H PRN #14 tablet 08/11/23 Rosuvastatin Calcium [Crestor] 10 mg PO HS 08/11/23 08/11/23 Warfarin Sodium [Coumadin] 3 mg PO DAILY 08/11/23 08/11/23 allopurinoL [Zyloprim] 100 mg PO DAILY 08/11/23 08/11/23 carvediloL [Coreg] 12.5 mg PO BID 08/11/23 08/11/23 methylPREDNISolone [Medrol] 4 mg PO DAILY #1 tab 08/11/23 - Allergies Allergies/Adverse Reactions: Allergies Allergy/AdvReac Type Severity Reaction Status Date / Time phenazopyridine [From Azo] Allergy Emesis Verified 08/11/23 10:56 prednisone Allergy Itching Verified 08/11/23 10:56 procaine [From Novocain] Allergy Anaphylaxis Verified 08/11/23 10:56 rizatriptan Allergy Anaphylaxis Verified 08/11/23 10:56 salmon oil Allergy Emesis Verified 08/11/23 10:56 sulfamethoxazole Allergy Emesis Verified 08/11/23 10:56 [From Bactrim] tetracycline Allergy Emesis Verified 08/11/23 10:56 thiopental Allergy Anxiety Verified 08/11/23 10:56 trimethoprim [From Bactrim] Allergy Emesis Verified 08/11/23 10:56 - Social History Does the pt smoke?: No Smoking Status: Never smoker Does the pt drink ETOH?: No Does the pt have substance abuse?: No - Immunizations Immunizations are current?: No Immunizations: Other immun not current PD ED PE NORMAL - Vitals Vital signs reviewed: Yes - General General: Alert and oriented X 3, No acute distress, Well developed/nourished - HEENT HEENT: Atraumatic, EOMI, Moist mucous membranes - Neck Neck: Supple, no meningeal sign - Cardiac Cardiac: RRR, No murmur, Strong equal pulses - Respiratory Respiratory: No respiratory distress, Clear bilaterally, Other (TTP L inferolateral CW) - Abdomen Abdomen: Soft, Non tender, Non distended - Derm Derm: Normal color, Warm and dry, No rash - Extremities Extremities: No deformity - Neuro Neuro: Alert and oriented X 3, hadoop java developer 2-12 intact, Normal speech - Psych Psych: Normal mood, Normal affect Results - Vitals Vitals: Oxygen O2 Source Room air - EKG (time done) 1111 EKG releavant findings:: EKG personally interpreted by author of this note. Relevant findings are: Rate: Rate (enter#) (68) Rhythm: Paced Computer interpretation: Agree with computer - Rads (name of study) chest XR Relevant Findings:: Final report received, See rad report (neg) PD Medical Decision Making - ED course Complexity details: reviewed results, re-evaluated patient, considered differential, d/w patient, d/w family ED course: PT was worked up with CXR and EKG, both of which were unremarkable. The pt's pain was mechanical and I felt it was very unlikely to represent a PE or ACS. I d/w pt and that I suspect she has pleurisy, and the the cough is residual and will be self-limited. I do not think the pt needs more abx at this time. We have discussed the usual indications for return. Departure - Departure Disposition: 01 Home, Self Care Clinical Impression: Chest wall pain Asthma exacerbation Qualifiers: Asthma severity: mild Asthma persistence: intermittent Qualified Code(s): J45.21 - Mild intermittent asthma with (acute) exacerbation Condition: Stable Instructions: ED Reactive Airway Disease, ED Chest Pain Costochondritis Prescriptions: methylPREDNISolone [Medrol] 4 mg PO DAILY #1 tab HYDROcod/ACETAM 5/325 [[place] 5/325] 1 - 2 tablet PO Q6H PRN #14 tablet PRN Reason: Pain Comments: Your x-ray looks great and your lungs are drastically improved after the nebulizer treatment. Most likely, you have some inflammation in the structures of your chest wall from all the coughing and the recent illness and this is causing your pain. You probably need a little more time on steroids and it would also be helpful for you to have the nebulizer treatments available at home. Please clam picker the nebulizer machine and continue your other home treatments as well. You should take the steroid taper as directed. Please follow-up with your primary care physician for further concerns. Forms: PCP List Discharge Date/Time: 08/11/23 14:28
[2023-08-11 14:30] VITALS: BP 135/70; O2SAT 96
== END 2023-08-11 14:28 | disposition home or self-care (01) ==
LOC: ED 10:50
DX: J45.21 Mild intermittent asthma with (acute) exacerbation (principal); R07.89 Other chest pain; I10 Essential (primary) hypertension; E11.9 Type 2 diabetes mellitus without complications; Z79.01 Long term (current) use of anticoagulants; Z86.79 Personal history of other diseases of the circulatory system
CPT/HCPCS: 36415; 80053; 80061; 82043; 82570; 83036; 83721; 85025; 85610; 93005; 94640; 96372; 99283; 99284

== ENCOUNTER → 2023-09-11 | Outpatient (CLI) | payer MEDICARE, OTHER | LOC: LAB.N 08:00 | PROVIDERS: ATTEND Physician Assistant | DX: Z51.81 Encounter for therapeutic drug level monitoring (principal); Z79.01 Long term (current) use of anticoagulants; Z86.79 Personal history of other diseases of the circulatory system ==

== ENCOUNTER → 2023-09-25 | Outpatient (CLI) | payer MEDICARE, OTHER | LOC: LAB.WCP 08:00 | PROVIDERS: ATTEND Physician Assistant | DX: Z51.81 Encounter for therapeutic drug level monitoring (principal); Z79.01 Long term (current) use of anticoagulants; Z86.79 Personal history of other diseases of the circulatory system ==

== ENCOUNTER 2023-11-06 08:00 | Outpatient (CLI) | payer MEDICARE, OTHER | END 2023-11-06 08:01 | disposition home or self-care (01) | LOC: LAB.WCP 08:00 | PROVIDERS: ATTEND Physician Assistant | DX: Z79.01 Long term (current) use of anticoagulants (principal); Z86.73 Personal history of transient ischemic attack (TIA), and cerebral infarction without residual deficits ==

== ENCOUNTER 2023-11-25 08:00 | Outpatient (CLI) | payer MEDICARE, OTHER | END 2023-11-25 23:59 | disposition home or self-care (01) | LOC: LAB.N 08:00 | PROVIDERS: ATTEND Physician Assistant Medical | DX: N39.0 Urinary tract infection, site not specified (principal) | CPT/HCPCS: 87086 ==

== ENCOUNTER → 2023-12-04 | Outpatient (CLI) | payer MEDICARE, OTHER | LOC: LAB.S 08:00 | PROVIDERS: ATTEND Specialist | DX: Z79.01 Long term (current) use of anticoagulants (principal); Z86.73 Personal history of transient ischemic attack (TIA), and cerebral infarction without residual deficits ==

== ENCOUNTER 2024-01-15 15:46 | Outpatient (CLI) | payer MEDICARE, OTHER ==
--- NOTE | 2024-01-15 16:21 | XRAY Report ---
PROCEDURE: Chest 2V INDICATIONS: ASTHMA, MODERATE PERSISTANT TECHNIQUE: 2 views of the chest were acquired. COMPARISON: 08/11/2023. FINDINGS: Surgical changes and devices: AICD device. Lungs and pleura: No pleural effusions or pneumothorax. Lungs are clear. Linear scarring, left lung base. Mediastinum: Mediastinal contours appear normal. Heart size is normal. Bones and chest wall: No suspicious bony lesions. Overlying soft tissues appear unremarkable. IMPRESSION: No acute cardiopulmonary process. Reviewed by: Himanshu Vera MD on 01/15/2024 4:20 PM PDT Approved by: Himanshu Vera MD on 01/15/2024 4:20 PM PDT Station ID: [id number]
== END 2024-01-15 15:47 | disposition home or self-care (01) ==
LOC: DI 15:46
PROVIDERS: ATTEND Physician Assistant
DX: J45.40 Moderate persistent asthma, uncomplicated (principal)

== ENCOUNTER 2024-02-12 08:00 | Outpatient (CLI) | payer MEDICARE, OTHER | END 2024-02-12 23:59 | disposition home or self-care (01) | LOC: LAB.WCP 08:00 | PROVIDERS: ATTEND Physician Assistant | DX: Z51.81 Encounter for therapeutic drug level monitoring (principal); Z79.01 Long term (current) use of anticoagulants; Z86.73 Personal history of transient ischemic attack (TIA), and cerebral infarction without residual deficits ==

== ENCOUNTER 2024-03-02 08:00 | Outpatient (CLI) | payer MEDICARE, OTHER | END 2024-03-02 23:59 | disposition home or self-care (01) | LOC: LAB.WCP 08:00 | PROVIDERS: ATTEND Physician Assistant | DX: Z79.01 Long term (current) use of anticoagulants (principal); Z86.73 Personal history of transient ischemic attack (TIA), and cerebral infarction without residual deficits ==

== ENCOUNTER 2024-03-15 10:55 | Outpatient (CLI) | payer MEDICARE, OTHER ==
--- NOTE | 2024-03-15 16:56 | XRAY Report ---
PROCEDURE: Abdomen 1 V INDICATIONS: RLQ ABD PAIN TECHNIQUE: One view of the abdomen acquired. COMPARISON: CT abdomen and pelvis on August 26, 2022. FINDINGS: Surgical changes and devices: Partially visualized left sided pacer and cardiac electrodes. Bowel: Nonobstructive bowel gas pattern. Above-average colonic stool burden in the cecum and ascendin g colon. Soft tissues: No suspicious abdominal calcifications. Visualized solid organ contours appear normal in size. Splenic artery calcification in the left upper quadrant. Bones: No suspicious bony lesions. IMPRESSION: 1.No acute abdominal pathology. 2.Above-average colonic stool burden in the ascending colon and cecum suggestive of constipation. Reviewed by: Laurence Linda MD on 03/15/2024 4:55 PM PDT Approved by: Laurence Linda MD on 03/15/2024 4:55 PM PDT Station ID: [id number]
== END 2024-03-15 10:56 | disposition home or self-care (01) ==
LOC: DI.N 10:55
PROVIDERS: ATTEND Physician Assistant Medical
DX: R10.31 Right lower quadrant pain (principal)

== ENCOUNTER 2024-03-15 10:56 | Outpatient (CLI) | payer MEDICARE, OTHER ==
--- NOTE | 2024-03-23 13:43 | Mammography Report ---
BILATERAL DIGITAL SCREENING MAMMOGRAM 3D/2D: 03/15/2024 CLINICAL: Routine screening. No prior exams were available for comparison. There are scattered areas of fibroglandular density in both breasts (category b / 25%-50% glandular t issue). There is a focal asymmetry in the left breast at 1 o'clock middle depth. No other significant masses, calcifications, or other findings are seen in either breast. IMPRESSION: INCOMPLETE: NEEDS ADDITIONAL IMAGING EVALUATION The focal asymmetry in the left breast is indeterminate. A diagnostic mammogram and ultrasound is re commended. Based on the Tyrer Cuzick model (a risk assessment model) the patient's lifetime risk is 3.1% and her 10 year risk is 2.1%. According to the ACR, ACS, and NCCN guidelines, an annual breast MRI exam manisha g with mammogram is recommended if the patient's lifetime risk is 20% or greater. This exam was interpreted at Station ID: [id number]. NOTE: For mammograms, a report in lay terms will be sent to the patient. Approximately 15% of breast malignancies will not be visualized mammographically. In the management of a palpable breast mass, a negative mammogram must not discourage biopsy of a clinically suspicious lesion. Electronically Signed By: Sepideh Friend M.D., Ph.D. eb/:03/22/2024 08:53:19 ACR BI-RADS Category 0: Incomplete 3340F PARENCHYMAL PATTERN: (A) - The breast(s) demonstrate(s) scattered fibroglandular densities. BI-RADS CATEGORY: (0) - 0 Mammo and [place] [id number] Immediate follow-up LATERALITY: (B)
== END 2024-03-15 10:57 | disposition home or self-care (01) ==
LOC: DI.N 10:56
DX: Z12.31 Encounter for screening mammogram for malignant neoplasm of breast (principal); R92.323 Mammographic fibroglandular density, bilateral breasts; R92.8 Other abnormal and inconclusive findings on diagnostic imaging of breast

== ENCOUNTER 2024-04-05 10:45 | Outpatient (CLI) | payer MEDICARE, OTHER ==
--- NOTE | 2024-04-06 11:35 | Ultrasound Report ---
LIMITED ULTRASOUND OF LEFT BREAST: 04/05/2024 CLINICAL: Patient returns today to evaluate a focal asymmetry in the left breast. Comparison is made to exams dated: 04/05/2024 mammogram and 03/15/2024 mammogram - [facility]. Real-time ultrasound of the left breast 1 o'clock region was performed. Raya scale images of the dilan l-time examination were reviewed. No significant abnormalities were seen sonographically in the left breast in the region of the asymme try. IMPRESSION: NEGATIVE There is no sonographic evidence of malignancy. A 1 year screening mammogram is recommended. Exam findings were conveyed to the patient. This exam was interpreted at Station ID: [id number]. Electronically Signed By: Jaguar Pickering M.D. slc/:04/05/2024 11:40:56 Ultrasound BI-RADS: 1 Negative BI-RADS CATEGORY: (1) - 1 RECOMMENDATION: (ANNUAL) - Recommend routine annual screening mammography. [id number] 1 year screening LATERALITY: (B)
--- NOTE | 2024-04-06 11:35 | Mammography Report ---
UNILATERAL LEFT DIGITAL DIAGNOSTIC MAMMOGRAM 3D/2D WITH SPOT COMPRESSION: 04/05/2024 CLINICAL: Patient returns today to evaluate a focal asymmetry in the left breast. Comparison is made to exams dated: 03/15/2024 mammogram - [facility], 03/30/2020 christian mogram, 03/29/2019 mammogram, 03/04/2018 mammogram, and 05/08/2016 mammogram - [facility]. There are scattered areas of fibroglandular density in the left breast (category b / 25%-50% glandula r tissue). There is a focal asymmetry in the left breast central to the nipple middle depth. This is less promi nent. No other significant masses or calcifications are seen in the breast. IMPRESSION: INCOMPLETE: NEEDS ADDITIONAL IMAGING EVALUATION The focal asymmetry in the left breast resembles fibroglandular tissue and is indeterminate. A targeted ultrasound is recommended and will immediately follow. Based on the Tyrer Cuzick model (a risk assessment model) the patient's lifetime risk is 3.1% and her 10 year risk is 2.1%. According to the ACR, ACS, and NCCN guidelines, an annual breast MRI exam manisha g with mammogram is recommended if the patient's lifetime risk is 20% or greater. This exam was interpreted at Station ID: [id number]. NOTE: For mammograms, a report in lay terms will be sent to the patient. Approximately 15% of breast malignancies will not be visualized mammographically. In the management of a palpable breast mass, a negative mammogram must not discourage biopsy of a clinically suspicious lesion. Electronically Signed By: Jaguar Pickering M.D. slc/:04/05/2024 17:08:35 ACR BI-RADS Category 0: Incomplete 3340F PARENCHYMAL PATTERN: (A) - The breast(s) demonstrate(s) scattered fibroglandular densities. BI-RADS CATEGORY: (0) - 0 Ultrasound [id number] Immediate follow-up LATERALITY: (B)
== END 2024-04-05 10:46 | disposition home or self-care (01) ==
LOC: DI 10:45
PROVIDERS: ATTEND Physician Assistant
DX: R92.8 Other abnormal and inconclusive findings on diagnostic imaging of breast (principal); R92.322 Mammographic fibroglandular density, left breast

== ENCOUNTER 2024-04-08 08:00 | Outpatient (CLI) | payer MEDICARE, OTHER | END 2024-04-08 23:59 | disposition home or self-care (01) | LOC: LAB.N 08:00 | PROVIDERS: ATTEND Physician Assistant | DX: Z51.81 Encounter for therapeutic drug level monitoring (principal); Z79.01 Long term (current) use of anticoagulants; Z86.79 Personal history of other diseases of the circulatory system ==